=== PATIENT | male | born 1945 | race Caucasian/White ===

== ENCOUNTER → 2016-09-12 | Outpatient (CLI) | payer MEDICARE, OTHER | LOC: SP 10:33 | PROVIDERS: ATTEND Internal Medicine Infectious Disease | DX: R42 Dizziness and giddiness (principal) | CPT/HCPCS: 93880 ==

== ENCOUNTER → 2016-09-13 | Outpatient (CLI) | payer MEDICARE, OTHER | LOC: RAD 11:15 | PROVIDERS: ATTEND Internal Medicine Infectious Disease | DX: R42 Dizziness and giddiness (principal) | CPT/HCPCS: 82565; 70553; A9577 ==

== ENCOUNTER → 2016-09-13 | Outpatient (CLI) | payer MEDICARE, OTHER ==
--- NOTE | 2016-09-17 07:50 | EEG PRO FEE REPORT ---
EEG INTERPRETATION PATIENT NAME: PARKER NOWAK ROOM#: ORDER#: [id number] DATE OF STUDY: 09/13/16 : 1945 REFERRING MD: TERRY PALMER M.D. DIAGNOSIS: Memory loss MEDICATIONS: Nexium, Flomax, Lopressor, Lisinopril REPORT This is a 16 channel EEG recording with a channel of EKG. This is done during wakefulness, photic stimulation, and early stages of sleep. The background activity is 6-7 cycles per second with beta 18-22 cycles per second. Severe artifact is seen throughout the tracing. Photic stimulation did not alter the tracing significantly. In the early stages of sleep, more generalized slowing is seen. IMPRESSION This EEG contains severe artifact. Borderline slowing noted, however, this is nonspecific and can be from sleepiness, drowsiness, medication effect, etc. No definite epileptiform discharge is seen. INTERPRETING PHYSICIAN: KENYATTA PALMER M.D. /: [facility] TT: [id number] ID: [id number] /: [id number] TD: [id number] JOB: [id number] cc:KENYATTA PALMER M.D. >
== END ==
LOC: NEURO 12:30
PROVIDERS: ATTEND Internal Medicine Infectious Disease
DX: R41.3 Other amnesia (principal)
CPT/HCPCS: 95819

== ENCOUNTER 2018-10-28 15:44 | Inpatient (IN) | payer MEDICARE, OTHER ==
--- NOTE | 2018-10-28 15:55 | ER Document Report ---
ED Medical Screen (RME) - General Chief Complaint: S/S of Possible Stroke Stated Complaint: LEFT SIDE NUMBNESS Time Seen by Provider: 10/28/18 15:54 Primary Care Provider: LARY STAHL MD [Primary Care Provider] - Follow up as needed Mode of Arrival: Wheelchair Information source: Patient, [facility] Records Notes: 73-year-old male presents with complaint of sudden onset of left-sided numbness that occurred approximately 1 hour prior to arrival while driving. I have greeted and performed a rapid initial assessment of this patient. A comprehensive ED assessment and evaluation of the patient, analysis of test results and completion of medical decision making process we will be contacted by additional ED providers. PHYSICAL EXAMINATION: Vital signs reviewed GENERAL: Well-appearing, well-nourished and in no acute distress. LUNGS: No respiratory distress Musculoskeletal: Normal range of motion NEUROLOGICAL: Cranial nerves II through XII intact. PSYCH: Normal mood, normal affect. SKIN: Warm, Dry, normal turgor, no rashes or lesions noted. TRAVEL OUTSIDE OF THE [place] IN LAST 30 DAYS: No - HPI Onset: Just prior to arrival Onset/Duration: Sudden, Gone Quality of pain: No pain Severity: None Associated Symptoms: None Exacerbated by: Denies Relieved by: Denies Similar symptoms previously: No Recently seen / treated by doctor: No - Related Data Smoking: Non-smoker Frequency of alcohol use: None Drug Abuse: None Allergies/Adverse Reactions: No Known Allergies Allergy (Verified 10/28/18 15:51) Past Medical History - Past Medical History Cardiac Medical History: Reports: Hx Hypertension Doctor's Discharge - Discharge Referrals: LARY STAHL MD [Primary Care Provider] - Follow up as needed
--- NOTE | 2018-10-28 16:20 | RADIOLOGY REPORT (SQ) ---
EXAM DESCRIPTION: CT HEAD WITHOUT COMPLETED DATE/TIME: 10/28/2018 4:01 pm REASON FOR STUDY: left-sided numbness x 1 hour COMPARISON: 03/29/2016 TECHNIQUE: Axial images acquired through the brain without intravenous contrast. Images reviewed wi th bone, brain and subdural windows. Additional sagittal and coronal reconstructions were generated. Images stored on PACS. All CT scanners at this facility use dose modulation, iterative reconstruction, and/or weight based d osing when appropriate to reduce radiation dose to as low as reasonably achievable (ALARA). [facility]: Dose Right [facility]: CareDose [facility]: Dose Right [facility]: Teradose 4D [facility]: Motion Traxx RADIATION DOSE: CT Rad equipment meets quality standard of care and radiation dose reduction techniq ues were employed. CTDIvol: 53.2 mGy. DLP: 1044 mGy-cm. mGy. LIMITATIONS: None. FINDINGS: VENTRICLES: Normal size and contour. CEREBRUM: No masses. No hemorrhage. No midline shift. No evidence for acute infarction. Normal gra y/white matter differentiation. No areas of low density in the white matter. CEREBELLUM: No masses. No hemorrhage. No alteration of density. No evidence for acute infarction. EXTRAAXIAL SPACES: No fluid collections. No masses. ORBITS AND GLOBE: No intra- or extraconal masses. Normal contour of globe without masses. CALVARIUM: No fracture. PARANASAL SINUSES: No fluid or mucosal thickening. SOFT TISSUES: No mass or hematoma. OTHER: No other significant finding. IMPRESSION: NORMAL BRAIN CT WITHOUT CONTRAST. EVIDENCE OF ACUTE STROKE: NO. COMMENT: Quality ID # [id number]: Final reports with documentation of one or more dose reduction techniques (e.g., Automated exposure control, adjustment of the mA and/or kV according to patient size, use of iterative reconstruction technique) TECHNICAL DOCUMENTATION: JOB ID: [id number] [employer]- All Rights Reserved Reading location - IP/workstation name: [email or web address]
--- NOTE | 2018-10-28 16:21 | RADIOLOGY REPORT (SQ) ---
EXAM DESCRIPTION: CHEST SINGLE VIEW COMPLETED DATE/TIME: 10/28/2018 4:04 pm REASON FOR STUDY: left-sided numbness x 1 hour COMPARISON: None. EXAM PARAMETERS: NUMBER OF VIEWS: One view. TECHNIQUE: Single frontal radiographic view of the chest acquired. RADIATION DOSE: NA LIMITATIONS: None. FINDINGS: LUNGS AND PLEURA: No discrete opacities. Scarring/ atelectasis of the left base. MEDIASTINUM AND HILAR STRUCTURES: Elevated right hemidiaphragm. HEART AND VASCULAR STRUCTURES: Heart normal in size. Normal vasculature. BONES: No acute findings. HARDWARE: None in the chest. OTHER: No other significant finding. IMPRESSION: Atelectasis/ scarring at the left base. Elevated right hemidiaphragm. TECHNICAL DOCUMENTATION: JOB ID: [id number] [employer]- All Rights Reserved Reading location - IP/workstation name: [email or web address]
[2018-10-28 16:25] LABS: ABSOLUTE EOSINOPHILS # (AUTO) 0.2 10^3/uL (0.0-0.6); ABSOLUTE LYMPHOCYTES (AUTO) 1.5 10^3/uL (0.5-4.7); ABSOLUTE MONOCYTES (AUTO) 0.4 10^3/uL (0.1-1.4); BASOPHILS % (AUTO) 0.6 % (0-2); EOSINOPHILS % (AUTO) 3.2 % (0-6); HEMATOCRIT 46.4 % (37.9-51.0); HEMOGLOBIN 15.9 g/dL (13.5-17.0); LYMPHOCYTES % (AUTO) 29.2 % (13-45); MEAN CORPUSCULAR HEMOGLOBIN 29.9 pg (27.0-33.4); MEAN CORPUSCULAR HGB CONC 34.3 g/dL (32.0-36.0); MEAN CORPUSCULAR VOLUME 87 fl (80-97); MONOCYTES % (AUTO) 7.4 % (3-13); PLATELET COUNT 225 10^3/uL (150-450); RED BLOOD COUNT 5.32 10^6/uL (4.35-5.55); RED CELL DISTRIBUTION WIDTH 14.6 % (11.5-14.0); SEGMENTED NEUTROPHILS % (AUTO) 59.6 % (42-78); TOTAL CELLS COUNTED % (AUTO) 100 %; WHITE BLOOD COUNT 5.1 10^3/uL (4.0-10.5)
[2018-10-28 16:26] LABS: PROTHROMBIN TIME 13.7 SEC (11.4-15.4)
[2018-10-28 16:27] LABS: PARTIAL THROMBOPLASTIN TIME 37.5 SEC (23.5-35.8)
[2018-10-28 16:44] LABS: ALANINE AMINOTRANSFERASE 23 U/L (21-72); ALBUMIN 4.7 g/dL (3.5-5.0); ALKALINE PHOSPHATASE 108 U/L (38-126); ANION GAP 10 (5-19); ASPARTATE AMINO TRANSFERASE 29 U/L (17-59); BILIRUBIN,DIRECT 0.4 mg/dL (0.0-0.4); BILIRUBIN,TOTAL 0.6 mg/dL (0.2-1.3); BLOOD UREA NITROGEN 28 mg/dL (7-20); CALCIUM 8.6 mg/dL (8.4-10.2); CARBON DIOXIDE 23 mmol/L (22-30); CHLORIDE 107 mmol/L (98-107); CREATINE KINASE 69 U/L (55-170); GLUCOSE 94 mg/dL (75-110); POTASSIUM 4.6 mmol/L (3.6-5.0); SODIUM 139.7 mmol/L (137-145); TOTAL PROTEIN 7.5 g/dL (6.3-8.2)
[2018-10-28 16:57] LABS: CREATINE KINASE MB 2.12 ng/mL (<4.55)
[2018-10-28 17:01] LABS: TROPONIN I < 0.012 ng/mL
--- NOTE | 2018-10-28 17:42 | EKG REPORT ---
SEVERITY:- ABNORMAL ECG - SINUS RHYTHM CONSIDER RIGHT VENTRICULAR HYPERTROPHY VS OLD TRUE POST CO BORDERLINE INFERIOR Q WAVES BORDERLINE PROLONGED QT INTERVAL : Confirmed by: Zachary Le MD 28-Oct-2018 17:41:10
[2018-10-28] MEDS ORDERED: ASPIRIN 325 MG TABLET PO ONE (19:28)
--- NOTE | 2018-10-28 20:50 | ER Document Report ---
ED General - General Chief Complaint: S/S of Possible Stroke Stated Complaint: LEFT SIDE NUMBNESS Time Seen by Provider: 10/28/18 15:54 Primary Care Provider: LARY STAHL MD [NO LOCAL MD] - Follow up as needed Mode of Arrival: Wheelchair TRAVEL OUTSIDE OF THE [place] IN LAST 30 DAYS: No - HPI Notes: Patient presents to the emergency department for evaluation. He was driving down the road when he started having left arm and leg numbness. He states they felt as if they were "asleep." He states he tried to move them and they felt slightly heavy. Symptoms lasted approximately 15-20 minutes. He was able to get home under his own power. He states that after that he has had some intermittent chest pains that lasted 5-10 seconds. He had no associated symptoms with that. He is never experienced any sort of numbness or heaviness like this in the past. He does have a history of high blood pressure has been taking his medications as prescribed. He denies any pain of any sort. - Related Data Allergies/Adverse Reactions: No Known Allergies Allergy (Verified 10/28/18 15:51) Past Medical History - General Information source: Patient, [facility] Records - Social History Smoking Status: Former Smoker Chew tobacco use (# tins/day): No Frequency of alcohol use: None Drug Abuse: None Family History: Reviewed & Not Pertinent Patient has suicidal ideation: No Patient has homicidal ideation: No - Past Medical History Cardiac Medical History: Reports: Hx Hypertension Renal/ Medical History: Denies: Hx Peritoneal Dialysis Review of Systems - Review of Systems Constitutional: No symptoms reported EENT: No symptoms reported Cardiovascular: See HPI Respiratory: No symptoms reported Gastrointestinal: No symptoms reported Genitourinary: No symptoms reported Skin: No symptoms reported Neurological/Psychological: See HPI Physical Exam - Vital signs Vitals: Pulse Resp BP Pulse Ox 62 15 151/103 H 94 10/28/18 15:50 10/28/18 15:50 10/28/18 15:50 10/28/18 15:50 - Notes Notes: Vital signs reviewed, please refer to chart. Patient is normocephalic, atraumatic. Pupils equal round, reactive to light. Neck is supple without meningismus. Heart is regular rate and rhythm. Lungs are clear to auscultation bilaterally. Abdomen is soft, nontender, normoactive bowel sounds throughout. Extremities without cyanosis, clubbing, edema. Peripheral pulses are equal. Skin is warm and dry. Patient is awake, alert, oriented x3. Cranial nerves II through XII are grossly intact without focal neurological deficits. Strength is plus 5 out of 5 bilateral upper and lower extremities. Sensation is intact, reflexes symmetrical. Intact mucvhi-xbre-qmanwu, rapid alternating movements, heel to butler. Course - Re-evaluation Re-evalutation: 10/28/18 20:54 Patient presents to the emergency department for evaluation. His symptoms of left-sided numbness and heaviness are very suspicious for a TIA. His neurological exam was normal here. Serial neurological exams did not reveal any significant abnormalities. His blood pressures remain mildly elevated but certainly not to an emergency level. Laboratory evaluations are unremarkable. CT scan of the head did not reveal anything acute. His EKG revealed a sinus mechanism. He was given aspirin when his CT was found to be unremarkable. He remained asymptomatic. Given that this was his first TIA, will admit the patient for further workup. I was able to reach Dr. Herron after multiple attempts at 2049. 10/28/18 20:56 - Vital Signs Vital signs: Temp Pulse Resp BP Pulse Ox 98.3 F 62 18 150/88 H 96 10/28/18 20:01 10/28/18 19:57 10/28/18 19:57 10/28/18 19:57 10/28/18 19:57 - Laboratory Result Diagrams: 10/28/18 16:10 10/28/18 16:10 Laboratory results interpreted by me: 10/28/18 10/28/18 10/28/18 16:10 16:10 16:10 RDW 14.6 H APTT 37.5 H BUN 28 H Creatinine 1.50 H Est GFR ( Amer) 56 L Est GFR (Non-Af Amer) 46 L Discharge - Discharge Clinical Impression: TIA (transient ischemic attack) Condition: Fair Disposition: ADMITTED INPATIENT Admitting Provider: Dalton Herron Unit Admitted: Telemetry Referrals: LARY STAHL MD [NO LOCAL MD] - Follow up as needed
[2018-10-28] MEDS ORDERED: DOCUSATE SODIUM 100 MG CAPSULE PO PRN (20:56)
[2018-10-28] MEDS ORDERED: ONDANSETRON HCL INJ/PF 4 MG/2 ML SDV IV PRN (20:56)
[2018-10-28] MEDS ORDERED: MAGNESIUM HYDROXIDE SUSP 30 ML UDCUP PO PRN (20:56)
[2018-10-28] MEDS ORDERED: LABETALOL HCL INJ 20 MG/4 ML DISP.SYRIN IV PRN (20:56)
[2018-10-28] MEDS ORDERED: ONDANSETRON 4 MG TAB.RAPDIS PO PRN (20:56)
[2018-10-28] MEDS ORDERED: NORMAL SALINE 1000 ML 1,000 ML IV PRN (21:09)
[2018-10-28 21:47] LABS: APPEARANCE,URINE SLIGHTLY-CLOUDY; BILIRUBIN,URINE NEGATIVE (NEGATIVE); COLOR,URINE YELLOW; GLUCOSE, URINE NEGATIVE (NEGATIVE); KETONES,URINE NEGATIVE (NEGATIVE); LEUKOCYTE ESTERASE,URINE NEGATIVE (NEGATIVE); NITRITE,URINE NEGATIVE (NEGATIVE); PROTEIN,URINE 100 mg/dL (NEGATIVE); URINE SPECIFIC GRAVITY 1.016; UROBILINOGEN,URINE NEGATIVE mg/dL (<2.0)
[2018-10-28 22:43] LABS: FREE T3 3.77 pg/mL (2.77-5.27); FREE T4 (FREE THYROXINE) 1.24 ng/dL (0.78-2.19)
--- NOTE | 2018-10-28 22:44 | RADIOLOGY REPORT (SQ) ---
EXAM DESCRIPTION: MR BRAIN WITHOUT IV CONTRAST COMPLETED DATE/TME: 10/28/2018 00:00 CLINICAL HISTORY: 73 years, Male, TIA COMPARISON: Prior MRI brain 09/13/2016 TECHNIQUE: 277 Images stored on PACS. LIMITATIONS: None. FINDINGS: Sagittal midline anatomic structures demonstrate an unremarkable appearance to the pituitary and suprasellar regions. The globes are intact. The paranasal sinuses and mastoid air cells are unremarkable. Normal flow void in visualized intracranial vessels. The visualized cranial nerve complexes are unremarkable. There is no intra or extra-axial hemorrhage. Diffusion-weighted images are normal, without evidence for acute infarct. No evidence for mass or midline shift. Diffuse, age-appropriate atrophy. A few foci of increased FLAIR/T2 white matter signal in the periventricular and subcortical regions, consistent with sequelae of small vessel ischemic change. IMPRESSION: Negative for acute intracranial abnormality. Mild atrophy and small vessel ischemic change copyright 2010 [employer]- All Rights Reserved
[2018-10-28] MEDS: ACETAMINOPHEN 325 MG TABLET PO PRN (23:02)
[2018-10-28] MEDS: FAMOTIDINE 20 MG TABLET PO SCH (23:02)
[2018-10-28 23:42] LABS: CREATINE KINASE MB 1.75 ng/mL (<4.55)
[2018-10-28 23:48] LABS: TROPONIN I < 0.012 ng/mL
[2018-10-29] MEDS ORDERED: MELATONIN 5 MG TABLET PO ONE (02:24)
[2018-10-29] MEDS ORDERED: LABETALOL HCL INJ 20 MG/4 ML DISP.SYRIN IV ONE (04:09)
--- NOTE | 2018-10-29 05:01 | PDOC H&P ---
History of Present Illness Admission Date/PCP: ALANNA CARIAS MD Patient complains of: Left sided weakness History of Present Illness: PARKER NOWAK is a 73 year old male who presents the emergency room with the sudden onset of acute weakness of the entire left side of his body. He states that at approximately 2:15 PM on the day of admission he was driving his vehicle when he suddenly had the onset of a strange sensation of numbness "like it just was going to sleep" involving the entire left side of his body. The sensation was progressive beginning at his head and over the next 30-40 seconds gradually moved down his entire body to his left foot. The sensation of numbness was also accompanied by significant weakness and inability to actively control the position or function of his left hand or foot. He was trying to shake his arm in order to "wake up" his hand but his actions were poorly coordinated and to no avail. He was concerned and was driving to go to the hospital which she eventually did however the symptoms resolved within approximately 15 minutes of the time that they had started. The symptoms have not recurred since that time. He rates his symptoms as moderately severe at the time while they were present and denies prior similar episodes. He has not identified any aggravating or ameliorating factors for his acute onset of weakness and numbness. He admits a past medical history positive for hypertension and also a history of prostate cancer. In the emergency room he was found to have a negative CT of the head and his laboratory evaluation was essentially unremarkable. Because of his acute stroke/TIA symptoms he was admitted for further evaluation and treatment. Past Medical History Cardiac Medical History: Reports: Hypertension Denies: Atrial Fibrillation, Coronary Artery Disease, DVT, Hyperlipidema Pulmonary Medical History: Denies: Asthma, Chronic Obstructive Pulmonary Disease (COPD) EENT Medical History: Reports: None Neurological Medical History: Denies: Hemorrhagic CVA, Ischemic CVA, Seizures Endocrine Medical History: Denies: Diabetes Mellitus Type 1, Diabetes Mellitus Type 2, Hyperthyroidism, Hypothyroidism Renal/ Medical History: Denies: Chronic Kidney Disease, Nephrolithiasis Malignancy Medical History: Reports: Other - Prostate cancer GI Medical History: Denies: Cirrhosis, Hepatitis Musculoskeltal Medical History: Denies: Arthritis, Gout Skin Medical History: Denies: Eczema, Psoriasis Psychiatric Medical History: Reports: Tobacco Dependency Denies: Alcohol Dependency, Substance Abuse Traumatic Medical History: Reports: None Hematology: Denies: Anemia, Bleeding Tendencies Infectious Medical History: Reports: None Past Surgical History Past Surgical History: Reports: Cardiac Catheterization - With cardiac ablation and IVF filter placement, Gastric Bypass Surgery, Orthopedic Surgery - Left knee replacement, Tonsillectomy, Other - Treatment of prostate cancer Social History Information Source: Patient Lives with: Spouse/Significant other Smoking Status: Former Smoker Frequency of Alcohol Use: None Hx Recreational Drug Use: No Drugs: None Hx Prescription Drug Abuse: No - Advance Directive Resuscitation Status: Full Code Surrogate healthcare decision maker:: His daughter Family History Family History: CAD, Malignancy Parental Family History Reviewed: Yes Children Family History Reviewed: No Sibling(s) Family History Reviewed.: Yes Medication/Allergy Allergies/Adverse Reactions: No Known Allergies Allergy (Verified 10/28/18 15:51) Review of Systems Constitutional: PRESENT: as per HPI, weakness. ABSENT: chills, fever(s) Eyes: ABSENT: visual disturbances, other - Eye pain Ears: ABSENT: hearing changes, other - Ear pain Nose, Mouth, and Throat: ABSENT: mouth pain, sore throat Cardiovascular: PRESENT: chest pain - Experienced a few episodes of sharp pain under his pacemaker lasting for 5-10 seconds during the episode described in the history of present illness.. ABSENT: dyspnea on exertion, palpitations Respiratory: ABSENT: cough, dyspnea Gastrointestinal: ABSENT: abdominal pain, constipation, diarrhea, nausea, vomiting Genitourinary: ABSENT: dysuria, hematuria Musculoskeletal: ABSENT: deformity, joint swelling Integumentary: ABSENT: pruritus, rash Neurological: PRESENT: as per HPI, focal weakness, lack of coordination, numbn ess, weakness. ABSENT: confusion, convulsions, memory loss, tremor(s) Psychiatric: ABSENT: anxiety, depression Endocrine: ABSENT: cold intolerance, heat intolerance Hematologic/Lymphatic: ABSENT: easy bleeding, easy bruising Physical Exam Vital Signs: Temp Pulse Resp BP Pulse Ox 98.3 F 62 18 150/88 H 96 10/28/18 20:01 10/28/18 19:57 10/28/18 19:57 10/28/18 19:57 10/28/18 19:57 General appearance: PRESENT: no acute distress, cooperative Head exam: PRESENT: atraumatic, normocephalic Eye exam: PRESENT: conjunctiva pink, EOMI. ABSENT: scleral icterus Ear exam: PRESENT: normal external ear exam. ABSENT: bleeding, drainage Mouth exam: PRESENT: dry mucosa, neck supple Neck exam: ABSENT: thyromegaly, tracheal deviation Respiratory exam: PRESENT: clear to auscultation gretta, symmetrical, unlabored Cardiovascular exam: PRESENT: RRR. ABSENT: clicks, gallop, rubs Pulses: PRESENT: normal radial pulses, normal dorsalis pedis pul Vascular exam: PRESENT: normal capillary refill. ABSENT: pallor GI/Abdominal exam: PRESENT: normal bowel sounds, soft. ABSENT: tenderness Rectal exam: PRESENT: deferred Extremities exam: ABSENT: joint swelling, pedal edema Musculoskeletal exam: ABSENT: deformity, dislocation Neurological exam: PRESENT: alert, oriented to person, oriented to place, oriented to time, oriented to situation, CN II-XII grossly intact. ABSENT: motor sensory deficit Psychiatric exam: PRESENT: appropriate affect, normal mood Skin exam: PRESENT: dry, intact, warm. ABSENT: jaundice, rash, urticaria Results Laboratory Results: 10/28/18 16:10 10/28/18 16:10 10/28/18 10/28/18 16:10 16:10 WBC 5.1 RBC 5.32 Hgb 15.9 Hct 46.4 MCV 87 MCH 29.9 MCHC 34.3 RDW 14.6 H Plt Count 225 Seg Neutrophils % 59.6 Lymphocytes % 29.2 Monocytes % 7.4 Eosinophils % 3.2 Basophils % 0.6 Absolute Neutrophils 3.0 Absolute Lymphocytes 1.5 Absolute Monocytes 0.4 Absolute Eosinophils 0.2 Absolute Basophils 0.0 Sodium 139.7 Potassium 4.6 Chloride 107 Carbon Dioxide 23 Anion Gap 10 BUN 28 H Creatinine 1.50 H Est GFR ( Amer) 56 L Est GFR (Non-Af Amer) 46 L Glucose 94 Calcium 8.6 Total Bilirubin 0.6 AST 29 ALT 23 Alkaline Phosphatase 108 Total Protein 7.5 Albumin 4.7 10/28/18 10/28/18 16:10 16:10 Creatine Kinase 69 CK-MB (CK-2) 2.12 Troponin I < 0.012 Impressions: Chest X-Ray 10/28/18 15:50 IMPRESSION: Atelectasis/ scarring at the left base. Elevated right hemidiaphragm. Head CT 10/28/18 15:50 IMPRESSION: NORMAL BRAIN CT WITHOUT CONTRAST. EVIDENCE OF ACUTE STROKE: NO. Assessment & Plan - Diagnosis (1) TIA (transient ischemic attack) Is this a current diagnosis for this admission?: Yes Plan: Patient has been placed in the stroke/TIA protocol and will be evaluated carefully over the next 1-2 days. He will receive Nubain 10 mg IV every 3 hours as needed for pain. (2) HTN (hypertension), malignant Is this a current diagnosis for this admission?: Yes Plan: Patient will be continued on his usual medications for hypertension with changes made only as required for adequacy of control. (3) Obesity Qualifiers: Obesity type: unspecified obesity type Is this a current diagnosis for this admission?: Yes Plan: Patient is status post gastric bypass surgery he will be maintained on a heart healthy diet. Dietary consultation and further evaluation will be available to him at his request. (4) Personal history of malignant neoplasm of prostate Is this a current diagnosis for this admission?: Yes Plan: The treatment selected for the patient will be done so with great care towards the history of prior malignant neoplasm of the prostate. - Time Time Spent: 30 to 50 Minutes Critical Time spent with patient: Less than 15 minutes Medications reviewed and adjusted accordingly: Yes Anticipated discharge: Home - Inpatient Certification Based on my medical assessment, after consideration of the patient's comorbidities, presenting symptoms, or acuity I expect that the services needed warrant INPATIENT care.: Yes I certify that my determination is in accordance with my understanding of Medicare's requirements for reasonable and necessary INPATIENT services [42 CFR 412.3e].: Yes Medical Necessity: Significant Comorbidiites Make Outpatient Treatment Too Risky, Need Close Monitoring Due to Risk of Patient Decompensation, Need For Continuous Telemetry Monitoring, Need for Neurological Checks, Risk of Complication if Not Cared For in Hospital
[2018-10-29 05:41] LABS: HEMATOCRIT 43.5 % (37.9-51.0); HEMOGLOBIN 14.7 g/dL (13.5-17.0); MEAN CORPUSCULAR HEMOGLOBIN 29.7 pg (27.0-33.4); MEAN CORPUSCULAR HGB CONC 33.8 g/dL (32.0-36.0); MEAN CORPUSCULAR VOLUME 88 fl (80-97); PLATELET COUNT 186 10^3/uL (150-450); RED BLOOD COUNT 4.95 10^6/uL (4.35-5.55); RED CELL DISTRIBUTION WIDTH 14.8 % (11.5-14.0); WHITE BLOOD COUNT 4.9 10^3/uL (4.0-10.5)
[2018-10-29 06:03] LABS: ANION GAP 9 (5-19); BLOOD UREA NITROGEN 26 mg/dL (7-20); CALCIUM 8.5 mg/dL (8.4-10.2); CARBON DIOXIDE 26 mmol/L (22-30); CHLORIDE 108 mmol/L (98-107); CHOLESTEROL 185.88 mg/dL (0-200); CREATINE KINASE 52 U/L (55-170); GLUCOSE 108 mg/dL (75-110); POTASSIUM 4.6 mmol/L (3.6-5.0); SODIUM 142.9 mmol/L (137-145); TRIGLYCERIDES 128 mg/dL (<150)
[2018-10-29 06:14] LABS: DIRECT LDL 122 mg/dL (<100)
--- NOTE | 2018-10-29 08:35 | RADIOLOGY REPORT (SQ) ---
EXAM DESCRIPTION: MRA HEAD WITHOUT COMPLETED DATE/TIME: 10/28/2018 10:41 pm REASON FOR STUDY: TIA COMPARISON: None. TECHNIQUE: Axial 3-D [id number] acquisition imaging performed through the brain in the area of t he [place]. Images reformatted using 3-D MIPS. LIMITATIONS: None. FINDINGS: SOURCE IMAGES: No unexpected findings on source images. No large masses. 3-D MIP: No aneurysm. No occlusions. No significant stenosis. OTHER: No other significant finding. IMPRESSION: NORMAL MRA OF THE [place]. TECHNICAL DOCUMENTATION: JOB ID: [id number] [email or web address]- All Rights Reserved Reading location - IP/workstation name: [email or web address]
[2018-10-29] MEDS: FONDAPARINUX SODIUM INJ 2.5 MG/0.5 ML DISP.SYRIN SUBCUT SCH (08:53)
[2018-10-29 09:05] LABS: TROPONIN I < 0.012 ng/mL
[2018-10-29] MEDS: FAMOTIDINE 20 MG TABLET PO SCH ×2 (10:50→21:49)
[2018-10-29] MEDS: CLOPIDOGREL BISULFATE 75 MG TABLET PO SCH (10:50)
[2018-10-29 12:21] LABS: CREATINE KINASE MB 1.76 ng/mL (<4.55)
[2018-10-29 12:25] LABS: TROPONIN I < 0.012 ng/mL
[2018-10-29] MEDS ORDERED: (PENDING PHARMACY ID) (Lisinopril [Zestril] 20 MG) PO SCH (13:00)
--- NOTE | 2018-10-29 14:08 | PDOC PROGRESS REPORT ---
Subjective Progress Note for:: 10/29/18 Subjective:: No acute events overnight. Patient's numbness on the left side has resolved completely. Denies any focal neurological deficit. Ambulatory. Denies any vision changes. Denies fever, chills, nausea, vomiting, diarrhea, constipation or any urinary symptoms. Reason For Visit: TIA Physical Exam Vital Signs: Temp Pulse Resp BP Pulse Ox 97.8 F 64 17 156/96 H 97 10/29/18 11:24 10/29/18 11:24 10/29/18 11:24 10/29/18 11:24 10/29/18 11:24 Intake & Output 10/28/18 10/29/18 10/30/18 06:59 06:59 06:59 Intake Total 200 Balance 200 Weight 115.2 kg General appearance: PRESENT: no acute distress, well-developed, well-nourished Head exam: PRESENT: atraumatic, normocephalic Eye exam: PRESENT: conjunctiva pink, EOMI, PERRLA. ABSENT: scleral icterus Neck exam: ABSENT: carotid bruit, JVD, lymphadenopathy, thyromegaly Respiratory exam: PRESENT: clear to auscultation gretta. ABSENT: rales, rhonchi, wheezes Cardiovascular exam: PRESENT: RRR. ABSENT: diastolic murmur, rubs, systolic mur mur Rectal exam: PRESENT: deferred Extremities exam: PRESENT: full ROM. ABSENT: calf tenderness, clubbing, pedal edema Neurological exam: PRESENT: alert, awake, oriented to person, oriented to place, oriented to time, oriented to situation, CN II-XII grossly intact. ABSENT: motor sensory deficit Skin exam: PRESENT: dry, intact, warm. ABSENT: cyanosis, rash Results Laboratory Results: 10/29/18 04:57 10/29/18 04:57 10/28/18 10/28/18 10/28/18 16:10 16:10 16:10 WBC 5.1 RBC 5.32 Hgb 15.9 Hct 46.4 MCV 87 MCH 29.9 MCHC 34.3 RDW 14.6 H Plt Count 225 Seg Neutrophils % 59.6 Lymphocytes % 29.2 Monocytes % 7.4 Eosinophils % 3.2 Basophils % 0.6 Absolute Neutrophils 3.0 Absolute Lymphocytes 1.5 Absolute Monocytes 0.4 Absolute Eosinophils 0.2 Absolute Basophils 0.0 Sodium 139.7 Potassium 4.6 Chloride 107 Carbon Dioxide 23 Anion Gap 10 BUN 28 H Creatinine 1.50 H Est GFR ( Amer) 56 L Est GFR (Non-Af Amer) 46 L Glucose 94 Calcium 8.6 Magnesium Total Bilirubin 0.6 AST 29 ALT 23 Alkaline Phosphatase 108 Total Protein 7.5 Albumin 4.7 Triglycerides Cholesterol LDL Cholesterol Direct VLDL Cholesterol HDL Cholesterol TSH Free T4 1.24 Free T3 pg/mL 3.77 Urine Color Urine Appearance Urine pH Ur Specific Fitz[place] Urine Protein Urine Glucose (UA) Urine Ketones Urine Blood Urine Nitrite Ur Leukocyte Esterase Urine WBC (Auto) Urine RBC (Auto) 10/28/18 10/29/18 10/29/18 21:35 04:57 04:57 WBC 4.9 RBC 4.95 Hgb 14.7 Hct 43.5 MCV 88 MCH 29.7 MCHC 33.8 RDW 14.8 H Plt Count 186 Seg Neutrophils % Lymphocytes % Monocytes % Eosinophils % Basophils % Absolute Neutrophils Absolute Lymphocytes Absolute Monocytes Absolute Eosinophils Absolute Basophils Sodium 142.9 Potassium 4.6 Chloride 108 H Carbon Dioxide 26 Anion Gap 9 BUN 26 H Creatinine 1.26 H Est GFR ( Amer) > 60 Est GFR (Non-Af Amer) 56 L Glucose 108 Calcium 8.5 Magnesium 2.4 H Total Bilirubin AST ALT Alkaline Phosphatase Total Protein Albumin Triglycerides 128 Cholesterol 185.88 LDL Cholesterol Direct 122 H VLDL Cholesterol 26.0 HDL Cholesterol 49 TSH Free T4 Free T3 pg/mL Urine Color YELLOW Urine Appearance SLIGHTLY-CLOUDY Urine pH 5.0 Ur Specific Fitzpatrick 1.016 Urine Protein 100 H Urine Glucose (UA) NEGATIVE Urine Ketones NEGATIVE Urine Blood NEGATIVE Urine Nitrite NEGATIVE Ur Leukocyte Esterase NEGATIVE Urine WBC (Auto) 1 Urine RBC (Auto) 0 10/29/18 04:57 WBC RBC Hgb Hct MCV MCH MCHC RDW Plt Count Seg Neutrophils % Lymphocytes % Monocytes % Eosinophils % Basophils % Absolute Neutrophils Absolute Lymphocytes Absolute Monocytes Absolute Eosinophils Absolute Basophils Sodium Potassium Chloride Carbon Dioxide Anion Gap BUN Creatinine Est GFR ( Amer) Est GFR (Non-Af Amer) Glucose Calcium Magnesium Total Bilirubin AST ALT Alkaline Phosphatase Total Protein Albumin Triglycerides Cholesterol LDL Cholesterol Direct VLDL Cholesterol HDL Cholesterol TSH 1.67 Free T4 Free T3 pg/mL Urine Color Urine Appearance Urine pH Ur Specific Fitzpatrick Urine Protein Urine Glucose (UA) Urine Ketones Urine Blood Urine Nitrite Ur Leukocyte Esterase Urine WBC (Auto) Urine RBC (Auto) 02/10/28/18 10/28/18 16:10 16:10 22:49 Creatine Kinase 69 50 L CK-MB (CK-2) 2.12 Troponin I < 0.012 10/28/18 10/29/18 10/29/18 22:49 04:57 04:57 Creatine Kinase 52 L CK-MB (CK-2) 1.75 1.70 Troponin I < 0.012 < 0.012 10/29/18 10/29/18 11:10 11:10 Creatine Kinase 51 L CK-MB (CK-2) 1.76 Troponin I < 0.012 Impressions: Head MRI 10/28/18 00:00 IMPRESSION: Negative for acute intracranial abnormality. Mild atrophy and small vessel ischemic change copyright 2011 [employer]- All Rights Reserved Chest X-Ray 10/28/18 15:50 IMPRESSION: Atelectasis/ scarring at the left base. Elevated right hemidiaphragm. Head CT 10/28/18 15:50 IMPRESSION: NORMAL BRAIN CT WITHOUT CONTRAST. EVIDENCE OF ACUTE STROKE: NO. Brain MRI with MRA 10/28/18 21:03 IMPRESSION: NORMAL MRA OF THE [place]. Assessment & Plan - Diagnosis (1) TIA (transient ischemic attack) Is this a current diagnosis for this admission?: Yes Plan: Denies any focal neurological deficits. Denies any numbness tingling. CT head, MRI brain, MRA brain negative for any acute stroke. Troponins within normal limits. EKG no acute changes. Pending 2D echo and carotid Doppler. Optimize blood pressure. Plavix and statins. Physical therapy has signed off as patient did not need any more PT. (2) LOBO (acute kidney injury) Is this a current diagnosis for this admission?: Yes Plan: Improving. No previous records available. Unsure if this is acute due to LOBO cause by HTN or patient has chronic changes due to chronic hypertension. Monitor volume status, monitor electrolytes. Urine sodium, urine creatinine. Renal ultrasound. A1c within normal limits. Optimize blood pressure. (3) Hyperlipidemia LDL goal <130 Is this a current diagnosis for this admission?: Yes Plan: ASCVD 29%. Started on high intensity statins. Outpatient follow-up with PCP for LFT monitoring. (4) Obesity Qualifiers: Obesity type: unspecified obesity type Body mass index: BMI 31.0-31.9 Is this a current diagnosis for this admission?: Yes Plan: History of gastric bypass. Continue lifestyle and diet modification. (5) Hypertension Is this a current diagnosis for this admission?: No Plan: Not optimize. Restart home meds. Adjust meds as needed.
[2018-10-29] MEDS ORDERED: AMLODIPINE BESYLATE 10 MG TABLET PO SCH (15:00)
--- NOTE | 2018-10-29 15:48 | RADIOLOGY REPORT (SQ) ---
EXAM DESCRIPTION: CAROTID DOPPLER COMPLETED DATE/TIME: 10/29/2018 3:13 pm REASON FOR STUDY: TIA COMPARISON: None. TECHNIQUE: Grayscale ultrasound, Doppler velocity and spectra, and color Doppler images acquired of the extra-cranial carotid and vertebral arteries. Images stored on PACS. LIMITATIONS: None. FINDINGS: RIGHT CAROTID CCA Velocities: Within normal limits. ICA Velocities Peak systolic 0.56 m/s. End diastolic 0.09 m/s. Proximal ICA/CCA peak systolic ratio 1.2. Spectra normal. No significant plaque. LEFT CAROTID CCA Velocities: Within normal limits. ICA Velocities Peak systolic 0.75 m/s. End diastolic 0.26 m/s. Proximal ICA/CCA peak systolic ratio 1.4. Spectra normal. No significant plaque. VERTEBRAL ARTERIES: Antegrade flow. Normal waveforms. SUBCLAVIAN ARTERIES: Not imaged. OTHER: No other significant finding. IMPRESSION: NO HEMODYNAMICALLY SIGNIFICANT STENOSIS. COMMENT: Quality ID #[id number]: Velocity criteria are extrapolated from the diameter data as defined by t he Society of Radiologists in Ultrasound Consensus Conference. Radiology 2003: 229; 340-346. TECHNICAL DOCUMENTATION: JOB ID: [id number] [employer]- All Rights Reserved Reading location - IP/workstation name: [email or web address]
[2018-10-29] MEDS ORDERED: AMLODIPINE BESYLATE 5 MG TABLET PO SCH (16:00)
--- NOTE | 2018-10-29 17:04 | XCELERA REPORT ---
[address] [address] Transthoracic Echocardiogram Report Name: PARKER NOWAK Age: 73 yrs Gender: Male : 1945 Patient Status: Inpatient Patient Location: [address] [place] [address] Study Date: 10/29/2018 03:06 PM Procedure: A two-dimensional transthoracic echocardiogram with color flow and Doppler was performed. The study was technically difficult with many images being suboptimal in quality. Study Quality: Poor. Reason For Study: TIA History: TIA. Ordering Physician: RAVINDRA FELIPE Performed By: Fabiana Morris Interpretation Summary The left ventricle is normal in size. There is normal left ventricular wall thickness. Left ventricular systolic function is normal. LV EF is 65% Doppler measurements suggest impaired left ventricular relaxation, which is associated with grade I/IV or mild diastolic dysfunction The left ventricular wall motion is normal. There is no thrombus. The right ventricle is not well visualized secondary to technical limitations The right atrium is normal. The left atrium is mildly dilated. There is no evidence of mitral valve prolapse. There is no vegetation seen on the mitral valve. There is no mitral valve stenosis. There is a trace amount of mitral regurgitation There is no aortic valvular vegetation. There is no aortic valve stenosis There is no LVOT obstruction. No aortic regurgitation is present. There is no tricuspid stenosis. There is a trace to mild amount of tricuspid regurgitation Right ventricular systolic pressure is at the upper limits of normal RVSP is 26 to 31 mm of Hg ,with RA mean of 5 to 10. The pulmonic valve is not well visualized. The aortic root is not well visualized. The inferior vena cava appeared normal and decreased > 50% with respiration (RAP 5-10 mmHg) There is no pericardial effusion. MMode/2D Measurements & Calculations RVDd: 4.1 cm LVIDd: 5.6 cm FS: 44.3 % Ao root diam: 3.4 cm IVSd: 0.96 cm LVIDs: 3.1 cm EDV(Teich): 152.6 ml Ao root area: 9.1 cm2 LVPWd: 0.93 cm ESV(Teich): 38.1 ml EF(Teich): 75.0 % Doppler Measurements & Calculations MV E max kailey: MV dec slope: Ao V2 max: LV V1 max P.9 cm/sec 156.0 cm/sec 8.2 mmHg MV A max kailey: 276.7 cm/sec2 Ao max PG: LV V1 max: 89.8 cm/sec MV dec time: 0.26 sec9.7 mmHg 142.9 cm/sec MV E/A: 0.80 LV dP/dt: 2858 mmHg/s PA V2 max: TR max kailey: 126.8 cm/sec 229.8 cm/sec PA max P.4 mmHg TR max P.1 mmHg Left Ventricle The left ventricle is normal in size. There is normal left ventricular wall thickness. Left ventricular systolic function is normal. LV EF is 65%. Doppler measurements suggest impaired left ventricular relaxation, which is associated with grade I/IV or mild diastolic dysfunction. The left ventricular wall motion is normal. There is no thrombus. Right Ventricle The right ventricle is not well visualized secondary to technical limitations. Atria The right atrium is normal. The left atrium is mildly dilated. Mitral Valve There is no evidence of mitral valve prolapse. There is no vegetation seen on the mitral valve. There is no mitral valve stenosis. There is a trace amount of mitral regurgitation. Aortic Valve There is no aortic valvular vegetation. There is no aortic valve stenosis. There is no LVOT obstruction. No aortic regurgitation is present. Tricuspid Valve There is no tricuspid stenosis. There is a trace to mild amount of tricuspid regurgitation. Right ventricular systolic pressure is at the upper limits of normal. RVSP is 26 to 31 mm of Hg ,with RA mean of 5 to 10. Pulmonic Valve The pulmonic valve is not well visualized. Great Vessels The aortic root is not well visualized. The inferior vena cava appeared normal and decreased > 50% with respiration (RAP 5-10 mmHg). Effusions There is no pericardial effusion. : RAVINDRA FELIPE > Cristina Gibson
[2018-10-29] MEDS ORDERED: METOPROLOL TARTRATE 50 MG TABLET PO SCH (18:00)
[2018-10-29 18:55] LABS: URINE CREATININE 17.5 mg/dL (22-328)
[2018-10-29] MEDS ORDERED: HYDRALAZINE HCL INJ/PF 20 MG/1 ML SDV IV PRN (21:29)
[2018-10-29] MEDS: ATORVASTATIN CALCIUM 40 MG TABLET PO SCH (21:49)
[2018-10-29] MEDS: OXYBUTYNIN CHLORIDE 5 MG TABLET PO SCH (21:51)
[2018-10-29] MEDS: MELATONIN 5 MG TABLET PO SCH (21:57)
[2018-10-29] MEDS ORDERED: TAMSULOSIN HCL 0.4 MG CAP.SR.24H PO SCH (22:00)
[2018-10-29] MEDS ORDERED: (PENDING PHARMACY ID) (Melatonin [Melatonin] 10 MG) PO SCH (22:00)
[2018-10-29] MEDS ORDERED: METOPROLOL TARTRATE 50 MG TABLET PO ONE (22:00)
[2018-10-30 05:08] LABS: HEMATOCRIT 44.7 % (37.9-51.0); HEMOGLOBIN 15.3 g/dL (13.5-17.0); MEAN CORPUSCULAR HEMOGLOBIN 29.5 pg (27.0-33.4); MEAN CORPUSCULAR HGB CONC 34.2 g/dL (32.0-36.0); MEAN CORPUSCULAR VOLUME 86 fl (80-97); PLATELET COUNT 178 10^3/uL (150-450); RED BLOOD COUNT 5.18 10^6/uL (4.35-5.55); RED CELL DISTRIBUTION WIDTH 14.9 % (11.5-14.0); WHITE BLOOD COUNT 4.5 10^3/uL (4.0-10.5)
[2018-10-30 05:33] LABS: ALANINE AMINOTRANSFERASE 10 U/L (21-72); ALBUMIN 4.1 g/dL (3.5-5.0); ALKALINE PHOSPHATASE 100 U/L (38-126); ANION GAP 11 (5-19); ASPARTATE AMINO TRANSFERASE 22 U/L (17-59); BILIRUBIN,DIRECT 0.2 mg/dL (0.0-0.4); BILIRUBIN,TOTAL 0.5 mg/dL (0.2-1.3); BLOOD UREA NITROGEN 17 mg/dL (7-20); CALCIUM 8.9 mg/dL (8.4-10.2); CARBON DIOXIDE 24 mmol/L (22-30); CHLORIDE 109 mmol/L (98-107); GLUCOSE 97 mg/dL (75-110); SODIUM 143.5 mmol/L (137-145); TOTAL PROTEIN 6.7 g/dL (6.3-8.2)
[2018-10-30] MEDS ORDERED: METOPROLOL TARTRATE 50 MG TABLET PO SCH ×2 (08:00→18:00)
--- NOTE | 2018-10-30 08:08 | RADIOLOGY REPORT (SQ) ---
CLINICAL DATA: Pain 73-year-old male with acute kidney insufficiency. TECHNICAL DATA: Real-time multiplanar ultrasound imaging obtained of the kidneys and bladder. FINDINGS: There are no comparisons. The left kidney measures 11.7 x 5.7 x 5.9 cm. There is no evidence of hydronephrosis or perinephric fluid collection. No definite renal calculus is identified. Cortical echogenicity is normal to slightly increased. There are a couple of small focal anechoic mass lesions arising from the upper pole and mid to lower pole of the left kidney with enhanced through transmission of sound likely representing incidental benign appearing renal cysts. The upper pole cyst measures 1.8 x 1.5 x 1.4 cm. The mid to lower pole cyst measures approximately 2.0 x 2.4 x 2.0 cm. The right kidney measures approximately 11.5 x 5.5 x 6.8 cm. There is no evidence of hydronephrosis or perinephric fluid collection. No definite renal calculus is identified. Cortical echogenicity is normal to slightly increased. No definite solid or cystic renal mass lesions are identified. The bladder is partially distended and smooth in contour. Bilateral ureteral jets are identified. IMPRESSION: 1. Small benign-appearing left renal cysts. 2. Renal cortical echogenicity is normal to slightly increased. 3. No evidence of hydronephrosis.
[2018-10-30] MEDS: TAMSULOSIN HCL 0.4 MG CAP.SR.24H PO SCH (08:20)
[2018-10-30] MEDS: FONDAPARINUX SODIUM INJ 2.5 MG/0.5 ML DISP.SYRIN SUBCUT SCH (08:20)
[2018-10-30] MEDS: SERTRALINE HCL 50 MG TABLET PO SCH (09:06)
[2018-10-30] MEDS: CLOPIDOGREL BISULFATE 75 MG TABLET PO SCH (09:06)
[2018-10-30] MEDS: OXYBUTYNIN CHLORIDE 5 MG TABLET PO SCH ×2 (09:07→21:35)
[2018-10-30] MEDS: ACETAMINOPHEN 325 MG TABLET PO PRN ×3 (09:07→17:37)
[2018-10-30] MEDS: FAMOTIDINE 20 MG TABLET PO SCH ×2 (09:07→21:35)
[2018-10-30] MEDS: LISINOPRIL 10 MG TABLET PO SCH (09:07)
[2018-10-30] MEDS ORDERED: (PENDING PHARMACY ID) (Sertraline Hcl [Zoloft] 200 MG) PO SCH (10:00)
[2018-10-30] MEDS ORDERED: AMLODIPINE BESYLATE 10 MG TABLET PO SCH (10:00)
[2018-10-30] MEDS ORDERED: AMLODIPINE BESYLATE 5 MG TABLET PO SCH (10:00)
[2018-10-30] MEDS ORDERED: LISINOPRIL 10 MG TABLET PO SCH (10:00)
[2018-10-30] MEDS: HYDRALAZINE HCL INJ/PF 20 MG/1 ML SDV IV PRN (12:22)
--- NOTE | 2018-10-30 13:39 | PDOC PROGRESS REPORT ---
Subjective Progress Note for:: 10/30/18 Subjective:: No acute events overnight. Patient complaining of persistent generalized headache otherwise he has been ambulatory, p.o. tolerant, having normal bowel and bladder movements. Denies any dizziness, palpitation, focal neurological deficits, numbness, or any vision changes. Denies chest pain, shortness of breath, nausea, vomiting, diarrhea, constipation or any urinary symptoms. Reason For Visit: TIA Physical Exam Vital Signs: Temp Pulse Resp BP Pulse Ox 98.4 F 74 16 162/115 H 95 10/30/18 11:54 10/30/18 11:54 10/30/18 11:54 10/30/18 11:54 10/30/18 11:54 Intake & Output 10/29/18 10/30/18 10/31/18 06:59 06:59 06:59 Intake Total 1695 115 Balance 1695 115 Weight 115.2 kg 110.3 kg General appearance: PRESENT: no acute distress, well-developed, well-nourished Head exam: PRESENT: atraumatic, normocephalic Eye exam: PRESENT: conjunctiva pink, EOMI, PERRLA. ABSENT: scleral icterus Respiratory exam: PRESENT: clear to auscultation gretta. ABSENT: rales, rhonchi, wheezes Cardiovascular exam: PRESENT: RRR. ABSENT: diastolic murmur, rubs, systolic murmur GI/Abdominal exam: PRESENT: normal bowel sounds, soft. ABSENT: distended, guarding, mass, organolmegaly, rebound, tenderness Extremities exam: PRESENT: full ROM. ABSENT: calf tenderness, clubbing, pedal edema Neurological exam: PRESENT: alert, awake, oriented to person, oriented to place, oriented to time, oriented to situation, CN II-XII grossly intact. ABSENT: motor sensory deficit Psychiatric exam: PRESENT: appropriate affect, normal mood. ABSENT: homicidal ideation, suicidal ideation Skin exam: PRESENT: dry, intact, warm. ABSENT: cyanosis, rash Results Laboratory Results: 10/30/18 04:52 10/30/18 04:52 10/30/18 10/30/18 10/30/18 04:52 04:52 04:52 WBC 4.5 RBC 5.18 Hgb 15.3 Hct 44.7 MCV 86 MCH 29.5 MCHC 34.2 RDW 14.9 H Plt Count 178 Sodium 143.5 Potassium 4.0 Chloride 109 H Carbon Dioxide 24 Anion Gap 11 BUN 17 Creatinine 1.03 Est GFR ( Amer) > 60 Est GFR (Non-Af Amer) > 60 Glucose 97 Calcium 8.9 Magnesium 2.4 H Total Bilirubin 0.5 AST 22 ALT 10 L Alkaline Phosphatase 100 Total Protein 6.7 Albumin 4.1 10/28/18 10/28/18 10/28/18 16:10 16:10 22:49 Creatine Kinase 69 50 L CK-MB (CK-2) 2.12 Troponin I < 0.012 10/28/18 10/29/18 10/29/18 22:49 04:57 04:57 Creatine Kinase 52 L CK-MB (CK-2) 1.75 1.70 Troponin I < 0.012 < 0.012 10/29/18 10/29/18 11:10 11:10 Creatine Kinase 51 L CK-MB (CK-2) 1.76 Troponin I < 0.012 Impressions: Head MRI 10/28/18 00:00 IMPRESSION: Negative for acute intracranial abnormality. Mild atrophy and small vessel ischemic change copyright 2011 [employer]- All Rights Reserved Chest X-Ray 10/28/18 15:50 IMPRESSION: Atelectasis/ scarring at the left base. Elevated right hemidiaphragm. Head CT 10/28/18 15:50 IMPRESSION: NORMAL BRAIN CT WITHOUT CONTRAST. EVIDENCE OF ACUTE STROKE: NO. Brain MRI with MRA 10/28/18 21:03 IMPRESSION: NORMAL MRA OF THE [place] OF [place]. Carotid Doppler Study 10/29/18 00:00 IMPRESSION: NO HEMODYNAMICALLY SIGNIFICANT STENOSIS. Renal Ultrasound 10/30/18 00:00 IMPRESSION: 1. Small benign-appearing left renal cysts. 2. Renal cortical echogenicity is normal to slightly increased. 3. No evidence of hydronephrosis. Assessment & Plan - Diagnosis (1) TIA (transient ischemic attack) Is this a current diagnosis for this admission?: Yes Plan: Denies any focal neurological deficits. Denies any numbness tingling. CT head, MRI brain, MRA brain negative for any acute stroke. Troponins within normal limits. EKG no acute changes. 10/29/2018. 2D echo and carotid Doppler no acute abnormalities. Optimize blood pressure. Plavix and statins. Physical therapy has signed off as patient did not need any more PT. (2) HTN (hypertension), malignant Is this a current diagnosis for this admission?: Yes Plan: Patient had acute kidney injury coupled with TIA which could have been caused by uncontrolled hypertension. Switch metoprolol to carvedilol. Increase amlodipine from 5-10. Increase lisinopril from 20-40. Hydralazine as needed. Will DC home if blood pressure is optimized by tomorrow. (3) LOBO (acute kidney injury) Is this a current diagnosis for this admission?: Yes Plan: Resolved. FeNa 2.6% Likely renal due to malignant hypertension. Ultrasound within normal limits. A1c 5.2%. (4) Hyperlipidemia LDL goal <130 Is this a current diagnosis for this admission?: Yes Plan: ASCVD 29%. Started on high intensity statins. Outpatient follow-up with PCP for LFT monitoring. (5) Obesity Qualifiers: Obesity type: unspecified obesity type Body mass index: BMI 31.0-31.9 Is this a current diagnosis for this admission?: Yes Plan: History of gastric bypass. Continue lifestyle and diet modification. (6) Hypertension Is this a current diagnosis for this admission?: No Plan: As per problem #2.
[2018-10-30] MEDS ORDERED: MAG HYDROX/AL HYDROX/SIMETH SUSP 30 ML UDCUP PO PRN (17:35)
[2018-10-30] MEDS: ATORVASTATIN CALCIUM 40 MG TABLET PO SCH (21:35)
[2018-10-30] MEDS: CARVEDILOL 12.5 MG TABLET PO SCH (21:35)
[2018-10-30] MEDS: MELATONIN 5 MG TABLET PO SCH (21:35)
[2018-10-31] MEDS: HYDRALAZINE HCL INJ/PF 20 MG/1 ML SDV IV PRN (03:44)
[2018-10-31 04:55] LABS: HEMOGLOBIN 14.6 g/dL (13.5-17.0); MEAN CORPUSCULAR HEMOGLOBIN 29.6 pg (27.0-33.4); MEAN CORPUSCULAR VOLUME 87 fl (80-97); PLATELET COUNT 169 10^3/uL (150-450); RED BLOOD COUNT 4.95 10^6/uL (4.35-5.55); RED CELL DISTRIBUTION WIDTH 14.4 % (11.5-14.0); WHITE BLOOD COUNT 4.8 10^3/uL (4.0-10.5)
[2018-10-31 05:23] LABS: ALANINE AMINOTRANSFERASE 18 U/L (21-72); ALBUMIN 3.6 g/dL (3.5-5.0); ALKALINE PHOSPHATASE 90 U/L (38-126); ANION GAP 9 (5-19); ASPARTATE AMINO TRANSFERASE 18 U/L (17-59); BILIRUBIN,DIRECT 0.2 mg/dL (0.0-0.4); BILIRUBIN,TOTAL 0.5 mg/dL (0.2-1.3); BLOOD UREA NITROGEN 23 mg/dL (7-20); CALCIUM 8.8 mg/dL (8.4-10.2); CARBON DIOXIDE 24 mmol/L (22-30); CHLORIDE 108 mmol/L (98-107); GLUCOSE 99 mg/dL (75-110); POTASSIUM 3.7 mmol/L (3.6-5.0); SODIUM 140.8 mmol/L (137-145); TOTAL PROTEIN 5.8 g/dL (6.3-8.2)
[2018-10-31] MEDS ORDERED: ONDANSETRON HCL INJ/PF 4 MG/2 ML SDV IV PRN (09:00)
[2018-10-31] MEDS ORDERED: ONDANSETRON 4 MG TAB.RAPDIS PO PRN (09:00)
[2018-10-31] MEDS: ACETAMINOPHEN 325 MG TABLET PO PRN (09:10)
[2018-10-31] MEDS: FONDAPARINUX SODIUM INJ 2.5 MG/0.5 ML DISP.SYRIN SUBCUT SCH (09:10)
[2018-10-31] MEDS: LISINOPRIL 10 MG TABLET PO SCH (09:48)
[2018-10-31] MEDS: SERTRALINE HCL 50 MG TABLET PO SCH (09:49)
[2018-10-31] MEDS: OXYBUTYNIN CHLORIDE 5 MG TABLET PO SCH (09:50)
[2018-10-31] MEDS: CLOPIDOGREL BISULFATE 75 MG TABLET PO SCH (09:50)
[2018-10-31] MEDS: TAMSULOSIN HCL 0.4 MG CAP.SR.24H PO SCH (09:50)
[2018-10-31] MEDS: FAMOTIDINE 20 MG TABLET PO SCH (09:50)
[2018-10-31] MEDS: CARVEDILOL 12.5 MG TABLET PO SCH (09:50)
[2018-10-31] MEDS ORDERED: AMLODIPINE BESYLATE 5 MG TABLET PO SCH ×2 (10:00)
[2018-10-31] MEDS ORDERED: AMLODIPINE BESYLATE 10 MG TABLET PO SCH ×2 (10:00)
[2018-10-31] MEDS ORDERED: HYDROCHLOROTHIAZIDE 25 MG TABLET PO SCH (10:00)
[2018-10-31] MEDS ORDERED: CHLORTHALIDONE 25 MG TABLET PO SCH (10:00)
[2018-10-31 16:54] VITALS: BP 178/90
--- NOTE | 2018-10-31 17:45 | PDOC DISCHARGE SUMMARY ---
General - Admit/Disc Date/PCP Admission Date/Primary Care Provider: 10/28/18 21:09 ALANNA CARIAS MD Discharge Date: 10/31/18 - Discharge Diagnosis (1) TIA (transient ischemic attack) Is this a current diagnosis for this admission?: Yes (2) HTN (hypertension), malignant Is this a current diagnosis for this admission?: Yes (3) LOBO (acute kidney injury) Is this a current diagnosis for this admission?: Yes (4) Hyperlipidemia LDL goal <130 Is this a current diagnosis for this admission?: Yes (5) Obesity Is this a current diagnosis for this admission?: Yes (6) Hypertension Is this a current diagnosis for this admission?: No - Additional Information Resuscitation Status: Full Code Discharge Diet: As Tolerated Discharge Activity: Activity As Tolerated Prescriptions: Atorvastatin Calcium [Lipitor 40 mg Tablet] 40 mg PO QHS 30 Days #30 tablet Carvedilol [Coreg 25 mg Tablet] 1 tab PO Q12 30 Days #60 tab Chlorthalidone [Hygroton 25 mg Tablet] 12.5 mg PO DAILY 30 Days #15 tablet Clopidogrel Bisulfate [Plavix 75 mg Tablet] 75 mg PO DAILY 30 Days #30 tablet Lisinopril [Prinivil 10 mg Tablet] 40 mg PO DAILY 30 Days #30 tablet Lisinopril [Prinivil 40 mg Tablet] 40 mg PO DAILY 30 Days #30 tablet Home Medications: Acetaminophen [Tylenol Extra Strength 500 mg Tablet] 1,000 mg PO Q6HP PRN 10/29/18 Albuterol Sulfate [Proair HFA Inhalation Aerosol 8.5 gm MDI] 1 puff IH Q4HP PRN 10/29/18 Amlodipine Besylate [Norvasc 10 mg Tablet] 10 mg PO DAILY 10/29/18 Cyclobenzaprine HCl [Flexeril 10 mg Tablet] 10 mg PO TID 10/29/18 L.acidoph,Paracasei, B.lactis [Probiotic] 2 cap PO DAILY 10/29/18 Melatonin 10 mg PO QHS 10/29/18 Omeprazole 40 mg PO DAILY 10/29/18 Oxybutynin Chloride [Ditropan Xl] 10 mg PO DAILY 10/29/18 Sertraline HCl [Zoloft] 200 mg PO DAILY 10/29/18 Simethicone 125 mg PO MEALS PRN 10/29/18 Tamsulosin HCl [Flomax 0.4 mg Cap.sr] 0.8 mg PO QHS 10/29/18 Atorvastatin Calcium [Lipitor 40 mg Tablet] 40 mg PO QHS 30 Days #30 tablet Carvedilol [Coreg 25 mg Tablet] 1 tab PO Q12 30 Days #60 tab 10/31/18 Chlorthalidone [Hygroton 25 mg Tablet] 12.5 mg PO DAILY 30 Days #15 tablet 10/31/18 Clopidogrel Bisulfate [Plavix 75 mg Tablet] 75 mg PO DAILY 30 Days #30 tablet 10/31/18 Lisinopril [Prinivil 10 mg Tablet] 40 mg PO DAILY 30 Days #30 tablet 10/31/18 Lisinopril [Prinivil 40 mg Tablet] 40 mg PO DAILY 30 Days #30 tablet 10/31/18 History of Present Illness History of Present Illness: PARKER NOWAK is a 73 year old male who presents the emergency room with the sudden onset of acute weakness of the entire left side of his body. He states that at approximately 2:15 PM on the day of admission he was driving his vehicle when he suddenly had the onset of a strange sensation of numbness "like it just was going to sleep" involving the entire left side of his body. The sensation was progressive beginning at his head and over the next 30-40 seconds gradually moved down his entire body to his left foot. The sensation of numbness was also accompanied by significant weakness and inability to actively control the position or function of his left hand or foot. He was trying to shake his arm in order to "wake up" his hand but his actions were poorly coordinated and to no avail. He was concerned and was driving to go to the hospital which she eventually did however the symptoms resolved within approximately 15 minutes of the time that they had started. The symptoms have not recurred since that time. He rates his symptoms as moderately severe at the time while they were present and denies prior similar episodes. He has not identified any aggravating or ameliorating factors for his acute onset of weakness and numbness. He admits a past medical history positive for hypertension and also a history of prostate cancer. In the emergency room he was found to have a negative CT of the head and his laboratory evaluation was essentially unremarkable. Because of his acute stroke/TIA symptoms he was admitted for further evaluation and treatment. Hospital Course Hospital Course: (1) TIA (transient ischemic attack) Denies any focal neurological deficits. Denies any numbness tingling. CT head, MRI brain, MRA brain negative for any acute stroke. Troponins within normal limits. EKG no acute changes. 10/29/2018. 2D echo and carotid Doppler no acute abnormalities. Optimized blood pressure. Started on Plavix on high intensity statins. Physical therapy has signed off as patient did not need any more PT. (2) HTN (hypertension), malignant Patient had acute kidney injury coupled with TIA which could have been caused by uncontrolled hypertension. Switched metoprolol to carvedilol. Increase amlodipine from 5-10. Increase lisinopril from 20-40. Chlorthalidone 12.5. Hydralazine as needed. An appointment was made 11/06/2018 with his PCP to follow-up for reconciliation and adjustment of his hypertension medications. (3) LOBO (acute kidney injury) Resolved. FeNa 2.6% Likely renal due to malignant hypertension. Ultrasound within normal limits. A1c 5.2%. (4) Hyperlipidemia LDL goal <130 ASCVD 29%. Started on high intensity statins. Outpatient follow-up with PCP for LFT monitoring. (5) Obesity History of gastric bypass. Continue lifestyle and diet modification. (6) Hypertension As per problem #2. Physical Exam Vital Signs: Temp Pulse Resp BP Pulse Ox 97.8 F 82 18 178/90 H 95 10/31/18 16:53 10/31/18 16:53 10/31/18 16:53 10/31/18 16:53 10/31/18 16:53 Intake & Output 10/30/18 10/31/18 11/01/18 06:59 06:59 06:59 Intake Total 1695 990 Balance 1695 990 Weight 110.3 kg 110 kg General appearance: PRESENT: no acute distress, well-developed, well-nourished Head exam: PRESENT: atraumatic, normocephalic Eye exam: PRESENT: conjunctiva pink, EOMI, PERRLA. ABSENT: scleral icterus Ear exam: PRESENT: normal external ear exam Mouth exam: PRESENT: moist, tongue midline Neck exam: ABSENT: carotid bruit, JVD, lymphadenopathy, thyromegaly Respiratory exam: PRESENT: clear to auscultation gretta. ABSENT: rales, rhonchi, wheezes Cardiovascular exam: PRESENT: RRR. ABSENT: diastolic murmur, rubs, systolic murmur Pulses: PRESENT: normal dorsalis pedis pul Vascular exam: PRESENT: normal capillary refill GI/Abdominal exam: PRESENT: normal bowel sounds, soft. ABSENT: distended, guarding, mass, organolmegaly, rebound, tenderness Rectal exam: PRESENT: deferred Extremities exam: PRESENT: full ROM. ABSENT: calf tenderness, clubbing, pedal edema Neurological exam: PRESENT: alert, awake, oriented to person, oriented to place, oriented to time, oriented to situation, CN II-XII grossly intact. ABSENT: motor sensory deficit Psychiatric exam: PRESENT: appropriate affect, normal mood. ABSENT: homicidal ideation, suicidal ideation Skin exam: PRESENT: dry, intact, warm. ABSENT: cyanosis, rash Results Laboratory Results: 10/31/18 04:41 10/31/18 04:41 10/31/18 10/31/18 10/31/18 04:41 04:41 04:41 WBC 4.8 RBC 4.95 Hgb 14.6 Hct 43.0 MCV 87 MCH 29.6 MCHC 34.0 RDW 14.4 H Plt Count 169 Sodium Cancelled 140.8 Potassium Cancelled 3.7 Chloride Cancelled 108 H Carbon Dioxide Cancelled 24 Anion Gap Cancelled 9 BUN Cancelled 23 H Creatinine Cancelled 1.20 Est GFR ( Amer) Cancelled > 60 Est GFR (Non-Af Amer) Cancelled > 60 Glucose Cancelled 99 Calcium Cancelled 8.8 Magnesium Cancelled 2.2 Total Bilirubin 0.5 AST 18 ALT 18 L Alkaline Phosphatase 90 Total Protein 5.8 L Albumin 3.6 10/28/18 10/28/18 10/28/18 16:10 16:10 22:49 Creatine Kinase 69 50 L CK-MB (CK-2) 2.12 Troponin I < 0.012 10/28/18 10/29/18 10/29/18 22:49 04:57 04:57 Creatine Kinase 52 L CK-MB (CK-2) 1.75 1.70 Troponin I < 0.012 < 0.012 10/29/18 10/29/18 11:10 11:10 Creatine Kinase 51 L CK-MB (CK-2) 1.76 Troponin I < 0.012 Impressions: Head MRI 10/28/18 00:00 IMPRESSION: Negative for acute intracranial abnormality. Mild atrophy and small vessel ischemic change copyright 2010 [employer] All Rights Reserved Chest X-Ray 10/28/18 15:50 IMPRESSION: Atelectasis/ scarring at the left base. Elevated right hemidiaphragm. Head CT 10/28/18 15:50 IMPRESSION: NORMAL BRAIN CT WITHOUT CONTRAST. EVIDENCE OF ACUTE STROKE: NO. Brain MRI with MRA 10/28/18 21:03 IMPRESSION: NORMAL MRA OF THE [place] OF [place]. Carotid Doppler Study 10/29/18 00:00 IMPRESSION: NO HEMODYNAMICALLY SIGNIFICANT STENOSIS. Renal Ultrasound 10/30/18 00:00 IMPRESSION: 1. Small benign-appearing left renal cysts. 2. Renal cortical echogenicity is normal to slightly increased. 3. No evidence of hydronephrosis. Qualifiers - * PATIENT BEING DISCHARGED WITH ANY OF THE FOLLOWING DIAGNOSIS: No
== END 2018-10-31 18:25 | disposition home or self-care (01) | DRG 69 ==
LOC: ER 15:44 → EH 21:09 → 3W 10-29 03:37
PROVIDERS: ADMIT Emergency Medicine; ATTEND Emergency Medicine
DX: G45.9 Transient cerebral ischemic attack, unspecified (principal); N17.9 Acute kidney failure, unspecified; I10 Essential (primary) hypertension; R20.0 Anesthesia of skin; E78.5 Hyperlipidemia, unspecified; E66.9 Obesity, unspecified; Z68.30 Body mass index [BMI] 30.0-30.9, adult; Z87.891 Personal history of nicotine dependence; Z98.84 Bariatric surgery status; Z85.46 Personal history of malignant neoplasm of prostate; Z79.01 Long term (current) use of anticoagulants; Z79.51 Long term (current) use of inhaled steroids; Z79.899 Other long term (current) drug therapy
CPT/HCPCS: 36415; 70450; 70544; 70551; 71045; 76770; 80048; 80053; 80061; 81001; 82550; 82553; 82570; 82962; 83036; 83735; 84300; 84439; 84443; 84481; 84484; 85025; 85027; 85610; 85730; 93005; 93010; 93306; 93880; 99285; J0360; J1652; J3490

== ENCOUNTER 2019-08-16 10:14 | Inpatient (IN) | payer MEDICARE, OTHER ==
--- NOTE | 2019-08-16 10:55 | ER Document Report ---
ED Medical Screen (RME) - General Chief Complaint: Abnormal Lab Results Stated Complaint: ABNORMAL LABS Time Seen by Provider: 08/16/19 10:49 Primary Care Provider: ALANNA CARIAS MD [Primary Care Provider] - Follow up as needed Mode of Arrival: Ambulatory Information source: Patient Notes: 74-year-old male presented to ED after he was sent from the urgent care for a right bundle branch block. He is states he woke up feeling very hot like he had the flu very weak could not stand up and all of his muscles ache. He states he does have intermittent chest pain. States he does have a history of a cardiac ablation. He states he has not taken any of his medications today. Patient is alert oriented respirations regular nonlabored. He states he is still aching all over. I have greeted and performed a rapid initial assessment of this patient. A comprehensive ED assessment and evaluation of the patient, analysis of test results and completion of medical decision making process will be conducted by an additional ED providers. TRAVEL OUTSIDE OF THE [place] IN LAST 30 DAYS: No - Related Data Allergies/Adverse Reactions: No Known Allergies Allergy (Verified 10/28/18 15:51) Past Medical History - Past Medical History Cardiac Medical History: Reports: Hx Hypertension Denies: Hx Atrial Fibrillation, Hx Coronary Artery Disease, Hx DVT, Hx Hypercholesterolemia Pulmonary Medical History: Denies: Hx Asthma, Hx COPD Neurological Medical History: Denies: Hx Seizures Endocrine Medical History: Denies: Hx Diabetes Mellitus Type 1, Hx Diabetes Mellitus Type 2, Hx Hyperthyroidism, Hx Hypothyroidism Renal/ Medical History: Denies: Hx Peritoneal Dialysis GI Medical History: Denies: Hx Cirrhosis, Hx Hepatitis Musculoskeltal Medical History: Denies Hx Arthritis, Denies Hx Gout Skin Medical History: Denies Hx Eczema, Denies Hx Psoriasis Psychiatric Medical History: Reports: Hx Depression Infectious Medical History: Denies: Hx Hepatitis Past Surgical History: Reports: Hx Cardiac Catheterization - With cardiac ablation and IVF filter placement, Hx Gastric Bypass Surgery, Hx Orthopedic Surgery - Left knee replacement, Hx Tonsillectomy, Other - Treatment of prostate cancer Physical Exam - Vital signs Vitals: Temp Pulse Resp BP Pulse Ox 97.9 F 105 H 18 157/92 H 98 08/16/19 10:25 08/16/19 10:25 08/16/19 10:25 08/16/19 10:25 08/16/19 10:25 Course - Vital Signs Vital signs: Temp Pulse Resp BP Pulse Ox 97.9 F 105 H 18 157/92 H 98 08/16/19 10:25 08/16/19 10:25 08/16/19 10:25 08/16/19 10:25 08/16/19 10:25 Doctor's Discharge - Discharge Referrals: ALANNA CARIAS MD [Primary Care Provider] - Follow up as needed
[2019-08-16] MEDS ORDERED: ASPIRIN 81 MG TABLET, CHEWABLE PO ONE (10:56)
--- NOTE | 2019-08-16 12:06 | EKG REPORT ---
SEVERITY:- ABNORMAL ECG - SINUS RHYTHM RIGHT BUNDLE BRANCH BLOCK : Confirmed by: Cristina Gibson MD 16-Aug-2019 12:06:04
--- NOTE | 2019-08-16 12:08 | RADIOLOGY REPORT (SQ) ---
EXAM DESCRIPTION: CHEST 2 VIEWS COMPLETED DATE/TIME: 08/16/2019 11:53 am REASON FOR STUDY: chest pain weakness COMPARISON: 10/28/2018 EXAM PARAMETERS: NUMBER OF VIEWS: two views TECHNIQUE: Digital Frontal and Lateral radiographic views of the chest acquired. RADIATION DOSE: NA LIMITATIONS: none FINDINGS: LUNGS AND PLEURA: Chronic elevation right diaphragm. Stable scarring left costophrenic an gle. No evidence of pulmonary edema or pneumonia. MEDIASTINUM AND HILAR STRUCTURES: No masses or contour abnormalities. HEART AND VASCULAR STRUCTURES: Heart normal size. No evidence for failure. BONES: No acute findings. HARDWARE: None in the chest. OTHER: No other significant finding. IMPRESSION: NO ACUTE RADIOGRAPHIC FINDING IN THE CHEST. TECHNICAL DOCUMENTATION: JOB ID: [id number] [employer]- All Rights Reserved Reading location - IP/workstation name: [email or web address]
[2019-08-16 12:19] LABS: ALBUMIN 3.9 g/dL (3.5-5.0); ALKALINE PHOSPHATASE 125 U/L (38-126); ANION GAP 11 (5-19); ASPARTATE AMINO TRANSFERASE 96 U/L (17-59); BILIRUBIN,DIRECT 0.2 mg/dL (0.0-0.4); BILIRUBIN,TOTAL 0.7 mg/dL (0.2-1.3); BLOOD UREA NITROGEN 26 mg/dL (7-20); CALCIUM 8.7 mg/dL (8.4-10.2); CARBON DIOXIDE 25 mmol/L (22-30); CHLORIDE 103 mmol/L (98-107); GLUCOSE 120 mg/dL (75-110); POTASSIUM 3.9 mmol/L (3.6-5.0)
[2019-08-16 12:40] LABS: HEMOGLOBIN 13.6 g/dL (13.5-17.0); MEAN CORPUSCULAR HEMOGLOBIN 29.5 pg (27.0-33.4); MEAN CORPUSCULAR VOLUME 87 fl (80-97); PLATELET COUNT 197 10^3/uL (150-450); RED BLOOD COUNT 4.62 10^6/uL (4.35-5.55); WHITE BLOOD COUNT 9.7 10^3/uL (4.0-10.5)
[2019-08-16 12:43] LABS: ABSOLUTE LYMPHOCYTES# (MANUAL) 0.6 10^3/uL (0.5-4.7); ABSOLUTE MONOCYTES # (MANUAL) 0.1 10^3/uL (0.1-1.4); BASOPHILS % (MANUAL) 0 % (0-2); EOSINOPHILS % (MANUAL) 0 % (0-6); LYMPHOCYTES % (MANUAL) 6 % (13-45); MONOCYTES % (MANUAL) 1 % (3-13); SEGMENTED NEUTROPHILS % (MAN) 93 % (42-78); TOTAL CELLS COUNTED 100
[2019-08-16 12:44] LABS: PLATELET COMMENT ADEQUATE
[2019-08-16 12:53] LABS: APPEARANCE,URINE CLEAR; BILIRUBIN,URINE NEGATIVE (NEGATIVE); COLOR,URINE YELLOW; GLUCOSE, URINE NEGATIVE (NEGATIVE); KETONES,URINE NEGATIVE (NEGATIVE); PROTEIN,URINE 100 mg/dL (NEGATIVE); URINE SPECIFIC GRAVITY 1.013; UROBILINOGEN,URINE NEGATIVE mg/dL (<2.0)
--- NOTE | 2019-08-16 14:48 | ER Document Report ---
ED General - General Chief Complaint: Abnormal Lab Results Stated Complaint: ABNORMAL LABS Time Seen by Provider: 08/16/19 10:49 Primary Care Provider: ALANNA CARIAS MD [Primary Care Provider] - Follow up as needed Mode of Arrival: Ambulatory Notes: 74-year-old male with hypertension, history of TIA earlier this year, history of blood clot, history of hyperlipidemia presents from [facility] for general malaise, weakness, difficulty with ambulation, and a new right bundle branch block. Patient states that he tried to get up 3 times out of bed this morning but he could not stand up due to weakness. Patient is a somewhat difficult historian as many symptoms he complains of are chronic in nature. He did complain of some intermittent chest tightness and at one point yesterday it felt like a "sledgehammer" struck him in the chest, currently complains of mild dizziness, denies any vision changes, denies any neck pain or neck stiffness, complains of severe headache, denies acute shortness of breath, denies any nausea or diaphoresis. TRAVEL OUTSIDE OF THE [place] IN LAST 30 DAYS: No - Related Data Allergies/Adverse Reactions: No Known Allergies Allergy (Verified 08/16/19 10:49) Past Medical History - General Information source: Patient - Social History Smoking Status: Former Smoker Family History: CAD, Malignancy Patient has suicidal ideation: No Patient has homicidal ideation: No - Past Medical History Cardiac Medical History: Reports: Hx Hypertension Denies: Hx Atrial Fibrillation, Hx Coronary Artery Disease, Hx DVT, Hx Hypercholesterolemia Pulmonary Medical History: Denies: Hx Asthma, Hx COPD Neurological Medical History: Denies: Hx Seizures Endocrine Medical History: Denies: Hx Diabetes Mellitus Type 1, Hx Diabetes Mellitus Type 2, Hx Hyperthyroidism, Hx Hypothyroidism Renal/ Medical History: Denies: Hx Peritoneal Dialysis GI Medical History: Denies: Hx Cirrhosis, Hx Hepatitis Musculoskeletal Medical History: Denies Hx Arthritis, Denies Hx Gout Skin Medical History: Denies Hx Eczema, Denies Hx Psoriasis Psychiatric Medical History: Reports: Hx Depression Infectious Medical History: Denies: Hx Hepatitis Past Surgical History: Reports: Hx Cardiac Catheterization - With cardiac ablation and IVF filter placement, Hx Gastric Bypass Surgery, Hx Orthopedic Surgery - Left knee replacement, Hx Tonsillectomy, Other - Treatment of prostate cancer - Immunizations Hx Pneumococcal Vaccination: 01/01/18 Review of Systems - Review of Systems Constitutional: See HPI EENT: No symptoms reported Cardiovascular: See HPI Respiratory: See HPI Gastrointestinal: See HPI Genitourinary: No symptoms reported Male Genitourinary: No symptoms reported Musculoskeletal: See HPI Skin: No symptoms reported Hematologic/Lymphatic: No symptoms reported Neurological/Psychological: See HPI Physical Exam - Vital signs Vitals: Temp Pulse Resp BP Pulse Ox 97.9 F 105 H 18 157/92 H 98 08/16/19 10:25 08/16/19 10:25 08/16/19 10:25 08/16/19 10:25 08/16/19 10:25 - Notes Notes: PHYSICAL EXAMINATION: Reviewed vital signs and charting by RN GENERAL: Alert, interacts well. No acute distress. HEAD: Normocephalic, atraumatic. EYES: Pupils equal and round. Extraocular movements intact. ENT: Oral mucosa moist, tongue midline. NECK: Full range of motion. Trachea midline. LUNGS: Clear to auscultation bilaterally, no wheezes, rales, or rhonchi. No respiratory distress. HEART: Regular rate and rhythm. No murmur ABDOMEN: soft, non-tender. mild distention. Bowel sounds present EXTREMITIES: Moves all 4 extremities spontaneously. No edema, No cyanosis. PSYCH: Normal affect, normal mood. SKIN: Warm, dry, normal turgor. No rashes or lesions noted. Course - Re-evaluation Re-evalutation: 08/16/19 15:28 Patient is well-appearing and very pleasant. Initial troponin negative. After reassessing him he did complain of a severe headache so I am going to do a CT head without. Lab work overall unremarkable. EKG did show a new right bundle branch block which is different from previous EKG, sinus rhythm with a rate of 83, normal axis, no ST segment elevation or ST segment depression. 08/16/19 15:30 Chest x-ray shows a chronic elevated right hemidiaphragm with no acute changes or evidence of pulmonary infiltrate. 08/16/19 16:18 Discussed with my attending, Dr. curiel, who feels that the patient should be admitted for risk stratification. I did call the hospitalist, Dr. Rojo, who is going to come and formally assess the patient. 08/16/19 16:46 Dr. Rojo accepted the patient to the telemetry unit. - Vital Signs Vital signs: Temp Pulse Resp BP Pulse Ox 102.3 F H 105 H 32 H 119/104 H 98 08/16/19 16:29 08/16/19 10:25 08/16/19 16:00 08/16/19 15:01 08/16/19 10:49 - Laboratory Result Diagrams: 08/16/19 11:34 08/16/19 11:34 Laboratory results interpreted by me: 08/16/19 08/16/19 08/16/19 11:34 11:34 12:30 RDW 15.0 H Seg Neuts % (Manual) 93 H Lymphocytes % (Manual) 6 L Monocytes % (Manual) 1 L Abs Neuts (Manual) 9.0 H BUN 26 H Creatinine 1.34 H Est GFR (MDRD) Non-Af 52 L Glucose 120 H AST 96 H Urine Protein 100 H Discharge - Discharge Clinical Impression: Weakness, Shortness of breath Condition: Stable Disposition: ADMITTED OBSERVATION Admitting Provider: Alia (Hospitalist) Unit Admitted: Telemetry Referrals: ALANNA CARIAS MD [Primary Care Provider] - Follow up as needed
[2019-08-16] MEDS ORDERED: ACETAMINOPHEN WITH CODEINE #3 TABLET PO ONE (15:25)
--- NOTE | 2019-08-16 16:07 | RADIOLOGY REPORT (SQ) ---
EXAM DESCRIPTION: CT HEAD WITHOUT COMPLETED DATE/TIME: 08/16/2019 3:57 pm REASON FOR STUDY: Headache, dizziness COMPARISON: CT head and MRI head 10/28/2018 TECHNIQUE: Axial images acquired through the brain without intravenous contrast. Images reviewed wi th bone, brain and subdural windows. Images stored on PACS. All CT scanners at this facility use dose modulation, iterative reconstruction, and/or weight based d osing when appropriate to reduce radiation dose to as low as reasonably achievable (ALARA). [facility]: Dose Right [facility]: CareDose [facility]: Dose Right [facility]: Teradose 4D [facility]: [employer] RADIATION DOSE: CT Rad equipment meets quality standard of care and radiation dose reduction techniq ues were employed. CTDIvol: 53.2 mGy. DLP: 1070 mGy-cm. mGy. LIMITATIONS: None. FINDINGS: VENTRICLES: Prominent. CEREBRUM: No mass effect. No hemorrhage. No midline shift. Areas of low density in the white matte r most likely due to chronic micro-vascular ischemic change. No evidence for acute territorial infar ction. CEREBELLUM: No hemorrhage. No alteration of density. No evidence for acute infarction. EXTRAAXIAL SPACES: Age-related involutional change. No fluid collections. ORBITS AND GLOBE: Symmetrical contour of the globes. CALVARIUM: No depressed fracture. PARANASAL SINUSES: No air-fluid level. SOFT TISSUES: No hematoma. IMPRESSION: No acute intracranial hemorrhage or acute territorial infarct. Chronic changes. EVIDENCE OF ACUTE STROKE: NO. TECHNICAL DOCUMENTATION: JOB ID: [id number] Quality ID # [id number]: Final reports with documentation of one or more dose reduction techniques (e.g., Au tomated exposure control, adjustment of the mA and/or kV according to patient size, use of iterative reconstruction technique) 2010 [employer]- All Rights Reserved Reading location - IP/workstation name: [email or web address]
[2019-08-16 16:31] LABS: A TYPE INFLUENZA AG NEGATIVE (NEGATIVE); B INFLUENZA AG NEGATIVE (NEGATIVE)
--- NOTE | 2019-08-16 16:57 | PDOC H&P ---
History of Present Illness Admission Date/PCP: ALANNA CARIAS MD Patient complains of: dizziness, chest pain History of Present Illness: PARKER NOWAK is a 74 year old male with a past medical history of TIA, hypertension, obesity with prior history of gastric bypass, hyperlipidemia, and history of bilateral lower extremity DVTs who presented with weakness and chest pain. Family is on bedside as well. Patient reported that he has been having dizziness for the past 4 to 5 days now. When prompted to describe his dizziness, he says "I don't know. I just feel dizzy". Daughter says that he has also been complaining of weakness in the past few days. This morning, he was trying to get up in bed but felt weak and dizzy and was not able to get up on his own. He also reported having midsternal chest pain yesterday associated with fluttering. When asked to describe his chest pain, he says he does not know how to describe the discomfort. In the ER, work-up was only remarkable for a mild LOBO. His EKG does show RBBB pattern which is new compared to his EKG in October this year. Upon encounter, he appears comfortable. Currently denies chest pain or shortness of breath. He saturating well on room air. Past Medical History Cardiac Medical History: Reports: Hypertension Denies: Atrial Fibrillation, Coronary Artery Disease, DVT, Hyperlipidema Pulmonary Medical History: Denies: Asthma, Chronic Obstructive Pulmonary Disease (COPD) Neurological Medical History: Denies: Seizures Endocrine Medical History: Denies: Diabetes Mellitus Type 1, Diabetes Mellitus Type 2, Hyperthyroidism, Hypothyroidism GI Medical History: Denies: Cirrhosis, Hepatitis Musculoskeltal Medical History: Denies: Arthritis, Gout Skin Medical History: Denies: Eczema, Psoriasis Psychiatric Medical History: Reports: Depression Hematology: Denies: Anemia, Bleeding Tendencies Past Surgical History Past Surgical History: Reports: Cardiac Catheterization - With cardiac ablation and IVF filter placement, Gastric Bypass Surgery, Orthopedic Surgery - Left knee replacement, Tonsillectomy, Other - Treatment of prostate cancer Social History Smoking Status: Former Smoker Frequency of Alcohol Use: None Hx Recreational Drug Use: No Drugs: None Hx Prescription Drug Abuse: No Family History Family History: CAD, Malignancy Parental Family History Reviewed: Yes - No premature CAD Children Family History Reviewed: No Sibling(s) Family History Reviewed.: No Medication/Allergy Home Medications: Acetaminophen [Tylenol Extra Strength 500 mg Tablet] 1,000 mg PO Q6HP PRN 10/29/18 Albuterol Sulfate [Proair HFA Inhalation Aerosol 8.5 gm MDI] 1 puff IH Q4HP PRN 10/29/18 Amlodipine Besylate [Norvasc 10 mg Tablet] 10 mg PO DAILY 10/29/18 Cyclobenzaprine HCl [Flexeril 10 mg Tablet] 10 mg PO TID 10/29/18 L.acidoph,Paracasei, B.lactis [Probiotic] 2 cap PO DAILY 10/29/18 Melatonin 10 mg PO QHS 10/29/18 Omeprazole 40 mg PO DAILY 10/29/18 Oxybutynin Chloride [Ditropan Xl] 10 mg PO DAILY 10/29/18 Sertraline HCl [Zoloft] 200 mg PO DAILY 10/29/18 Simethicone 125 mg PO MEALS PRN 10/29/18 Tamsulosin HCl [Flomax 0.4 mg Cap.sr] 0.8 mg PO QHS 10/29/18 Atorvastatin Calcium [Lipitor 40 mg Tablet] 40 mg PO QHS 30 Days #30 tablet 10/31/18 Carvedilol [Coreg 25 mg Tablet] 1 tab PO Q12 30 Days #60 tab 10/31/18 Chlorthalidone [Hygroton 25 mg Tablet] 12.5 mg PO DAILY 30 Days #15 tablet 10/31/18 Clopidogrel Bisulfate [Plavix 75 mg Tablet] 75 mg PO DAILY 30 Days #30 tablet 10/31/18 Lisinopril [Prinivil 10 mg Tablet] 40 mg PO DAILY 30 Days #30 tablet 10/31/18 Lisinopril [Prinivil 40 mg Tablet] 40 mg PO DAILY 30 Days #30 tablet 10/31/18 Allergies/Adverse Reactions: No Known Allergies Allergy (Verified 08/16/19 10:49) Review of Systems All systems: reviewed and no additional remarkable complaints except as stated Physical Exam Vital Signs: Temp Pulse Resp BP Pulse Ox 102.3 F H 105 H 32 H 119/104 H 98 08/16/19 16:29 08/16/19 10:25 08/16/19 16:00 08/16/19 15:01 08/16/19 10:49 Intake & Output 12/07/19 12/08/19 12/09/19 06:59 06:59 06:59 Weight 241 lb 6.499 oz General appearance: PRESENT: no acute distress, well-developed, well-nourished Head exam: PRESENT: atraumatic, normocephalic Eye exam: PRESENT: conjunctiva pink, EOMI, PERRLA. ABSENT: scleral icterus Ear exam: PRESENT: normal external ear exam Mouth exam: PRESENT: moist, tongue midline Neck exam: ABSENT: carotid bruit, JVD, lymphadenopathy, thyromegaly Respiratory exam: PRESENT: clear to auscultation gretta. ABSENT: rales, rhonchi, wheezes Cardiovascular exam: PRESENT: RRR. ABSENT: diastolic murmur, rubs, systolic murmur Pulses: PRESENT: normal dorsalis pedis pul GI/Abdominal exam: PRESENT: normal bowel sounds, soft. ABSENT: distended, guarding, mass, organolmegaly, rebound, tenderness Rectal exam: PRESENT: deferred Extremities exam: PRESENT: full ROM. ABSENT: calf tenderness, clubbing, pedal edema Neurological exam: PRESENT: alert, awake, oriented to person, oriented to place, oriented to time, oriented to situation, CN II-XII grossly intact. ABSENT: motor sensory deficit Results Laboratory Results: 08/16/19 11:34 08/16/19 11:34 08/16/19 08/16/19 08/16/19 11:34 11:34 12:30 WBC 9.7 RBC 4.62 Hgb 13.6 Hct 40.0 MCV 87 MCH 29.5 MCHC 34.0 RDW 15.0 H Plt Count 197 Seg Neutrophils % Not Reportable Sodium 138.6 Potassium 3.9 Chloride 103 Carbon Dioxide 25 Anion Gap 11 BUN 26 H Creatinine 1.34 H Est GFR ( Amer) > 60 Glucose 120 H Calcium 8.7 Magnesium 2.1 Total Bilirubin 0.7 AST 96 H Alkaline Phosphatase 125 Total Protein 7.0 Albumin 3.9 Urine Color YELLOW Urine Appearance CLEAR Urine pH 5.0 Ur Specific [place] 1.013 Urine Protein 100 H Urine Glucose (UA) NEGATIVE Urine Ketones NEGATIVE Urine Blood NEGATIVE Urine RBC (Auto) 1 08/16/19 11:34 Troponin I < 0.012 Impressions: Chest X-Ray 08/16/19 10:57 IMPRESSION: NO ACUTE RADIOGRAPHIC FINDING IN THE CHEST. Head CT 08/16/19 15:23 IMPRESSION: No acute intracranial hemorrhage or acute territorial infarct. Chronic changes. EVIDENCE OF ACUTE STROKE: NO. Assessment and Plan - Diagnosis (1) Chest pain Is this a current diagnosis for this admission?: Yes Plan: His EKG does show RBBB pattern which is new compared to his EKG in October this year. Upon encounter, he appears comfortable. Currently denies chest pain or shortness of breath. He saturating well on room air. He does report a bilateral DVTs. Appears both were provoked as family says that the first 1 developed while he was being admitted for his gastric bypass and the other one developed when he had hip replacement. He says that he was on Coumadin for a few months and was subsequently taken off. He is a previous smoker. Denies significant cardiac history in the family. He has hypertension, hyperlipidemia and obesity. No diabetes. We will continue to cycle troponins and EKGs. Pursue a VQ scan to assess for PE as well. (2) LOBO (acute kidney injury) Is this a current diagnosis for this admission?: Yes Plan: Start IV fluids with normal saline 50 cc/h. Repeat BMP tomorrow. (3) Hypertension Is this a current diagnosis for this admission?: Yes Plan: Resume home meds once verified. (4) Obesity Qualifiers: Obesity type: unspecified obesity type Body mass index: BMI 31.0-31.9 Is this a current diagnosis for this admission?: Yes - Time Time Spent with patient: 25-34 minutes
--- NOTE | 2019-08-16 17:00 | ADVANCED CARE ---
- Diagnosis (1) Chest pain Diagnosis Current: Yes (2) LOBO (acute kidney injury) Diagnosis Current: Yes (3) Hypertension Diagnosis Current: Yes Resuscitation Status: Full Code Discussion: Discussed patient's advanced directive. He says that he has indicated that he is a DNR/DNI. When further probed what he meant by this, he verbalized he wants us to attempt resuscitation but does not want to be on long-term life support. He further elaborated that he wants us to at least try a cycle of chest compressions and defibrillation if the need arises. He also elaborated he is amenable to be intubated temporarily if the need arises but does not want to be on long-term ventilation. Patient will be kept full code at this time. He says that his son Wil and his daughter Adina Baker are his surrogate medical decision makers.
[2019-08-16] MEDS ORDERED: ACETAMINOPHEN 325 MG TABLET PO PRN (18:34)
[2019-08-16] MEDS ORDERED: CEFTRIAXONE 1 GM/D5W RTU 1 GM/50 ML RTUPB IV ONE (20:00)
[2019-08-16] MEDS: NORMAL SALINE 1000 ML 1,000 ML IV PRN (20:15)
--- NOTE | 2019-08-16 22:05 | RADIOLOGY REPORT (SQ) ---
EXAM DESCRIPTION: NM LUNG VENTILATION PERFUSION COMPLETED DATE/TME: 08/16/2019 16:44 CLINICAL HISTORY: 74 years, Male, SOB, EKG changes COMPARISON: None. RADIONUCLIDE AND DOSE: 5.29 mCi technetium 99m MAA IV 30.7 mCi technetium 99m DTPA inhalation LIMITATIONS: None. FINDINGS: The comparison chest radiograph performed on the same day demonstrates no focal pulmonary opacities or pleural fluid. The right hemidiaphragm is elevated. Ventilation images show clumping of the radionuclide within the central airways, corresponding to COPD. The perfusion images show a physiologic distribution of pulmonary perfusion. IMPRESSION: Normal perfusion images. No evidence of pulmonary embolism. Clumping of the radionuclide within the central airways corresponds to COPD. copyright 2010 [employer]- All Rights Reserved
[2019-08-16] MEDS: HEPARIN SOD (PORCINE) 5,000 UNIT/ML 1 ML VIAL SUBCUT SCH (22:12)
[2019-08-17] MEDS: HEPARIN SOD (PORCINE) 5,000 UNIT/ML 1 ML VIAL SUBCUT SCH ×3 (06:29→22:00)
[2019-08-17 07:14] LABS: ANION GAP 9 (5-19); BLOOD UREA NITROGEN 28 mg/dL (7-20); CALCIUM 8.2 mg/dL (8.4-10.2); CARBON DIOXIDE 26 mmol/L (22-30); CHLORIDE 105 mmol/L (98-107); GLUCOSE 104 mg/dL (75-110); POTASSIUM 3.4 mmol/L (3.6-5.0)
[2019-08-17] MEDS ORDERED: POTASSIUM CHLORIDE 10 MEQ TABLET.ER PO ONE (07:45)
--- NOTE | 2019-08-17 12:08 | PDOC PROGRESS REPORT ---
Subjective Progress Note for:: 08/17/19 Subjective:: PARKER NOWAK is a 74 year old male with a past medical history of TIA, hypertension, obesity with prior history of gastric bypass, hyperlipidemia, and history of bilateral lower extremity DVTs who presented with weakness and chest pain. Patient had temperature spikes last night with Tmax at 102.3 F. He says he feels better today. Denies chest pain or shortness of breath. He was empirically started on Rocephin. Unable to appreciate a murmur on examination. Noted that he has poor dentition and has multiple bad cavities on oral exam. Blood culture pending. Reason For Visit: CHEST PAIN ACUTE KIDNEY INJURY Physical Exam Vital Signs: Temp Pulse Resp BP Pulse Ox 97.7 F 61 18 142/83 H 100 08/17/19 08:15 08/17/19 08:15 08/17/19 08:15 08/17/19 08:15 08/17/19 08:15 Intake & Output 08/16/19 08/17/19 08/18/19 06:59 06:59 06:59 Weight 253 lb 8.505 oz General appearance: PRESENT: no acute distress, well-developed, well-nourished Head exam: PRESENT: atraumatic, normocephalic Eye exam: PRESENT: conjunctiva pink, EOMI, PERRLA. ABSENT: scleral icterus Ear exam: PRESENT: normal external ear exam Mouth exam: PRESENT: moist, tongue midline Teeth exam: PRESENT: dental caries Neck exam: ABSENT: carotid bruit, JVD, lymphadenopathy, thyromegaly Respiratory exam: PRESENT: clear to auscultation gretta. ABSENT: rales, rhonchi, wheezes Cardiovascular exam: PRESENT: RRR. ABSENT: diastolic murmur, rubs, systolic murmur Pulses: PRESENT: normal dorsalis pedis pul GI/Abdominal exam: PRESENT: normal bowel sounds, soft. ABSENT: distended, guarding, mass, organolmegaly, rebound, tenderness Rectal exam: PRESENT: deferred Extremities exam: PRESENT: full ROM. ABSENT: calf tenderness, clubbing, pedal edema Neurological exam: PRESENT: alert, awake, oriented to person, oriented to place, oriented to time, oriented to situation, CN II-XII grossly intact. ABSENT: motor sensory deficit Results Laboratory Results: 08/16/19 11:34 08/17/19 06:22 08/16/19 08/16/19 08/16/19 11:34 11:34 11:34 WBC 9.7 RBC 4.62 Hgb 13.6 Hct 40.0 MCV 87 MCH 29.5 MCHC 34.0 RDW 15.0 H Plt Count 197 Seg Neutrophils % Not Reportable Sodium 138.6 Potassium 3.9 Chloride 103 Carbon Dioxide 25 Anion Gap 11 BUN 26 H Creatinine 1.34 H Est GFR ( Amer) > 60 Glucose 120 H Lactic Acid Calcium 8.7 Magnesium 2.1 Total Bilirubin 0.7 AST 96 H Alkaline Phosphatase 125 Total Protein 7.0 Albumin 3.9 TSH 0.61 Urine Color Urine Appearance Urine pH Ur Specific [place] Urine Protein Urine Glucose (UA) Urine Ketones Urine Blood Urine RBC (Auto) 08/16/19 08/16/19 08/17/19 12:30 20:05 06:22 WBC RBC Hgb Hct MCV MCH MCHC RDW Plt Count Seg Neutrophils % Sodium 139.6 Potassium 3.4 L Chloride 105 Carbon Dioxide 26 Anion Gap 9 BUN 28 H Creatinine 1.36 H Est GFR ( Amer) > 60 Glucose 104 Lactic Acid 0.9 Calcium 8.2 L Magnesium Total Bilirubin AST Alkaline Phosphatase Total Protein Albumin TSH Urine Color YELLOW Urine Appearance CLEAR Urine pH 5.0 Ur Specific [place] 1.013 Urine Protein 100 H Urine Glucose (UA) NEGATIVE Urine Ketones NEGATIVE Urine Blood NEGATIVE Urine RBC (Auto) 1 08/16/19 08/16/19 08/17/19 11:34 22:59 10:06 Troponin I < 0.012 0.017 < 0.012 Impressions: Chest X-Ray 08/16/19 10:57 IMPRESSION: NO ACUTE RADIOGRAPHIC FINDING IN THE CHEST. Head CT 08/16/19 15:23 IMPRESSION: No acute intracranial hemorrhage or acute territorial infarct. Chronic changes. EVIDENCE OF ACUTE STROKE: NO. Lung Scan-VQ NM 08/16/19 16:44 IMPRESSION: Normal perfusion images. No evidence of pulmonary embolism. Clumping of the radionuclide within the central airways corresponds to COPD. copyright 2010 [employer]- All Rights Reserved Assessment and Plan - Diagnosis (1) Chest pain Is this a current diagnosis for this admission?: Yes Plan: His EKG does show RBBB pattern which is new compared to his EKG in October this year. Upon encounter, he appears comfortable. Currently denies chest pain or shortness of breath. He saturating well on room air. He does report a bilateral DVTs. Appears both were provoked as family says that the first 1 developed while he was being admitted for his gastric bypass and the other one developed when he had hip replacement. He says that he was on Coumadin for a few months and was subsequently taken off. VQ scan negative for PE. Troponins unremarkable. May benefit from outpatient stress testing. (2) Fever Is this a current diagnosis for this admission?: Yes Plan: Patient had temperature spikes last night with Tmax at 102.3 F. CXR and UA are unremarkable. He was empirically started on Rocephin. Unable to appreciate a murmur on examination. Noted that he has poor dentition and has multiple bad cavities on oral exam. Blood culture pending. (3) LOBO (acute kidney injury) Is this a current diagnosis for this admission?: Yes Plan: Continue IV fluids. (4) Hypertension Is this a current diagnosis for this admission?: Yes Plan: Resume coreg, amlodipine and clonidine. Hold lisinopril for now. - Time Time Spent with patient: 25-34 minutes
[2019-08-17] MEDS: AMLODIPINE BESYLATE 10 MG TABLET PO SCH (14:02)
[2019-08-17] MEDS: CLONIDINE HCL 0.1 MG TABLET PO SCH ×2 (14:02→21:58)
[2019-08-17] MEDS: CLOPIDOGREL BISULFATE 75 MG TABLET PO SCH (14:02)
[2019-08-17] MEDS: NORMAL SALINE 1000 ML 1,000 ML IV PRN (19:38)
[2019-08-17] MEDS: CARVEDILOL 12.5 MG TABLET PO SCH (21:57)
[2019-08-17] MEDS: TAMSULOSIN HCL 0.4 MG CAP.SR.24H PO SCH (21:58)
[2019-08-17] MEDS: MELATONIN 5 MG TABLET PO SCH (21:58)
[2019-08-17] MEDS: ATORVASTATIN CALCIUM 40 MG TABLET PO SCH (21:58)
[2019-08-17] MEDS: CYCLOBENZAPRINE HCL 10 MG TABLET PO SCH (21:59)
[2019-08-17] MEDS: CEFTRIAXONE 1 GM/D5W RTU 1 GM/50 ML RTUPB IV SCH (22:00)
[2019-08-17] MEDS ORDERED: (PENDING PHARMACY ID) (Melatonin [Melatonin] 10 MG) PO SCH (22:00)
[2019-08-18] MEDS: CLONIDINE HCL 0.1 MG TABLET PO SCH ×3 (06:31→22:30)
[2019-08-18] MEDS: HEPARIN SOD (PORCINE) 5,000 UNIT/ML 1 ML VIAL SUBCUT SCH ×3 (06:32→22:32)
--- NOTE | 2019-08-18 07:48 | PDOC PROGRESS REPORT ---
Subjective Progress Note for:: 08/18/19 Subjective:: 08/18/2019-no complaints Reason For Visit: CHEST PAIN ACUTE KIDNEY INJURY Physical Exam Vital Signs: Temp Pulse Resp BP Pulse Ox 97.5 F 58 L 16 131/81 H 97 08/18/19 06:42 08/18/19 07:00 08/18/19 06:42 08/18/19 06:42 08/18/19 06:42 Intake & Output 08/17/19 08/18/19 08/19/19 06:59 06:59 06:59 Intake Total 3550 Balance 3550 Weight 115 kg 116.9 kg General appearance: PRESENT: no acute distress, well-developed, well-nourished Neck exam: ABSENT: carotid bruit, JVD, lymphadenopathy, thyromegaly Cardiovascular exam: PRESENT: RRR. ABSENT: diastolic murmur, rubs, systolic murmur Pulses: PRESENT: normal dorsalis pedis pul GI/Abdominal exam: PRESENT: normal bowel sounds, soft. ABSENT: distended, guarding, mass, organolmegaly, rebound, tenderness Extremities exam: PRESENT: full ROM. ABSENT: calf tenderness, clubbing, pedal edema Neurological exam: PRESENT: alert, awake, oriented to person, oriented to place, oriented to time, oriented to situation, CN II-XII grossly intact. ABSENT: motor sensory deficit Psychiatric exam: PRESENT: appropriate affect, normal mood. ABSENT: homicidal ideation, suicidal ideation Skin exam: PRESENT: dry, intact, warm. ABSENT: cyanosis, rash Results Laboratory Results: 08/16/19 11:34 08/17/19 06:22 08/16/19 08/16/19 08/17/19 11:34 22:59 10:06 Troponin I < 0.012 0.017 < 0.012 Impressions: Chest X-Ray 08/16/19 10:57 IMPRESSION: NO ACUTE RADIOGRAPHIC FINDING IN THE CHEST. Head CT 08/16/19 15:23 IMPRESSION: No acute intracranial hemorrhage or acute territorial infarct. Chronic changes. EVIDENCE OF ACUTE STROKE: NO. Lung Scan-VQ NM 08/16/19 16:44 IMPRESSION: Normal perfusion images. No evidence of pulmonary embolism. Clumping of the radionuclide within the central airways corresponds to COPD. copyright 2010 [employer]- All Rights Reserved Assessment and Plan - Diagnosis (1) Chest pain Is this a current diagnosis for this admission?: Yes Plan: His EKG does show RBBB pattern which is new compared to his EKG in October this year. Upon encounter, he appears comfortable. Currently denies chest pain or shortness of breath. He saturating well on room air. He does report a b ilateral DVTs. Appears both were provoked as family says that the first 1 developed while he was being admitted for his gastric bypass and the other one developed when he had hip replacement. He says that he was on Coumadin for a few months and was subsequently taken off. VQ scan negative for PE. Troponins unremarkable. May benefit from outpatient stress testing. 08/18/2019-testing negative. Patient chest pain-free at this time. Patient will be set up for outpatient stress test on discharge (2) LOBO (acute kidney injury) Is this a current diagnosis for this admission?: Yes Plan: Continue IV fluids. 08/18/2019-stable at this time creatinine 1.36 most likely chronic in nature. Continue to follow daily renal panel (3) Hypertension Is this a current diagnosis for this admission?: Yes Plan: Resume coreg, amlodipine and clonidine. Hold lisinopril for now. 08/18/2019-stable continue to follow (4) Obesity Qualifiers: Obesity type: unspecified obesity type Body mass index: BMI 31.0-31.9 Is this a current diagnosis for this admission?: Yes Plan: 08/18/2019-continue to educate about the benefits of dietary modification - Time Time Spent with patient: 15-24 minutes
[2019-08-18] MEDS: AMLODIPINE BESYLATE 10 MG TABLET PO SCH (09:32)
[2019-08-18] MEDS: PANTOPRAZOLE SODIUM 40 MG TABLET.DR PO SCH (09:33)
[2019-08-18] MEDS: MULTIVITAMIN TABLET PO SCH (09:33)
[2019-08-18] MEDS: CARVEDILOL 12.5 MG TABLET PO SCH ×2 (09:33→22:29)
[2019-08-18] MEDS: SERTRALINE HCL 50 MG TABLET PO SCH (09:34)
[2019-08-18] MEDS: CLOPIDOGREL BISULFATE 75 MG TABLET PO SCH (09:34)
[2019-08-18] MEDS ORDERED: (PENDING PHARMACY ID) (Sertraline Hcl [Zoloft] 200 MG) PO SCH (10:00)
[2019-08-18] MEDS ORDERED: (PENDING PHARMACY ID) (Multivit-Min/Folic/Vit K/Lycop [One-A-Day Men's 50 Plus Tablet] 1 E PO SCH (10:00)
[2019-08-18] MEDS: MELATONIN 5 MG TABLET PO SCH (22:29)
[2019-08-18] MEDS: ATORVASTATIN CALCIUM 40 MG TABLET PO SCH (22:31)
[2019-08-18] MEDS: CYCLOBENZAPRINE HCL 10 MG TABLET PO SCH (22:31)
[2019-08-18] MEDS: TAMSULOSIN HCL 0.4 MG CAP.SR.24H PO SCH (22:31)
[2019-08-18] MEDS: CEFTRIAXONE 1 GM/D5W RTU 1 GM/50 ML RTUPB IV SCH (22:34)
[2019-08-18] MEDS: NORMAL SALINE 1000 ML 1,000 ML IV PRN (22:35)
[2019-08-19 05:17] LABS: ANION GAP 8 (5-19); BLOOD UREA NITROGEN 27 mg/dL (7-20); CARBON DIOXIDE 25 mmol/L (22-30); CHLORIDE 109 mmol/L (98-107); GLUCOSE 94 mg/dL (75-110); POTASSIUM 4.4 mmol/L (3.6-5.0)
[2019-08-19] MEDS: CLONIDINE HCL 0.1 MG TABLET PO SCH ×2 (05:40→06:40)
[2019-08-19] MEDS: HEPARIN SOD (PORCINE) 5,000 UNIT/ML 1 ML VIAL SUBCUT SCH (05:46)
--- NOTE | 2019-08-19 08:16 | PDOC DISCHARGE SUMMARY ---
Impression - Admit/DC Date/PCP Admission Date/Primary Care Provider: 08/16/19 17:15 ALANNA CARIAS MD Discharge Date: 08/19/19 - Discharge Diagnosis (1) Chest pain Is this a current diagnosis for this admission?: Yes (2) LOBO (acute kidney injury) Is this a current diagnosis for this admission?: Yes (3) Hypertension Is this a current diagnosis for this admission?: Yes (4) Obesity Is this a current diagnosis for this admission?: Yes - Additional Information Resuscitation Status: Full Code Discharge Diet: As Tolerated Discharge Activity: Activity As Tolerated Referrals: ALANNA CARIAS MD [Primary Care Provider] - Follow up as needed Home Medications: Amlodipine Besylate [Norvasc 10 mg Tablet] 10 mg PO DAILY 10/29/18 Cyclobenzaprine HCl [Flexeril 10 mg Tablet] 20 mg PO QHS 10/29/18 Melatonin 10 mg PO QHS 10/29/18 Omeprazole 40 mg PO DAILY 10/29/18 Sertraline HCl [Zoloft] 200 mg PO DAILY 10/29/18 Tamsulosin HCl [Flomax 0.4 mg Cap.sr] 0.4 mg PO QHS 10/29/18 Atorvastatin Calcium [Lipitor 40 mg Tablet] 40 mg PO QHS 30 Days #30 tablet 10/31/18 Clopidogrel Bisulfate [Plavix 75 mg Tablet] 75 mg PO DAILY 30 Days #30 tablet 10/31/18 Lisinopril [Prinivil 10 mg Tablet] 40 mg PO DAILY 30 Days #30 tablet 10/31/18 Carvedilol [Coreg 25 mg Tablet] 25 mg PO Q12 08/17/19 Clonidine HCl [Catapres 0.1 mg Tablet] 0.1 mg PO Q8 08/17/19 Multivit-Min/Folic/Vit K/Lycop [One-A-Day Men's 50 Plus Tablet] 1 each PO DAILY 08/17/19 History of Present Illiness History of Present Illness: PARKER NOWAK is a 74 year old male who presented to ER with chest pain. Hospital Course Hospital Course: Patient presented ER with past medical history of TIA, hypertension, obesity, with a prior history of gastric bypass, hyperlipidemia and history of bilateral lower extremity DVTs with weakness and chest pain. Patient reported been dizzy for the past 4 to 5 days patient cannot describe this dizziness. In the ER diagnostic work-up showed mild acute kidney injury which has resolved at this time. Also had a right bundle branch block pattern on his EKG but appeared comfortable. He was admitted to [facility] had serial troponins and was ruled out negative for an acute WA. He was given IV hydration and now shows a resolution of his acute kidney injury. I will discharge patient home with follow-up with his primary care in 1 week. He will continue all home medications as before. Physical Exam Vital Signs: Temp Pulse Resp BP Pulse Ox 97.4 F 50 L 18 129/77 H 97 08/19/19 04:00 08/19/19 07:00 08/19/19 04:00 08/19/19 04:00 08/19/19 04:00 Intake & Output 08/18/19 08/19/19 08/20/19 06:59 06:59 06:59 Intake Total 3550 3250 Balance 3550 3250 Weight 116.9 kg 96.9 kg General appearance: PRESENT: no acute distress, well-developed, well-nourished Head exam: PRESENT: atraumatic, normocephalic Eye exam: PRESENT: conjunctiva pink, EOMI, PERRLA. ABSENT: scleral icterus Ear exam: PRESENT: normal external ear exam Mouth exam: PRESENT: moist, tongue midline Neck exam: ABSENT: carotid bruit, JVD, lymphadenopathy, thyromegaly Respiratory exam: PRESENT: clear to auscultation gretta. ABSENT: rales, rhonchi, wheezes Cardiovascular exam: PRESENT: RRR. ABSENT: diastolic murmur, rubs, systolic murmur Pulses: PRESENT: normal dorsalis pedis pul Vascular exam: PRESENT: normal capillary refill GI/Abdominal exam: PRESENT: normal bowel sounds, soft. ABSENT: distended, guarding, mass, organolmegaly, rebound, tenderness Rectal exam: PRESENT: deferred Extremities exam: PRESENT: full ROM. ABSENT: calf tenderness, clubbing, pedal edema Neurological exam: PRESENT: alert, awake, oriented to person, oriented to place, oriented to time, oriented to situation, CN II-XII grossly intact. ABSENT: motor sensory deficit Psychiatric exam: PRESENT: appropriate affect, normal mood. ABSENT: homicidal ideation, suicidal ideation Skin exam: PRESENT: dry, intact, warm. ABSENT: cyanosis, rash Results Laboratory Results: WBC 9.7 10^3/uL (4.0-10.5) 08/16/19 11:34 RBC 4.62 10^6/uL (4.35-5.55) 08/16/19 11:34 Hgb 13.6 g/dL (13.5-17.0) 08/16/19 11:34 Hct 40.0 % (37.9-51.0) 08/16/19 11:34 MCV 87 fl (80-97) 08/16/19 11:34 MCH 29.5 pg (27.0-33.4) 08/16/19 11:34 MCHC 34.0 g/dL (32.0-36.0) 08/16/19 11:34 RDW 15.0 % (11.5-14.0) H 08/16/19 11:34 Plt Count 197 10^3/uL (150-450) 08/16/19 11:34 Lymph % (Auto) Not Reportable 08/16/19 11:34 [place] % (Auto) Not Reportable 08/16/19 11:34 Eos % (Auto) Not Reportable 08/16/19 11:34 Baso % (Auto) Not Reportable 08/16/19 11:34 Absolute Neuts (auto) Not Reportable 08/16/19 11:34 Absolute Lymphs (auto) Not Reportable 08/16/19 11:34 Absolute Monos (auto) Not Reportable 08/16/19 11:34 Absolute Eos (auto) Not Reportable 08/16/19 11:34 Absolute Basos (auto) Not Reportable 08/16/19 11:34 Total Counted 100 08/16/19 11:34 Seg Neutrophils % Not Reportable 08/16/19 11:34 Seg Neuts % (Manual) 93 % (42-78) H 08/16/19 11:34 Lymphocytes % (Manual) 6 % (13-45) L 08/16/19 11:34 Monocytes % (Manual) 1 % (3-13) L 08/16/19 11:34 Eosinophils % (Manual) 0 % (0-6) 08/16/19 11:34 Basophils % (Manual) 0 % (0-2) 08/16/19 11:34 Abs Neuts (Manual) 9.0 10^3/uL (1.7-8.2) H 08/16/19 11:34 Abs Lymphs (Manual) 0.6 10^3/uL (0.5-4.7) 08/16/19 11:34 Abs Monocytes (Manual) 0.1 10^3/uL (0.1-1.4) 08/16/19 11:34 Absolute Eos (Manual) 0.0 10^3/uL (0.0-0.6) 08/16/19 11:34 Abs Basophils (Manual) 0.0 10^3/uL (0.0-0.2) 08/16/19 11:34 Platelet Comment ADEQUATE 08/16/19 11:34 Sodium 141.7 mmol/L (137-145) 08/19/19 04:35 Potassium 4.4 mmol/L (3.6-5.0) 08/19/19 04:35 Chloride 109 mmol/L (98-107) H 08/19/19 04:35 Carbon Dioxide 25 mmol/L (22-30) 08/19/19 04:35 Anion Gap 8 (5-19) 08/19/19 04:35 BUN 27 mg/dL (7-20) H 08/19/19 04:35 Creatinine 1.27 mg/dL (0.52-1.25) H 08/19/19 04:35 Est GFR ( Amer) > 60 (>60) 08/19/19 04:35 Est GFR (MDRD) Non-Af 56 (>60) L 08/19/19 04:35 Glucose 94 mg/dL (75-110) 08/19/19 04:35 Lactic Acid 0.9 mmol/L (0.7-2.1) 08/16/19 20:05 Calcium 9.0 mg/dL (8.4-10.2) 08/19/19 04:35 Magnesium 2.1 mg/dL (1.6-2.3) 08/16/19 11:34 Total Bilirubin 0.7 mg/dL (0.2-1.3) 08/16/19 11:34 Direct Bilirubin 0.2 mg/dL (0.0-0.4) 08/16/19 11:34 Neonat Total Bilirubin Not Reportable 08/16/19 11:34 Neonat Direct Bilirubin Not Reportable 08/16/19 11:34 Neonat Indirect Bili Not Reportable 08/16/19 11:34 AST 96 U/L (17-59) H 08/16/19 11:34 ALT 68 U/L (<50) 08/16/19 11:34 Alkaline Phosphatase 125 U/L (38-126) 08/16/19 11:34 Troponin I < 0.012 ng/mL 08/17/19 10:06 Total Protein 7.0 g/dL (6.3-8.2) 08/16/19 11:34 Albumin 3.9 g/dL (3.5-5.0) 08/16/19 11:34 TSH 0.61 uIU/mL (0.47-4.68) 08/16/19 11:34 Urine Color YELLOW 08/16/19 12:30 Urine Appearance CLEAR 08/16/19 12:30 Urine pH 5.0 (5.0-9.0) 08/16/19 12:30 Ur Specific [place] 1.013 08/16/19 12:30 Urine Protein 100 mg/dL (NEGATIVE) H 08/16/19 12:30 Urine Glucose (UA) NEGATIVE mg/dL (NEGATIVE) 08/16/19 12:30 Urine Ketones NEGATIVE mg/dL (NEGATIVE) 08/16/19 12:30 Urine Blood NEGATIVE (NEGATIVE) 08/16/19 12:30 Urine Nitrite (Reflex) NEGATIVE (NEGATIVE) 08/16/19 12:30 Urine Bilirubin NEGATIVE (NEGATIVE) 08/16/19 12:30 Urine Urobilinogen NEGATIVE mg/dL (<2.0) 08/16/19 12:30 Leukocyte Esterase Rfl NEGATIVE (NEGATIVE) 08/16/19 12:30 Urine RBC (Auto) 1 /HPF 08/16/19 12:30 Urine WBC (Reflex) 1 /HPF 08/16/19 12:30 Urine Mucus (Auto) RARE /LPF 08/16/19 12:30 Urine Ascorbic Acid NEGATIVE (NEGATIVE) 08/16/19 12:30 Influenza A (Rapid) NEGATIVE (NEGATIVE) 08/16/19 16:05 Influenza B (Rapid) NEGATIVE (NEGATIVE) 08/16/19 16:05 08/16/19 08/16/19 08/17/19 11:34 22:59 10:06 Troponin I < 0.012 0.017 < 0.012 Impressions: Chest X-Ray 08/16/19 10:57 IMPRESSION: NO ACUTE RADIOGRAPHIC FINDING IN THE CHEST. Head CT 08/16/19 15:23 IMPRESSION: No acute intracranial hemorrhage or acute territorial infarct. Chronic changes. EVIDENCE OF ACUTE STROKE: NO. Lung Scan-VQ NM 08/16/19 16:44 IMPRESSION: Normal perfusion images. No evidence of pulmonary embolism. Clumping of the radionuclide within the central airways corresponds to COPD. copyright 2010 [employer]- All Rights Reserved Plan Time Spent: Greater than 30 Minutes Stroke Is this a Stroke Patient?: No Acute Heart Failure - Is this a Heart Failure Patient?: No
[2019-08-19 08:20] VITALS: BP 122/71
[2019-08-19] MEDS: SERTRALINE HCL 50 MG TABLET PO SCH (09:43)
[2019-08-19] MEDS: MULTIVITAMIN TABLET PO SCH (09:44)
[2019-08-19] MEDS: PANTOPRAZOLE SODIUM 40 MG TABLET.DR PO SCH (09:44)
[2019-08-19] MEDS: CARVEDILOL 12.5 MG TABLET PO SCH (09:44)
[2019-08-19] MEDS: CLOPIDOGREL BISULFATE 75 MG TABLET PO SCH (09:45)
[2019-08-19] MEDS: AMLODIPINE BESYLATE 10 MG TABLET PO SCH (09:45)
== END 2019-08-19 10:40 | disposition home or self-care (01) | DRG 313 ==
LOC: ER 10:14 → OBSVTOIN 17:15 → EH 17:15 → 3N 20:25 → 4W 08-19 02:30
PROVIDERS: ADMIT Internal Medicine; ATTEND Internal Medicine
DX: R07.89 Other chest pain (principal); N17.9 Acute kidney failure, unspecified; I45.10 Unspecified right bundle-branch block; I10 Essential (primary) hypertension; E78.5 Hyperlipidemia, unspecified; E66.9 Obesity, unspecified; F32.9 Major depressive disorder, single episode, unspecified; F41.9 Anxiety disorder, unspecified; Z87.891 Personal history of nicotine dependence; Z82.49 Family history of ischemic heart disease and other diseases of the circulatory system; Z96.652 Presence of left artificial knee joint; Z86.73 Personal history of transient ischemic attack (TIA), and cerebral infarction without residual deficits; Z98.84 Bariatric surgery status; Z85.46 Personal history of malignant neoplasm of prostate; Z86.718 Personal history of other venous thrombosis and embolism; Z79.899 Other long term (current) drug therapy
CPT/HCPCS: 36415; 70450; 71046; 78582; 80048; 80053; 81001; 83605; 83735; 84443; 84484; 85025; 87040; 87077; 87150; 87804; 93005; 93010; 99285; A9540; A9567; G0378; J0696; J1644; J3490; J7030; Q9969

== ENCOUNTER 2020-07-06 22:04 | Observation (INO) | payer MEDICARE ==
[2020-07-06] MEDS ORDERED: DICYCLOMINE HCL INJ 20 MG/2 ML AMPULE IM ONE (22:20)
--- NOTE | 2020-07-06 22:25 | ER Document Report ---
ED General - General TRAVEL OUTSIDE OF THE [place] 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 He states it began earlier today. He states he went to a restaurant had a large meal that had a lot of pepper. He states he thinks that "set it off". Describes cramping across the lower abdomen. Associated with nausea and dry heaving. He does add that he status post gastric bypass and is unable to vomit. He states that he always has some degree of diarrhea from time to time but does not seem to have worsened or changed in any way. No fevers. No chills or night sweats. Patient reports he did take his antihypertensives earlier today but feels his BP is up due to the discomfort. EMS gave Zofran in route which he states helped his nausea but not his cramping. Denies any urinary complaints, penile or testicular complaints. (HARPREET RAMESH) - Related Data Allergies/Adverse Reactions: diphenhydramine [From Benadryl] Allergy (Verified 08/16/19 20:36) Anaphylaxis Past Medical History - Social History Smoking Status: Unknown if Ever Smoked Family History: CAD, Malignancy - Past Medical History Cardiac Medical History: Reports: Hx Hypertension Denies: Hx Atrial Fibrillation, Hx Coronary Artery Disease, Hx DVT, Hx Hyper cholesterolemia Pulmonary Medical History: Denies: Hx Asthma, Hx COPD Neurological Medical History: Denies: Hx Seizures Endocrine Medical History: Denies: Hx Diabetes Mellitus Type 1, Hx Diabetes Mellitus Type 2, Hx Hyperthyroidism, Hx Hypothyroidism Renal/ Medical History: Denies: Hx Peritoneal Dialysis GI Medical History: Denies: Hx Cirrhosis, Hx Hepatitis Musculoskeletal Medical History: Denies Hx Arthritis, Denies Hx Gout Skin Medical History: Denies Hx Eczema, Denies Hx Psoriasis Psychiatric Medical History: Denies: Hx Depression Infectious Medical History: Denies: Hx Hepatitis Past Surgical History: Reports: Hx Cardiac Catheterization - With cardiac ablation and IVF filter placement, Hx Gastric Bypass Surgery, Hx Orthopedic Surg jaz - Left knee replacement, Hx Tonsillectomy, Other - Treatment of prostate cancer - Immunizations Hx Pneumococcal Vaccination: 09/09/17 <HARPREET RAMESH - Last Filed: 07/07/20 02:02> - General Information source: Patient - Social History Smoking Status: Never Smoker Lives with: Family Neurological Medical History: Reports: Other - TIA, on Plavix <NIKITA MATHEWS - Last Filed: 07/07/20 05:26> Review of Systems - Review of Systems Constitutional: denies: Fever EENT: denies: Nose congestion Cardiovascular: denies: Dyspnea Respiratory: denies: Sputum Gastrointestinal: denies: Constipation Genitourinary: denies: Flank pain Male Genitourinary: denies: Testicular pain Musculoskeletal: denies: Muscle pain Skin: denies: Lesions Hematologic/Lymphatic: denies: Easy bleeding Neurological/Psychological: denies: Gait changes <HARPREET RAMESH Last Filed: 07/07/20 02:02> - Review of Systems Constitutional: No symptoms reported EENT: No symptoms reported Cardiovascular: No symptoms reported Respiratory: No symptoms reported Gastrointestinal: See HPI Genitourinary: No symptoms reported Male Genitourinary: No symptoms reported Musculoskeletal: No symptoms reported Skin: No symptoms reported Hematologic/Lymphatic: No symptoms reported Neurological/Psychological: No symptoms reported <NIKITA MATHEWS Last Filed: 07/07/20 05:26> Physical Exam - General General appearance: Appears well, Alert In distress: None - Respiratory Respiratory status: No respiratory distress Chest status: Nontender Breath sounds: Normal Chest palpation: Normal - Cardiovascular Rhythm: Regular Heart sounds: Normal auscultation Murmur: No - Abdominal Inspection: Normal Distension: No distension Bowel sounds: Normal Tenderness: Tender - Left lower quadrant and suprapubic - Neurological Neuro grossly intact: Yes Cognition: Normal Orientation: AAOx4 - Psychological Associated symptoms: Normal affect, Normal mood - Skin Skin Temperature: Warm Skin Moisture: Dry Skin Color: Normal <HARPREET RAMESH Last Filed: 07/07/20 02:02> <NIKITA MATHEWS Last Filed: 07/07/20 05:26> - Vital signs Vitals: BP 179/112 H 07/06/20 22:17 - Notes Notes: GENERAL: Patient appears mildly uncomfortable but he is not in severe distress. Alert and interactive HEAD: Normocephalic, atraumatic. EYES: Pupils equal, round, and reactive to light. Extraocular movements intact. ENT: Oral mucosa moist, tongue midline. Oropharynx unremarkable. Airway patent. LUNGS: Clear to auscultation bilaterally, no wheezes, rales, or rhonchi. No respiratory distress. Non-tender chest wall. HEART: Regular rate and rhythm. No murmur ABDOMEN: Tender in the mid to upper right quadrant on exam. Remaining abdomen soft and benign. No rigidity or distention. Otherwise unremarkable. EXTREMITIES: Moves all 4 extremities spontaneously. No edema, normal radial and dorsalis pedis pulses bilaterally. No cyanosis. BACK: no cervical, thoracic, lumbar midline tenderness. No saddle anesthesia, normal distal neurovascular exam. Moves all extremities in full range of motion. NEUROLOGICAL: Alert and oriented x3. Normal speech. Cranial nerves II through XII grossly intact. Strength 5/5 in all extremities. PSYCH: Normal affect, normal mood. SKIN: Warm, dry, normal turgor. No rashes or lesions noted. (NIKITA MATHEWS) Course - Laboratory Result Diagrams: 07/06/20 22:48 07/06/20 22:48 <HARPREET RAMESH - Last Filed: 07/07/20 02:02> - Laboratory Result Diagrams: 07/06/20 22:48 07/06/20 22:48 <NIKITA MATHEWS - Last Filed: 07/07/20 05:26> - Re-evaluation Re-evalutation: 07/07/20 02:02 CT scan showing possible cholecystitis. Ultrasound ordered to further evaluate the gallbladder. At this time, 2 AM patient will be signed out to Nikita Mathews PA-C, pending ultrasound, results and disposition. Patient stable and in ultra sound at this time. (HARPREET RAMESH) CT showing possible acute cholecystitis. Ultrasound showing very dilated gallbladder with wall thickening at 7 mm. No pericholecystic fluid. Patient does not have leukocytosis or fever. Bilirubin is unremarkable, ALT mildly elevated, alk phos is significantly elevated. Lipase borderline at 491. I reevaluated the patient. Patient has had return of pain, he is uncomfortable at this time, he has discomfort in his mid to upper right abdomen on my evaluation. As a result I am concerned patient does have acute cholecystitis. Patient was medicated, started on antibiotics, will consult surgery. I discussed with patient and daughter, they state appreciation and agreement. 07/07/20 03:[address] Tillman, general surgeon. Patient will be accepted to the surgical service, unfortunately patient is on Plavix (because of previous TIA history ) and will therefore have to be treated with antibiotics initially pending ultimate decision. Updated patient. (NIKITA MATHEWS) - Vital Signs Vital signs: Temp Pulse Resp BP Pulse Ox 98.1 F 63 18 145/106 H 97 07/06/20 23:00 07/06/20 23:00 07/06/20 23:00 07/07/20 03:01 07/06/20 23:00 - Laboratory Laboratory results interpreted by me: 07/06/20 07/06/20 07/06/20 22:48 22:48 22:48 RDW 15.4 H Lymph % (Auto) 5.7 L Seg Neutrophils % 89.7 H Chloride 110 H Carbon Dioxide 19 L BUN 39 H Creatinine 1.89 H Est GFR ( Amer) 42 L Est GFR (MDRD) Non-Af 35 L Calcium 8.0 L ALT 62 H Alkaline Phosphatase 377 H Lipase 491.8 H Urine Protein 100 H Urine Blood SMALL H Discharge <HARPREET RAMESH - Last Filed: 07/07/20 02:02> - Discharge Admitting Provider: Surgicalist Unit Admitted: Surgical Floor <NIKITA MATHEWS - Last Filed: 07/07/20 05:26> - Discharge Clinical Impression: Acute cholecystitis, Upper abdominal pain Condition: Stable Disposition: ADMITTED INPATIENT
[2020-07-06 23:06] LABS: ABSOLUTE EOSINOPHILS # (AUTO) 0.1 10^3/uL (0.0-0.6); ABSOLUTE LYMPHOCYTES (AUTO) 0.5 10^3/uL (0.5-4.7); ABSOLUTE MONOCYTES (AUTO) 0.3 10^3/uL (0.1-1.4); BASOPHILS % (AUTO) 0.3 % (0-2); EOSINOPHILS % (AUTO) 0.7 % (0-6); HEMATOCRIT 39.7 % (37.9-51.0); HEMOGLOBIN 13.5 g/dL (13.5-17.0); LYMPHOCYTES % (AUTO) 5.7 % (13-45); MEAN CORPUSCULAR HEMOGLOBIN 29.6 pg (27.0-33.4); MEAN CORPUSCULAR HGB CONC 34.1 g/dL (32.0-36.0); MEAN CORPUSCULAR VOLUME 87 fl (80-97); MONOCYTES % (AUTO) 3.6 % (3-13); PLATELET COUNT 203 10^3/uL (150-450); RED BLOOD COUNT 4.57 10^6/uL (4.35-5.55); RED CELL DISTRIBUTION WIDTH 15.4 % (11.5-14.0); SEGMENTED NEUTROPHILS % (AUTO) 89.7 % (42-78); TOTAL CELLS COUNTED % (AUTO) 100 %; WHITE BLOOD COUNT 8.9 10^3/uL (4.0-10.5)
[2020-07-06 23:18] LABS: APPEARANCE,URINE CLEAR; BILIRUBIN,URINE NEGATIVE (NEGATIVE); COLOR,URINE STRAW; GLUCOSE, URINE NEGATIVE (NEGATIVE); KETONES,URINE NEGATIVE (NEGATIVE); PROTEIN,URINE 100 mg/dL (NEGATIVE); URINE SPECIFIC GRAVITY 1.008; UROBILINOGEN,URINE NEGATIVE mg/dL (<2.0)
[2020-07-06 23:23] LABS: ALBUMIN 3.7 g/dL (3.5-5.0); ALKALINE PHOSPHATASE 377 U/L (38-126); ANION GAP 14 (5-19); ASPARTATE AMINO TRANSFERASE 34 U/L (17-59); BILIRUBIN,DIRECT 0.3 mg/dL (0.0-0.4); BILIRUBIN,TOTAL 0.5 mg/dL (0.2-1.3); BLOOD UREA NITROGEN 39 mg/dL (7-20); CARBON DIOXIDE 19 mmol/L (22-30); CHLORIDE 110 mmol/L (98-107); GLUCOSE 101 mg/dL (75-110); POTASSIUM 3.7 mmol/L (3.6-5.0); TOTAL PROTEIN 6.7 g/dL (6.3-8.2)
[2020-07-06] MEDS ORDERED: NORMAL SALINE 1000 ML 1,000 ML IV ONE (23:36)
--- NOTE | 2020-07-07 00:45 | RADIOLOGY REPORT (SQ) ---
CLINICAL HISTORY: LLQ pain h/o diverticulitis. CREAT 1.8 COMPARISON: None. TECHNIQUE: CT ABDOMEN PELVIS WITH IV CONTRAST on 07/06/2020 10:19 PM CDT This exam was performed according to our departmental dose-optimization program, which includes automated exposure control, adjustment of the mA and/or kV according to patient size and/or use of iterative reconstruction technique. FINDINGS: There is right basilar atelectasis. Right diaphragm is elevated. Abdomen: The liver is normal in appearance. There is no biliary dilatation. Gallbladder is mildly thickened anteriorly the wall measuring up to 1.2 cm. There are postoperative changes of gastric bypass. There is mild pericholecystic inflammation. The pancreas and spleen are normal in appearance. Adrenal glands are normal. Kidneys are mildly atrophic. There is a small lower pole left renal cyst. IVC filter is in place. Abdominal aorta is normal in course and caliber without aneurysm. There is no free air. There is no retroperitoneal adenopathy. Pelvis: There is moderate diverticulosis of the distal colon. Urinary bladder is unremarkable. There is no free fluid. There are bilateral inguinal hernia repairs. There is a small fat-containing residual left inguinal hernia. There are fiducial markers within the normal sized prostate. Appendix is normal. Skeleton: There are no acute osseous findings. No suspicious bony lesions. IMPRESSION: Possible acute cholecystitis.
--- NOTE | 2020-07-07 02:49 | RADIOLOGY REPORT (SQ) ---
EXAM: Ultrasound abdomen limited CLINICAL DATA: 75 years Male acute robert on CT? TECHNICAL DATA: Limited sonographic imaging of the right upper quadrant was performed on 07/07/2020 at 1:35 AM. Comparison: CT abdomen and pelvis performed on 07/07/2020 at 12:18 AM. FINDINGS: The liver is top normal in size and is grossly normal in configuration. The liver demonstrates normal echogenicity. No focal hepatic abnormalities are identified. Doppler imaging reveals patency of the portal vein and normal hepatopedal flow. The gallbladder is markedly distended. There is echogenic debris within the gallbladder lumen likely reflecting sludge. No joseph cholelithiasis is identified. There is gallbladder wall thickening. The gallbladder wall measures approximately 7 mm in diameter. There is no discrete pericholecystic fluid identified on this examination. The common bile duct measures 3 mm in diameter. However, I suspect this is underestimated based on the prior CT imaging. No sonographic Diego sign was detected by the technologist during imaging. The right kidney is normal in size, shape and echogenicity without hydronephrosis or definite nephrolithiasis. The right kidney measures 11.3 cm in length. There is no evidence of free fluid identified on this examination. The aorta is normal in caliber proximally. The mid and distal portions are obscured by bowel gas. The head and body of the pancreas are grossly unremarkable. The tail is obscured by bowel gas. IMPRESSION: 1. Markedly distended gallbladder containing sludge with associated gallbladder wall thickening. Although no sonographic Diego sign, joseph pericholecystic fluid or joseph biliary ductal dilatation was appreciated on this examination, cholecystitis cannot be entirely excluded. 2. Some portions of the examination are obscured by bowel gas.
[2020-07-07] MEDS ORDERED: MORPHINE SULFATE 10 MG/ML INJ IV ONE (03:31)
[2020-07-07] MEDS ORDERED: AMPICILLIN SOD/SULBACTAM 3 GM VIAL IV ONE (03:31)
[2020-07-07] MEDS ORDERED: NORMAL SALINE 1000 ML 1,000 ML IV PRN (03:46)
[2020-07-07] MEDS ORDERED: PIPERACILLIN/TAZOBACTAM 3.375 GM VIAL IV PRN (03:56)
[2020-07-07] MEDS: ONDANSETRON HCL INJ/PF 4 MG/2 ML SDV IV PRN (04:28)
[2020-07-07] MEDS: PIPERACILLIN SODIUM/TAZOBACTAM 3.375 GM in NORMAL SALINE 100 ML IV SCH ×4 (05:02→23:50)
[2020-07-07] MEDS: NORMAL SALINE 1000 ML 1,000 ML IV PRN ×3 (05:15→23:43)
--- NOTE | 2020-07-07 07:24 | PDOC H&P ---
History of Present Illness Admission Date/PCP: 07/07/20 04:43 Patient complains of: Right upper quadrant pain that radiates to the back. History of Present Illness: PARKER NOWAK is a 75 year old male several day history of right upper quadrant pain. Patient reports fatigue and malaise as well. He presents to the emergency department for evaluation due to the symptoms. He reports that his pain is 5 out of 10. He reports that it is a crampy, dull ache. It radiates around to his back. It is worse with palpation. Nothing makes it better. He has a history of TIAs, with an unknown source. He takes Plavix to treat this. He has a history of gastric bypass, and a leg fracture (it caused a DVT, treated with an IVC filter). The patient denies chest pain, shortness of breath, fevers, chills, headache, blurry vision. Past Medical History Cardiac Medical History: Reports: Hypertension Denies: Atrial Fibrillation, Coronary Artery Disease, DVT, Hyperlipidema Pulmonary Medical History: Denies: Asthma, Chronic Obstructive Pulmonary Disease (COPD) Neurological Medical History: Reports: Other - TIA, on Plavix Denies: Seizures Endocrine Medical History: Denies: Diabetes Mellitus Type 1, Diabetes Mellitus Type 2, Hyperthyroidism, Hypothyroidism GI Medical History: Denies: Cirrhosis, Hepatitis Musculoskeltal Medical History: Denies: Arthritis, Gout Skin Medical History: Denies: Eczema, Psoriasis Psychiatric Medical History: Denies: Depression Hematology: Denies: Anemia, Bleeding Tendencies Past Surgical History Past Surgical History: Reports: Cardiac Catheterization - With cardiac ablation, Gastric Bypass Surgery, Orthopedic Surgery - Left knee replacement, Tonsillectomy, Vascular Surgery - IVC filter placement for DVT, Other - Treatment of prostate cancer Social History Lives with: Family Smoking Status: Never Smoker Electronic Cigarette use?: No Frequency of Alcohol Use: Rare Hx Recreational Drug Use: No Drugs: None Hx Prescription Drug Abuse: No Family History Family History: CAD, Malignancy Parental Family History Reviewed: Yes Children Family History Reviewed: Yes Sibling(s) Family History Reviewed.: Yes Medication/Allergy Home Medications: Amlodipine Besylate [Norvasc 10 mg Tablet] 10 mg PO DAILY 10/29/18 Cyclobenzaprine HCl [Flexeril 10 mg Tablet] 20 mg PO QHS 10/29/18 Melatonin 10 mg PO QHS 10/29/18 Omeprazole 40 mg PO DAILY 10/29/18 Sertraline HCl [Zoloft] 200 mg PO DAILY 10/29/18 Tamsulosin HCl [Flomax 0.4 mg Cap.sr] 0.4 mg PO QHS 10/29/18 Atorvastatin Calcium [Lipitor 40 mg Tablet] 40 mg PO QHS 30 Days #30 tablet 10/31/18 Clopidogrel Bisulfate [Plavix 75 mg Tablet] 75 mg PO DAILY 30 Days #30 tablet 10/31/18 Lisinopril [Prinivil 10 mg Tablet] 40 mg PO DAILY 30 Days #30 tablet 10/31/18 Carvedilol [Coreg 25 mg Tablet] 25 mg PO Q12 08/17/19 Clonidine HCl [Catapres 0.1 mg Tablet] 0.1 mg PO Q8 08/17/19 Multivit-Min/Folic/Vit K/Lycop [One-A-Day Men's 50 Plus Tablet] 1 each PO DAILY 08/17/19 Allergies/Adverse Reactions: diphenhydramine [From Benadryl] Allergy (Verified 07/07/20 07:14) Anaphylaxis Review of Systems Constitutional: PRESENT: fatigue. ABSENT: anorexia, chills, fever(s), headache(s), weakness Eyes: ABSENT: visual disturbances Ears: ABSENT: hearing changes Nose, Mouth, and Throat: ABSENT: sore throat Cardiovascular: ABSENT: chest pain Respiratory: ABSENT: cough Gastrointestinal: PRESENT: abdominal pain, nausea. ABSENT: hematemesis, hematochezia, melena, vomiting Genitourinary: ABSENT: dysuria Musculoskeletal: ABSENT: back pain Integumentary: ABSENT: pruritus, rash Neurological: ABSENT: confusion, convulsions, dizziness Psychiatric: ABSENT: anxiety, depression Endocrine: ABSENT: cold intolerance Physical Exam Vital Signs: Temp Pulse Resp BP Pulse Ox 98.1 F 63 18 145/106 H 97 07/06/20 23:00 07/06/20 23:00 07/06/20 23:00 07/07/20 03:01 07/06/20 23:00 Intake & Output 07/05/20 07/06/20 07/07/20 06:59 06:59 06:59 Intake Total 1000 Balance 1000 Weight 112.491 kg General appearance: PRESENT: no acute distress, cooperative Head exam: PRESENT: atraumatic, normocephalic Eye exam: PRESENT: EOMI, PERRLA. ABSENT: scleral icterus Mouth exam: PRESENT: moist, neck supple Neck exam: ABSENT: meningismus, tenderness, thyromegaly Respiratory exam: PRESENT: unlabored. ABSENT: tachypnea, wheezes Cardiovascular exam: ABSENT: tachycardia Vascular exam: PRESENT: normal capillary refill GI/Abdominal exam: PRESENT: soft, tenderness - Right upper quadrant. ABSENT: distended, hernia Rectal exam: PRESENT: deferred Extremities exam: ABSENT: clubbing Musculoskeletal exam: ABSENT: deformity Neurological exam: PRESENT: alert, awake, oriented to person, oriented to place, oriented to time, oriented to situation, CN II-XII grossly intact Psychiatric exam: ABSENT: agitated, anxious, depressed Focused psych exam: ABSENT: delusional Skin exam: ABSENT: cyanosis, erythema, jaundice Results Laboratory Results: 07/06/20 22:48 07/06/20 22:48 07/06/20 07/06/20 07/06/20 22:48 22:48 22:48 WBC 8.9 RBC 4.57 Hgb 13.5 Hct 39.7 MCV 87 MCH 29.6 MCHC 34.1 RDW 15.4 H Plt Count 203 Seg Neutrophils % 89.7 H Sodium 142.8 Potassium 3.7 Chloride 110 H Carbon Dioxide 19 L Anion Gap 14 BUN 39 H Creatinine 1.89 H Est GFR ( Amer) 42 L Glucose 101 Calcium 8.0 L Total Bilirubin 0.5 AST 34 Alkaline Phosphatase 377 H Total Protein 6.7 Albumin 3.7 Lipase 491.8 H Urine Color STRAW Urine Appearance CLEAR Urine pH 5.0 Ur Specific [place] 1.008 Urine Protein 100 H Urine Glucose (UA) NEGATIVE Urine Ketones NEGATIVE Urine Blood SMALL H Urine RBC (Auto) 0 Impressions: Abdomen/Pelvis CT 07/06/20 22:19 IMPRESSION: Possible acute cholecystitis. Abdomen Ultrasound 07/07/20 00:49 IMPRESSION: 1. Markedly distended gallbladder containing sludge with associated gallbladder wall thickening. Although no sonographic Diego sign, joseph pericholecystic fluid or joseph biliary ductal dilatation was appreciated on this examination, cholecystitis cannot be entirely excluded. 2. Some portions of the examination are obscured by bowel gas. Assessment & Plan - Diagnosis (1) Acute cholecystitis Is this a current diagnosis for this admission?: Yes - Time Anticipated Discharge Disposition: Home, Self Care Anticipated Discharge Timeframe: unknown - Plan Summary Plan Summary: 75-year-old male with acute cholecystitis. I have reviewed his CT scan and ultrasound. He does have thickening of his gallbladder wall. His LFTs are normal. Patient took his Plavix Saturday evening. Plan for cholecystectomy tomorrow. Transfuse platelets immediately prior to the operation. Rapid Covid test now. Start Zosyn. Risks and benefits of the operation were discussed. The patient is in agreement with the treatment plan.
[2020-07-07] MEDS ORDERED: NORMAL SALINE 250 ML IV PRN (07:29)
[2020-07-07] MEDS: FAMOTIDINE INJ/PF 20 MG/2 ML SDV IV SCH ×2 (10:11→21:33)
[2020-07-07] MEDS: MORPHINE SULFATE 10 MG/ML INJ IV PRN ×2 (10:22→20:04)
[2020-07-08] MEDS: HYDRALAZINE HCL INJ/PF 20 MG/1 ML SDV IV PRN ×2 (03:53→19:35)
[2020-07-08] MEDS: PIPERACILLIN SODIUM/TAZOBACTAM 3.375 GM in NORMAL SALINE 100 ML IV SCH ×3 (05:53→17:27)
[2020-07-08 06:40] LABS: ABSOLUTE EOSINOPHILS # (AUTO) 0.1 10^3/uL (0.0-0.6); ABSOLUTE LYMPHOCYTES (AUTO) 0.6 10^3/uL (0.5-4.7); ABSOLUTE MONOCYTES (AUTO) 0.3 10^3/uL (0.1-1.4); ABSOLUTE NEUT (AUTO) 2.8 10^3/uL (1.7-8.2); BASOPHILS % (AUTO) 0.8 % (0-2); EOSINOPHILS % (AUTO) 3.6 % (0-6); HEMATOCRIT 34.1 % (37.9-51.0); HEMOGLOBIN 11.6 g/dL (13.5-17.0); MEAN CORPUSCULAR HEMOGLOBIN 29.7 pg (27.0-33.4); MEAN CORPUSCULAR HGB CONC 34.2 g/dL (32.0-36.0); MEAN CORPUSCULAR VOLUME 87 fl (80-97); PLATELET COUNT 162 10^3/uL (150-450); RED BLOOD COUNT 3.92 10^6/uL (4.35-5.55); RED CELL DISTRIBUTION WIDTH 15.6 % (11.5-14.0); SEGMENTED NEUTROPHILS % (AUTO) 71.6 % (42-78); TOTAL CELLS COUNTED % (AUTO) 100 %; WHITE BLOOD COUNT 3.9 10^3/uL (4.0-10.5)
[2020-07-08 07:00] LABS: ALBUMIN 3.2 g/dL (3.5-5.0); ALKALINE PHOSPHATASE 262 U/L (38-126); ANION GAP 13 (5-19); ASPARTATE AMINO TRANSFERASE 37 U/L (17-59); BILIRUBIN,DIRECT 0.3 mg/dL (0.0-0.4); BILIRUBIN,TOTAL 0.6 mg/dL (0.2-1.3); BLOOD UREA NITROGEN 28 mg/dL (7-20); CALCIUM 8.2 mg/dL (8.4-10.2); CARBON DIOXIDE 22 mmol/L (22-30); CHLORIDE 111 mmol/L (98-107); GLUCOSE 85 mg/dL (75-110); POTASSIUM 3.7 mmol/L (3.6-5.0)
[2020-07-08] MEDS ORDERED: NORMAL SALINE 250 ML IV PRN (07:29)
[2020-07-08] MEDS ORDERED: BUPIVACAINE HCL 0.25 % INJ/PF (2.5 MG/1 ML) 30 ML VIAL ONE (07:46)
[2020-07-08] MEDS ORDERED: SUGAMMADEX SODIUM 200 MG/2 ML SDV IV ONE (07:47)
[2020-07-08] MEDS ORDERED: MIDAZOLAM 2 MG/2 ML INJ ONE (07:47)
[2020-07-08] MEDS ORDERED: FENTANYL CITRATE INJ/PF 100 MCG/2 ML AMPUL ONE (07:47)
[2020-07-08] MEDS ORDERED: EPHEDRINE SULFATE INJ 50 MG/1 ML AMPULE ONE (07:48)
[2020-07-08] MEDS ORDERED: PROPOFOL INJ 200 MG/20 ML VIAL IV ONE (07:48)
--- NOTE | 2020-07-08 09:07 | PDOC PROGRESS REPORT ---
Subjective Progress Note for:: 07/08/20 Subjective:: 75-year-old male with acute cholecystitis. He continues to report abdominal pain and nausea. He denies chest pain, shortness of breath, fevers, chills. Reason For Visit: ACUTE CHOLECYSTITIS Physical Exam Vital Signs: Temp Pulse Resp BP Pulse Ox 97.7 F 52 L 18 156/88 H 96 07/08/20 07:43 07/08/20 07:18 07/08/20 07:18 07/08/20 07:18 07/08/20 07:18 Intake & Output 07/07/20 07/08/20 07/09/20 06:59 06:59 06:59 Intake Total 1000 2983 Balance 1000 2983 Weight 112.491 kg 110.8 kg General appearance: PRESENT: no acute distress, cooperative Head exam: PRESENT: atraumatic, normocephalic Eye exam: PRESENT: EOMI, PERRLA. ABSENT: scleral icterus Mouth exam: PRESENT: moist, neck supple Neck exam: ABSENT: meningismus, tenderness, thyromegaly, tracheal deviation Respiratory exam: PRESENT: unlabored. ABSENT: tachypnea, wheezes Cardiovascular exam: ABSENT: tachycardia Vascular exam: PRESENT: normal capillary refill GI/Abdominal exam: PRESENT: soft, tenderness - right upper quadrant. ABSENT: distended, rigid Rectal exam: PRESENT: deferred Extremities exam: ABSENT: clubbing Musculoskeletal exam: ABSENT: deformity Neurological exam: PRESENT: alert, awake, oriented to person, oriented to place, oriented to time, oriented to situation Psychiatric exam: ABSENT: agitated, anxious Focused psych exam: ABSENT: delusional Skin exam: ABSENT: cyanosis, erythema, jaundice Results Laboratory Results: 07/08/20 06:22 07/08/20 06:22 07/07/20 07/08/20 07/08/20 08:07 06:22 06:22 WBC 3.9 L RBC 3.92 L Hgb 11.6 L Hct 34.1 L MCV 87 MCH 29.7 MCHC 34.2 RDW 15.6 H Plt Count 162 Seg Neutrophils % 71.6 Sodium 145.6 H Potassium 3.7 Chloride 111 H Carbon Dioxide 22 Anion Gap 13 BUN 28 H Creatinine 1.91 H Est GFR ( Amer) 42 L Glucose 85 Calcium 8.2 L Total Bilirubin 0.6 AST 37 Alkaline Phosphatase 262 H Total Protein 6.0 L Albumin 3.2 L Blood Type B POSITIVE Antibody Screen NEGATIVE Impressions: Abdomen/Pelvis CT 07/06/20 22:19 IMPRESSION: Possible acute cholecystitis. Abdomen Ultrasound 07/07/20 00:49 IMPRESSION: 1. Markedly distended gallbladder containing sludge with associated gallbladder wall thickening. Although no sonographic Diego sign, joseph pericholecystic fluid or joseph biliary ductal dilatation was appreciated on this examination, cholecystitis cannot be entirely excluded. 2. Some portions of the examination are obscured by bowel gas. Assessment & Plan - Diagnosis (1) Acute cholecystitis Is this a current diagnosis for this admission?: Yes - Time Anticipated Discharge Disposition: Home, Self Care Anticipated Discharge Timeframe: within 48 hours - Plan Summary Plan Summary: 75-year-old male with acute cholecystitis. Plan for cholecystectomy today. Risk/benefits again reviewed. The patient is in agreement with the treatment plan. 2 OR today.
[2020-07-08] MEDS ORDERED: MORPHINE SULFATE 10 MG/ML INJ IV PRN (09:44)
[2020-07-08] MEDS ORDERED: PROMETHAZINE HCL INJ 25 MG/1 ML VIAL IV PRN ×2 (09:44)
[2020-07-08] MEDS ORDERED: FENTANYL CITRATE INJ/PF 100 MCG/2 ML AMPUL IV PRN ×3 (09:44)
[2020-07-08] MEDS ORDERED: MEPERIDINE HCL/PF INJ 25 MG/1 ML DISP.SYRIN IV PRN (09:44)
--- NOTE | 2020-07-08 12:10 | Operative Report ---
Nonrecallable Operative Report DATE OF SURGERY: 07/08/20 PREOPERATIVE DIAGNOSIS: acute cholecystitis POSTOPERATIVE DIAGNOSIS: acute gangrenous cholecystitis OPERATION: Laparoscopic cholecystectomy SURGEON: NIKKI STEELE ANESTHESIA: GA TISSUE REMOVED OR ALTERED: Gallbladder COMPLICATIONS: None apparent ESTIMATED BLOOD LOSS: 500 cc PROCEDURE: Drain/implants: 1. Surgicel in the gallbladder fossa. 2. 15 Argentine round Demar drain in the gallbladder fossa. Procedure in detail: After informed consent was obtained, the patient was brought to the operating room and laid in the supine position. The area of the abdomen was prepped and draped in a normal sterile fashion. A supraumbilical incision was created with a 15 blade scalpel. Dissection was carried through the subcutaneous tissues using sharp and blunt dissection. The cicatrix was identified, grasped with a Adriana clamp, and retracted upwards. The linea alba fascia was incised sharply, the abdomen was entered sharply. The balloon trocar was inserted, and pneumoperitoneum was achieved. A subxiphoid 5 mm port was then placed under direct laparoscopic visualization. 2 more 5 mm ports were placed in the right upper quadrant in similar fashion. Atraumatic graspers were placed through the 5 mm ports. The gallbladder was identified. It was acutely inflamed with several areas of the wall that were gangrenous. It appeared intrahepatic, and somewhat folded. It was tense and distended, making grasping of the gallbladder impossible. A cyst aspiration needle was used to suction 150 cc of bile from the gallbladder. Next, the gallbladder was retracted cephalad and laterally. Dissection was begun at the infundibulum. There was a dense inflammatory reaction present in and around the infundibulum. The dissection was exceedingly difficult, and positive identification of the cystic duct was initially unsuccessful. Secondary to this, a dome down technique was preferred. To facilitate instrumentation, the 5 mm subxiphoid trocar was removed and a 12 mm trocar was placed into the subxiphoid position. The gallbladder was freed from the liver using a mixture of electrocautery and blunt dissection. This was somewhat difficult doing to the distention of the gallbladder, as well as the abnormal folding/unusual shape of the gallbladder. The gallbladder was successfully freed from the liver, and retracted inferiorly. The infundibulum was easily identified, however the inflammation around the cystic duct was still significant. Secondary to this, the gallbladder was amputated, and visualization from within the gallbladder was used. This allowed me to estimate the area of the cystic duct. Further dissection was felt to be unnecessary. The safest course of action, at this time, was securing of the distal infundibulum with a PDS Endoloop. This was completed. The gallbladder was then placed into an Endo Catch bag, and pulled out through the umbilicus. The camera was then reinserted. The hilum was inspected. The abdomen was copiously irrigated and suctioned, until the effluent was clear. There was noted to be no leakage of bile from the hilum. There was some oozing in the gallbladder fossa. This was controlled with electrocautery and Surgicel. Next, a 15 Argentine round Demar drain was placed through the lateralmost port. It was situated into the gallbladder fossa. It was sutured to the skin using 2-0 nylon. Next, attention was turned to closure of the 12 mm subxiphoid port. The Jonh-Gloria device was used to close the defect in [id number] fashion with 0 Vicryl suture. Next the trochars were removed, pneumoperitoneum was relieved, and attention was turned to closure of the supraumbilical port. The supraumbilical fascia was closed using 0 Vicryl suture in [id number] fashion, under direct vision. The overlying skin was closed using 4-0 Vicryl Rapide suture in subcuticular fashion. Dressings were placed, and the procedure was concluded. All sponge, instrument, and needle counts were correct x2. Condition: Stable.
[2020-07-08] MEDS: MORPHINE SULFATE 10 MG/ML INJ ONE ×2 (12:20→12:35)
[2020-07-08] MEDS: HYDRALAZINE HCL INJ/PF 20 MG/1 ML SDV ONE ×3 (13:00→13:30)
[2020-07-08] MEDS ORDERED: ROCURONIUM BROMIDE INJ 50 MG/5 ML VIAL IV ONE (14:06)
[2020-07-08] MEDS ORDERED: GLYCOPYRROLATE 1 MG/5 ML VIAL ONE (14:06)
[2020-07-08] MEDS ORDERED: SUCCINYLCHOLINE CHLORIDE INJ 200 MG/10 ML VIAL ONE (14:06)
[2020-07-08] MEDS ORDERED: ONDANSETRON HCL INJ/PF 4 MG/2 ML SDV ONE (14:06)
[2020-07-08] MEDS ORDERED: PHENYLEPHRINE HCL INJ/PF 10 MG/1 ML SDV ONE (14:06)
[2020-07-08] MEDS ORDERED: DEXAMETHASONE SOD PHOSPHATE INJ 4 MG/1 ML VIAL ONE (14:06)
[2020-07-08] MEDS: LISINOPRIL 10 MG TABLET PO SCH (14:37)
[2020-07-08] MEDS: CARVEDILOL 12.5 MG TABLET PO SCH ×2 (14:37→21:41)
[2020-07-08] MEDS: FAMOTIDINE INJ/PF 20 MG/2 ML SDV IV SCH ×2 (14:37→21:41)
[2020-07-08] MEDS: MORPHINE SULFATE 10 MG/ML INJ IV PRN ×2 (14:42→21:40)
[2020-07-08] MEDS: ONDANSETRON HCL INJ/PF 4 MG/2 ML SDV IV PRN (14:42)
[2020-07-08] MEDS: KETOROLAC TROMETHAMINE INJ/PF 30 MG/1 ML SDV IV SCH ×2 (19:34→21:55)
[2020-07-09] MEDS: HYDROCODONE/ACETAMINOPHEN 10-325 MG TABLET PO PRN ×2 (00:24→09:07)
[2020-07-09] MEDS: MORPHINE SULFATE 10 MG/ML INJ IV PRN ×2 (02:36→06:37)
[2020-07-09] MEDS: ONDANSETRON HCL INJ/PF 4 MG/2 ML SDV IV PRN (02:41)
[2020-07-09] MEDS: KETOROLAC TROMETHAMINE INJ/PF 30 MG/1 ML SDV IV SCH (05:00)
--- NOTE | 2020-07-09 08:59 | PDOC DISCHARGE SUMMARY ---
General - Admit/Disc Date/PCP Admission Date/Primary Care Provider: 07/07/20 04:43 Discharge Date: 07/09/20 - Discharge Diagnosis Final Diagnosis: Acute, gangrenous cholecystitis - Assessment Summary: 75-year-old male admitted with acute cholecystitis. He was taken to the operating room where acute, gangrenous cholecystitis was discovered. The patient underwent a laparoscopic operation, and did well after the procedure. The patient on postoperative day #1 was ambulating, tolerating a diet, was afebrile, and had minimal complaints. At this time it is felt that he has reach ed maximal hospital benefit, and is fit for discharge. - Additional Information Resuscitation Status: Full Code Discharge Diet: As Tolerated Discharge Activity: No Lifting Over 10 Pounds, No Lifting/Push/Pulling Referrals: ALANNA CARIAS MD [[facility] STAFF] - Follow up as needed Prescriptions: Hydrocodone/Acetaminophen [[place] 10-325 mg Tablet] 1 tab PO Q6HP PRN #14 tablet PRN Reason: For Pain Home Medications: Amlodipine Besylate [Norvasc 10 mg Tablet] 10 mg PO DAILY 10/29/18 Omeprazole 40 mg PO DAILY 10/29/18 Sertraline HCl [Zoloft] 200 mg PO DAILY 10/29/18 Tamsulosin HCl [Flomax 0.4 mg Cap.sr] 0.4 mg PO DAILY 10/29/18 Atorvastatin Calcium [Lipitor 40 mg Tablet] 40 mg PO QHS 30 Days #30 tablet 10/31/18 Lisinopril [Prinivil 10 mg Tablet] 40 mg PO DAILY 30 Days #30 tablet 10/31/18 Carvedilol [Coreg 25 mg Tablet] 25 mg PO Q12 08/17/19 Chlorthalidone [Hygro[place] 25 mg Tablet] 12.5 mg PO DAILY 07/07/20 Clopidogrel Bisulfate [Plavix 75 mg Tablet] 75 mg PO QHS 07/07/20 Ibuprofen [Motrin 400 mg Tablet] 400 mg PO BID 07/07/20 Multivitamin [Tab-A-Brianda (Multiple Vitamin) Tablet] 1 tab PO DAILY 07/07/20 Hydrocodone/Acetaminophen [[place] 10-325 mg Tablet] 1 tab PO Q6HP PRN #14 tablet 07/09/20 Additional Information: Discharge home. Diet as tolerated. Activity: No lifting greater than 10 pounds x 2 weeks. Okay to shower starting tomorrow. No tub baths or swimming pools x2 weeks. [place] 10/325 mg p.o. every 6 hours as needed for pain. Measure and record THEE drain output every 24 hours. Follow-up with [facility] in 7 to 10 days. History of Present Illiness History of Present Illness: PARKER NOWAK is a 75 year old male several day history of right upper quadrant pain. Patient reports fatigue and malaise as well. He presents to the emergency department for evaluation due to the symptoms. He reports that his pain is 5 out of 10. He reports that it is a crampy, dull ache. It radiates around to his back. It is worse with palpation. Nothing makes it better. He has a history of TIAs, with an unknown source. He takes Plavix to treat this. He has a history of gastric bypass, and a leg fracture (it caused a DVT, treated with an IVC filter). The patient denies chest pain, shortness of breath, fevers, chills, headache, blurry vision. Physical Exam Vital Signs: Temp Pulse Resp BP Pulse Ox 97.9 F 66 18 138/77 H 93 07/09/20 08:20 07/09/20 07:17 07/09/20 07:17 07/09/20 07:17 07/09/20 07:17 Intake & Output 07/08/20 07/09/20 07/10/20 06:59 06:59 05:59 Intake Total 2983 400 Output Total 1225 Balance 2983 -825 Weight 110.8 kg 111.4 kg Results Laboratory Results: WBC 3.9 10^3/uL (4.0-10.5) L 07/08/20 06:22 RBC 3.92 10^6/uL (4.35-5.55) L 07/08/20 06:22 Hgb 11.6 g/dL (13.5-17.0) L 07/08/20 06:22 Hct 34.1 % (37.9-51.0) L 07/08/20 06:22 MCV 87 fl (80-97) 07/08/20 06:22 MCH 29.7 pg (27.0-33.4) 07/08/20 06:22 MCHC 34.2 g/dL (32.0-36.0) 07/08/20 06:22 RDW 15.6 % (11.5-14.0) H 07/08/20 06:22 Plt Count 162 10^3/uL (150-450) 07/08/20 06:22 Lymph % (Auto) 16.0 % (13-45) 07/08/20 06:22 [place] % (Auto) 8.0 % (3-13) 07/08/20 06:22 Eos % (Auto) 3.6 % (0-6) 07/08/20 06:22 Baso % (Auto) 0.8 % (0-2) 07/08/20 06:22 Absolute Neuts (auto) 2.8 10^3/uL (1.7-8.2) 07/08/20 06:22 Absolute Lymphs (auto) 0.6 10^3/uL (0.5-4.7) 07/08/20 06:22 Absolute Monos (auto) 0.3 10^3/uL (0.1-1.4) 07/08/20 06:22 Absolute Eos (auto) 0.1 10^3/uL (0.0-0.6) 07/08/20 06:22 Absolute Basos (auto) 0.0 10^3/uL (0.0-0.2) 07/08/20 06:22 Seg Neutrophils % 71.6 % (42-78) 07/08/20 06:22 Sodium 145.6 mmol/L (137-145) H 07/08/20 06:22 Potassium 3.7 mmol/L (3.6-5.0) 07/08/20 06:22 Chloride 111 mmol/L (98-107) H 07/08/20 06:22 Carbon Dioxide 22 mmol/L (22-30) 07/08/20 06:22 Anion Gap 13 (5-19) 07/08/20 06:22 BUN 28 mg/dL (7-20) H 07/08/20 06:22 Creatinine 1.91 mg/dL (0.52-1.25) H 07/08/20 06:22 Est GFR ( Amer) 42 (>60) L 07/08/20 06:22 Est GFR (MDRD) Non-Af 35 (>60) L 07/08/20 06:22 Glucose 85 mg/dL (75-110) 07/08/20 06:22 Calcium 8.2 mg/dL (8.4-10.2) L 07/08/20 06:22 Total Bilirubin 0.6 mg/dL (0.2-1.3) 07/08/20 06:22 Direct Bilirubin 0.3 mg/dL (0.0-0.4) 07/08/20 06:22 Neonat Total Bilirubin Not Reportable 07/08/20 06:22 Neonat Direct Bilirubin Not Reportable 07/08/20 06:22 Neonat Indirect Bili Not Reportable 07/08/20 06:22 AST 37 U/L (17-59) 07/08/20 06:22 ALT 49 U/L (<50) 07/08/20 06:22 Alkaline Phosphatase 262 U/L (38-126) H 07/08/20 06:22 Total Protein 6.0 g/dL (6.3-8.2) L 07/08/20 06:22 Albumin 3.2 g/dL (3.5-5.0) L 07/08/20 06:22 Lipase 491.8 U/L (23-300) H 07/06/20 22:48 Urine Color STRAW 07/06/20 22:48 Urine Appearance CLEAR 07/06/20 22:48 Urine pH 5.0 (5.0-9.0) 07/06/20 22:48 Ur Specific [place] 1.008 07/06/20 22:48 Urine Protein 100 mg/dL (NEGATIVE) H 07/06/20 22:48 Urine Glucose (UA) NEGATIVE mg/dL (NEGATIVE) 07/06/20 22:48 Urine Ketones NEGATIVE mg/dL (NEGATIVE) 07/06/20 22:48 Urine Blood SMALL (NEGATIVE) H 07/06/20 22:48 Urine Nitrite (Reflex) NEGATIVE (NEGATIVE) 07/06/20 22:48 Urine Bilirubin NEGATIVE (NEGATIVE) 07/06/20 22:48 Urine Urobilinogen NEGATIVE mg/dL (<2.0) 07/06/20 22:48 Leukocyte Esterase Rfl NEGATIVE (NEGATIVE) 07/06/20 22:48 Urine RBC (Auto) 0 /HPF 07/06/20 22:48 Urine Bacteria (Auto) TRACE /HPF 07/06/20 22:48 Urine WBC (Reflex) 1 /HPF 07/06/20 22:48 Squamous Epi Cells Auto <1 /HPF 07/06/20 22:48 Urine Mucus (Auto) RARE /LPF 07/06/20 22:48 Urine Ascorbic Acid NEGATIVE (NEGATIVE) 07/06/20 22:48 SARS-CoV-2 (PCR) NEGATIVE (NEGATIVE) 07/07/20 07:54 Blood Type B POSITIVE 07/07/20 08:07 Antibody Screen NEGATIVE 07/07/20 08:07 Impressions: Abdomen/Pelvis CT 07/06/20 22:19 IMPRESSION: Possible acute cholecystitis. Abdomen Ultrasound 07/07/20 00:49 IMPRESSION: 1. Markedly distended gallbladder containing sludge with associated gallbladder wall thickening. Although no sonographic Diego sign, joseph pericholecystic fluid or joseph biliary ductal dilatation was appreciated on this examination, cholecystitis cannot be entirely excluded. 2. Some portions of the examination are obscured by bowel gas.
[2020-07-09] MEDS: CARVEDILOL 12.5 MG TABLET PO SCH (09:06)
[2020-07-09] MEDS: FAMOTIDINE INJ/PF 20 MG/2 ML SDV IV SCH (09:06)
[2020-07-09] MEDS: LISINOPRIL 10 MG TABLET PO SCH (09:06)
[2020-07-09 10:05] VITALS: BP 148/65
== END 2020-07-09 11:35 | disposition home or self-care (01) ==
LOC: ER 22:04 → EH 07-07 04:43 → 4S 07-07 14:01
PROVIDERS: ATTEND Surgery
DX: K81.0 Acute cholecystitis (principal); K81.1 Chronic cholecystitis; I10 Essential (primary) hypertension; Z79.899 Other long term (current) drug therapy; Z79.02 Long term (current) use of antithrombotics/antiplatelets; Z86.718 Personal history of other venous thrombosis and embolism; Z98.84 Bariatric surgery status; Z85.46 Personal history of malignant neoplasm of prostate; Z03.818 Encounter for observation for suspected exposure to other biological agents ruled out; K21.9 Gastro-esophageal reflux disease without esophagitis; E78.5 Hyperlipidemia, unspecified; N40.0 Benign prostatic hyperplasia without lower urinary tract symptoms; Z98.890 Other specified postprocedural states
CPT/HCPCS: 99285; 96372; 96361; 96374; 86900; 86901; 36415 ×3; 36430; 86850; 83690; 85025 ×2; 80053 ×2; 81001; 88304 ×2; 76705; 74177; 94799; 00790; 47562; G0378 ×3; U0003; P9035; J2250; J3490 ×4; J1100; J0500; J3010; J0295; J0360; J1885 ×2; J2270 ×3; J2370; J0330; J2405 ×3; J7050 ×2; J7030 ×2; A9270 ×5; J2704; S0028 ×3; J2543 ×2; C9803; 790; 87635

== ENCOUNTER 2020-07-11 22:04 | Inpatient (IN) | payer MEDICARE, OTHER ==
[2020-07-11 23:11] LABS: INTERNATIONAL RATION (INR) 1.33; PROTHROMBIN TIME 16.7 SEC (11.4-15.4)
[2020-07-11 23:13] LABS: VENOUS BLOOD BASE EXCESS -7.6 mmol/L; VENOUS BLOOD HCO3 19.8 mmol/L (20-32); VENOUS BLOOD PCO2 47.1 mmHg (35-63); VENOUS BLOOD PH 7.24 (7.30-7.42)
[2020-07-11 23:18] LABS: ALBUMIN 2.8 g/dL (3.5-5.0); ALKALINE PHOSPHATASE 168 U/L (38-126); ANION GAP 14 (5-19); ASPARTATE AMINO TRANSFERASE 20 U/L (17-59); BILIRUBIN,DIRECT 1.1 mg/dL (0.0-0.4); BILIRUBIN,TOTAL 1.6 mg/dL (0.2-1.3); BLOOD UREA NITROGEN 51 mg/dL (7-20); CALCIUM 8.1 mg/dL (8.4-10.2); CARBON DIOXIDE 19 mmol/L (22-30); CHLORIDE 102 mmol/L (98-107); GLUCOSE 95 mg/dL (75-110); POTASSIUM 4.1 mmol/L (3.6-5.0); TOTAL PROTEIN 5.5 g/dL (6.3-8.2)
[2020-07-11 23:36] LABS: ABSOLUTE LYMPHOCYTES (AUTO) 0.2 10^3/uL (0.5-4.7); ABSOLUTE MONOCYTES (AUTO) 0.2 10^3/uL (0.1-1.4); ABSOLUTE NEUT (AUTO) 3.3 10^3/uL (1.7-8.2); BASOPHILS % (AUTO) 0.2 % (0-2); EOSINOPHILS % (AUTO) 0.1 % (0-6); HEMATOCRIT 32.2 % (37.9-51.0); HEMOGLOBIN 10.8 g/dL (13.5-17.0); LYMPHOCYTES % (AUTO) 6.2 % (13-45); MEAN CORPUSCULAR HEMOGLOBIN 29.8 pg (27.0-33.4); MEAN CORPUSCULAR HGB CONC 33.6 g/dL (32.0-36.0); MEAN CORPUSCULAR VOLUME 89 fl (80-97); MONOCYTES % (AUTO) 4.9 % (3-13); PLATELET COUNT 214 10^3/uL (150-450); RED BLOOD COUNT 3.63 10^6/uL (4.35-5.55); RED CELL DISTRIBUTION WIDTH 15.3 % (11.5-14.0); SEGMENTED NEUTROPHILS % (AUTO) 88.6 % (42-78); TOTAL CELLS COUNTED % (AUTO) 100 %; WHITE BLOOD COUNT 3.7 10^3/uL (4.0-10.5)
--- NOTE | 2020-07-11 23:36 | RADIOLOGY REPORT (SQ) ---
CLINICAL INDICATION: POSSIBLE SEPSIS. TECHNIQUE: A single portable AP view was obtained of the chest at 2303 hours. COMPARISON: October 28, 2018. FINDINGS: The cardiomediastinal silhouette is prominent but stable. The lungs are of lower volume. Motion artifact. Residual atelectasis left lung base. Tiny progressive left effusion/reaction. Aeration of the right hemidiaphragm with adjacent compressive atelectasis. This is also progressive when compared to prior. No pneumothorax.. IMPRESSION: Progressive bibasilar atelectasis.
[2020-07-11] MEDS ORDERED: RINGERS LACTATED IV ONE (23:39)
[2020-07-11] MEDS ORDERED: CIPROFLOXACIN 400 MG/D5W RTU 400 MG/200 ML RTUPB IV SCH (23:45)
[2020-07-11] MEDS ORDERED: MORPHINE SULFATE 10 MG/ML INJ IV ONE (23:51)
[2020-07-11] MEDS ORDERED: METRONIDAZOLE 500 MG/NS RTU 500 MG/100 ML RTUPB IV ONE (23:59)
--- NOTE | 2020-07-12 02:05 | ER Document Report ---
ED General - General Chief Complaint: Abdominal Pain Stated Complaint: ABDOMINAL PAIN/DIZZINESS Notes: 75-year-old male history of hypertension, TIA, laparoscopic cholecystectomy 07/07/2020 presents with worsening abdominal pain for the past day associated with generalized weakness and lightheadedness. Patient has been taking hydrocodone for pain but today pain was worse than past few days despite taking same analgesia. Endorses pain in bilateral lower quadrants worse than right upper quadrant with some flank pain on the left. Patient has been taking p.o. and denies any vomiting, has been passing nonbloody nonblack stools. denies any dysuria, frequency, urgency, chest pain, shortness of breath, fever, change in drain output (THEE drain has been putting out 2 to 3 ounces of bilious fluid approximately 4-6 times per day) TRAVEL OUTSIDE OF THE [place] IN LAST 30 DAYS: No - Related Data Allergies/Adverse Reactions: diphenhydramine [From Benadryl] Allergy (Verified 07/07/20 07:14) Anaphylaxis Past Medical History - General Information source: Patient, Relative, [facility] Records - Social History Smoking Status: Never Smoker Frequency of alcohol use: Rare Drug Abuse: None Family History: CAD, Malignancy - Past Medical History Cardiac Medical History: Reports: Hx Hypercholesterolemia, Hx Hypertension Denies: Hx Atrial Fibrillation, Hx Coronary Artery Disease, Hx DVT Pulmonary Medical History: Denies: Hx Asthma, Hx COPD Neurological Medical History: Denies: Hx Seizures Endocrine Medical History: Denies: Hx Diabetes Mellitus Type 1, Hx Diabetes Mellitus Type 2, Hx Hyperthyroidism, Hx Hypothyroidism Renal/ Medical History: Denies: Hx Peritoneal Dialysis GI Medical History: Denies: Hx Cirrhosis, Hx Hepatitis Musculoskeletal Medical History: Denies Hx Arthritis, Denies Hx Gout Skin Medical History: Denies Hx Eczema, Denies Hx Psoriasis Psychiatric Medical History: Reports: Hx Depression Infectious Medical History: Denies: Hx Hepatitis Past Surgical History: Reports: Hx Cardiac Catheterization - With cardiac a blation, Hx Gastric Bypass Surgery, Hx Orthopedic Surgery - Left knee replacement, Hx Tonsillectomy, Hx Vascular Surgery - IVC filter placement for DVT, Other - Treatment of prostate cancer - Immunizations Hx Pneumococcal Vaccination: 09/09/17 Review of Systems - Review of Systems Notes: REVIEW OF SYSTEMS: CONSTITUTIONAL : Denies fever, chills, or sweats. EENT: Denies recent cold/sinus symptoms, denies throat pain CARDIOVASCULAR: Denies chest pain, [employer]OG[employer]ATORY: Denies cough, denies shortness of breath. GASTROINTESTINAL: + abdominal pain, -nausea/vomiting. GENITOURINARY: Denies difficulty urinating, painful urination. MUSCULOSKELETAL: Denies neck pain, back pain. SKIN: Denies rash or skin lesions. HEMATOLOGIC : Denies easy bruising or bleeding. LYMPHATIC: Denies swollen, enlarged glands. NEUROLOGICAL: Denies headache, denies change in gait. PSYCHIATRIC: Denies anxiety or stress or depression. Physical Exam - Vital signs Vitals: Temp 98.4 F 07/11/20 22:04 - Notes Notes: PHYSICAL EXAMINATION: GENERAL: Uncomfortable but nontoxic-appearing elderly man sitting up in stretcher no acute distress HEAD: Atraumatic, normocephalic. EYES: Pupils equal round and appropriate constriction, sclera anicteric, conjunctiva are normal. ENT: nares patent, dry mucous membranes. NECK: Normal range of motion, supple without lymphadenopathy LUNGS: Breath sounds clear to auscultation bilaterally and equal. No wheezes rales or rhonchi. HEART: Regular rate and rhythm without murmurs ABDOMEN: Laparoscopy surgical incisions intact with Steri-Strips in place without any surrounding skin abnormalities, no tenderness, no drainage, right upper quadrant THEE drain to bulb suction with bilious/redness discharge, nonbloody, no purulence, bilateral lower quadrant tenderness with guarding, no rebound, bilateral CVA tenderness EXTREMITIES: Normal range of motion, no pitting or edema. No cyanosis. NEUROLOGICAL: Awake, alert, conversing appropriately, moves all extremities spontaneously. PSYCH: Normal mood, normal affect. SKIN: Warm, Dry, normal turgor, ecchymoses over abdomen and bilateral hands Course - Re-evaluation Re-evalutation: 07/12/20 02:27 Hypotension and increased abdominal pain, rule out obstruction, perforation, renal colic, diverticulitis, volvulus, retained biliary/hepatic stone. Initially ordered CTA dissection protocol but on reevaluation of patient after initial analgesia exam became more focal and no longer necessary to rule out this diagnosis. Changed CT to CT abdomen pelvis, unable to use IV contrast secondary to significant LOBO. I performed the bedside extended FAST exam which was negative and cardiac ultrasound showed no pericardial effusion and grossly normal myocardial function, bilateral a lines on lung ultrasound, unable to visualize IVC or aorta due to significant bowel gas. Due to lungs and heart showing likelihood of fluid responsiveness gave full 30 mL/kg bolus which patient responded to. Patient has been maintaining maps above 65 since fluids started. Negative lactate, afebrile, no leukocytosis, will look for any signs of possible sepsis on CT scan. Discussed case with Dr. Tillman who is currently at bedside. 07/12/20 03:[address] Tillman. - Vital Signs Vital signs: Temp Pulse Resp BP Pulse Ox 98.4 F 82 16 86/52 L 94 07/11/20 22:04 07/12/20 06:03 07/12/20 04:49 07/12/20 04:49 07/12/20 04:49 - Laboratory Result Diagrams: 07/11/20 22:20 07/11/20 22:20 Laboratory results interpreted by me: 07/11/20 07/11/20 07/11/20 22:20 22:20 22:20 WBC 3.7 L RBC 3.63 L Hgb 10.8 L Hct 32.2 L RDW 15.3 H Lymph % (Auto) 6.2 L Absolute Lymphs (auto) 0.2 L Seg Neutrophils % 88.6 H PT 16.7 H VBG pH VBG HCO3 Sodium 134.6 L Carbon Dioxide 19 L BUN 51 H Creatinine 3.56 H Est GFR ( Amer) 20 L Est GFR (MDRD) Non-Af 17 L Calcium 8.1 L Total Bilirubin 1.6 H Direct Bilirubin 1.1 H Alkaline Phosphatase 168 H Total Protein 5.5 L Albumin 2.8 L Urine Protein Urine Sodium 07/11/20 07/12/20 07/12/20 22:20 03:09 03:09 WBC RBC Hgb Hct RDW Lymph % (Auto) Absolute Lymphs (auto) Seg Neutrophils % PT VBG pH 7.24 L VBG HCO3 19.8 L Sodium Carbon Dioxide BUN Creatinine Est GFR ( Amer) Est GFR (MDRD) Non-Af Calcium Total Bilirubin Direct Bilirubin Alkaline Phosphatase Total Protein Albumin Urine Protein 100 H Urine Sodium 9 L - EKG Interpretation by Me Additional EKG results interpreted by me: 07/12/20 06:47 Supraventricular bigeminy, no significant ST elevations or depressions, no significant T wave abnormalities, QTc 494 Procedures - Ultrasound/Bedside Ultrasound/Bedside Time completed: 01:00 Ultrasound: Other - Cardiac ultrasound with grossly normal myocardial function, no pericardial effusion. Bilateral lung ultrasound with no fluid overload, predominant a lines bilaterally, lung sliding present bilaterally. Renal ultrasound with approximately 100 mL postvoid residual bladder volume, no hydronephrosis bilaterally. FAST exam with no free fluid. Discharge - Discharge Clinical Impression: Dehydration, LOBO (acute kidney injury) Draining postoperative wound Qualifiers: Encounter type: initial encounter Qualified Code(s): T81.89XA - Other complications of procedures, not elsewhere classified, initial encounter Hypotension Qualifiers: Hypotension type: hypotension due to hypovolemia Qualified Code(s): I95.89 - Other hypotension Disposition: ADMITTED INPATIENT Admitting Provider: Surgicalist - [facility] Admitted: Surgical Floor
--- NOTE | 2020-07-12 02:36 | RADIOLOGY REPORT (SQ) ---
EXAM: CT Abdomen and Pelvis Without Intravenous Contrast EXAM DATE/TIME: 07/11/2020 23:42 CLINICAL HISTORY: The patient is 75 years old and is Male; postop robert p/w francesca left flank pain hypotension TECHNIQUE: Axial computed tomography images of the abdomen and pelvis without intravenous contrast. Sagittal and coronal reformatted images were created and reviewed. This CT exam was performed using one or more of the following dose reduction techniques: automated exposure control, adjustment of the mA and/or kV according to patient size, and/or use of iterative reconstruction technique. COMPARISON: CT abdomen pelvis from 07/07/2020 FINDINGS: LUNG BASES: Mild bibasilar opacities, right more than left, are suggestive of atelectasis. ABDOMEN: LIVER: Unremarkable. No obvious liver masses appreciated on this non-contrast exam. GALLBLADDER AND BILE DUCTS: The patient is status post interval cholecystectomy. There is a small amount of fluid and stranding in the gallbladder fossa. There is also suggestion of a tiny fluid collection in the gallbladder fossa measuring 1.7 x 1.5 cm in diameter (series 3, image 34). No significant biliary ductal dilatation appreciated. PANCREAS: Unremarkable. No ductal dilation. SPLEEN: Unremarkable. No splenomegaly. ADRENALS: Unremarkable. No adrenal nodules or masses identified. KIDNEYS AND URETERS: Small bilateral renal cysts. Small left intrarenal stone. No hydronephrosis or ureteral stones. No perinephric hematoma. No significant perinephric stranding. STOMACH AND BOWEL: Postsurgical changes of the stomach compatible with prior gastric bypass. No bowel obstruction. No significant bowel wall thickening appreciated. There is colonic diverticulosis without evidence of diverticulitis. PELVIS: APPENDIX: The appendix is not definitively visualized. However, there are no inflammatory changes seen at the expected location of the appendix to suggest appendicitis. BLADDER: Unremarkable. No stones. REPRODUCTIVE: The prostate is not visualized. ABDOMEN and PELVIS: INTRAPERITONEAL SPACE: See above. There is a moderate amount of free fluid in the right upper quadrant. No free air. BONES/JOINTS: Mild degenerative changes of the spine. No acute fracture. No dislocation. SOFT TISSUES: Small amount of soft tissue air in the anterior abdominal wall. There is also mild subcutaneous stranding within the anterior abdominal wall. No fluid collection. Postsurgical changes of prior hernia repair at the level of the anterior pelvis. Small fat-containing left inguinal hernia. VASCULATURE: Atherosclerotic calcifications are noted. No aortic aneurysm. IVC filter in place. LYMPH NODES: No significant lymph node enlargement. TUBES, LINES AND DEVICES: A drain is in place entering through the right lateral abdominal wall and terminating in the left lower quadrant. OTHER FINDINGS: Elevated right hemidiaphragm. IMPRESSION: 1. Postsurgical changes of interval cholecystectomy. There is a small amount of fluid and stranding in the gallbladder fossa. In addition, there is a suspected tiny focal fluid collection in the gallbladder fossa, but this is difficult to fully evaluate on this noncontrast exam. A tiny abscess is not completely excluded. 2. There is also a moderate amount of free fluid in the right upper quadrant. A drain is in place, but this enters through the right lateral abdominal wall below this level and terminates in the left lower quadrant.
--- NOTE | 2020-07-12 02:56 | RADIOLOGY REPORT (SQ) ---
EXAM: US Abdomen Limited, Right Upper Quadrant EXAM DATE/TIME: 07/12/2020 01:29 CLINICAL HISTORY: The patient is 75 years old and is Male; postop robert elevated bili TECHNIQUE: Real-time ultrasound of the right upper quadrant with image documentation. COMPARISON: CT abdomen pelvis from 07/11/2020 FINDINGS: LIMITATIONS: Suboptimal exam secondary to the presence of postoperative bandages as well as bowel gas. LIVER: The liver measures 17.5 cm in diameter. The liver is increased in echogenicity suggesting fatty infiltration. No obvious liver mass. No intrahepatic biliary ductal dilatation. Hepatopetal flow is demonstrated in the portal vein. GALLBLADDER: The patient is status post cholecystectomy. COMMON BILE DUCT: The common bile duct measures 3 mm. No obvious choledocholithiasis. PANCREAS: The pancreas was obscured by bowel gas. RIGHT KIDNEY: The right kidney measures 12.9 cm in diameter and is increased in echogenicity. No solid or cystic renal mass visualized. No obvious intrarenal stone. No hydronephrosis. AORTA: The aorta was not visualized secondary to bowel gas. FREE FLUID: Free fluid noted in the right upper quadrant. IMPRESSION: 1. Free fluid noted in the right upper quadrant. 2. Postsurgical changes of interval cholecystectomy. 3. No biliary ductal dilatation.
[2020-07-12] MEDS ORDERED: MORPHINE SULFATE 10 MG/ML INJ IV PRN (03:03)
[2020-07-12] MEDS ORDERED: ONDANSETRON HCL INJ/PF 4 MG/2 ML SDV IV PRN ×2 (03:03→16:33)
[2020-07-12] MEDS ORDERED: NORMAL SALINE 1000 ML 1,000 ML IV PRN ×2 (03:03→20:15)
[2020-07-12 03:26] LABS: AMORPHOUS SEDIMENT,URINE TRACE /HPF; APPEARANCE,URINE CLOUDY; BILIRUBIN,URINE NEGATIVE (NEGATIVE); CALCIUM OXALATE CRYSTALS,URINE RARE /HPF; COLOR,URINE AMBER; GLUCOSE, URINE NEGATIVE (NEGATIVE); KETONES,URINE NEGATIVE (NEGATIVE); PROTEIN,URINE 100 mg/dL (NEGATIVE); URINE SPECIFIC GRAVITY 1.016; UROBILINOGEN,URINE NEGATIVE mg/dL (<2.0)
[2020-07-12 03:40] LABS: URINE CREATININE 147.9 mg/dL (22-328)
[2020-07-12] MEDS: ALBUTEROL SULFATE 0.042% NEB (1.25 MG/3 ML) AMPUL NEB PRN ×2 (05:22→17:37)
--- NOTE | 2020-07-12 06:03 | PDOC H&P ---
History of Present Illness Patient complains of: nausea, malaise, weakness, abdominal pain History of Present Illness: PARKER NOWAK is a 75 year old male who is several days s/p laparoscopic cholecystectomy for acute cholecystitis. He was discharged on Saturday, and initially did well. On Saturday he began to have left lower quadrant abdominal pain and nausea. He reports that he could not keep any food down. He began having shortness of breath, and his daughter brought him to the ER. Currently he denies CP, fevers, chills, blurry vision. He does report lower abdominal pain, mild shortness of breath, mild confusion. His daughter reports that his drain has been productive of ~100cc of brownish liquid q24 hours. Past Medical History Cardiac Medical History: Reports: Hyperlipidema, Hypertension Denies: Atrial Fibrillation, Coronary Artery Disease, DVT Pulmonary Medical History: Denies: Asthma, Chronic Obstructive Pulmonary Disease (COPD) Neurological Medical History: Denies: Seizures Endocrine Medical History: Denies: Diabetes Mellitus Type 1, Diabetes Mellitus Type 2, Hyperthyroidism, Hypothyroidism GI Medical History: Denies: Cirrhosis, Hepatitis Musculoskeltal Medical History: Denies: Arthritis, Gout Skin Medical History: Denies: Eczema, Psoriasis Psychiatric Medical History: Reports: Depression Hematology: Denies: Anemia, Bleeding Tendencies Past Surgical History Past Surgical History: Reports: Cardiac Catheterization - With cardiac ablation, Cholecystectomy, Gastric Bypass Surgery, Orthopedic Surgery - Left knee replacement, Tonsillectomy, Vascular Surgery - IVC filter placement for DVT, Other - Treatment of prostate cancer Social History Smoking Status: Never Smoker Frequency of Alcohol Use: Occasional Hx Recreational Drug Use: No Drugs: None Hx Prescription Drug Abuse: No Family History Family History: CAD, Malignancy Parental Family History Reviewed: Yes Children Family History Reviewed: Yes Sibling(s) Family History Reviewed.: Yes Medication/Allergy Home Medications: Amlodipine Besylate [Norvasc 10 mg Tablet] 10 mg PO DAILY 10/29/18 Omeprazole 40 mg PO DAILY 10/29/18 Sertraline HCl [Zoloft] 200 mg PO DAILY 10/29/18 Tamsulosin HCl [Flomax 0.4 mg Cap.sr] 0.4 mg PO DAILY 10/29/18 Atorvastatin Calcium [Lipitor 40 mg Tablet] 40 mg PO QHS 30 Days #30 tablet 10/31/18 Lisinopril [Prinivil 10 mg Tablet] 40 mg PO DAILY 30 Days #30 tablet 10/31/18 Carvedilol [Coreg 25 mg Tablet] 25 mg PO Q12 08/17/19 Chlorthalidone [Hygroton 25 mg Tablet] 12.5 mg PO DAILY 07/07/20 Clopidogrel Bisulfate [Plavix 75 mg Tablet] 75 mg PO QHS 07/07/20 Ibuprofen [Motrin 400 mg Tablet] 400 mg PO BID 07/07/20 Multivitamin [Tab-A-Brianda (Multiple Vitamin) Tablet] 1 tab PO DAILY 07/07/20 Hydrocodone/Acetaminophen [[place] 10-325 mg Tablet] 1 tab PO Q6HP PRN #14 tablet 07/09/20 Allergies/Adverse Reactions: diphenhydramine [From Benadryl] Allergy (Verified 07/07/20 07:14) Anaphylaxis Review of Systems Constitutional: PRESENT: fatigue, weakness. ABSENT: anorexia, fever(s) Eyes: ABSENT: visual disturbances Ears: ABSENT: hearing changes Nose, Mouth, and Throat: ABSENT: sore throat Cardiovascular: ABSENT: chest pain Respiratory: ABSENT: cough Gastrointestinal: PRESENT: abdominal pain, bloating, constipation, nausea, vomiting Genitourinary: ABSENT: dysuria Musculoskeletal: ABSENT: back pain Integumentary: ABSENT: pruritus, rash Neurological: PRESENT: confusion, dizziness, weakness Psychiatric: ABSENT: anxiety Endocrine: ABSENT: cold intolerance, heat intolerance Hematologic/Lymphatic: PRESENT: easy bleeding, easy bruising Physical Exam Vital Signs: Temp Pulse Resp BP Pulse Ox 98.4 F 13 90/58 L 92 07/11/20 22:04 07/12/20 02:09 07/12/20 02:09 07/12/20 02:09 Intake & Output 07/10/20 07/11/20 07/12/20 06:59 06:59 06:59 Intake Total 200 Output Total Balance 200 Weight 110.9 kg General appearance: PRESENT: cooperative Head exam: PRESENT: atraumatic, normocephalic Eye exam: PRESENT: EOMI, PERRLA. ABSENT: scleral icterus Mouth exam: PRESENT: moist, neck supple Neck exam: ABSENT: meningismus, tenderness, thyromegaly, tracheal deviation Respiratory exam: PRESENT: unlabored, wheezes. ABSENT: tachypnea Cardiovascular exam: ABSENT: tachycardia GI/Abdominal exam: PRESENT: soft, tenderness - mild lower abdominal tenderness, other - significant abdomianl wall bruising. ABSENT: distended Rectal exam: PRESENT: deferred Gentrourinary exam: ABSENT: scrotal swelling Extremities exam: ABSENT: clubbing, pedal edema Musculoskeletal exam: ABSENT: deformity Neurological exam: PRESENT: alert, awake, oriented to person, oriented to place, oriented to time, oriented to situation, CN II-XII grossly intact. ABSENT: motor sensory deficit Psychiatric exam: ABSENT: agitated, anxious, depressed Focused psych exam: ABSENT: delusional Skin exam: PRESENT: other - abdominal wall bruising at surgical sites. ABSENT: cyanosis, jaundice Results Laboratory Results: 07/11/20 22:20 07/11/20 22:20 07/11/20 07/11/20 07/11/20 22:20 22:20 22:20 WBC 3.7 L RBC 3.63 L Hgb 10.8 L Hct 32.2 L MCV 89 MCH 29.8 MCHC 33.6 RDW 15.3 H Plt Count 214 Seg Neutrophils % 88.6 H VBG pH 7.24 L VBG pCO2 47.1 VBG HCO3 19.8 L VBG Base Excess -7.6 Sodium 134.6 L Potassium 4.1 Chloride 102 Carbon Dioxide 19 L Anion Gap 14 BUN 51 H Creatinine 3.56 H Est GFR ( Amer) 20 L Glucose 95 Serum Osmolality Lactic Acid Calcium 8.1 L Total Bilirubin 1.6 H AST 20 Alkaline Phosphatase 168 H Total Protein 5.5 L Albumin 2.8 L Lipase 07/11/20 07/11/20 07/11/20 22:20 22:20 22:20 WBC RBC Hgb Hct MCV MCH MCHC RDW Plt Count Seg Neutrophils % VBG pH VBG pCO2 VBG HCO3 VBG Base Excess Sodium Potassium Chloride Carbon Dioxide Anion Gap BUN Creatinine Est GFR ( Amer) Glucose Serum Osmolality 295 Lactic Acid 1.7 Calcium Total Bilirubin AST Alkaline Phosphatase Total Protein Albumin Lipase 33.2 Impressions: Chest X-Ray 07/11/20 22:53 IMPRESSION: Progressive bibasilar atelectasis. Abdomen/Pelvis CT 07/11/20 23:42 IMPRESSION: 1. Postsurgical changes of interval cholecystectomy. There is a small amount of fluid and stranding in the gallbladder fossa. In addition, there is a suspected tiny focal fluid collection in the gallbladder fossa, but this is difficult to fully evaluate on this noncontrast exam. A tiny abscess is not completely excluded. 2. There is also a moderate amount of free fluid in the right upper quadrant. A drain is in place, but this enters through the right lateral abdominal wall below this level and terminates in the left lower quadrant. Abdomen Ultrasound 07/12/20 01:29 IMPRESSION: 1. Free fluid noted in the right upper quadrant. 2. Postsurgical changes of interval cholecystectomy. 3. No biliary ductal dilatation. Assessment & Plan - Diagnosis (1) LOBO (acute kidney injury) Is this a current diagnosis for this admission?: Yes (2) Dehydration Is this a current diagnosis for this admission?: Yes (3) Weakness Is this a current diagnosis for this admission?: Yes - Time Anticipated Discharge Disposition: unknown Anticipated Discharge Timeframe: unknown - Plan Summary Plan Summary: 75 y/o M pesenting with weakness, nausea, lower abdominal pain, and dehydration after cholecystectomy. The pt has been taking narcotics and appears very constipated. He has not had a BM since Saturday. I believe his left lower quadrant pain is mainly related to this. I will order an enema to help treat his constipation and hopefully improve his pain. His CT scan was reviewed by me (images and reort). His Demar drain has been displaced from the right upper quadrant down into the pelvis. He has a fluid collection lateral to the liver and within the right paracolic gutter. I will discuss the films with radiology in hopes of obtaining a percutaneous drain. His biliary ducts appear normal in size on imaging. It is difficult to tell if his abdominal fluid is residual from surgery, or represents an ongoing bile leak. Further investigation will help determine this. Start Levaquin and flagyl to cover enteric organisms in the even of an ongoing bile leak. The pt presented with hypotension and LOBO. He took all of his BP meds this morning, which is likely contributing to both of these problems. Fluid resuscitation is ongoing. Place mcgee catheter. Monitor I/O's strictly. Hold BP meds. Recheck labs to determine the extent of his anemia, as he may require a blood transfusion. Admit to inpatient.
[2020-07-12] MEDS: ACETAMINOPHEN 1,000 MG/100 ML RTUPB IV SCH ×3 (06:34→22:59)
[2020-07-12] MEDS ORDERED: LEVOFLOXACIN 500 MG/D5W RTU 500 MG/100 ML RTUPB IV SCH (10:00)
[2020-07-12] MEDS: DOCUSATE SODIUM 100 MG/10 ML UDC PO SCH ×2 (10:28→17:31)
[2020-07-12] MEDS: METRONIDAZOLE 500 MG/NS RTU 500 MG/100 ML RTUPB IV SCH ×2 (10:29→17:31)
[2020-07-12] MEDS ORDERED: NORMAL SALINE 1000 ML 1,000 ML IV ONE (13:00)
[2020-07-12 13:56] LABS: ABSOLUTE LYMPHOCYTES (AUTO) 0.2 10^3/uL (0.5-4.7); ABSOLUTE MONOCYTES (AUTO) 0.2 10^3/uL (0.1-1.4); ABSOLUTE NEUT (AUTO) 2.6 10^3/uL (1.7-8.2); BASOPHILS % (AUTO) 0.1 % (0-2); EOSINOPHILS % (AUTO) 0.1 % (0-6); HEMATOCRIT 28.9 % (37.9-51.0); LYMPHOCYTES % (AUTO) 5.9 % (13-45); MEAN CORPUSCULAR HGB CONC 34.5 g/dL (32.0-36.0); MEAN CORPUSCULAR VOLUME 87 fl (80-97); MONOCYTES % (AUTO) 6.4 % (3-13); PLATELET COUNT 144 10^3/uL (150-450); RED BLOOD COUNT 3.33 10^6/uL (4.35-5.55); RED CELL DISTRIBUTION WIDTH 15.8 % (11.5-14.0); SEGMENTED NEUTROPHILS % (AUTO) 87.5 % (42-78); TOTAL CELLS COUNTED % (AUTO) 100 %
[2020-07-12 14:24] LABS: ALBUMIN 2.5 g/dL (3.5-5.0); ALKALINE PHOSPHATASE 129 U/L (38-126); ANION GAP 13 (5-19); ASPARTATE AMINO TRANSFERASE 18 U/L (17-59); BILIRUBIN,TOTAL 1.3 mg/dL (0.2-1.3); BLOOD UREA NITROGEN 58 mg/dL (7-20); CALCIUM 7.5 mg/dL (8.4-10.2); CARBON DIOXIDE 17 mmol/L (22-30); CHLORIDE 103 mmol/L (98-107); GLUCOSE 89 mg/dL (75-110); POTASSIUM 3.9 mmol/L (3.6-5.0)
[2020-07-12] MEDS ORDERED: HYDROMORPHONE HCL INJ/PF 2 MG/ML AMPULE IV PRN ×2 (16:32→19:48)
[2020-07-12] MEDS ORDERED: DEXTROSE 40% GEL 15 GM TUBE PO PRN ×2 (16:47)
[2020-07-12] MEDS ORDERED: GLUCAGON,HUMAN RECOMB 1 MG INJ SUBCUT PRN (16:47)
[2020-07-12] MEDS ORDERED: DEXTROSE 50%-WATER 25 GM/50 ML DISP.SYRIN IV PRN ×2 (16:47)
--- NOTE | 2020-07-12 16:47 | EKG REPORT ---
SEVERITY:- ABNORMAL ECG - SINUS RHYTHM SUPRAVENTRICULAR BIGEMINY RIGHT BUNDLE BRANCH BLOCK : Confirmed by: Kane Watson MD 12-Jul-2020 16:46:38
--- NOTE | 2020-07-12 16:50 | Progress Note ---
Provider Note Provider Note: 75-year-old male admitted with nausea, vomiting, dehydration, now with worsening creatinine. Dr. Liang is following the patient. I have discussed the patient with radiology today. They do not feel that they can access the right upper quadrant fluid collection. I will discuss the case again tomorrow with a dif ferent radiologist, in hopes of securing a drain in the right upper quadrant. If no percutaneous drain can be introduced, the drain may have to be introduced laparoscopically. I have discussed the plan of care with the patient and his daughter. They are in agreement.
[2020-07-12] MEDS: NORMAL SALINE 1000 ML 1,000 ML IV PRN (17:00)
--- NOTE | 2020-07-12 17:13 | PDOC CONSULTATION ---
Consultation Consult Date: 07/12/20 Provider Consulted: JACKY HANLEY Consult reason:: LOBO History of Present Illness Admission Date/PCP: 07/12/20 03:17 History of Present Illness: PARKER NOWAK is a 75 year old male with history of recent laparoscopic cholecystectomy last week admitted on 07/06/2020 and discharged on 07/08/2020, hypertension, hyperlipidemia and arrhythmia status post cardiac ablation who was admitted last night because of nausea, left lower quadrant abdominal pain, weakn ess, body malaise and inability to keep anything down is a stomach. Patient and daughter at bedside giving me the history today. When he got admitted last week he had an abdominal CT scan with IV contrast. Patient denies any chest pains, fever, chills, no shortness of breath. Daughter however reports that the patient was noted to be wheezing since Saturday. Patient was unable to take anything solid but has been drinking fluids over the weekend. Daughter said that yesterday he had a Gatorade, Pedialyte and water. Since yesterday the patient had this urinary urgency but not much urine is coming out. Daughter states that the patient was also confused last night and has been hallucinating. Upon presentation the patient was noted to be hypotensive with blood pressure as low as 74/61 yesterday. Currently the blood pressure is still low and ranges for the last 24 hours around 70 over 90s over 50s to 60s. Review of records revealed that the patient's blood pressure is usually on the high side with systolic blood pressure anywhere between 150-170s. Patient had imaging studies including a chest x-ray showing progressive bibasilar atelectasis. Abdominal CT scan without contrast showed postsurgical changes and moderate amount of free fluid in the right upper quadrant area and no hydronephrosis. Abdominal ultrasound done today showed free fluid in the right upper quadrant and postsurgical changes. Upon admission the patient's BUN was 51, creatinine of 3.56 with EGFR of 17. Today he had a BUN of 58, creatinine of 4.01 with EGFR 15. Upon discharge on 07/08/2020 he had a BUN of 28, creatinine 1.91 with EGFR of 35. Prior to that admission in August 2019 his creatinine was about 1.27. His urine output since admission was only recorded to be 250 mL. He is at least +3.5 L since admission last night. Currently he is also on Levaquin and metronidazole. Patient and daughter confirmed that the patient has been taking all his blood pressure medications over the weekend. However they do not monitor his blood pressure at home. Patient has had episodes of acute kidney injury in the past and was told of abnormal kidney function but it seems to have recovered. He denies any history of kidney stones no use of any NSAIDs. He denies note of any blood in the urine. His urine currently is tea colored. Past Medical History Cardiac Medical History: Reports: Hyperlipidemia, Hypertension-primary, Other - Arrhythmia Neurological Medical History: Reports: Other - TIA 1.5 years ago for which he was taking Plavix. Malignancy Medical History: Reports: Other - Prostate cancer status post radiation therapy Musculoskeltal Medical History: Reports: Arthritis Psychiatric Medical History: Reports: Depression Past Surgical History Past Surgical History: Reports: Cardiac Catheterization - With cardiac ablation, Cholecystectomy, Gastric Bypass Surgery, Orthopedic Surgery - Left knee replace ment, Tonsillectomy, Vascular Surgery - IVC filter placement for DVT, Other - Radiation therapy for prostate cancer Social History Information Source: Patient Smoking Status: Former Smoker Electronic Cigarette use?: No Number of Years Smokin Frequency of Alcohol Use: Occasional Hx Recreational Drug Use: No Drugs: None Hx Prescription Drug Abuse: No Family History Family History: Hypertension - Daughter, Malignancy - Mother of colon cancer, daughter with leukemia, Other - Seizure on his son, bipolar disorder on son and daughter Family History: Patient is abducted so he does not know family history from his father side. Parental Family History Reviewed: Yes Children Family History Reviewed: Yes Sibling(s) Family History Reviewed.: Yes Medication/Allergy Home Medications: Amlodipine Besylate [Norvasc 10 mg Tablet] 10 mg PO DAILY 10/29/18 Omeprazole 40 mg PO DAILY 10/29/18 Sertraline HCl [Zoloft] 200 mg PO DAILY 10/29/18 Tamsulosin HCl [Flomax 0.4 mg Cap.sr] 0.4 mg PO DAILY 10/29/18 Atorvastatin Calcium [Lipitor 40 mg Tablet] 40 mg PO QHS 30 Days #30 tablet 10/31/18 Lisinopril [Prinivil 10 mg Tablet] 40 mg PO DAILY 30 Days #30 tablet 10/31/18 Carvedilol [Coreg 25 mg Tablet] 25 mg PO Q12 08/17/19 Chlorthalidone [Hygroton 25 mg Tablet] 12.5 mg PO DAILY 07/07/20 Clopidogrel Bisulfate [Plavix 75 mg Tablet] 75 mg PO QHS 07/07/20 Ibuprofen [Motrin 400 mg Tablet] 400 mg PO BID 07/07/20 Multivitamin [Tab-A-Brianda (Multiple Vitamin) Tablet] 1 tab PO DAILY 07/07/20 Hydrocodone/Acetaminophen [Butler 10-325 mg Tablet] 1 tab PO Q6HP PRN #14 tablet 07/09/20 Allergies/Adverse Reactions: diphenhydramine [From Benadryl] Allergy (Verified 07/07/20 07:14) Anaphylaxis Review of Systems All systems: reviewed and no additional remarkable complaints except as stated Review of Systems: Constitutional: ABSENT: chills, fever(s), headache(s), weight gain, weight loss; admits fatigue, weakness, body malaise and anorexia Eyes: ABSENT: visual disturbances Ears: ABSENT: hearing changes Cardiovascular: ABSENT: chest pain, dyspnea on exertion, edema, orthropnea, palpitations Respiratory: ABSENT: cough, dyspnea, hemoptysis Gastrointestinal: ABSENT: Constipation, diarrhea, hematemesis, hematochezia, vomiting; reports abdominal pain and nausea Genitourinary: ABSENT: dysuria, hematuria; reports decreased urine output Musculoskeletal: ABSENT: joint swelling Integumentary: ABSENT: rash, wounds Neurological: ABSENT: abnormal gait, abnormal speech, dizziness, focal weakness, numbness, syncope; noted to be confused with hallucination Psychiatric: ABSENT: anxiety, depression Endocrine: ABSENT: cold intolerance, heat intolerance, polydipsia, polyuria Hematologic/Lymphatic: ABSENT: easy bleeding, easy bruising, lymphadenopathy Physical Exam Vital Signs: Temp Pulse Resp BP Pulse Ox 98.1 F 78 21 H 90/53 L 95 07/12/20 12:51 07/12/20 12:51 07/12/20 12:51 07/12/20 12:51 07/12/20 12:51 Intake & Output 07/11/20 07/12/20 07/13/20 06:59 06:59 06:59 Intake Total 3627 400 Output Total 115 250 Balance 3512 150 Weight 111.6 kg Exam: General appearance: No acute distress, cooperative, well-developed, well- nourished, appears tired Head exam: PRESENT: atraumatic, normocephalic Eye exam: PRESENT: Conjunctiva pale, EOMI, PERRLA. ABSENT: conjunctival injection, scleral icterus Mouth exam: PRESENT: moist, neck supple, tongue midline Neck exam: PRESENT: full ROM. ABSENT: carotid bruit, JVD, lymphadenopathy, thyromegaly Respiratory exam: PRESENT: clear to auscultation bilaterally. ABSENT: rales, rhonchi, stridor, wheezes Cardiovascular exam: PRESENT: Irregular, +S1, +S2. ABSENT: systolic murmur Pulses: PRESENT: normal radial pulses, normal dorsalis pedis pulses GI/Abdominal exam: PRESENT: normal bowel sounds, soft. Positive epigastric tenderness, positive ecchymosis from surgery ABSENT: guarding, mass Rectal exam: Deferred Extremities exam: PRESENT: full ROM. ABSENT: calf tenderness, pedal edema Musculoskeletal: PRESENT: full ROM. ABSENT: deformity Neurological exam: PRESENT: Awake, Oriented to person, Oriented to place, Orien darien to time, reflexes normal, CN II-XII grossly intact. ABSENT: motor sensory deficit Psychiatric exam: PRESENT: appropriate affect, normal mood. ABSENT: homicidal ideation, suicidal ideation Skin exam: PRESENT: intact, dry, warm. ABSENT: rash Results Laboratory Results: 07/12/20 12:30 07/12/20 12:30 07/11/20 07/11/20 07/11/20 22:20 22:20 22:20 WBC 3.7 L RBC 3.63 L Hgb 10.8 L Hct 32.2 L MCV 89 MCH 29.8 MCHC 33.6 RDW 15.3 H Plt Count 214 Seg Neutrophils % 88.6 H VBG pH 7.24 L VBG pCO2 47.1 VBG HCO3 19.8 L VBG Base Excess -7.6 Sodium 134.6 L Potassium 4.1 Chloride 102 Carbon Dioxide 19 L Anion Gap 14 BUN 51 H Creatinine 3.56 H Est GFR ( Amer) 20 L Glucose 95 Serum Osmolality Lactic Acid Calcium 8.1 L Total Bilirubin 1.6 H AST 20 Alkaline Phosphatase 168 H Total Protein 5.5 L Albumin 2.8 L Lipase Urine Color Urine Appearance Urine pH Ur Specific [place] Urine Protein Urine Glucose (UA) Urine Ketones Urine Blood Urine RBC (Auto) Urine Osmolality 07/11/20 07/11/20 07/11/20 22:20 22:20 22:20 WBC RBC Hgb Hct MCV MCH MCHC RDW Plt Count Seg Neutrophils % VBG pH VBG pCO2 VBG HCO3 VBG Base Excess Sodium Potassium Chloride Carbon Dioxide Anion Gap BUN Creatinine Est GFR ( Amer) Glucose Serum Osmolality 295 Lactic Acid 1.7 Calcium Total Bilirubin AST Alkaline Phosphatase Total Protein Albumin Lipase 33.2 Urine Color Urine Appearance Urine pH Ur Specific [place] Urine Protein Urine Glucose (UA) Urine Ketones Urine Blood Urine RBC (Auto) Urine Osmolality 07/12/20 07/12/20 07/12/20 03:09 03:09 12:30 WBC 3.0 L RBC 3.33 L Hgb 10.0 L Hct 28.9 L MCV 87 MCH 30.0 MCHC 34.5 RDW 15.8 H Plt Count 144 L Seg Neutrophils % 87.5 H VBG pH VBG pCO2 VBG HCO3 VBG Base Excess Sodium Potassium Chloride Carbon Dioxide Anion Gap BUN Creatinine Est GFR ( Amer) Glucose Serum Osmolality Lactic Acid Calcium Total Bilirubin AST Alkaline Phosphatase Total Protein Albumin Lipase Urine Color YURIDIA Urine Appearance CLOUDY Urine pH 5.0 Ur Specific [place] 1.016 Urine Protein 100 H Urine Glucose (UA) NEGATIVE Urine Ketones NEGATIVE Urine Blood NEGATIVE Urine RBC (Auto) 2 Urine Osmolality 337 07/12/20 12:30 WBC RBC Hgb Hct MCV MCH MCHC RDW Plt Count Seg Neutrophils % VBG pH VBG pCO2 VBG HCO3 VBG Base Excess Sodium 133.3 L Potassium 3.9 Chloride 103 Carbon Dioxide 17 L Anion Gap 13 BUN 58 H Creatinine 4.01 H Est GFR ( Amer) 18 L Glucose 89 Serum Osmolality Lactic Acid Calcium 7.5 L Total Bilirubin 1.3 AST 18 Alkaline Phosphatase 129 H Total Protein 5.0 L Albumin 2.5 L Lipase Urine Color Urine Appearance Urine pH Ur Specific [place] Urine Protein Urine Glucose (UA) Urine Ketones Urine Blood Urine RBC (Auto) Urine Osmolality Impressions: Chest X-Ray 07/11/20 22:53 IMPRESSION: Progressive bibasilar atelectasis. Abdomen/Pelvis CT 07/11/20 23:42 IMPRESSION: 1. Postsurgical changes of interval cholecystectomy. There is a small amount of fluid and stranding in the gallbladder fossa. In addition, there is a suspected tiny focal fluid collection in the gallbladder fossa, but this is difficult to fully evaluate on this noncontrast exam. A tiny abscess is not completely excluded. 2. There is also a moderate amount of free fluid in the right upper quadrant. A drain is in place, but this enters through the right lateral abdominal wall below this level and terminates in the left lower quadrant. Abdomen Ultrasound 07/12/20 01:29 IMPRESSION: 1. Free fluid noted in the right upper quadrant. 2. Postsurgical changes of interval cholecystectomy. 3. No biliary ductal dilatation. Assessment & Plan - Diagnosis (1) LOBO (acute kidney injury) Is this a current diagnosis for this admission?: Yes Plan: Currently oliguric. Creatinine has gone up from 1.91 (07/08/2020) -4.01. Creatinine 2019 was 1.2-1.3. Patient has minimal proteinuria without microhematuria. This is most likely secondary to multifactorial factors including IV contrast given last admission a week ago, hypotension, and some dehydration. I think this is the case of initial acute prerenal azotemia which is currently developing and progressing to acute tubular necrosis. No evidence of hydronephrosis and abdominal CT scan. So far the patient has not responded to IV fluid hydration. Patient is currently developing some metabolic acidosis. The patient does not need an urgent renal replacement therapy at this time but I told the patient and the daughter that if the patient's kidney function continued to get worse and he develops complications of acute kidney injury then that is going to be considered. Discussed the benefits of renal replacement therapy if needed. Patient and daughter indicated that if needed they would agree to undergo renal replacement therapy. Decrease IV fluids to 75 mL an hour. I will change morphine to Dilaudid and decrease frequency of pain medications. Adjust doses of Levaquin and Zofran due to kidney function. Monitor kidney function daily. Strict intake and output. (2) Hypotension Qualifiers: Hypotension type: hypotension due to hypovolemia Qualified Code(s): I95.89 - Other hypotension; E86.1 - Hypovolemia Is this a current diagnosis for this admission?: Yes Plan: Hold all blood pressure medications. (3) Dehydration Is this a current diagnosis for this admission?: Yes Plan: Patient given approximately 3.5 L of fluids. Will decrease rate of IV fluids for maintenance dosing. (4) Metabolic acidosis Is this a current diagnosis for this admission?: Yes Plan: None anion gap due to LOBO. (5) Hyponatremia Is this a current diagnosis for this admission?: Yes Plan: Due to volume depletion initially. (6) Anemia Is this a current diagnosis for this admission?: Yes Plan: Patient is postop. - Notes Notes: Discussed the case with Dr. Tillman. Thank you very much for this consultation. We will follow the patient with you.
[2020-07-12] MEDS: LEVOFLOXACIN 500 MG/D5W RTU 500 MG/100 ML RTUPB IV SCH (17:31)
[2020-07-12] MEDS ORDERED: DOPAMINE HCL 800 MG/D5W 250 ML IV PRN ×2 (20:12→21:30)
[2020-07-13] MEDS ORDERED: DOPAMINE HCL 800 MG/D5W 250 ML IV PRN (00:30)
[2020-07-13] MEDS: METRONIDAZOLE 500 MG/NS RTU 500 MG/100 ML RTUPB IV SCH ×3 (02:35→17:50)
[2020-07-13] MEDS: NORMAL SALINE 1000 ML 1,000 ML IV PRN (03:55)
[2020-07-13] MEDS: ACETAMINOPHEN 1,000 MG/100 ML RTUPB IV SCH ×3 (05:45→21:51)
[2020-07-13 06:48] LABS: HEMATOCRIT 30.6 % (37.9-51.0); HEMOGLOBIN 10.4 g/dL (13.5-17.0); MEAN CORPUSCULAR HEMOGLOBIN 30.1 pg (27.0-33.4); MEAN CORPUSCULAR VOLUME 88 fl (80-97); PLATELET COUNT 171 10^3/uL (150-450); RED BLOOD COUNT 3.46 10^6/uL (4.35-5.55); RED CELL DISTRIBUTION WIDTH 16.2 % (11.5-14.0); WHITE BLOOD COUNT 5.1 10^3/uL (4.0-10.5)
[2020-07-13 07:06] LABS: ABSOLUTE LYMPHOCYTES# (MANUAL) 0.2 10^3/uL (0.5-4.7); ABSOLUTE MONOCYTES # (MANUAL) 0.4 10^3/uL (0.1-1.4); BAND NEUTROPHILS % (MANUAL) 6 % (3-5); BASOPHILS % (MANUAL) 0 % (0-2); EOSINOPHILS % (MANUAL) 0 % (0-6); LYMPHOCYTES % (MANUAL) 3 % (13-45); MONOCYTES % (MANUAL) 7 % (3-13); SEGMENTED NEUTROPHILS % (MAN) 84 % (42-78); TOTAL CELLS COUNTED 100
[2020-07-13 07:08] LABS: ANISOCYTOSIS 1+; BURR CELLS SLIGHT; PLATELET COMMENT ADEQUATE; POIKILOCYTOSIS SLIGHT; TOXIC VACUOLATION PRESENT
[2020-07-13 07:10] LABS: ALBUMIN 2.5 g/dL (3.5-5.0); ALKALINE PHOSPHATASE 122 U/L (38-126); ANION GAP 16 (5-19); ASPARTATE AMINO TRANSFERASE 20 U/L (17-59); BILIRUBIN,DIRECT 0.9 mg/dL (0.0-0.4); BILIRUBIN,TOTAL 1.1 mg/dL (0.2-1.3); BLOOD UREA NITROGEN 68 mg/dL (7-20); CALCIUM 7.6 mg/dL (8.4-10.2); CARBON DIOXIDE 14 mmol/L (22-30); CHLORIDE 103 mmol/L (98-107); GLUCOSE 89 mg/dL (75-110); POTASSIUM 4.3 mmol/L (3.6-5.0); TOTAL PROTEIN 5.2 g/dL (6.3-8.2)
[2020-07-13] MEDS: ALBUTEROL SULFATE 0.042% NEB (1.25 MG/3 ML) AMPUL NEB PRN (07:48)
[2020-07-13] MEDS ORDERED: NORMAL SALINE 1000 ML 1,000 ML IV PRN (09:49)
[2020-07-13] MEDS ORDERED: HEPARIN SOD (PORCINE) 1,000 UNIT/ML 10 ML VIAL IV PRN (09:49)
[2020-07-13] MEDS: DOCUSATE SODIUM 100 MG/10 ML UDC PO SCH ×2 (10:34→18:00)
[2020-07-13] MEDS ORDERED: FENTANYL CITRATE INJ/PF 100 MCG/2 ML AMPUL ONE (11:49)
[2020-07-13] MEDS ORDERED: TUBERCULIN,PURIF.PROT.DERIV. 5 TU/0.1 ML TEST 1 ML VIAL ID ONE (12:30)
--- NOTE | 2020-07-13 15:36 | PDOC PROGRESS REPORT ---
Subjective Progress Note for:: 07/13/20 Subjective:: 75-year-old male admitted with a bile leak after cholecystectomy, acute kidney injury, and hypotension. I believe his hypotension to be related to relative overuse of antihypertensives, coupled with acute kidney injury/renal failure. The patient is in good spirits today. He reports right upper quadrant abdominal pain, and discomfort with taking a deep breath. He denies chest pain, fevers, chills, headache. He does have waves of nausea and reports fatigue. He denies blurry vision, melena, hematochezia, or hematemesis. Reason For Visit: DEHYDRATION,ANEMIA,S P CHOLECYSTECTOMY Physical Exam Vital Signs: Temp Pulse Resp BP Pulse Ox 97.6 F 73 16 94/51 L 98 07/13/20 10:00 07/13/20 07:48 07/13/20 07:48 07/13/20 11:30 07/13/20 07:48 Intake & Output 07/12/20 07/13/20 07/14/20 06:59 06:59 06:59 Intake Total 3627 4687 1280 Output Total 115 415 210 Balance 3512 4272 1070 Weight 111.6 kg 115.2 kg General appearance: PRESENT: no acute distress, cooperative Head exam: PRESENT: atraumatic, normocephalic Eye exam: PRESENT: EOMI, PERRLA. ABSENT: scleral icterus Mouth exam: PRESENT: moist, neck supple Neck exam: ABSENT: meningismus, tenderness, thyromegaly, tracheal deviation Respiratory exam: PRESENT: unlabored. ABSENT: tachypnea Cardiovascular exam: ABSENT: tachycardia GI/Abdominal exam: PRESENT: soft, tenderness - Right upper quadrant, other - Right upper quadrant surgical drain in place, draining bilious fluid. Newly placed right upper quadrant percutaneous CT-guided drain in place, also draining bilious fluid.. ABSENT: distended Rectal exam: PRESENT: deferred Extremities exam: ABSENT: clubbing Musculoskeletal exam: ABSENT: deformity Neurological exam: PRESENT: alert, awake Psychiatric exam: ABSENT: agitated, anxious Focused psych exam: ABSENT: delusional Skin exam: ABSENT: erythema, jaundice Results Laboratory Results: 07/13/20 05:40 07/13/20 05:40 07/13/20 07/13/20 05:40 05:40 WBC 5.1 RBC 3.46 L Hgb 10.4 L Hct 30.6 L MCV 88 MCH 30.1 MCHC 34.0 RDW 16.2 H Plt Count 171 Seg Neutrophils % Not Reportable Sodium 133.3 L Potassium 4.3 Chloride 103 Carbon Dioxide 14 L Anion Gap 16 BUN 68 H Creatinine 4.89 H Est GFR ( Amer) 14 L Glucose 89 Calcium 7.6 L Total Bilirubin 1.1 AST 20 Alkaline Phosphatase 122 Total Protein 5.2 L Albumin 2.5 L Impressions: Chest X-Ray 07/11/20 22:53 IMPRESSION: Progressive bibasilar atelectasis. Abdomen/Pelvis CT 07/11/20 23:42 IMPRESSION: 1. Postsurgical changes of interval cholecystectomy. There is a small amount of fluid and stranding in the gallbladder fossa. In addition, there is a suspected tiny focal fluid collection in the gallbladder fossa, but this is difficult to fully evaluate on this noncontrast exam. A tiny abscess is not completely excluded. 2. There is also a moderate amount of free fluid in the right upper quadrant. A drain is in place, but this enters through the right lateral abdominal wall below this level and terminates in the left lower quadrant. Abdomen Ultrasound 07/12/20 01:29 IMPRESSION: 1. Free fluid noted in the right upper quadrant. 2. Postsurgical changes of interval cholecystectomy. 3. No biliary ductal dilatation. Assessment & Plan - Diagnosis (1) LOBO (acute kidney injury) Is this a current diagnosis for this admission?: Yes (2) Dehydration Is this a current diagnosis for this admission?: Yes (3) Weakness Is this a current diagnosis for this admission?: Yes (4) Bile leak, postoperative Is this a current diagnosis for this admission?: Yes - Time Anticipated Discharge Disposition: unknown Anticipated Discharge Timeframe: unknown - Plan Summary Plan Summary: 75-year-old male with a bile leak after cholecystectomy. This appears to be controlled, after the placement of a new right upper quadrant percutaneous catheter. Of more concern, is his renal function. I have discussed the case with Dr. Liang today. She plans to start dialysis. I will place a femoral Vas-Cath today to facilitate dialysis. Patient had worsening hypotension last night after the administration of Dilaudid. He was placed on a small amount of dopamine, which helped his blood pressure significantly. Today the dopamine has been weaned off. Continue to monitor blood pressure. Plan for dialysis today. Monitor right upper quadrant drains for effectiveness. May need repeat noncontrasted CT scan in the near future to assess there efficacy. Continue with aggressive supportive care.
--- NOTE | 2020-07-13 15:38 | Operative Report ---
Nonrecallable Operative Report DATE OF SURGERY: 07/13/20 PREOPERATIVE DIAGNOSIS: Renal failure POSTOPERATIVE DIAGNOSIS: Renal failure OPERATION: 1. Ultrasound-guided central venous puncture. 2. Right femoral Vas-Cath placement (temporary dialysis catheter). SURGEON: NIKKI STEELE ANESTHESIA: Local TISSUE REMOVED OR ALTERED: None COMPLICATIONS: None apparent ESTIMATED BLOOD LOSS: Minimal PROCEDURE: Drains/implants: 30 cm right femoral Vas-Cath placement. Procedure in detail: After informed consent was obtained, the patient was brought into the operating room and laid in the supine position. The area of the right groin was prepped and draped in a normal sterile fashion. An ultrasound was used to identify the right femoral vein. 1% lidocaine was infiltrated into the skin of the right thigh. Under direct ultrasonic guidance, the right femoral vein was cannulated using the supplied access needle. Dark venous blood was returned in the syringe. The wire was placed into the needle, and advanced into the vein easily. The wire was confirmed to be within the lumen of the vein using the ultrasound device. Picture documentation was obtained, and placed on the chart. Next, the catheter was slid over the wire using a modified Seldinger technique. The catheter was sutured to the skin. The catheter was aspirated and flushed easily. A dressing was placed, and the procedure was concluded. All sponge, instrument, and needle counts were correct. Condition: Fair.
--- NOTE | 2020-07-13 16:21 | RADIOLOGY REPORT (SQ) ---
EXAM DESCRIPTION: CT DRAINAGE RETRO/PERITONEAL IMAGES COMPLETED DATE/TIME: 07/13/2020 12:19 pm REASON FOR STUDY: RUQ fluid collection COMPARISON: None. JEWELRY SALES COORDINATOR: HAYES John SUPERVISING PHYSICIAN: Dr. Trent FLUOROSCOPY TIME: 2.1 seconds RADIATION DOSE: 4.03mGy. LIMITATIONS: None. PROCEDURE: Procedure, risks, benefit, and alternative explained to patient who then gave written con sent. The abdominal wall was marked; "time-out" called; correct marking verified. Axial CT scan luzmaria ges were acquired. Entry site marked using CT guidance. Abdomen prepped and draped using sterile te chnique. Local anesthesia achieved using 1% lidocaine injection. Entry needle was introduced into t he right upper quadrant fluid collection just below the inferior liver. Fluid aspirated. A 0.35 tee de wire was introduced through the needle and into the fluid. Needle was removed and an 8 Chadian dil ator was introduced over the wire. Dilator was removed and a 10 Chadian pigtail catheter was advanced over the guidewire and into the fluid pocket. The wire was removed and the catheter was connected t o an accordion drain. Sterile bandage was applied. No immediate complications noted. Images were acquired during the procedure and stored on PACS. All CT scanners at this facility use dose modulation, iterative reconstruction, and/or weight based d osing when appropriate to reduce radiation dose to as low as reasonably achievable (ALARA). [facility]: Dose Right [facility]: CareDose [facility]: Dose Right [facility]: Teradose 4D [facility]: Smart [employer] FINDINGS: ENTRY SITE: Right upper quadrant FLUID VOLUME: 500 mL FLUID ANALYSIS: Bilious OTHER: None IMPRESSION: SUCCESSFUL CT GUIDED RIGHT UPPER QUADRANT PIGTAIL CATHETER PLACEMENT. COMMENT: None Patient medication list reviewed: Yes- Quality ID# [id number]:Eligible professional attests to documenting i n the medical record they obtained, updated, or reviewed the patient's current medications.. TECHNICAL DOCUMENTATION: JOB ID: [id number] Quality ID # [id number]: Final reports with documentation of one or more dose reduction techniques (e.g., Au tomated exposure control, adjustment of the mA and/or kV according to patient size, use of iterative reconstruction technique) 2010 [employer]- All Rights Reserved Reading location - IP/workstation name: [email or web address] [id number]
--- NOTE | 2020-07-13 23:15 | PDOC PROGRESS REPORT ---
Subjective Progress Note for:: 07/13/20 Subjective:: The patient continues to be oliguric unfortunately. Currently he is +7.7 L in terms of the intake and output balance since admission. His blood pressure went down further after a dose of Dilaudid 1 mg yesterday so he was started on a dopamine drip to improve his blood pressure to an acceptable levels. Dilaudid dose decreased. Even though the patient says that he feels better, everything else does not seem to be better. He is more acidotic today with bicarbonate of 14 with worsening kidney function. I recommended that the patient undergo acute renal replacement therapy to prevent any other complications of LOBO. Discussed the procedure including the benefits and risk to the patient to include but not limited to infection, bleeding, hemodynamic instability and cardiac arrest. Patient agreed and consented to proceed with dialysis. I also called and spoke to the patient's daughter, Mary Ellen and updated her regarding my recommendations for which she also agreed. I then spoke to Dr. Tillman to request insertion of a temporary dialysis catheter for dialysis today. Patient underwent a successful insertion of a temporary femoral dialysis catheter. At 4:30 PM. I am seeing the patient on dialysis this afternoon. Patient is sleeping but arousable during dialysis treatment. He states he is doing fine and has no complaints. So far he has been tolerating dialysis pretty well. Reason For Visit: DEHYDRATION,ANEMIA,S P CHOLECYSTECTOMY Physical Exam Vital Signs: Temp Pulse Resp BP Pulse Ox 97.6 F 73 16 96/53 L 98 07/13/20 03:23 07/13/20 07:48 07/13/20 07:48 07/13/20 09:30 07/13/20 07:48 Intake & Output 07/12/20 07/13/20 07/14/20 06:59 06:59 06:59 Intake Total 3627 4687 136 Output Total 115 415 Balance 3512 4272 136 Weight 111.6 kg 115.2 kg Vitals during dialysis: Blood pressure of 105/48, heart rate of 79, blood flow rate of 250 mL/min and dialysate flow rate of 600 mL/min. Exam: General appearance: PRESENT: no acute distress, cooperative, well-developed, well-nourished Head exam: PRESENT: atraumatic, normocephalic Eye exam: PRESENT: conjunctiva pale, PERRLA. ABSENT: scleral icterus Neck exam: ABSENT: JVD Respiratory exam: PRESENT: Normal breath sounds. ABSENT: crackles, rales, rhonchi, unlabored, wheezes Cardiovascular exam: PRESENT: Regular rate rhythm -+S1, +S2. ABSENT: diastolic murmur, systolic murmur GI/Abdominal exam: PRESENT: normal bowel sounds, soft. Unchanged ecchymosis over the surgical site. Right upper quadrant tenderness patient. ABSENT: guarding, mass Extremities exam: ABSENT: No edema Neurological exam: PRESENT: alert, awake, oriented to person, place and time. Skin exam: PRESENT: dry, warm, Results Laboratory Results: 07/13/20 05:40 07/13/20 05:40 07/12/20 07/12/20 07/13/20 12:30 12:30 05:40 WBC 3.0 L 5.1 RBC 3.33 L 3.46 L Hgb 10.0 L 10.4 L Hct 28.9 L 30.6 L MCV 87 88 MCH 30.0 30.1 MCHC 34.5 34.0 RDW 15.8 H 16.2 H Plt Count 144 L 171 Seg Neutrophils % 87.5 H Not Reportable Sodium 133.3 L Potassium 3.9 Chloride 103 Carbon Dioxide 17 L Anion Gap 13 BUN 58 H Creatinine 4.01 H Est GFR ( Amer) 18 L Glucose 89 Calcium 7.5 L Total Bilirubin 1.3 AST 18 Alkaline Phosphatase 129 H Total Protein 5.0 L Albumin 2.5 L 07/13/20 05:40 WBC RBC Hgb Hct MCV MCH MCHC RDW Plt Count Seg Neutrophils % Sodium 133.3 L Potassium 4.3 Chloride 103 Carbon Dioxide 14 L Anion Gap 16 BUN 68 H Creatinine 4.89 H Est GFR ( Amer) 14 L Glucose 89 Calcium 7.6 L Total Bilirubin 1.1 AST 20 Alkaline Phosphatase 122 Total Protein 5.2 L Albumin 2.5 L Impressions: Chest X-Ray 07/11/20 22:53 IMPRESSION: Progressive bibasilar atelectasis. Abdomen/Pelvis CT 07/11/20 23:42 IMPRESSION: 1. Postsurgical changes of interval cholecystectomy. There is a small amount of fluid and stranding in the gallbladder fossa. In addition, there is a suspected tiny focal fluid collection in the gallbladder fossa, but this is difficult to fully evaluate on this noncontrast exam. A tiny abscess is not completely excluded. 2. There is also a moderate amount of free fluid in the right upper quadrant. A drain is in place, but this enters through the right lateral abdominal wall below this level and terminates in the left lower quadrant. Abdomen Ultrasound 07/12/20 01:29 IMPRESSION: 1. Free fluid noted in the right upper quadrant. 2. Postsurgical changes of interval cholecystectomy. 3. No biliary ductal dilatation. Assessment & Plan - Diagnosis (1) LOBO (acute kidney injury) Is this a current diagnosis for this admission?: Yes Plan: Currently oliguric. Creatinine has gone up from 1.91 (07/08/2020) ->4.89. Creatinine in 2019 was 1.2-1.3. Patient has minimal proteinuria without microhematuria. This is most likely secondary to multifactorial factors including IV contrast given last admission a week ago, hypotension, and some dehydration. I think this is the case of initial acute prerenal azotemia which is currently developing and progressing to acute tubular necrosis. No evidence of hydronephrosis and abdominal CT scan. So far the patient has not responded to IV fluid hydration. Patient has worsening metabolic acidosis. Recommended initiate acute renal replacement therapy today for which the patient and daughter have consented. We will do dialysis today for 2.5 hours, using the patient's temporary dialysis catheter, with 3 potassium bath, blood flow rate of 250 mL per minute, dialysate flow rate of 600 mL per minute, ultrafiltration 0 to 0.5 L as tolerated, no heparin and no Retacrit. Patient is monitored closely during his first dialysis treatment. Blood pressure is closely being monitored. Currently dopamine drip has been off. (2) Hypotension Qualifiers: Hypotension type: hypotension due to hypovolemia Qualified Code(s): I95.89 - Other hypotension; E86.1 - Hypovolemia Is this a current diagnosis for this admission?: Yes Plan: This is most likely secondary to intake of blood pressure medications despite dehydration. Hold all blood pressure medications. Dopamine drip has been off. (3) Dehydration Is this a current diagnosis for this admission?: Yes Plan: Patient is currently +7.7 L since admission. I think he is now adequately vol ume resuscitated. (4) Metabolic acidosis Is this a current diagnosis for this admission?: Yes Plan: None anion gap due to LOBO. Worsening requiring acute renal replacement therapy. (5) Hyponatremia Is this a current diagnosis for this admission?: Yes Plan: Due to volume depletion initially. (6) Anemia Is this a current diagnosis for this admission?: Yes Plan: Patient is postop.
[2020-07-14] MEDS: METRONIDAZOLE 500 MG/NS RTU 500 MG/100 ML RTUPB IV SCH ×3 (02:39→17:04)
[2020-07-14 08:04] LABS: ANION GAP 15 (5-19); BLOOD UREA NITROGEN 57 mg/dL (7-20); CALCIUM 7.2 mg/dL (8.4-10.2); CARBON DIOXIDE 19 mmol/L (22-30); CHLORIDE 99 mmol/L (98-107); GLUCOSE 78 mg/dL (75-110); POTASSIUM 3.3 mmol/L (3.6-5.0)
[2020-07-14 08:08] LABS: ABSOLUTE LYMPHOCYTES (AUTO) 0.3 10^3/uL (0.5-4.7); ABSOLUTE MONOCYTES (AUTO) 0.3 10^3/uL (0.1-1.4); ABSOLUTE NEUT (AUTO) 2.7 10^3/uL (1.7-8.2); BASOPHILS % (AUTO) 0.1 % (0-2); EOSINOPHILS % (AUTO) 0.7 % (0-6); HEMOGLOBIN 9.3 g/dL (13.5-17.0); LYMPHOCYTES % (AUTO) 7.8 % (13-45); MEAN CORPUSCULAR HEMOGLOBIN 30.1 pg (27.0-33.4); MEAN CORPUSCULAR HGB CONC 34.7 g/dL (32.0-36.0); MEAN CORPUSCULAR VOLUME 87 fl (80-97); PLATELET COUNT 169 10^3/uL (150-450); RED BLOOD COUNT 3.11 10^6/uL (4.35-5.55); RED CELL DISTRIBUTION WIDTH 16.1 % (11.5-14.0); SEGMENTED NEUTROPHILS % (AUTO) 83.4 % (42-78); TOTAL CELLS COUNTED % (AUTO) 100 %; WHITE BLOOD COUNT 3.3 10^3/uL (4.0-10.5)
[2020-07-14] MEDS: DOCUSATE SODIUM 100 MG/10 ML UDC PO SCH ×2 (10:05→18:31)
--- NOTE | 2020-07-14 12:55 | PDOC PROGRESS REPORT ---
Subjective Progress Note for:: 07/14/20 Subjective:: 75-year-old male admitted with a bile leak after cholecystectomy, acute kidney injury, and hypotension. I believe his hypotension to be related to relative overuse of antihypertensives, coupled with acute kidney injury/renal failure. His hypotension is improved today. The patient is in good spirits. His right upper quadrant abdominal pain is diminishing. He denies chest pain, fevers, chills, headache, blurry vision, melena, hematochezia, or hematemesis. Reason For Visit: DEHYDRATION,ANEMIA,S P CHOLECYSTECTOMY Physical Exam Vital Signs: Temp Pulse Resp BP Pulse Ox 97.6 F 69 18 109/56 L 94 07/14/20 07:53 07/14/20 07:53 07/14/20 07:53 07/14/20 07:53 07/14/20 07:53 Intake & Output 07/13/20 07/14/20 07/15/20 06:59 06:59 06:59 Intake Total 4687 1780 Output Total 415 1521 Balance 4272 259 Weight 115.2 kg 116.5 kg Exam: General appearance: PRESENT: no acute distress, cooperative Head exam: PRESENT: atraumatic, normocephalic Eye exam: PRESENT: EOMI, PERRLA. ABSENT: scleral icterus Mouth exam: PRESENT: moist, neck supple Neck exam: ABSENT: meningismus, tenderness, thyromegaly, tracheal deviation Respiratory exam: PRESENT: unlabored. ABSENT: tachypnea Cardiovascular exam: ABSENT: tachycardia GI/Abdominal exam: PRESENT: soft, tenderness - Right upper quadrant, other - Right upper quadrant drains in place, draining bilious fluid. ABSENT: distended Rectal exam: PRESENT: deferred Extremities exam: ABSENT: clubbing Musculoskeletal exam: ABSENT: deformity Neurological exam: PRESENT: alert, awake Psychiatric exam: ABSENT: agitated, anxious Focused psych exam: ABSENT: delusional Skin exam: ABSENT: erythema, jaundice Results Laboratory Results: 07/14/20 07:07 07/14/20 07:07 07/14/20 07/14/20 07:07 07:07 WBC 3.3 L RBC 3.11 L Hgb 9.3 L Hct 27.0 L MCV 87 MCH 30.1 MCHC 34.7 RDW 16.1 H Plt Count 169 Seg Neutrophils % 83.4 H Sodium 132.9 L Potassium 3.3 L Chloride 99 Carbon Dioxide 19 L Anion Gap 15 BUN 57 H Creatinine 4.46 H Est GFR ( Amer) 16 L Glucose 78 Calcium 7.2 L 07/12/20 03:09 Oquendo Catheter Urine Culture - Final NO GROWTH 2 DAYS Impressions: Chest X-Ray 07/11/20 22:53 IMPRESSION: Progressive bibasilar atelectasis. Abdomen/Pelvis CT 07/11/20 23:42 IMPRESSION: 1. Postsurgical changes of interval cholecystectomy. There is a small amount of fluid and stranding in the gallbladder fossa. In addition, there is a suspected tiny focal fluid collection in the gallbladder fossa, but this is difficult to fully evaluate on this noncontrast exam. A tiny abscess is not completely excluded. 2. There is also a moderate amount of free fluid in the right upper quadrant. A drain is in place, but this enters through the right lateral abdominal wall below this level and terminates in the left lower quadrant. Abdomen Ultrasound 07/12/20 01:29 IMPRESSION: 1. Free fluid noted in the right upper quadrant. 2. Postsurgical changes of interval cholecystectomy. 3. No biliary ductal dilatation. Retroperitoneal Abscess Drainage 07/13/20 00:00 IMPRESSION: SUCCESSFUL CT GUIDED RIGHT UPPER QUADRANT PIGTAIL CATHETER PLACEMENT. Assessment & Plan - Diagnosis (1) LOBO (acute kidney injury) Is this a current diagnosis for this admission?: Yes (2) Dehydration Is this a current diagnosis for this admission?: Yes (3) Weakness Is this a current diagnosis for this admission?: Yes (4) Bile leak, postoperative Is this a current diagnosis for this admission?: Yes - Time Anticipated Discharge Disposition: unknown Anticipated Discharge Timeframe: unknown - Plan Summary Plan Summary: 75-year-old male with a bile leak after cholecystectomy. This appears to be controlled, after the placement of a new right upper quadrant percutaneous catheter. Continue to monitor blood pressure. Dopamine currently off. Cont dialysis per Dr. Liang. Monitor right upper quadrant drains for effectiveness. May need repeat noncontrasted CT scan in the near future to assess there efficacy. Continue with aggressive supportive care.
[2020-07-14] MEDS: ACETAMINOPHEN 1,000 MG/100 ML RTUPB IV SCH ×3 (14:43→21:20)
--- NOTE | 2020-07-14 14:48 | PDOC PROGRESS REPORT ---
Subjective Progress Note for:: 07/14/20 Subjective:: Patient states that he feels fine. He is trying to eat a little bit. He is a still not making urine, he had a urine output of 136 mL for the past 24 hours.. His blood pressure is slightly better today without any dopamine. According to his nurse he is not really eating or drinking much. His son is at bedside. Reason For Visit: DEHYDRATION,ANEMIA,S P CHOLECYSTECTOMY Physical Exam Vital Signs: Temp Pulse Resp BP Pulse Ox 98.2 F 64 16 101/58 L 96 07/14/20 11:55 07/14/20 14:00 07/14/20 13:03 07/14/20 11:55 07/14/20 13:03 Intake & Output 07/13/20 07/14/20 07/15/20 06:59 06:59 06:59 Intake Total 4687 1780 Output Total 415 1521 300 Balance 4272 259 -300 Weight 115.2 kg 116.5 kg Exam: General appearance: PRESENT: no acute distress, cooperative, well-developed, well-nourished Head exam: PRESENT: atraumatic, normocephalic Eye exam: PRESENT: conjunctiva slightly pale, PERRLA. ABSENT: scleral icterus Neck exam: ABSENT: JVD Respiratory exam: PRESENT: Normal breath sounds. ABSENT: crackles, rales, rhonchi, unlabored, wheezes Cardiovascular exam: PRESENT: Regular rate rhythm -+S1, +S2. ABSENT: diastolic murmur, systolic murmur GI/Abdominal exam: PRESENT: normal bowel sounds, soft. Right upper quadrant tenderness ABSENT: guarding, mass Extremities exam: ABSENT: No edema Neurological exam: PRESENT: alert, awake, oriented to person, place and time. Skin exam: PRESENT: dry, warm, Results Laboratory Results: 07/14/20 07:07 07/14/20 07:07 07/14/20 07/14/20 07:07 07:07 WBC 3.3 L RBC 3.11 L Hgb 9.3 L Hct 27.0 L MCV 87 MCH 30.1 MCHC 34.7 RDW 16.1 H Plt Count 169 Seg Neutrophils % 83.4 H Sodium 132.9 L Potassium 3.3 L Chloride 99 Carbon Dioxide 19 L Anion Gap 15 BUN 57 H Creatinine 4.46 H Est GFR ( Amer) 16 L Glucose 78 Calcium 7.2 L 07/12/20 03:09 Oquendo Catheter Urine Culture - Final NO GROWTH 2 DAYS Impressions: Chest X-Ray 07/11/20 22:53 IMPRESSION: Progressive bibasilar atelectasis. Abdomen/Pelvis CT 07/11/20 23:42 IMPRESSION: 1. Postsurgical changes of interval cholecystectomy. There is a small amount of fluid and stranding in the gallbladder fossa. In addition, there is a suspected tiny focal fluid collection in the gallbladder fossa, but this is difficult to fully evaluate on this noncontrast exam. A tiny abscess is not completely excluded. 2. There is also a moderate amount of free fluid in the right upper quadrant. A drain is in place, but this enters through the right lateral abdominal wall below this level and terminates in the left lower quadrant. Abdomen Ultrasound 07/12/20 01:29 IMPRESSION: 1. Free fluid noted in the right upper quadrant. 2. Postsurgical changes of interval cholecystectomy. 3. No biliary ductal dilatation. Retroperitoneal Abscess Drainage 07/13/20 00:00 IMPRESSION: SUCCESSFUL CT GUIDED RIGHT UPPER QUADRANT PIGTAIL CATHETER PLACEMENT. Assessment & Plan - Diagnosis (1) LOBO (acute kidney injury) Is this a current diagnosis for this admission?: Yes Plan: Currently oligoanuric. Creatinine has gone up from 1.91 (07/08/2020) ->4.89. Creatinine in 2019 was 1.2-1.3. Patient has minimal proteinuria without microhematuria. This is most likely secondary to multifactorial factors including IV contrast g iven last admission a week ago, hypotension, and some dehydration. I think this is the case of initial acute prerenal azotemia which is currently developing and progressing to acute tubular necrosis. No evidence of hydronephrosis and abdominal CT scan. Patient had his first dialysis yesterday, 07/13/2020 which went well. Since he has no signs of renal recovery, I plan to do another dialysis treatment tomorrow. I answered questions of his son. Continue to monitor kidney function and urine output. (2) Hypotension Qualifiers: Hypotension type: hypotension due to hypovolemia Qualified Code(s): I95.89 - Other hypotension; E86.1 - Hypovolemia Is this a current diagnosis for this admission?: Yes Plan: This is most likely secondary to intake of blood pressure medications despite dehydration. Hold all blood pressure medications. Dopamine drip has been off. Blood pressure slightly improved today. (3) Dehydration Is this a current diagnosis for this admission?: Yes Plan: Patient has been +7.7 L since admission. I think he is now adequately volume resuscitated. (4) Metabolic acidosis Is this a current diagnosis for this admission?: Yes Plan: Non-anion gap due to LOBO. Improved with dialysis. (5) Hyponatremia Is this a current diagnosis for this admission?: Yes Plan: Mild. (6) Anemia Is this a current diagnosis for this admission?: Yes Plan: Patient is postop. (7) Hypokalemia Is this a current diagnosis for this admission?: Yes Plan: Potassium replacement with potassium chloride 40 mEq x 1 today.
[2020-07-14] MEDS ORDERED: POTASSIUM CHLORIDE 10 MEQ TABLET.ER PO ONE (15:15)
[2020-07-14] MEDS: LEVOFLOXACIN 500 MG/D5W RTU 500 MG/100 ML RTUPB IV SCH (18:21)
[2020-07-15] MEDS: METRONIDAZOLE 500 MG/NS RTU 500 MG/100 ML RTUPB IV SCH ×3 (01:21→17:57)
[2020-07-15] MEDS ORDERED: NORMAL SALINE 1000 ML 1,000 ML IV PRN (05:00)
[2020-07-15] MEDS ORDERED: HEPARIN SOD (PORCINE) 1,000 UNIT/ML 10 ML VIAL IV PRN (05:00)
[2020-07-15 06:10] LABS: ABSOLUTE EOSINOPHILS # (AUTO) 0.1 10^3/uL (0.0-0.6); ABSOLUTE LYMPHOCYTES (AUTO) 0.3 10^3/uL (0.5-4.7); ABSOLUTE MONOCYTES (AUTO) 0.4 10^3/uL (0.1-1.4); ABSOLUTE NEUT (AUTO) 4.2 10^3/uL (1.7-8.2); BASOPHILS % (AUTO) 0.1 % (0-2); EOSINOPHILS % (AUTO) 2.5 % (0-6); HEMATOCRIT 27.9 % (37.9-51.0); HEMOGLOBIN 9.9 g/dL (13.5-17.0); LYMPHOCYTES % (AUTO) 6.1 % (13-45); MEAN CORPUSCULAR HEMOGLOBIN 30.4 pg (27.0-33.4); MEAN CORPUSCULAR HGB CONC 35.5 g/dL (32.0-36.0); MEAN CORPUSCULAR VOLUME 86 fl (80-97); MONOCYTES % (AUTO) 7.4 % (3-13); PLATELET COUNT 187 10^3/uL (150-450); RED BLOOD COUNT 3.26 10^6/uL (4.35-5.55); RED CELL DISTRIBUTION WIDTH 16.2 % (11.5-14.0); SEGMENTED NEUTROPHILS % (AUTO) 83.9 % (42-78); TOTAL CELLS COUNTED % (AUTO) 100 %; WHITE BLOOD COUNT 5.1 10^3/uL (4.0-10.5)
[2020-07-15 06:32] LABS: ALBUMIN 2.1 g/dL (3.5-5.0); ALKALINE PHOSPHATASE 107 U/L (38-126); ANION GAP 13 (5-19); ASPARTATE AMINO TRANSFERASE 20 U/L (17-59); BILIRUBIN,DIRECT 0.8 mg/dL (0.0-0.4); BILIRUBIN,TOTAL 0.9 mg/dL (0.2-1.3); BLOOD UREA NITROGEN 71 mg/dL (7-20); CALCIUM 7.1 mg/dL (8.4-10.2); CARBON DIOXIDE 19 mmol/L (22-30); CHLORIDE 96 mmol/L (98-107); GLUCOSE 94 mg/dL (75-110); PHOSPHORUS 6.7 mg/dL (2.5-4.5); POTASSIUM 3.5 mmol/L (3.6-5.0); TOTAL PROTEIN 4.3 g/dL (6.3-8.2)
--- NOTE | 2020-07-15 10:28 | PDOC PROGRESS REPORT ---
Subjective Progress Note for:: 07/15/20 Subjective:: 75-year-old male admitted with a bile leak after cholecystectomy, acute kidney injury, and hypotension. I believe his hypotension to be related to relative overuse of antihypertensives, coupled with acute kidney injury/renal failure. His blood pressure is improved again today. The patient is in good spirits. His right upper quadrant abdominal pain is diminishing. He denies chest pain, fevers, chills, headache, blurry vision, melena, hematochezia, or hematemesis. Reason For Visit: DEHYDRATION,ANEMIA,S P CHOLECYSTECTOMY Physical Exam Vital Signs: Temp Pulse Resp BP Pulse Ox 97.5 F 84 20 122/75 98 07/15/20 05:18 07/15/20 07:43 07/15/20 07:43 07/15/20 07:43 07/15/20 07:43 Intake & Output 07/14/20 07/15/20 07/16/20 06:59 06:59 06:59 Intake Total 1780 1650 Output Total 1521 1600 Balance 259 50 Weight 116.5 kg 116.9 kg Exam: General appearance: PRESENT: no acute distress, cooperative Head exam: PRESENT: atraumatic, normocephalic Eye exam: PRESENT: EOMI, PERRLA. ABSENT: scleral icterus Mouth exam: PRESENT: moist, neck supple Neck exam: ABSENT: meningismus, tenderness, thyromegaly, tracheal deviation Respiratory exam: PRESENT: unlabored. ABSENT: tachypnea Cardiovascular exam: ABSENT: tachycardia GI/Abdominal exam: PRESENT: soft, tenderness - Mild, right upper quadrant, other - Right upper quadrant drains in place, draining bilious fluid. ABSENT: distended Rectal exam: PRESENT: deferred Extremities exam: ABSENT: clubbing Musculoskeletal exam: ABSENT: deformity Neurological exam: PRESENT: alert, awake Psychiatric exam: ABSENT: agitated, anxious Focused psych exam: ABSENT: delusional Skin exam: ABSENT: erythema, jaundice Results Laboratory Results: 07/15/20 05:37 07/15/20 05:37 07/15/20 07/15/20 05:37 05:37 WBC 5.1 RBC 3.26 L Hgb 9.9 L Hct 27.9 L MCV 86 MCH 30.4 MCHC 35.5 RDW 16.2 H Plt Count 187 Seg Neutrophils % 83.9 H Sodium 128.4 L Potassium 3.5 L Chloride 96 L Carbon Dioxide 19 L Anion Gap 13 BUN 71 H Creatinine 5.23 H Est GFR ( Amer) 13 L Glucose 94 Calcium 7.1 L Phosphorus 6.7 H Magnesium 1.9 Total Bilirubin 0.9 AST 20 Alkaline Phosphatase 107 Total Protein 4.3 L Albumin 2.1 L 07/12/20 03:09 Oquendo Catheter Urine Culture - Final NO GROWTH 2 DAYS Impressions: Chest X-Ray 07/11/20 22:53 IMPRESSION: Progressive bibasilar atelectasis. Abdomen/Pelvis CT 07/11/20 23:42 IMPRESSION: 1. Postsurgical changes of interval cholecystectomy. There is a small amount of fluid and stranding in the gallbladder fossa. In addition, there is a suspected tiny focal fluid collection in the gallbladder fossa, but this is difficult to fully evaluate on this noncontrast exam. A tiny abscess is not completely excluded. 2. There is also a moderate amount of free fluid in the right upper quadrant. A drain is in place, but this enters through the right lateral abdominal wall below this level and terminates in the left lower quadrant. Abdomen Ultrasound 07/12/20 01:29 IMPRESSION: 1. Free fluid noted in the right upper quadrant. 2. Postsurgical changes of interval cholecystectomy. 3. No biliary ductal dilatation. Retroperitoneal Abscess Drainage 07/13/20 00:00 IMPRESSION: SUCCESSFUL CT GUIDED RIGHT UPPER QUADRANT PIGTAIL CATHETER PLACEMENT. Assessment & Plan - Diagnosis (1) LOBO (acute kidney injury) Is this a current diagnosis for this admission?: Yes (2) Dehydration Is this a current diagnosis for this admission?: Yes (3) Weakness Is this a current diagnosis for this admission?: Yes (4) Bile leak, postoperative Is this a current diagnosis for this admission?: Yes - Time Anticipated Discharge Disposition: unknown Anticipated Discharge Timeframe: unknown - Plan Summary Plan Summary: 75-year-old male with a bile leak after cholecystectomy. This appears to be controlled, after the placement of a new right upper quadrant percutaneous catheter. Minimal output from surgical drain at this time. Blood pressure much improved. Cont dialysis per Dr. Liang. Monitor right upper quadrant drains for effectiveness. May need repeat noncontrasted CT scan in the near future to assess there efficacy. Continue with aggressive supportive care.
[2020-07-15] MEDS: ALBUTEROL SULFATE 0.042% NEB (1.25 MG/3 ML) AMPUL NEB PRN (11:37)
[2020-07-15] MEDS: DOCUSATE SODIUM 100 MG/10 ML UDC PO SCH (13:37)
--- NOTE | 2020-07-15 15:57 | PDOC PROGRESS REPORT ---
Subjective Progress Note for:: 07/15/20 Subjective:: I am seeing the patient almost at the end of his dialysis treatment today. He tolerated the dialysis very well today. He seems to be more awake and has more energy. He started making urine last night and has made about 575 mL. Today I am seeing about 450 mL of urine output in his [place] bag while on dialysis. His blood pressure is much improved. He denies any more abdominal pain. He does have a significant amount of bile coming out of his drain. Reason For Visit: DEHYDRATION,ANEMIA,S P CHOLECYSTECTOMY Physical Exam Vital Signs: Temp Pulse Resp BP Pulse Ox 97.5 F 67 16 122/75 95 07/15/20 10:00 07/15/20 14:00 07/15/20 11:37 07/15/20 07:43 07/15/20 11:37 Intake & Output 07/14/20 07/15/20 07/16/20 06:59 06:59 06:59 Intake Total 1780 1650 100 Output Total 1521 1600 1600 Balance 259 50 -1500 Weight 116.5 kg 116.9 kg Vitals during dialysis: Blood pressure 139/75, heart rate of 68, blood flow rate of 250 mL/min and dialysate flow rate of 600 mL/min. Exam: General appearance: PRESENT: no acute distress, cooperative, well-developed, well-nourished Head exam: PRESENT: atraumatic, normocephalic Eye exam: PRESENT: conjunctiva slightly pale, PERRLA. ABSENT: scleral icterus Neck exam: ABSENT: JVD Respiratory exam: PRESENT: Diminished breath sounds. ABSENT: crackles, rales, rhonchi, unlabored, wheezes Cardiovascular exam: PRESENT: Regular rate rhythm -+S1, +S2. ABSENT: diastolic murmur, systolic murmur GI/Abdominal exam: PRESENT: normal bowel sounds, soft. Right upper quadrant drain in place ABSENT: guarding, mass, tenderness Extremities exam: Grade 1 bilateral ankle edema Neurological exam: PRESENT: alert, awake, oriented to person, place and time. Skin exam: PRESENT: dry, warm, Results Laboratory Results: 07/15/20 05:37 07/15/20 05:37 07/15/20 07/15/20 05:37 05:37 WBC 5.1 RBC 3.26 L Hgb 9.9 L Hct 27.9 L MCV 86 MCH 30.4 MCHC 35.5 RDW 16.2 H Plt Count 187 Seg Neutrophils % 83.9 H Sodium 128.4 L Potassium 3.5 L Chloride 96 L Carbon Dioxide 19 L Anion Gap 13 BUN 71 H Creatinine 5.23 H Est GFR ( Amer) 13 L Glucose 94 Calcium 7.1 L Phosphorus 6.7 H Magnesium 1.9 Total Bilirubin 0.9 AST 20 Alkaline Phosphatase 107 Total Protein 4.3 L Albumin 2.1 L 07/12/20 03:09 [place] Catheter Urine Culture - Final NO GROWTH 2 DAYS Impressions: Chest X-Ray 07/11/20 22:53 IMPRESSION: Progressive bibasilar atelectasis. Abdomen/Pelvis CT 07/11/20 23:42 IMPRESSION: 1. Postsurgical changes of interval cholecystectomy. There is a small amount of fluid and stranding in the gallbladder fossa. In addition, there is a suspected tiny focal fluid collection in the gallbladder fossa, but this is difficult to fully evaluate on this noncontrast exam. A tiny abscess is not completely excluded. 2. There is also a moderate amount of free fluid in the right upper quadrant. A drain is in place, but this enters through the right lateral abdominal wall below this level and terminates in the left lower quadrant. Abdomen Ultrasound 07/12/20 01:29 IMPRESSION: 1. Free fluid noted in the right upper quadrant. 2. Postsurgical changes of interval cholecystectomy. 3. No biliary ductal dilatation. Retroperitoneal Abscess Drainage 07/13/20 00:00 IMPRESSION: SUCCESSFUL CT GUIDED RIGHT UPPER QUADRANT PIGTAIL CATHETER PLACEMENT. Assessment & Plan - Diagnosis (1) LOBO (acute kidney injury) Is this a current diagnosis for this admission?: Yes Plan: Started to make urine. Creatinine has gone up from 1.91 (07/08/2020) ->4.89->5.23. Creatinine in 2019 was 1.2-1.3. Patient has minimal proteinuria without microhematuria. This is most likely secondary to multifactorial factors including IV contrast given last admission a week ago, hypotension, and some dehydration. I think this is the case of initial acute prerenal azotemia which is currently developing and progressing to acute tubular necrosis. No evidence of hydronephrosis and abdominal CT scan. Patient had his first dialysis on 07/13/2020 which went well. His BUN and creatinine continues to be elevated so we are currently still dialyzing him. We are dialyzing him today for 2.5 hours, using the patient's dialysis catheter, with 3 potassium bath, blood flow rate of 250 mL per minute, dialysate flow rate of 600 mL per minute, ultrafiltration none, no heparin and no Retacrit. Patient tolerated dialysis very well today. Since the patient started making urine, this is a good indication that he may be recovering his kidney function. I will reevaluate his kidney function on Saturday and see if he still needs dialysis. Continue to monitor kidney function and urine output over the weekend. (2) Hypotension Qualifiers: Hypotension type: hypotension due to hypovolemia Qualified Code(s): I95.89 - Other hypotension; E86.1 - Hypovolemia Is this a current diagnosis for this admission?: Yes Plan: This is most likely secondary to intake of blood pressure medications despite dehydration. Blood pressures currently improved within acceptable normal limits. Blood pressure medications are still on hold. (3) Dehydration Is this a current diagnosis for this admission?: Yes Plan: Resolved. (4) Metabolic acidosis Is this a current diagnosis for this admission?: Yes Plan: Non-anion gap due to LOBO. Should improve further after dialysis today and hopefully with renal recovery. (5) Hyponatremia Is this a current diagnosis for this admission?: Yes Plan: Slightly worse today. Continue to monitor. Hopefully the patient can be started on some form of diet aside from liquids. (6) Anemia Is this a current diagnosis for this admission?: Yes Plan: Patient is postop. (7) Hypokalemia Is this a current diagnosis for this admission?: Yes Plan: Using a higher potassium bath during dialysis today. Replace as necessary after dialysis if still low. - Time Time with patient: 15-25 minutes
[2020-07-16] MEDS: METRONIDAZOLE 500 MG/NS RTU 500 MG/100 ML RTUPB IV SCH ×3 (01:00→17:06)
[2020-07-16 07:04] LABS: HEMATOCRIT 33.7 % (37.9-51.0); HEMOGLOBIN 11.9 g/dL (13.5-17.0); MEAN CORPUSCULAR HEMOGLOBIN 30.3 pg (27.0-33.4); MEAN CORPUSCULAR HGB CONC 35.4 g/dL (32.0-36.0); MEAN CORPUSCULAR VOLUME 85 fl (80-97); PLATELET COUNT 208 10^3/uL (150-450); RED BLOOD COUNT 3.95 10^6/uL (4.35-5.55); RED CELL DISTRIBUTION WIDTH 15.9 % (11.5-14.0); WHITE BLOOD COUNT 6.3 10^3/uL (4.0-10.5)
[2020-07-16 07:13] LABS: ALBUMIN 2.3 g/dL (3.5-5.0); ALKALINE PHOSPHATASE 128 U/L (38-126); ANION GAP 12 (5-19); ASPARTATE AMINO TRANSFERASE 22 U/L (17-59); BILIRUBIN,DIRECT 0.6 mg/dL (0.0-0.4); BILIRUBIN,TOTAL 0.9 mg/dL (0.2-1.3); BLOOD UREA NITROGEN 60 mg/dL (7-20); CALCIUM 7.3 mg/dL (8.4-10.2); CARBON DIOXIDE 22 mmol/L (22-30); CHLORIDE 99 mmol/L (98-107); GLUCOSE 97 mg/dL (75-110); POTASSIUM 3.7 mmol/L (3.6-5.0); TOTAL PROTEIN 4.8 g/dL (6.3-8.2)
[2020-07-16 07:53] LABS: ABSOLUTE LYMPHOCYTES# (MANUAL) 0.7 10^3/uL (0.5-4.7); ABSOLUTE MONOCYTES # (MANUAL) 0.3 10^3/uL (0.1-1.4); BASOPHILS % (MANUAL) 0 % (0-2); EOSINOPHILS % (MANUAL) 2 % (0-6); LYMPHOCYTES % (MANUAL) 11 % (13-45); METAMYELOCYTES % (MANUAL) 1 % (0-1); MONOCYTES % (MANUAL) 5 % (3-13); SEGMENTED NEUTROPHILS % (MAN) 81 % (42-78); TOTAL CELLS COUNTED 100
[2020-07-16 07:55] LABS: OVALOCYTES 1+; PLATELET COMMENT ADEQUATE; POIKILOCYTOSIS 1+
[2020-07-16] MEDS: DOCUSATE SODIUM 100 MG/10 ML UDC PO SCH ×2 (09:58→17:03)
--- NOTE | 2020-07-16 12:05 | PDOC PROGRESS REPORT ---
Subjective Progress Note for:: 07/16/20 Subjective:: 75-year-old male admitted with a bile leak after cholecystectomy, acute kidney injury, and hypotension. I believe his hypotension to be related to relative overuse of antihypertensives, coupled with acute kidney injury/renal failure. His hypotension has resolved. The patient is in good spirits. He is making large amounts of urine. His right upper quadrant abdominal pain is diminishing. He denies chest pain, fevers, chills, headache, blurry vision, melena, hem atochezia, or hematemesis. Reason For Visit: DEHYDRATION,ANEMIA,S P CHOLECYSTECTOMY Physical Exam Vital Signs: Temp Pulse Resp BP Pulse Ox 97.5 F 75 19 152/88 H 97 07/16/20 08:57 07/16/20 07:48 07/16/20 07:48 07/16/20 07:48 07/16/20 07:48 Intake & Output 07/15/20 07/16/20 07/17/20 06:59 06:59 06:59 Intake Total 1650 800 Output Total 1720 3510 50 Balance -70 -2710 -50 Weight 116.9 kg 117.9 kg Exam: General appearance: PRESENT: no acute distress, cooperative Head exam: PRESENT: atraumatic, normocephalic Eye exam: PRESENT: EOMI, PERRLA. ABSENT: scleral icterus Mouth exam: PRESENT: moist, neck supple Neck exam: ABSENT: meningismus, tenderness, thyromegaly, tracheal deviation Respiratory exam: PRESENT: unlabored. ABSENT: tachypnea Cardiovascular exam: ABSENT: tachycardia GI/Abdominal exam: PRESENT: soft, tenderness - Mild, right upper quadrant, other - Right upper quadrant drains in place, draining bilious fluid. ABSENT: di stended Rectal exam: PRESENT: deferred Extremities exam: ABSENT: clubbing Musculoskeletal exam: ABSENT: deformity Neurological exam: PRESENT: alert, awake Psychiatric exam: ABSENT: agitated, anxious Focused psych exam: ABSENT: delusional Skin exam: ABSENT: erythema, jaundice Results Laboratory Results: 07/16/20 06:32 07/16/20 06:32 07/16/20 07/16/20 06:32 06:32 WBC 6.3 RBC 3.95 L Hgb 11.9 L Hct 33.7 L MCV 85 MCH 30.3 MCHC 35.4 RDW 15.9 H Plt Count 208 Seg Neutrophils % Not Reportable Sodium 133.4 L Potassium 3.7 Chloride 99 Carbon Dioxide 22 Anion Gap 12 BUN 60 H Creatinine 4.00 H Est GFR ( Amer) 18 L Glucose 97 Calcium 7.3 L Total Bilirubin 0.9 AST 22 Alkaline Phosphatase 128 H Total Protein 4.8 L Albumin 2.3 L Impressions: Chest X-Ray 07/11/20 22:53 IMPRESSION: Progressive bibasilar atelectasis. Abdomen/Pelvis CT 07/11/20 23:42 IMPRESSION: 1. Postsurgical changes of interval cholecystectomy. There is a small amount of fluid and stranding in the gallbladder fossa. In addition, there is a suspected tiny focal fluid collection in the gallbladder fossa, but this is difficult to fully evaluate on this noncontrast exam. A tiny abscess is not completely excluded. 2. There is also a moderate amount of free fluid in the right upper quadrant. A drain is in place, but this enters through the right lateral abdominal wall below this level and terminates in the left lower quadrant. Abdomen Ultrasound 07/12/20 01:29 IMPRESSION: 1. Free fluid noted in the right upper quadrant. 2. Postsurgical changes of interval cholecystectomy. 3. No biliary ductal dilatation. Retroperitoneal Abscess Drainage 07/13/20 00:00 IMPRESSION: SUCCESSFUL CT GUIDED RIGHT UPPER QUADRANT PIGTAIL CATHETER PLACEMENT. Assessment & Plan - Diagnosis (1) LOBO (acute kidney injury) Is this a current diagnosis for this admission?: Yes (2) Dehydration Is this a current diagnosis for this admission?: Yes (3) Weakness Is this a current diagnosis for this admission?: Yes (4) Bile leak, postoperative Is this a current diagnosis for this admission?: Yes - Time Anticipated Discharge Disposition: unknown Anticipated Discharge Timeframe: unknown - Plan Summary Plan Summary: 75-year-old male with a bile leak after cholecystectomy. This appears to be controlled, after the placement of a new right upper quadrant percutaneous catheter. Minimal output from surgical drain at this time. Blood pressure much improved. Cont dialysis per Dr. Liang. Monitor right upper quadrant drains for effectiveness. May need repeat noncontrasted CT scan in the near future to assess their efficacy. Continue with aggressive supportive care.
[2020-07-16] MEDS ORDERED: ALTEPLASE INJ 2 MG VIAL (CATH CLEARANCE) IV ONE (13:00)
[2020-07-16] MEDS: ALBUTEROL SULFATE 0.042% NEB (1.25 MG/3 ML) AMPUL NEB PRN (15:21)
[2020-07-16] MEDS: LEVOFLOXACIN 500 MG/D5W RTU 500 MG/100 ML RTUPB IV SCH (17:06)
[2020-07-17] MEDS: METRONIDAZOLE 500 MG/NS RTU 500 MG/100 ML RTUPB IV SCH ×2 (01:12→09:44)
[2020-07-17] MEDS: DOCUSATE SODIUM 100 MG/10 ML UDC PO SCH ×2 (09:44→11:59)
[2020-07-17] MEDS: ALBUTEROL SULFATE 0.042% NEB (1.25 MG/3 ML) AMPUL NEB PRN (09:45)
--- NOTE | 2020-07-17 10:44 | PDOC PROGRESS REPORT ---
Subjective Progress Note for:: 07/17/20 Subjective:: 75-year-old male admitted with a bile leak after cholecystectomy, acute kidney injury, and hypotension. I believe his hypotension to be related to relative overuse of antihypertensives, coupled with acute kidney injury/renal failure. His hypotension has resolved. The patient is in good spirits. He is making large amounts of urine. His right upper quadrant abdominal pain is diminishing. He denies chest pain, fevers, chills, headache, blurry vision, melena, hem atochezia, or hematemesis. Today he complains of diarrhea. Reason For Visit: DEHYDRATION,ANEMIA,S P CHOLECYSTECTOMY Physical Exam Vital Signs: Temp Pulse Resp BP Pulse Ox 97.4 F 85 16 160/92 H 94 07/17/20 08:36 07/17/20 09:45 07/17/20 09:45 07/17/20 07:21 07/17/20 09:45 Intake & Output 07/16/20 07/17/20 07/18/20 06:59 06:59 06:59 Intake Total 800 1600 Output Total 3560 2140 380 Balance -2760 -540 -380 Weight 117.9 kg 115.3 kg Exam: General appearance: PRESENT: no acute distress, cooperative Head exam: PRESENT: atraumatic, normocephalic Eye exam: PRESENT: EOMI, PERRLA. ABSENT: scleral icterus Mouth exam: PRESENT: moist, neck supple Neck exam: ABSENT: meningismus, tenderness, thyromegaly, tracheal deviation Respiratory exam: PRESENT: unlabored. ABSENT: tachypnea Cardiovascular exam: ABSENT: tachycardia GI/Abdominal exam: PRESENT: soft, tenderness - Mild, right upper quadrant, other - Right upper quadrant drains in place, draining bilious fluid. ABSENT: distended Rectal exam: PRESENT: deferred Extremities exam: ABSENT: clubbing Musculoskeletal exam: ABSENT: deformity Neurological exam: PRESENT: alert, awake Psychiatric exam: ABSENT: agitated, anxious Focused psych exam: ABSENT: delusional Skin exam: ABSENT: erythema, jaundice Results Laboratory Results: 07/16/20 06:32 07/16/20 06:32 07/13/20 12:05 Abdominal Fluid Gram Stain - Final 07/13/20 12:05 Abdominal Fluid Body Fluid Culture - Final Enterococcus Faecium (Group D) No Aerobic Organisms 07/11/20 23:50 Blood Blood Culture - Final NO GROWTH IN 5 DAYS 07/11/20 22:20 Blood Blood Culture - Final NO GROWTH IN 5 DAYS Impressions: Chest X-Ray 07/11/20 22:53 IMPRESSION: Progressive bibasilar atelectasis. Abdomen/Pelvis CT 07/11/20 23:42 IMPRESSION: 1. Postsurgical changes of interval cholecystectomy. There is a small amount of fluid and stranding in the gallbladder fossa. In addition, there is a suspected tiny focal fluid collection in the gallbladder fossa, but this is difficult to fully evaluate on this noncontrast exam. A tiny abscess is not completely excluded. 2. There is also a moderate amount of free fluid in the right upper quadrant. A drain is in place, but this enters through the right lateral abdominal wall below this level and terminates in the left lower quadrant. Abdomen Ultrasound 07/12/20 01:29 IMPRESSION: 1. Free fluid noted in the right upper quadrant. 2. Postsurgical changes of interval cholecystectomy. 3. No biliary ductal dilatation. Retroperitoneal Abscess Drainage 07/13/20 00:00 IMPRESSION: SUCCESSFUL CT GUIDED RIGHT UPPER QUADRANT PIGTAIL CATHETER MARY CEMENT. Assessment & Plan - Diagnosis (1) LOBO (acute kidney injury) Is this a current diagnosis for this admission?: Yes (2) Dehydration Is this a current diagnosis for this admission?: Yes (3) Weakness Is this a current diagnosis for this admission?: Yes (4) Bile leak, postoperative Is this a current diagnosis for this admission?: Yes - Time Anticipated Discharge Disposition: Home with Home Health Anticipated Discharge Timeframe: unknown - Plan Summary Plan Summary: 75-year-old male with a bile leak after cholecystectomy. This appears to be controlled, after the placement of a new right upper quadrant percutaneous catheter. Minimal output from surgical drain at this time. Blood pressure much improved. Cont dialysis per Dr. Liang. Monitor right upper quadrant drains for effectiveness. May need repeat noncontrasted CT scan in the near future to assess their efficacy. Continue with aggressive supportive care. D/c antibiotics. Start a probiotic and psyllium for diarrhea
[2020-07-17] MEDS: ACETAMINOPHEN 325 MG TABLET PO PRN (11:14)
[2020-07-17 11:49] LABS: ANION GAP 15 (5-19); BLOOD UREA NITROGEN 67 mg/dL (7-20); CALCIUM 7.4 mg/dL (8.4-10.2); CARBON DIOXIDE 20 mmol/L (22-30); CHLORIDE 101 mmol/L (98-107); GLUCOSE 121 mg/dL (75-110); POTASSIUM 3.4 mmol/L (3.6-5.0)
[2020-07-17] MEDS: SERTRALINE HCL 50 MG TABLET PO SCH (13:23)
[2020-07-17] MEDS: LACTOBACILLUS ACIDOPHILUS 250 MG TAB PO SCH (17:22)
[2020-07-18] MEDS: PANTOPRAZOLE SODIUM 40 MG TABLET.DR PO SCH (05:42)
[2020-07-18 05:59] LABS: HEMATOCRIT 34.2 % (37.9-51.0); HEMOGLOBIN 11.7 g/dL (13.5-17.0); MEAN CORPUSCULAR HEMOGLOBIN 29.4 pg (27.0-33.4); MEAN CORPUSCULAR HGB CONC 34.3 g/dL (32.0-36.0); MEAN CORPUSCULAR VOLUME 86 fl (80-97); PLATELET COUNT 182 10^3/uL (150-450); RED BLOOD COUNT 3.99 10^6/uL (4.35-5.55); RED CELL DISTRIBUTION WIDTH 15.6 % (11.5-14.0); WHITE BLOOD COUNT 8.6 10^3/uL (4.0-10.5)
[2020-07-18 06:17] LABS: ALBUMIN 2.2 g/dL (3.5-5.0); ALKALINE PHOSPHATASE 107 U/L (38-126); ANION GAP 11 (5-19); ASPARTATE AMINO TRANSFERASE 22 U/L (17-59); BILIRUBIN,DIRECT 0.5 mg/dL (0.0-0.4); BILIRUBIN,TOTAL 0.8 mg/dL (0.2-1.3); BLOOD UREA NITROGEN 71 mg/dL (7-20); CALCIUM 7.5 mg/dL (8.4-10.2); CARBON DIOXIDE 23 mmol/L (22-30); CHLORIDE 102 mmol/L (98-107); GLUCOSE 97 mg/dL (75-110); POTASSIUM 3.5 mmol/L (3.6-5.0); TOTAL PROTEIN 4.7 g/dL (6.3-8.2)
[2020-07-18 06:53] LABS: ABSOLUTE LYMPHOCYTES# (MANUAL) 1.1 10^3/uL (0.5-4.7); ABSOLUTE MONOCYTES # (MANUAL) 0.9 10^3/uL (0.1-1.4); BASOPHILS % (MANUAL) 0 % (0-2); EOSINOPHILS % (MANUAL) 0 % (0-6); LYMPHOCYTES % (MANUAL) 13 % (13-45); MONOCYTES % (MANUAL) 10 % (3-13); SEGMENTED NEUTROPHILS % (MAN) 77 % (42-78); TOTAL CELLS COUNTED 100
[2020-07-18 06:58] LABS: ANISOCYTOSIS SLIGHT; OVALOCYTES 1+; PLATELET COMMENT ADEQUATE; POIKILOCYTOSIS SLIGHT; TEAR DROP CELLS SLIGHT; TOXIC GRANULATION SLIGHT
[2020-07-18] MEDS ORDERED: (PENDING PHARMACY ID) (Sertraline Hcl [Zoloft] 200 MG) PO SCH (10:00)
[2020-07-18] MEDS: SERTRALINE HCL 50 MG TABLET PO SCH (10:36)
[2020-07-18] MEDS: CARVEDILOL 12.5 MG TABLET PO SCH ×2 (10:37→21:22)
[2020-07-18] MEDS: LACTOBACILLUS ACIDOPHILUS 250 MG TAB PO SCH ×2 (10:38→18:00)
[2020-07-18] MEDS: TAMSULOSIN HCL 0.4 MG CAP.SR.24H PO SCH (10:38)
[2020-07-18] MEDS: ACETAMINOPHEN 325 MG TABLET PO PRN (14:02)
--- NOTE | 2020-07-18 17:46 | PDOC PROGRESS REPORT ---
Subjective Date:: 07/18/20 Subjective:: 75-year-old male admitted with a bile leak after cholecystectomy, acute kidney i njury, and hypotension. I believe his hypotension to be related to relative overuse of antihypertensives, coupled with acute kidney injury/renal failure. His hypotension has resolved. The patient is in good spirits again today. He is making large amounts of urine. His right upper quadrant abdominal pain is resolved. He denies chest pain, fevers, chills, headache, blurry vision, melena, hematochezia, or hematemesis. His BM's are more formed today. Reason For Visit: DEHYDRATION,ANEMIA,S P CHOLECYSTECTOMY Physical Exam Vital Signs: Temp Pulse Resp BP Pulse Ox 98.3 F 70 16 130/84 H 98 07/18/20 12:41 07/18/20 14:00 07/18/20 12:41 07/18/20 12:41 07/18/20 12:41 Intake & Output 07/17/20 07/18/20 07/19/20 06:59 06:59 06:59 Intake Total 1600 910 600 Output Total 2550 3225 1280 Balance -950 -2315 -680 Weight 115.3 kg 115.3 kg Exam: General appearance: PRESENT: no acute distress, cooperative Head exam: PRESENT: atraumatic, normocephalic Eye exam: PRESENT: EOMI, PERRLA. ABSENT: scleral icterus Mouth exam: PRESENT: moist, neck supple Neck exam: ABSENT: meningismus, tenderness, thyromegaly, tracheal deviation Respiratory exam: PRESENT: unlabored. ABSENT: tachypnea Cardiovascular exam: ABSENT: tachycardia GI/Abdominal exam: PRESENT: soft, other - Right upper quadrant drains in place, draining bilious fluid. ABSENT: distended, tenderness Rectal exam: PRESENT: deferred Extremities exam: ABSENT: clubbing Musculoskeletal exam: ABSENT: deformity Neurological exam: PRESENT: alert, awake Psychiatric exam: ABSENT: agitated, anxious Focused psych exam: ABSENT: delusional Skin exam: ABSENT: erythema, jaundice Results Laboratory Results: 07/18/20 05:37 07/18/20 05:37 07/18/20 07/18/20 05:37 05:37 WBC 8.6 RBC 3.99 L Hgb 11.7 L Hct 34.2 L MCV 86 MCH 29.4 MCHC 34.3 RDW 15.6 H Plt Count 182 Seg Neutrophils % Not Reportable Sodium 136.1 L Potassium 3.5 L Chloride 102 Carbon Dioxide 23 Anion Gap 11 BUN 71 H Creatinine 3.40 H Est GFR ( Amer) 22 L Glucose 97 Calcium 7.5 L Total Bilirubin 0.8 AST 22 Alkaline Phosphatase 107 Total Protein 4.7 L Albumin 2.2 L Impressions: Chest X-Ray 07/11/20 22:53 IMPRESSION: Progressive bibasilar atelectasis. Abdomen/Pelvis CT 07/11/20 23:42 IMPRESSION: 1. Postsurgical changes of interval cholecystectomy. There is a small amount of fluid and stranding in the gallbladder fossa. In addition, there is a suspected tiny focal fluid collection in the gallbladder fossa, but this is difficult to fully evaluate on this noncontrast exam. A tiny abscess is not completely excluded. 2. There is also a moderate amount of free fluid in the right upper quadrant. A drain is in place, but this enters through the right lateral abdominal wall below this level and terminates in the left lower quadrant. Abdomen Ultrasound 07/12/20 01:29 IMPRESSION: 1. Free fluid noted in the right upper quadrant. 2. Postsurgical changes of interval cholecystectomy. 3. No biliary ductal dilatation. Retroperitoneal Abscess Drainage 07/13/20 00:00 IMPRESSION: SUCCESSFUL CT GUIDED RIGHT UPPER QUADRANT PIGTAIL CATHETER PLACEMENT. Assessment & Plan - Diagnosis (1) LOBO (acute kidney injury) Is this a current diagnosis for this admission?: Yes (2) Dehydration Is this a current diagnosis for this admission?: Yes (3) Weakness Is this a current diagnosis for this admission?: Yes (4) Bile leak, postoperative Is this a current diagnosis for this admission?: Yes - Time Anticipated Discharge Disposition: Home with Home Health Anticipated Discharge Timeframe: unknown - Plan Summary Plan Summary: 75-year-old male with a bile leak after cholecystectomy. This appears to be controlled, after the placement of a new right upper quadrant percutaneous catheter. Minimal output from surgical drain at this time. Blood pressure now slightly elevated. Restart Coreg. Cont dialysis per Dr. Liang. Monitor right upper quadrant drains for effectiveness. May need repeat noncontrasted CT scan in the near future to assess their efficacy. Continue with aggressive supportive care. Cont probiotic and psyllium for diarrhea. This appears to be improving. Pt with significant weakness and easy fatigue. This is related to his protracted illness and anemia. Consult social work for DME. Pt will need a wheelchair for mobilizing outside of the home and a wheeled walker for mobilizing inside his home. It is unknown the length of time he will require the equipment. Cont with physical therapy.
--- NOTE | 2020-07-19 00:48 | PDOC PROGRESS REPORT ---
Subjective Date:: 07/18/20 Subjective:: Patient continues to do well clinically. He has been making significant amount of urine output, about 2525 mL for the last 24 hours. Although not recorded on his intake and output, patient daughter told me that he has been drinking fluids, mostly water of about 2.5 L daily. He states that he is feeling better and is trying to eat better. Reason For Visit: DEHYDRATION,ANEMIA,S P CHOLECYSTECTOMY Physical Exam Vital Signs: Temp Pulse Resp BP Pulse Ox 98.2 F 87 18 133/96 H 97 07/17/20 23:36 07/18/20 07:00 07/17/20 23:36 07/17/20 23:36 07/17/20 23:36 Intake & Output 07/17/20 07/18/20 07/19/20 06:59 06:59 06:59 Intake Total 1600 910 Output Total 2550 3225 Balance -950 -2315 Weight 115.3 kg 115.3 kg Exam: General appearance: PRESENT: no acute distress, cooperative, well-developed, well-nourished Head exam: PRESENT: atraumatic, normocephalic Eye exam: PRESENT: conjunctiva slightly pale, PERRLA. ABSENT: scleral icterus Neck exam: ABSENT: JVD Respiratory exam: PRESENT: Normal breath sounds. ABSENT: crackles, rales, rhonchi, unlabored, wheezes Cardiovascular exam: PRESENT: Regular rate rhythm -+S1, +S2. ABSENT: diastolic murmur, systolic murmur GI/Abdominal exam: PRESENT: normal bowel sounds, soft. Drain in place ABSENT: guarding, mass, tenderness Extremities exam: ABSENT: No edema Neurological exam: PRESENT: alert, awake, oriented to person, place and time. Skin exam: PRESENT: dry, warm, Results Laboratory Results: 07/18/20 05:37 07/18/20 05:37 07/17/20 07/18/20 07/18/20 10:40 05:37 05:37 WBC 8.6 RBC 3.99 L Hgb 11.7 L Hct 34.2 L MCV 86 MCH 29.4 MCHC 34.3 RDW 15.6 H Plt Count 182 Seg Neutrophils % Not Reportable Sodium 135.9 L 136.1 L Potassium 3.4 L 3.5 L Chloride 101 102 Carbon Dioxide 20 L 23 Anion Gap 15 11 BUN 67 H 71 H Creatinine 3.81 H 3.40 H Est GFR ( Amer) 19 L 22 L Glucose 121 H 97 Calcium 7.4 L 7.5 L Total Bilirubin 0.8 AST 22 Alkaline Phosphatase 107 Total Protein 4.7 L Albumin 2.2 L 07/13/20 12:05 Abdominal Fluid Gram Stain - Final 07/13/20 12:05 Abdominal Fluid Body Fluid Culture - Final Enterococcus Faecium (Group D) No Aerobic Organisms Impressions: Chest X-Ray 07/11/20 22:53 IMPRESSION: Progressive bibasilar atelectasis. Abdomen/Pelvis CT 07/11/20 23:42 IMPRESSION: 1. Postsurgical changes of interval cholecystectomy. There is a small amount of fluid and stranding in the gallbladder fossa. In addition, there is a suspected tiny focal fluid collection in the gallbladder fossa, but this is difficult to fully evaluate on this noncontrast exam. A tiny abscess is not completely excluded. 2. There is also a moderate amount of free fluid in the right upper quadrant. A drain is in place, but this enters through the right lateral abdominal wall below this level and terminates in the left lower quadrant. Abdomen Ultrasound 07/12/20 01:29 IMPRESSION: 1. Free fluid noted in the right upper quadrant. 2. Postsurgical changes of interval cholecystectomy. 3. No biliary ductal dilatation. Retroperitoneal Abscess Drainage 07/13/20 00:00 IMPRESSION: SUCCESSFUL CT GUIDED RIGHT UPPER QUADRANT PIGTAIL CATHETER PLACEMENT. Assessment & Plan - Diagnosis (1) LOBO (acute kidney injury) Is this a current diagnosis for this admission?: Yes Plan: Urine output significantly improved. Creatinine has gone from 1.91 (07/08/2020) ->4.89->5.23->3.4. Creatinine in 2019 was 1.2-1.3. Patient has minimal proteinuria without microhematuria. This is most likely secondary to multifactorial factors including IV contrast given last admission , hypotension, and some dehydration. I think this is the case of initial acute prerenal azotemia which developed to acute tubular necrosis. No evidence of hydronephrosis and abdominal CT scan. Patient had dialysis on 07/13/2020 which went well. Patient seems to be on diuretic phase of ATN. Encourage patient to continue adequate oral fluid intake to maintain euvolemia. We will hold further dialysis today and continue to reevaluate daily. I think the patient will continue to improve and most likely will not require any further dialysis moving forward if everything else remained the same. (2) Hypotension Qualifiers: Hypotension type: hypotension due to hypovolemia Qualified Code(s): I95.89 - Other hypotension; E86.1 - Hypovolemia Is this a current diagnosis for this admission?: Yes Plan: This is most likely secondary to intake of blood pressure medications despite dehydration on admission. Blood pressure is now starting to go up. May resume blood pressure medications one by one with continue to hold lisinopril for now. (3) Dehydration Is this a current diagnosis for this admission?: Yes Plan: Resolved. (4) Metabolic acidosis Is this a current diagnosis for this admission?: Yes Plan: Non-anion gap due to LOBO. Improved and now within normal limits. (5) Hyponatremia Is this a current diagnosis for this admission?: Yes Plan: Continues to improve with improvement of kidney function. (6) Anemia Is this a current diagnosis for this admission?: Yes Plan: Patient is postop. (7) Hypokalemia Is this a current diagnosis for this admission?: Yes Plan: Replace as necessary after dialysis if still low. - Notes Notes: Discussed with Dr. Tillman.
[2020-07-19] MEDS: PANTOPRAZOLE SODIUM 40 MG TABLET.DR PO SCH (06:01)
[2020-07-19 06:37] LABS: ANION GAP 10 (5-19); BLOOD UREA NITROGEN 66 mg/dL (7-20); CALCIUM 7.4 mg/dL (8.4-10.2); CARBON DIOXIDE 22 mmol/L (22-30); CHLORIDE 103 mmol/L (98-107); GLUCOSE 103 mg/dL (75-110); POTASSIUM 3.2 mmol/L (3.6-5.0)
[2020-07-19] MEDS: TAMSULOSIN HCL 0.4 MG CAP.SR.24H PO SCH (10:08)
[2020-07-19] MEDS: SERTRALINE HCL 50 MG TABLET PO SCH (10:08)
[2020-07-19] MEDS: CARVEDILOL 12.5 MG TABLET PO SCH ×2 (10:08→22:08)
[2020-07-19] MEDS: LACTOBACILLUS ACIDOPHILUS 250 MG TAB PO SCH ×2 (10:09→18:47)
[2020-07-19] MEDS: POTASSI CL 20 MEQ/50 ML RIDER 20 MEQ/50 ML RTUPB IV SCH ×2 (11:18→13:24)
[2020-07-19] MEDS: ALBUTEROL SULFATE 0.042% NEB (1.25 MG/3 ML) AMPUL NEB PRN (11:18)
--- NOTE | 2020-07-19 12:41 | PDOC PROGRESS REPORT ---
Subjective Date:: 07/19/20 Subjective:: 75-year-old male admitted with a bile leak after cholecystectomy, acute kidney i njury, and hypotension. I believe his hypotension to be related to relative overuse of antihypertensives, coupled with acute kidney injury/renal failure. His hypotension has resolved. The patient is in good spirits again today. He is making large amounts of urine. His right upper quadrant abdominal pain is resolved. He denies chest pain, fevers, chills, headache, blurry vision, melena, hematochezia, or hematemesis. Previously he complained of diarrhea, but now his BM's are more formed. Reason For Visit: DEHYDRATION,ANEMIA,S P CHOLECYSTECTOMY Physical Exam Vital Signs: Temp Pulse Resp BP Pulse Ox 97.4 F 68 16 135/82 H 97 07/19/20 08:34 07/19/20 11:20 07/19/20 11:20 07/19/20 08:34 07/19/20 11:20 Intake & Output 07/18/20 07/19/20 07/20/20 06:59 06:59 06:59 Intake Total 910 1240 Output Total 3225 3410 240 Balance -2315 -2170 -240 Weight 115.3 kg 110.8 kg Exam: General appearance: PRESENT: no acute distress, cooperative Head exam: PRESENT: atraumatic, normocephalic Eye exam: PRESENT: EOMI, PERRLA. ABSENT: scleral icterus Mouth exam: PRESENT: moist, neck supple Neck exam: ABSENT: meningismus, tenderness, thyromegaly, tracheal deviation Respiratory exam: PRESENT: unlabored. ABSENT: tachypnea Cardiovascular exam: ABSENT: tachycardia GI/Abdominal exam: PRESENT: soft, other - Right upper quadrant drains in place, draining bilious fluid. ABSENT: distended, tenderness Rectal exam: PRESENT: deferred Extremities exam: ABSENT: clubbing Musculoskeletal exam: ABSENT: deformity Neurological exam: PRESENT: alert, awake Psychiatric exam: ABSENT: agitated, anxious Focused psych exam: ABSENT: delusional Skin exam: ABSENT: erythema, jaundice Results Laboratory Results: 07/18/20 05:37 07/19/20 05:38 07/19/20 05:38 Sodium 134.8 L Potassium 3.2 L Chloride 103 Carbon Dioxide 22 Anion Gap 10 BUN 66 H Creatinine 2.67 H Est GFR ( Amer) 28 L Glucose 103 Calcium 7.4 L Impressions: Chest X-Ray 07/11/20 22:53 IMPRESSION: Progressive bibasilar atelectasis. Abdomen/Pelvis CT 07/11/20 23:42 IMPRESSION: 1. Postsurgical changes of interval cholecystectomy. There is a small amount of fluid and stranding in the gallbladder fossa. In addition, there is a suspected tiny focal fluid collection in the gallbladder fossa, but this is difficult to fully evaluate on this noncontrast exam. A tiny abscess is not completely excluded. 2. There is also a moderate amount of free fluid in the right upper quadrant. A drain is in place, but this enters through the right lateral abdominal wall below this level and terminates in the left lower quadrant. Abdomen Ultrasound 07/12/20 01:29 IMPRESSION: 1. Free fluid noted in the right upper quadrant. 2. Postsurgical changes of interval cholecystectomy. 3. No biliary ductal dilatation. Retroperitoneal Abscess Drainage 07/13/20 00:00 IMPRESSION: SUCCESSFUL CT GUIDED RIGHT UPPER QUADRANT PIGTAIL CATHETER PLACEMENT. Assessment & Plan - Diagnosis (1) LOBO (acute kidney injury) Is this a current diagnosis for this admission?: Yes (2) Dehydration Is this a current diagnosis for this admission?: Yes (3) Weakness Is this a current diagnosis for this admission?: Yes (4) Bile leak, postoperative Is this a current diagnosis for this admission?: Yes - Time Anticipated Discharge Disposition: Home with Home Health Anticipated Discharge Timeframe: within 48 hours - Plan Summary Plan Summary: 75-year-old male with a bile leak after cholecystectomy. This appears to be controlled, after the placement of a new right upper quadrant percutaneous catheter. Minimal output from surgical drain at this time. Cont Coreg. Dialysis no longer required per Dr. Liang. Remove trialysis catheter later today. Monitor right upper quadrant drains for effectiveness. Repeat noncontrasted CT scan tomorrow. Continue with aggressive supportive care. Cont probiotic and psyllium. Pt with significant weakness and easy fatigue. This is related to his protracted illness and anemia. Consult social work for DME. Pt will need a wheelchair for mobilizing outside of the home and a wheeled walker for mobilizing inside his home. It is unknown the length of time he will require the equipment. Cont with physical therapy.
[2020-07-19] MEDS: ACETAMINOPHEN 325 MG TABLET PO PRN (13:24)
--- NOTE | 2020-07-19 16:08 | PDOC PROGRESS REPORT ---
Subjective Date:: 07/19/20 Subjective:: Patient continues to do well and getting bored in the hospital. He wanted to go home. Patient's daughter and son are at bedside. He passed about 2900 mL of urine output for the last 24 hours. He is drinking fluids orally. He really does not have much new complaints. His blood pressure is improved. Reason For Visit: DEHYDRATION,ANEMIA,S P CHOLECYSTECTOMY Physical Exam Vital Signs: Temp Pulse Resp BP Pulse Ox 97.4 F 68 16 135/82 H 97 07/19/20 08:34 07/19/20 11:20 07/19/20 11:20 07/19/20 08:34 07/19/20 11:20 Intake & Output 07/18/20 07/19/20 07/20/20 06:59 06:59 06:59 Intake Total 910 1240 50 Output Total 3225 3410 240 Balance -2315 -2170 -190 Weight 115.3 kg 110.8 kg Exam: General appearance: PRESENT: no acute distress, cooperative, well-developed, well-nourished Head exam: PRESENT: atraumatic, normocephalic Eye exam: PRESENT: conjunctiva slightly pale, PERRLA. ABSENT: scleral icterus Neck exam: ABSENT: JVD Respiratory exam: PRESENT: Normal breath sounds. ABSENT: crackles, rales, rhonchi, unlabored, wheezes Cardiovascular exam: PRESENT: Regular rate rhythm -+S1, +S2. ABSENT: diastolic murmur, systolic murmur GI/Abdominal exam: PRESENT: normal bowel sounds, soft. Biliary drain still in place. ABSENT: guarding, mass, tenderness Extremities exam: ABSENT: No edema Neurological exam: PRESENT: alert, awake, oriented to person, place and time. Skin exam: PRESENT: dry, warm, Results Laboratory Results: 07/18/20 05:37 07/19/20 05:38 07/19/20 05:38 Sodium 134.8 L Potassium 3.2 L Chloride 103 Carbon Dioxide 22 Anion Gap 10 BUN 66 H Creatinine 2.67 H Est GFR ( Amer) 28 L Glucose 103 Calcium 7.4 L Impressions: Chest X-Ray 07/11/20 22:53 IMPRESSION: Progressive bibasilar atelectasis. Abdomen/Pelvis CT 07/11/20 23:42 IMPRESSION: 1. Postsurgical changes of interval cholecystectomy. There is a small amount of fluid and stranding in the gallbladder fossa. In addition, there is a suspected tiny focal fluid collection in the gallbladder fossa, but this is difficult to fully evaluate on this noncontrast exam. A tiny abscess is not completely excluded. 2. There is also a moderate amount of free fluid in the right upper quadrant. A drain is in place, but this enters through the right lateral abdominal wall below this level and terminates in the left lower quadrant. Abdomen Ultrasound 07/12/20 01:29 IMPRESSION: 1. Free fluid noted in the right upper quadrant. 2. Postsurgical changes of interval cholecystectomy. 3. No biliary ductal dilatation. Retroperitoneal Abscess Drainage 07/13/20 00:00 IMPRESSION: SUCCESSFUL CT GUIDED RIGHT UPPER QUADRANT PIGTAIL CATHETER PLACEMENT. Assessment & Plan - Diagnosis (1) LOBO (acute kidney injury) Is this a current diagnosis for this admission?: Yes Plan: Urine output significantly improved. Creatinine has gone from 1.91 (07/08/2020) ->4.89->5.23->3.4->2.67. Creatinine in 2019 was 1.2-1.3. Patient has minimal proteinuria without microhematuria. This is most likely secondary to multifactorial factors including IV contrast given last admission , hypotension, and some dehydration. I think this is the case of initial acute prerenal azotemia which developed to acute tubular necrosis. No evidence of hydronephrosis and abdominal CT scan. Patient had dialysis on 07/13/2020 which went well. Patient seems to be on diuretic phase of ATN. Encourage patient to continue adequate oral fluid intake to maintain euvolemia. I think the patient will continue to improve and most likely will not require any further dialysis moving forward if everything else remained the same. Continue to monitor kidney function. (2) Hypotension Qualifiers: Hypotension type: hypotension due to hypovolemia Qualified Code(s): I95.89 - Other hypotension; E86.1 - Hypovolemia Is this a current diagnosis for this admission?: Yes Plan: Resolved. Blood pressure medication can be resumed slowly as needed. (3) Dehydration Is this a current diagnosis for this admission?: Yes Plan: Resolved. (4) Metabolic acidosis Is this a current diagnosis for this admission?: Yes Plan: Non-anion gap due to LOBO. Resolved. (5) Hyponatremia Is this a current diagnosis for this admission?: Yes Plan: Continues to improve with improvement of kidney function. (6) Anemia Is this a current diagnosis for this admission?: Yes Plan: Patient is post-op. (7) Hypokalemia Is this a current diagnosis for this admission?: Yes Plan: Potassium replacement. - Time Time with patient: 15-25 minutes
[2020-07-20] MEDS: PANTOPRAZOLE SODIUM 40 MG TABLET.DR PO SCH (05:40)
[2020-07-20 07:59] LABS: ANION GAP 12 (5-19); BLOOD UREA NITROGEN 60 mg/dL (7-20); CALCIUM 7.5 mg/dL (8.4-10.2); CARBON DIOXIDE 21 mmol/L (22-30); CHLORIDE 102 mmol/L (98-107); GLUCOSE 94 mg/dL (75-110); POTASSIUM 3.3 mmol/L (3.6-5.0)
[2020-07-20] MEDS: SERTRALINE HCL 50 MG TABLET PO SCH (09:03)
[2020-07-20] MEDS: LACTOBACILLUS ACIDOPHILUS 250 MG TAB PO SCH ×2 (09:03→18:43)
[2020-07-20] MEDS: TAMSULOSIN HCL 0.4 MG CAP.SR.24H PO SCH (09:03)
[2020-07-20] MEDS: CARVEDILOL 12.5 MG TABLET PO SCH ×2 (09:03→21:22)
[2020-07-20] MEDS ORDERED: FENTANYL CITRATE INJ/PF 100 MCG/2 ML AMPUL ONE (10:03)
[2020-07-20] MEDS ORDERED: MIDAZOLAM 2 MG/2 ML INJ ONE (10:03)
--- NOTE | 2020-07-20 11:19 | RADIOLOGY REPORT (SQ) ---
EXAM DESCRIPTION: CT ABD/PELVIS NO ORAL OR IV IMAGES COMPLETED DATE/TIME: 07/20/2020 9:58 am REASON FOR STUDY: eval RUQ fluid collection and drain position COMPARISON: 07/12/2020 TECHNIQUE: CT scan of the abdomen and pelvis performed without intravenous or oral contrast. Images reviewed with lung, soft tissue, and bone windows. Reconstructed coronal and sagittal MPR images revi ewed. All images stored on PACS. All CT scanners at this facility use dose modulation, iterative reconstruction, and/or weight based d osing when appropriate to reduce radiation dose to as low as reasonably achievable (ALARA). [facility]: Dose Right [facility]: CareDose [facility]: Dose Right [facility]: Teradose 4D [facility]: Smart grabHalo RADIATION DOSE: CT Rad equipment meets quality standard of care and radiation dose reduction techniq ues were employed. CTDIvol: 17.0 mGy. DLP: 1221 mGy-cm.mGy. LIMITATIONS: None. FINDINGS: LOWER CHEST: Slight increase in size of the right pleural effusion right basilar airspace disease either atelectasis or pneumonia. NON-CONTRASTED LIVER, SPLEEN, ADRENALS: Increasing size of the subdiaphragmatic right fluid collectio n. An external drain lies between the liver and abdominal wall best demonstrated on series 2, image 43. No focal hepatic lesions. Small amount of fluid remains in the gallbladder fossa not significan tly changed. The spleen and adrenals are stable in appearance. PANCREAS: No masses. No peripancreatic inflammatory changes. GALLBLADDER: Surgically absent. RIGHT KIDNEY AND URETER: No suspicious masses. Assessment limited by lack of IV contrast. No signif icant calcifications. No hydronephrosis or hydroureter. LEFT KIDNEY AND URETER: No suspicious masses. Assessment limited by lack of IV contrast. Small nono bstructing left renal stone. No hydronephrosis or hydroureter. Stable cortical cyst. AORTA AND RETROPERITONEUM: Aorta is stable in appearance. IVC filter remains in place. BOWEL AND PERITONEAL CAVITY: Scattered diverticuli. No acute diverticulitis. APPENDIX: Not visualized. PELVIS, BLADDER, AND ABDOMINAL WALL:2 new fluid collections in the pelvis anterior to the sigmoid col on. The largest measures 5.8 x 5.8 cm. The smaller collection measures 4.9 x 3.2 cm. There is a sm all amount of air in the bladder presumably iatrogenic. Clinical correlation is needed. Evidence of prior hernia repair in the anterior abdominal wall. BONES: Stable in appearance. OTHER: No other significant finding. IMPRESSION: Increasing size of the right subdiaphragmatic fluid collection. A 2nd drain will be justa eric. 2 new small fluid collections in the anterior aspect of the pelvis. These measure 5.8 x 5.8 cm and 4 .9 x 3.2 cm respectively. Developing abscess cannot be excluded. Stable mild inflammatory change in the gallbladder fossa. There is air in the gallbladder presumably iatrogenic. Clinical correlation is needed. COMMENT: Quality ID # 436: Final reports with documentation of one or more dose reduction techniques (e.g., Automated exposure control, adjustment of the mA and/or kV according to patient size, use of iterative reconstruction technique) TECHNICAL DOCUMENTATION: JOB ID: [id number] 2010 [employer]- All Rights Reserved Reading location - IP/workstation name: [email or web address]
--- NOTE | 2020-07-20 13:21 | RADIOLOGY REPORT (SQ) ---
EXAM DESCRIPTION: CT GUIDED PERCUT DRAIN W/CATH; CT NEEDLE PLACEMENT IMAGES COMPLETED DATE/TIME: 07/20/2020 11:24 am; 07/20/2020 11:21 am REASON FOR STUDY: RQU UPPER DRAINAGE; DRANAGE COMPARISON: CT done earlier the same day. FLUORO TIME: 14.1 seconds 71 images saved to PACS. LIMITATIONS: None. PROCEDURE: After obtaining informed consent, the patient was brought to the CT suite and was placed prone on the CT gurney. The patient was prepped and draped in the usual sterile fashion . Axial imag es were obtained for targeting of theright subdiaphragmatic fluid collection. An appropriate access s ite was selected. IV conscious sedation was administered and physician direction by the otis parker using 0 milligrams of Versed and 100 micrograms of fentanyl. Physiologic monitoring was provided before, during, and after sedation. The total sedation time was 30 minutes. Documentation face to face time, the performing proceduralist, spent monitoring the patient: 15minute s. Using a subcostal approach from posteriorly the fluid collection in the right subdiaphragmatic space was successfully cannulated. There is immediate return of bile tinged fluid. A guidewire was placed . Sequential dilatation performed and a 10 [place] APD catheter placed. Catheter was secured to the skin and connected to accordion drainage bag. There were no complications. IMPRESSION: Successful CT-guided percutaneous drain placement into the right subdiaphragmatic fluid collection. COMMENT: Patient medication list reviewed:Yes- Quality ID# [id number]:Eligible professional attests to docu menting in the medical record they obtained, updated, or reviewed the patient's current medications. Quality ID #76: The patient was prepped and draped using maximum sterile barrier technique including cap, mask, sterile gown, sterile gloves, a large sterile sheet, hand hygiene, and 2% Chlorhexidine fo r cutaneous antisepsis. When ultrasound is used, sterile ultrasound techniques are followed requiring sterile gel and sterile probes. Quality ID 145: Final reports for procedures using fluoroscopy that document radiation exposure ef[place], or exposure time and number of fluorographic images (if radiation exposure indices are not avail able) Quality ID# 436: Final reports with documentation of one or more dose reduction techniques (e.g., Aut omated exposure control, adjustment of the mA and/or kV according to patient size, use of iterative r econstruction technique) TECHNICAL DOCUMENTATION: JOB ID: [id number] 2010 [employer]- All Rights Reserved rev Reading location - IP/workstation name: [email or web address]
[2020-07-20] MEDS: ALBUTEROL SULFATE 0.042% NEB (1.25 MG/3 ML) AMPUL NEB PRN (13:34)
--- NOTE | 2020-07-20 14:59 | PDOC PROGRESS REPORT ---
Subjective Date:: 07/20/20 Subjective:: 75-year-old male admitted with a bile leak after cholecystectomy, acute kidney i njury, and hypotension. His hypotension has resolved. The patient is in good spirits again today. His right upper quadrant abdominal pain is resolved. He denies chest pain, fevers, chills, headache, blurry vision, melena, hematochezia, or hematemesis. Previously he complained of diarrhea, but now his BM's are more formed. Reason For Visit: DEHYDRATION,ANEMIA,S P CHOLECYSTECTOMY Physical Exam Vital Signs: Temp Pulse Resp BP Pulse Ox 97.9 F 80 16 109/59 L 94 07/20/20 11:28 07/20/20 13:37 07/20/20 13:37 07/20/20 11:28 07/20/20 13:37 Intake & Output 07/19/20 07/20/20 07/21/20 06:59 06:59 06:59 Intake Total 1240 1384 Output Total 3410 1680 100 Balance -2170 -296 -100 Weight 110.8 kg 108.4 kg Exam: General appearance: PRESENT: no acute distress, cooperative Head exam: PRESENT: atraumatic, normocephalic Eye exam: PRESENT: EOMI, PERRLA. ABSENT: scleral icterus Mouth exam: PRESENT: moist, neck supple Neck exam: ABSENT: meningismus, tenderness, thyromegaly, tracheal deviation Respiratory exam: PRESENT: unlabored. ABSENT: tachypnea Cardiovascular exam: ABSENT: tachycardia GI/Abdominal exam: PRESENT: soft, other - Right upper quadrant drains in place, draining bilious fluid. ABSENT: distended, tenderness Rectal exam: PRESENT: deferred Extremities exam: ABSENT: clubbing Musculoskeletal exam: ABSENT: deformity Neurological exam: PRESENT: alert, awake Psychiatric exam: ABSENT: agitated, anxious Focused psych exam: ABSENT: delusional Skin exam: ABSENT: erythema, jaundice Results Laboratory Results: 07/18/20 05:37 07/20/20 07:06 07/20/20 07:06 Sodium 135.2 L Potassium 3.3 L Chloride 102 Carbon Dioxide 21 L Anion Gap 12 BUN 60 H Creatinine 2.71 H Est GFR ( Amer) 28 L Glucose 94 Calcium 7.5 L Impressions: Chest X-Ray 07/11/20 22:53 IMPRESSION: Progressive bibasilar atelectasis. Abdomen Ultrasound 07/12/20 01:29 IMPRESSION: 1. Free fluid noted in the right upper quadrant. 2. Postsurgical changes of interval cholecystectomy. 3. No biliary ductal dilatation. Retroperitoneal Abscess Drainage 07/13/20 00:00 IMPRESSION: SUCCESSFUL CT GUIDED RIGHT UPPER QUADRANT PIGTAIL CATHETER PLACEMENT. Abdomen/Pelvis CT 07/20/20 00:00 IMPRESSION: Increasing size of the right subdiaphragmatic fluid collection. A 2nd drain will be placed. 2 new small fluid collections in the anterior aspect of the pelvis. These measure 5.8 x 5.8 cm and 4.9 x 3.2 cm respectively. Developing abscess cannot be excluded. Stable mild inflammatory change in the gallbladder fossa. There is air in the gallbladder presumably iatrogenic. Clinical correlation is needed. Guidance Needle Placement CT 07/20/20 00:00 IMPRESSION: Successful CT-guided percutaneous drain placement into the right subdiaphragmatic fluid collection. Percutaneous Drainage 07/20/20 00:00 IMPRESSION: Successful CT-guided percutaneous drain placement into the right subdiaphragmatic fluid collection. Assessment & Plan - Diagnosis (1) LOBO (acute kidney injury) Is this a current diagnosis for this admission?: Yes (2) Dehydration Is this a current diagnosis for this admission?: Yes (3) Weakness Is this a current diagnosis for this admission?: Yes (4) Bile leak, postoperative Is this a current diagnosis for this admission?: Yes - Time Anticipated Discharge Disposition: Home with Home Health Anticipated Discharge Timeframe: within 48 hours - Plan Summary Plan Summary: 75-year-old male with a bile leak after cholecystectomy. He underwent repeat CT scanning today, showing a residual subdiaphragmatic fluid collection. He is now s/p placement of a new right upper quadrant percutaneous catheter extending into the subdiaphragmatic space. It returned bilious fluid. Minimal output from surgical drain at this time. Cont Coreg. Dialysis no longer required per Dr. Liang. Continue with aggressive supportive care. Cont probiotic and psyllium. DME is still being worked-out. Plan for D/c once DME is arranged.
--- NOTE | 2020-07-20 16:31 | PDOC PROGRESS REPORT ---
Subjective Date:: 07/20/20 Reason For Visit: Patient seen today. Chart review was done. This is a 75-year-old male admitted with a bile leak after cholecystectomy, acute on chronic kidney injury, and hypotension. I believe his hypotension to be related to relative overuse of antihypertensives, coupled with dehydration/diarrhea. His hypotension has resolved. He now has a right upper quadrant drain that is leaking moderate amounts of serosanguineous fluids but patient is clinically whole lot better. He has a good appetite and is eating. He is more actively mobile. He is making large amounts of urine. His right upper quadrant abdominal pain is almost resolved. He denies chest pain, fevers, chills, headache, blurry vision, melena, hematochezia, or hematemesis. Labs and medications were reviewed. His baseline creatinine was around close to 2 in June.He did receive a couple of dialysis last week but then seems to be making good renal recovery. Physical Exam Vital Signs: Temp Pulse Resp BP Pulse Ox 98.1 F 59 L 17 109/61 100 07/20/20 15:41 07/20/20 15:41 07/20/20 15:41 07/20/20 15:41 07/20/20 15:41 Intake & Output 07/19/20 07/20/20 07/21/20 06:59 06:59 06:59 Intake Total 1240 1384 Output Total 3410 1680 100 Balance -2170 -296 -100 Weight 110.8 kg 108.4 kg General appearance: PRESENT: no acute distress Respiratory exam: PRESENT: clear to auscultation gretta, decreased breath sounds. ABSENT: crackles Cardiovascular exam: PRESENT: +S1, +S2 GI/Abdominal exam: PRESENT: normal bowel sounds, soft, tenderness. ABSENT: organomegaly Extremities exam: PRESENT: pedal edema Neurological exam: PRESENT: alert, awake, oriented to person, oriented to place Psychiatric exam: PRESENT: appropriate affect Results Laboratory Results: 07/18/20 05:37 07/20/20 07:06 07/20/20 07:06 Sodium 135.2 L Potassium 3.3 L Chloride 102 Carbon Dioxide 21 L Anion Gap 12 BUN 60 H Creatinine 2.71 H Est GFR ( Amer) 28 L Glucose 94 Calcium 7.5 L Impressions: Chest X-Ray 07/11/20 22:53 IMPRESSION: Progressive bibasilar atelectasis. Abdomen Ultrasound 07/12/20 01:29 IMPRESSION: 1. Free fluid noted in the right upper quadrant. 2. Postsurgical changes of interval cholecystectomy. 3. No biliary ductal dilatation. Retroperitoneal Abscess Drainage 07/13/20 00:00 IMPRESSION: SUCCESSFUL CT GUIDED RIGHT UPPER QUADRANT PIGTAIL CATHETER PLACEM ENT. Abdomen/Pelvis CT 07/20/20 00:00 IMPRESSION: Increasing size of the right subdiaphragmatic fluid collection. A 2nd drain will be placed. 2 new small fluid collections in the anterior aspect of the pelvis. These measure 5.8 x 5.8 cm and 4.9 x 3.2 cm respectively. Developing abscess cannot be excluded. Stable mild inflammatory change in the gallbladder fossa. There is air in the gallbladder presumably iatrogenic. Clinical correlation is needed. Guidance Needle Placement CT 07/20/20 00:00 IMPRESSION: Successful CT-guided percutaneous drain placement into the right subdiaphragmatic fluid collection. Percutaneous Drainage 07/20/20 00:00 IMPRESSION: Successful CT-guided percutaneous drain placement into the right subdiaphragmatic fluid collection. Assessment & Plan - Diagnosis (1) LOBO (acute kidney injury) Is this a current diagnosis for this admission?: Yes Plan: Currently nonoliguric and seems to have made good renal recovery after receiving couple of dialysis last week. Continue on present guidelines. Blood pressure is a bit on the low side will make necessary adjustments in antihypertensives. (2) Bile leak, postoperative Is this a current diagnosis for this admission?: Yes Plan: Being managed by surgery. He has a right upper quadrant drain that is producing mild-moderate amount of serosanguineous fluid. Patient has marked relief of his symptoms that he came in with. He is eating well. He has got usually 3-4 bowel movements a day rather semisolid. (3) Hypotension Qualifiers: Hypotension type: hypotension due to hypovolemia Qualified Code(s): I95.89 - Other hypotension; E86.1 - Hypovolemia Is this a current diagnosis for this admission?: Yes Plan: Resolved and is now being reintroduced back on his antihypertensives which would be done cautiously.Down titrated his carvedilol. (4) Hypertension Plan: Low normal. Monitor.
[2020-07-20] MEDS: ACETAMINOPHEN 325 MG TABLET PO PRN (18:43)
[2020-07-21] MEDS: ACETAMINOPHEN 325 MG TABLET PO PRN ×2 (00:58→23:01)
[2020-07-21] MEDS: ONDANSETRON HCL INJ/PF 4 MG/2 ML SDV IV PRN ×3 (02:37→16:56)
[2020-07-21] MEDS: PANTOPRAZOLE SODIUM 40 MG TABLET.DR PO SCH (05:59)
[2020-07-21] MEDS: LACTOBACILLUS ACIDOPHILUS 250 MG TAB PO SCH ×2 (09:41→17:30)
[2020-07-21] MEDS: SERTRALINE HCL 50 MG TABLET PO SCH (09:42)
[2020-07-21] MEDS: CARVEDILOL 12.5 MG TABLET PO SCH ×2 (09:42→21:03)
[2020-07-21] MEDS: TAMSULOSIN HCL 0.4 MG CAP.SR.24H PO SCH (09:42)
[2020-07-21 10:19] LABS: HEMATOCRIT 37.6 % (37.9-51.0); HEMOGLOBIN 12.4 g/dL (13.5-17.0); MEAN CORPUSCULAR HEMOGLOBIN 28.9 pg (27.0-33.4); MEAN CORPUSCULAR HGB CONC 33.1 g/dL (32.0-36.0); MEAN CORPUSCULAR VOLUME 88 fl (80-97); PLATELET COUNT 261 10^3/uL (150-450); RED CELL DISTRIBUTION WIDTH 15.8 % (11.5-14.0); WHITE BLOOD COUNT 9.5 10^3/uL (4.0-10.5)
[2020-07-21 10:48] LABS: ALBUMIN 2.9 g/dL (3.5-5.0); ALKALINE PHOSPHATASE 113 U/L (38-126); ANION GAP 13 (5-19); ASPARTATE AMINO TRANSFERASE 22 U/L (17-59); BILIRUBIN,DIRECT 0.4 mg/dL (0.0-0.4); BILIRUBIN,TOTAL 0.7 mg/dL (0.2-1.3); BLOOD UREA NITROGEN 55 mg/dL (7-20); CALCIUM 7.9 mg/dL (8.4-10.2); CARBON DIOXIDE 21 mmol/L (22-30); CHLORIDE 103 mmol/L (98-107); GLUCOSE 113 mg/dL (75-110); POTASSIUM 3.4 mmol/L (3.6-5.0); TOTAL PROTEIN 5.8 g/dL (6.3-8.2)
[2020-07-21] MEDS: ALBUTEROL SULFATE 0.042% NEB (1.25 MG/3 ML) AMPUL NEB PRN (15:34)
--- NOTE | 2020-07-21 20:08 | PDOC PROGRESS REPORT ---
Subjective Date:: 07/21/20 Subjective:: 75-year-old male admitted with a bile leak after cholecystectomy, acute kidney i njury, and hypotension. His hypotension has resolved. The patient is in good spirits again today. His right upper quadrant abdominal pain is resolved. He denies chest pain, fevers, chills, headache, blurry vision, melena, hematochezia, or hematemesis. Previously he complained of diarrhea, but now his BM's are more formed. Reason For Visit: DEHYDRATION,ANEMIA,S P CHOLECYSTECTOMY Physical Exam Vital Signs: Temp Pulse Resp BP Pulse Ox 98.3 F 78 16 110/67 95 07/21/20 15:29 07/21/20 15:35 07/21/20 15:35 07/21/20 15:29 07/21/20 15:35 Intake & Output 07/20/20 07/21/20 07/22/20 06:59 06:59 06:59 Intake Total 1384 250 Output Total 1680 450 45 Balance -296 -200 -45 Weight 108.4 kg 108.8 kg Exam: General appearance: PRESENT: no acute distress, cooperative Head exam: PRESENT: atraumatic, normocephalic Eye exam: PRESENT: EOMI, PERRLA. ABSENT: scleral icterus Mouth exam: PRESENT: moist, neck supple Neck exam: ABSENT: meningismus, tenderness, thyromegaly, tracheal deviation Respiratory exam: PRESENT: unlabored. ABSENT: tachypnea Cardiovascular exam: ABSENT: tachycardia GI/Abdominal exam: PRESENT: soft, other - Right upper quadrant drains in place, draining bilious fluid. ABSENT: distended, tenderness Rectal exam: PRESENT: deferred Extremities exam: ABSENT: clubbing Musculoskeletal exam: ABSENT: deformity Neurological exam: PRESENT: alert, awake Psychiatric exam: ABSENT: agitated, anxious Focused psych exam: ABSENT: delusional Skin exam: ABSENT: erythema, jaundice Results Laboratory Results: 07/21/20 09:28 07/21/20 09:28 07/21/20 07/21/20 09:28 09:28 WBC 9.5 RBC 4.30 L Hgb 12.4 L Hct 37.6 L MCV 88 MCH 28.9 MCHC 33.1 RDW 15.8 H Plt Count 261 Sodium 136.8 L Potassium 3.4 L Chloride 103 Carbon Dioxide 21 L Anion Gap 13 BUN 55 H Creatinine 2.49 H Est GFR ( Amer) 31 L Glucose 113 H Calcium 7.9 L Total Bilirubin 0.7 AST 22 Alkaline Phosphatase 113 Total Protein 5.8 L Albumin 2.9 L Impressions: Chest X-Ray 07/11/20 22:53 IMPRESSION: Progressive bibasilar atelectasis. Abdomen Ultrasound 07/12/20 01:29 IMPRESSION: 1. Free fluid noted in the right upper quadrant. 2. Postsurgical changes of interval cholecystectomy. 3. No biliary ductal dilatation. Retroperitoneal Abscess Drainage 07/13/20 00:00 IMPRESSION: SUCCESSFUL CT GUIDED RIGHT UPPER QUADRANT PIGTAIL CATHETER PLACEM ENT. Abdomen/Pelvis CT 07/20/20 00:00 IMPRESSION: Increasing size of the right subdiaphragmatic fluid collection. A 2nd drain will be placed. 2 new small fluid collections in the anterior aspect of the pelvis. These measure 5.8 x 5.8 cm and 4.9 x 3.2 cm respectively. Developing abscess cannot be excluded. Stable mild inflammatory change in the gallbladder fossa. There is air in the gallbladder presumably iatrogenic. Clinical correlation is needed. Guidance Needle Placement CT 07/20/20 00:00 IMPRESSION: Successful CT-guided percutaneous drain placement into the right subdiaphragmatic fluid collection. Percutaneous Drainage 07/20/20 00:00 IMPRESSION: Successful CT-guided percutaneous drain placement into the right subdiaphragmatic fluid collection. Assessment & Plan - Diagnosis (1) LOBO (acute kidney injury) Is this a current diagnosis for this admission?: Yes (2) Dehydration Is this a current diagnosis for this admission?: Yes (3) Weakness Is this a current diagnosis for this admission?: Yes (4) Bile leak, postoperative Is this a current diagnosis for this admission?: Yes - Time Anticipated Discharge Disposition: Home with Home Health Anticipated Discharge Timeframe: within 24 hours - Plan Summary Plan Summary: 75-year-old male with a bile leak after cholecystectomy. He is s/p placement of right upper quadrant percutaneous catheters into the bilious fluid collections. Minimal output from surgical drain at this time. Cont Coreg. Continue with aggressive supportive care. Cont probiotic and psyllium. DME is still being worked-out. Plan for D/c once DME is arranged.
[2020-07-22] MEDS: PANTOPRAZOLE SODIUM 40 MG TABLET.DR PO SCH (05:54)
[2020-07-22] MEDS: SERTRALINE HCL 50 MG TABLET PO SCH (09:39)
[2020-07-22] MEDS: CARVEDILOL 12.5 MG TABLET PO SCH ×2 (09:39→21:21)
[2020-07-22] MEDS: LACTOBACILLUS ACIDOPHILUS 250 MG TAB PO SCH ×2 (09:39→17:20)
[2020-07-22] MEDS: TAMSULOSIN HCL 0.4 MG CAP.SR.24H PO SCH (09:43)
[2020-07-22] MEDS: ONDANSETRON HCL INJ/PF 4 MG/2 ML SDV IV PRN ×2 (09:44→15:12)
[2020-07-22 10:50] LABS: ANION GAP 14 (5-19); BLOOD UREA NITROGEN 52 mg/dL (7-20); CALCIUM 8.4 mg/dL (8.4-10.2); CARBON DIOXIDE 21 mmol/L (22-30); CHLORIDE 104 mmol/L (98-107); GLUCOSE 116 mg/dL (75-110)
--- NOTE | 2020-07-22 13:05 | RADIOLOGY REPORT (SQ) ---
EXAM DESCRIPTION: NM HIDA SCAN IMAGES COMPLETED DATE/TIME: 07/22/2020 12:52 pm REASON FOR STUDY: continued bile leak after cholecystectomy COMPARISON: CT dated 07/20/2020 RADIONUCLIDE AND DOSE: DOSAGE RADIONUCLIDE: 5.47 millicuries Tc99m Mebrofenin. DOSAGE MORPHINE: Not required. The route of agent administration: Intravenous TECHNIQUE: Serial imaging right upper quadrant up to 60 minutes following injection of radionuclide. Patient imaged AP and Right Lateral. LIMITATIONS: None. FINDINGS: LIVER: Normal visualization without areas of photopenia. INTRA-HEPATIC BILE DUCTS: Temporal visualization normal. No dilatation. COMMON BILE DUCT: Normal without dilatation or delayed visualization. GALLBLADDER: The gallbladder has been removed. OTHER: There is abnormal accumulation in the right sub fragments base consistent with bile leak. There is linear uptake in the midline which may represent bowel extravasation as well. This appear s to be separate from the indwelling drainage tube. IMPRESSION: Evidence of bile leak as described. TECHNICAL DOCUMENTATION: JOB ID: [id number] 2010 [employer]- All Rights Reserved Reading location - IP/workstation name: [email or web address]
--- NOTE | 2020-07-22 13:32 | PDOC PROGRESS REPORT ---
Subjective Date:: 07/22/20 Subjective:: 75-year-old male admitted with a bile leak after cholecystectomy, acute kidney i njury, and hypotension. His hypotension has resolved. The patient is in good spirits again today. His right upper quadrant abdominal pain has resolved. He denies fevers, chills, headache, blurry vision, melena, hematochezia, or hematemesis. Previously he complained of diarrhea, but now his BM's are more formed. Today he reports more discomfort at the posterior percutaneous catheter insertion site. He also reports increased nausea today. Reason For Visit: DEHYDRATION,ANEMIA,S P CHOLECYSTECTOMY Physical Exam Vital Signs: Temp Pulse Resp BP Pulse Ox 98.0 F 75 17 128/62 H 97 07/22/20 10:00 07/22/20 07:00 07/21/20 19:45 07/21/20 19:45 07/21/20 19:45 Intake & Output 07/21/20 07/22/20 07/23/20 06:59 06:59 06:59 Intake Total 250 Output Total 450 100 Balance -200 -100 Weight 108.8 kg 109.1 kg 109.1 kg Exam: General appearance: PRESENT: no acute distress, cooperative Head exam: PRESENT: atraumatic, normocephalic Eye exam: PRESENT: EOMI, PERRLA. ABSENT: scleral icterus Mouth exam: PRESENT: moist, neck supple Neck exam: ABSENT: meningismus, tenderness, thyromegaly, tracheal deviation Respiratory exam: PRESENT: unlabored. ABSENT: tachypnea Cardiovascular exam: ABSENT: tachycardia GI/Abdominal exam: PRESENT: soft, other - Right upper quadrant drains in place, draining bilious fluid. ABSENT: distended, tenderness Rectal exam: PRESENT: deferred Extremities exam: ABSENT: clubbing Musculoskeletal exam: ABSENT: deformity Neurological exam: PRESENT: alert, awake Psychiatric exam: ABSENT: agitated, anxious Focused psych exam: ABSENT: delusional Skin exam: ABSENT: erythema, jaundice Results Laboratory Results: 07/21/20 09:28 07/22/20 10:11 07/22/20 10:11 Sodium 139.2 Potassium 4.0 Chloride 104 Carbon Dioxide 21 L Anion Gap 14 BUN 52 H Creatinine 2.49 H Est GFR ( Amer) 31 L Glucose 116 H Calcium 8.4 Impressions: Chest X-Ray 07/11/20 22:53 IMPRESSION: Progressive bibasilar atelectasis. Abdomen Ultrasound 07/12/20 01:29 IMPRESSION: 1. Free fluid noted in the right upper quadrant. 2. Postsurgical changes of interval cholecystectomy. 3. No biliary ductal dilatation. Retroperitoneal Abscess Drainage 07/13/20 00:00 IMPRESSION: SUCCESSFUL CT GUIDED RIGHT UPPER QUADRANT PIGTAIL CATHETER PLACEMENT. Abdomen/Pelvis CT 07/20/20 00:00 IMPRESSION: Increasing size of the right subdiaphragmatic fluid collection. A 2nd drain will be placed. 2 new small fluid collections in the anterior aspect of the pelvis. These measure 5.8 x 5.8 cm and 4.9 x 3.2 cm respectively. Developing abscess cannot be excluded. Stable mild inflammatory change in the gallbladder fossa. There is air in the gallbladder presumably iatrogenic. Clinical correlation is needed. Guidance Needle Placement CT 07/20/20 00:00 IMPRESSION: Successful CT-guided percutaneous drain placement into the right subdiaphragmatic fluid collection. Percutaneous Drainage 07/20/20 00:00 IMPRESSION: Successful CT-guided percutaneous drain placement into the right subdiaphragmatic fluid collection. Hepatobiliary Scan Nuclear Medicine 07/22/20 00:00 IMPRESSION: Evidence of bile leak as described. Assessment & Plan - Diagnosis (1) LOBO (acute kidney injury) Is this a current diagnosis for this admission?: Yes (2) Dehydration Is this a current diagnosis for this admission?: Yes (3) Weakness Is this a current diagnosis for this admission?: Yes (4) Bile leak, postoperative Is this a current diagnosis for this admission?: Yes - Time Anticipated Discharge Disposition: unknown Anticipated Discharge Timeframe: unknown - Plan Summary Plan Summary: 75-year-old male with a bile leak after cholecystectomy. He is s/p placement of right upper quadrant percutaneous catheters into the bilious fluid collections. He continues to have output from his percutaneous right upper quadrant drains. Minimal output from surgical drain at this time. Today he complains of pain in his back, at the site of the most recently placed catheter. He also complains of nausea (which is new since catheter placement). If the patient is excessively symptomatic, he cannot be discharged home. I will continue his work-up with a HIDA scan and MRCP. Unfortunately, ERCP is not available at this facility (due to his gastric bypass). ERCP would elucidate the location and magnitude of the leak. It would also allow for treatment of the leak in most circumstances. I will proceed with further work-up. If necessary, the patient may require transfer to [facility] ([facility]) for ERCP through his gastric bypass. Cont Coreg. Continue with aggressive supportive care. Cont probiotic and psyllium. D/c planning.
[2020-07-22] MEDS: ACETAMINOPHEN 325 MG TABLET PO PRN (15:21)
--- NOTE | 2020-07-22 15:25 | RADIOLOGY REPORT (SQ) ---
EXAM DESCRIPTION: MRI ABDOMEN WITHOUT IMAGES COMPLETED DATE/TIME: 07/22/2020 2:52 pm REASON FOR STUDY: continued bile leak after cholecystectomy COMPARISON: CT abdomen pelvis dated 07/20/2020, hepatobiliary scan done earlier the same day. TECHNIQUE: Noncontrast MRCP. Source and MIP images reviewed. LIMITATIONS: None. FINDINGS: GALLBLADDER: Surgically absent. INTRAHEPATIC DUCTS: Nondilated. EXTRAHEPATIC DUCTS: Filling defect in the distal common bile duct. Suspicious for either blood clot or possibly stone. No obvious disruption of the common bile duct. PANCREAS: Generally homogeneous, no gross mass or significant signal alteration. No surrounding infl ammatory changes or fluid. Pancreatic duct is normal. LIVER, SPLEEN, KIDNEYS, ADRENALS: Perihepatic fluid collections are again noted VESSELS: No evidence of aneurysm. Grossly appropriate flow voids in the major vascular structures. LUNG BASES: Right basilar airspace disease consistent with atelectasis and effusion. OTHER: No other significant finding. IMPRESSION: Filling defect of some type in the distal common bile duct. Possibly blood products or small stone. No disruption of the common duct or pancreatic duct. TECHNICAL DOCUMENTATION: JOB ID: [id number] 2010 [employer]- All Rights Reserved Reading location - IP/workstation name: [email or web address]
[2020-07-22] MEDS: SCOPOLAMINE HYDROBROMIDE 1.5 MG PATCH.TD72 TD SCH (16:48)
[2020-07-23] MEDS: ACETAMINOPHEN 325 MG TABLET PO PRN (03:51)
[2020-07-23] MEDS: ONDANSETRON HCL INJ/PF 4 MG/2 ML SDV IV PRN (04:54)
[2020-07-23] MEDS ORDERED: PROMETHAZINE HCL INJ 25 MG/1 ML VIAL ONE (06:11)
[2020-07-23] MEDS ORDERED: MORPHINE SULFATE 10 MG/ML INJ ONE ×2 (06:11→11:02)
[2020-07-23] MEDS ORDERED: MORPHINE SULFATE 10 MG/ML INJ IV ONE (06:15)
[2020-07-23] MEDS ORDERED: PROMETHAZINE HCL INJ 25 MG/1 ML VIAL IV ONE (06:15)
[2020-07-23] MEDS: PANTOPRAZOLE SODIUM 40 MG TABLET.DR PO SCH (06:20)
[2020-07-23] MEDS: TAMSULOSIN HCL 0.4 MG CAP.SR.24H PO SCH (10:01)
[2020-07-23] MEDS: CARVEDILOL 12.5 MG TABLET PO SCH ×2 (10:02→22:15)
[2020-07-23] MEDS: LACTOBACILLUS ACIDOPHILUS 250 MG TAB PO SCH ×2 (10:03→17:24)
[2020-07-23] MEDS: SERTRALINE HCL 50 MG TABLET PO SCH (10:03)
[2020-07-23] MEDS: ALBUTEROL SULFATE 0.042% NEB (1.25 MG/3 ML) AMPUL NEB PRN ×2 (10:28→20:18)
--- NOTE | 2020-07-23 12:42 | PDOC PROGRESS REPORT ---
Subjective Date:: 07/23/20 Subjective:: 75-year-old male admitted with a bile leak after cholecystectomy, acute kidney i njury, and hypotension. His hypotension has resolved. The patient is experiencing more back pain today at his upper drain site. He denies fevers, chills, headache, blurry vision, melena, hematochezia, or hematemesis. Previously he complained of diarrhea, but now his BM's are more formed. Reason For Visit: DEHYDRATION,ANEMIA,S P CHOLECYSTECTOMY Physical Exam Vital Signs: Temp Pulse Resp BP Pulse Ox 98.2 F 73 14 162/84 H 95 07/23/20 08:17 07/23/20 10:30 07/23/20 10:30 07/23/20 04:58 07/23/20 10:30 Intake & Output 07/22/20 07/23/20 07/24/20 06:59 06:59 06:59 Intake Total 1680 Output Total 100 1510 280 Balance -100 170 -280 Weight 109.1 kg 109.3 kg Exam: General appearance: PRESENT: no acute distress, cooperative Head exam: PRESENT: atraumatic, normocephalic Eye exam: PRESENT: EOMI, PERRLA. ABSENT: scleral icterus Mouth exam: PRESENT: moist, neck supple Neck exam: ABSENT: meningismus, tenderness, thyromegaly, tracheal deviation Respiratory exam: PRESENT: unlabored. ABSENT: tachypnea Cardiovascular exam: ABSENT: tachycardia GI/Abdominal exam: PRESENT: soft, other - Right upper quadrant drains in place, draining bilious fluid. ABSENT: distended, tenderness Rectal exam: PRESENT: deferred Extremities exam: ABSENT: clubbing Musculoskeletal exam: ABSENT: deformity Neurological exam: PRESENT: alert, awake Psychiatric exam: ABSENT: agitated, anxious Focused psych exam: ABSENT: delusional Skin exam: ABSENT: erythema, jaundice Results Laboratory Results: 07/21/20 09:28 07/22/20 10:11 Impressions: Chest X-Ray 07/11/20 22:53 IMPRESSION: Progressive bibasilar atelectasis. Abdomen Ultrasound 07/12/20 01:29 IMPRESSION: 1. Free fluid noted in the right upper quadrant. 2. Postsurgical changes of interval cholecystectomy. 3. No biliary ductal dilatation. Retroperitoneal Abscess Drainage 07/13/20 00:00 IMPRESSION: SUCCESSFUL CT GUIDED RIGHT UPPER QUADRANT PIGTAIL CATHETER PLACEMENT. Abdomen/Pelvis CT 07/20/20 00:00 IMPRESSION: Increasing size of the right subdiaphragmatic fluid collection. A 2nd drain will be placed. 2 new small fluid collections in the anterior aspect of the pelvis. These measure 5.8 x 5.8 cm and 4.9 x 3.2 cm respectively. Developing abscess cannot be excluded. Stable mild inflammatory change in the gallbladder fossa. There is air in the gallbladder presumably iatrogenic. Clinical correlation is needed. Guidance Needle Placement CT 07/20/20 00:00 IMPRESSION: Successful CT-guided percutaneous drain placement into the right subdiaphragmatic fluid collection. Percutaneous Drainage 07/20/20 00:00 IMPRESSION: Successful CT-guided percutaneous drain placement into the right subdiaphragmatic fluid collection. Abdomen MRI 07/22/20 00:00 IMPRESSION: Filling defect of some type in the distal common bile duct. Possibly blood products or small stone. No disruption of the common duct or pancreatic duct. Hepatobiliary Scan Nuclear Medicine 07/22/20 00:00 IMPRESSION: Evidence of bile leak as described. Assessment & Plan - Diagnosis (1) LOBO (acute kidney injury) Is this a current diagnosis for this admission?: Yes (2) Dehydration Is this a current diagnosis for this admission?: Yes (3) Weakness Is this a current diagnosis for this admission?: Yes (4) Bile leak, postoperative Is this a current diagnosis for this admission?: Yes - Time Anticipated Discharge Disposition: unknown Anticipated Discharge Timeframe: unknown - Plan Summary Plan Summary: 75-year-old male with a bile leak after cholecystectomy. He is s/p placement of right upper quadrant percutaneous catheters into the bilious fluid collections. He continues to have output from his percutaneous right upper quadrant drains. Minimal output from surgical drain at this time. He continues to complain of pain in his back, at the site of the most recently placed catheter. I have reviewed his HIDA scan and MRCP. The patient has an obvious leak on HIDA scan. I believe it to be in the area of his cystic duct stump. I have reviewed his MRCP. There is no obvious ductal injury on MRCP. There appears to be stones and possibly sludge within the distal common bile duct, which I believe to be exacerbating the bile leak. I discussed options wi th the patient and his son at length. I have offered him transfer to a tertiary care facility, but they prefer to remain in [place]. Plan for common bile duct exploration in the next few days, with Dr. Knight's assistance. Cont Coreg. Continue with aggressive supportive care. Cont probiotic and psyllium. Add pain meds for back pain.
[2020-07-23] MEDS: HYDROMORPHONE HCL INJ/PF 2 MG/ML AMPULE IV PRN ×2 (15:32→20:30)
[2020-07-24] MEDS: HYDROMORPHONE HCL INJ/PF 2 MG/ML AMPULE IV PRN ×5 (01:23→22:20)
[2020-07-24] MEDS: PANTOPRAZOLE SODIUM 40 MG TABLET.DR PO SCH (05:20)
[2020-07-24 06:52] LABS: ABSOLUTE EOSINOPHILS # (AUTO) 0.1 10^3/uL (0.0-0.6); ABSOLUTE LYMPHOCYTES (AUTO) 0.7 10^3/uL (0.5-4.7); ABSOLUTE MONOCYTES (AUTO) 0.6 10^3/uL (0.1-1.4); BASOPHILS % (AUTO) 0.3 % (0-2); EOSINOPHILS % (AUTO) 1.2 % (0-6); HEMATOCRIT 32.5 % (37.9-51.0); HEMOGLOBIN 11.2 g/dL (13.5-17.0); LYMPHOCYTES % (AUTO) 6.9 % (13-45); MEAN CORPUSCULAR HGB CONC 34.5 g/dL (32.0-36.0); MEAN CORPUSCULAR VOLUME 87 fl (80-97); PLATELET COUNT 349 10^3/uL (150-450); RED BLOOD COUNT 3.75 10^6/uL (4.35-5.55); RED CELL DISTRIBUTION WIDTH 15.8 % (11.5-14.0); SEGMENTED NEUTROPHILS % (AUTO) 85.6 % (42-78); TOTAL CELLS COUNTED % (AUTO) 100 %; WHITE BLOOD COUNT 10.5 10^3/uL (4.0-10.5)
[2020-07-24 07:22] LABS: ALBUMIN 2.8 g/dL (3.5-5.0); ALKALINE PHOSPHATASE 99 U/L (38-126); ANION GAP 10 (5-19); ASPARTATE AMINO TRANSFERASE 24 U/L (17-59); BILIRUBIN,DIRECT 0.3 mg/dL (0.0-0.4); BILIRUBIN,TOTAL 0.6 mg/dL (0.2-1.3); BLOOD UREA NITROGEN 48 mg/dL (7-20); CALCIUM 8.4 mg/dL (8.4-10.2); CARBON DIOXIDE 21 mmol/L (22-30); CHLORIDE 105 mmol/L (98-107); GLUCOSE 104 mg/dL (75-110); POTASSIUM 5.2 mmol/L (3.6-5.0); TOTAL PROTEIN 5.7 g/dL (6.3-8.2)
[2020-07-24] MEDS ORDERED: KETOROLAC TROMETHAMINE INJ/PF 30 MG/1 ML SDV IV PRN (07:59)
[2020-07-24] MEDS ORDERED: BISACODYL 10 MG SUPP.RECT PR ONE (08:00)
[2020-07-24] MEDS: ALBUTEROL SULFATE 0.042% NEB (1.25 MG/3 ML) AMPUL NEB PRN ×2 (09:18→19:46)
[2020-07-24] MEDS: SERTRALINE HCL 50 MG TABLET PO SCH (09:29)
[2020-07-24] MEDS: TAMSULOSIN HCL 0.4 MG CAP.SR.24H PO SCH (09:29)
[2020-07-24] MEDS: CARVEDILOL 12.5 MG TABLET PO SCH ×2 (09:30→22:31)
[2020-07-24] MEDS: LACTOBACILLUS ACIDOPHILUS 250 MG TAB PO SCH ×2 (09:30→18:15)
--- NOTE | 2020-07-24 10:40 | PDOC PROGRESS REPORT ---
Subjective Date:: 07/24/20 Subjective:: 75-year-old male admitted with a bile leak after cholecystectomy, acute kidney i njury, and hypotension. His hypotension has resolved. The patient continues to experience back pain at his upper drain site. He denies fevers, chills, headache, blurry vision, melena, hematochezia, or hematemesis. Previously he complained of diarrhea, but now his BM's are more formed. Reason For Visit: DEHYDRATION,ANEMIA,S P CHOLECYSTECTOMY Physical Exam Vital Signs: Temp Pulse Resp BP Pulse Ox 97.8 F 73 16 141/88 H 94 07/24/20 08:56 07/24/20 09:19 07/24/20 09:19 07/24/20 08:00 07/24/20 09:19 Intake & Output 07/23/20 07/24/20 07/25/20 06:59 06:59 06:59 Intake Total 1680 886 Output Total 1510 2465 300 Balance 170 -1579 -300 Weight 109.3 kg 105.2 kg Exam: General appearance: PRESENT: no acute distress, cooperative Head exam: PRESENT: atraumatic, normocephalic Eye exam: PRESENT: EOMI, PERRLA. ABSENT: scleral icterus Mouth exam: PRESENT: moist, neck supple Neck exam: ABSENT: meningismus, tenderness, thyromegaly, tracheal deviation Respiratory exam: PRESENT: unlabored. ABSENT: tachypnea Cardiovascular exam: ABSENT: tachycardia GI/Abdominal exam: PRESENT: soft, other - Right upper quadrant drains in place, draining bilious fluid. ABSENT: distended, tenderness Rectal exam: PRESENT: deferred Extremities exam: ABSENT: clubbing Musculoskeletal exam: ABSENT: deformity Neurological exam: PRESENT: alert, awake Psychiatric exam: ABSENT: agitated, anxious Focused psych exam: ABSENT: delusional Skin exam: ABSENT: erythema, jaundice Results Laboratory Results: 07/24/20 06:29 07/24/20 06:29 07/24/20 07/24/20 06:29 06:29 WBC 10.5 RBC 3.75 L Hgb 11.2 L Hct 32.5 L MCV 87 MCH 30.0 MCHC 34.5 RDW 15.8 H Plt Count 349 Seg Neutrophils % 85.6 H Sodium 135.5 L Potassium 5.2 H Chloride 105 Carbon Dioxide 21 L Anion Gap 10 BUN 48 H Creatinine 2.19 H Est GFR ( Amer) 36 L Glucose 104 Calcium 8.4 Total Bilirubin 0.6 AST 24 Alkaline Phosphatase 99 Total Protein 5.7 L Albumin 2.8 L Impressions: Chest X-Ray 07/11/20 22:53 IMPRESSION: Progressive bibasilar atelectasis. Abdomen Ultrasound 07/12/20 01:29 IMPRESSION: 1. Free fluid noted in the right upper quadrant. 2. Postsurgical changes of interval cholecystectomy. 3. No biliary ductal dilatation. Retroperitoneal Abscess Drainage 07/13/20 00:00 IMPRESSION: SUCCESSFUL CT GUIDED RIGHT UPPER QUADRANT PIGTAIL CATHETER PLACEMENT. Abdomen/Pelvis CT 07/20/20 00:00 IMPRESSION: Increasing size of the right subdiaphragmatic fluid collection. A 2nd drain will be placed. 2 new small fluid collections in the anterior aspect of the pelvis. These measure 5.8 x 5.8 cm and 4.9 x 3.2 cm respectively. Developing abscess cannot be excluded. Stable mild inflammatory change in the gallbladder fossa. There is air in the gallbladder presumably iatrogenic. Clinical correlation is needed. Guidance Needle Placement CT 07/20/20 00:00 IMPRESSION: Successful CT-guided percutaneous drain placement into the right subdiaphragmatic fluid collection. Percutaneous Drainage 07/20/20 00:00 IMPRESSION: Successful CT-guided percutaneous drain placement into the right subdiaphragmatic fluid collection. Abdomen MRI 07/22/20 00:00 IMPRESSION: Filling defect of some type in the distal common bile duct. Possibly blood products or small stone. No disruption of the common duct or pancreatic duct. Hepatobiliary Scan Nuclear Medicine 07/22/20 00:00 IMPRESSION: Evidence of bile leak as described. Assessment & Plan - Diagnosis (1) LOBO (acute kidney injury) Is this a current diagnosis for this admission?: Yes (2) Dehydration Is this a current diagnosis for this admission?: Yes (3) Weakness Is this a current diagnosis for this admission?: Yes (4) Bile leak, postoperative Is this a current diagnosis for this admission?: Yes - Time Anticipated Discharge Disposition: unknown Anticipated Discharge Timeframe: unknown - Plan Summary Plan Summary: 75-year-old male with a bile leak after cholecystectomy. He is s/p placement of right upper quadrant percutaneous catheters into the bilious fluid collections. He continues to have output from his percutaneous right upper quadrant drains. Minimal output from surgical drain at this time. He continues to complain of pain in his back, at the site of the most recently placed catheter. I have reviewed his HIDA scan and MRCP. The patient has an obvious leak on HIDA scan. I believe it to be in the area of his cystic duct stump. I have reviewed his MRCP. There is no obvious ductal injury on MRCP. There appears to be stones and possibly sludge within the distal common bile duct, which I believe to be exacerbating the bile leak. I discussed options with the patient and his son at length. I have offered him transfer to a tertiary care facility, but they prefer to remain in [place]. Plan for common bile duct exploration in the next few days, with Dr. Knight's assistance. Cont Coreg. Continue with aggressive supportive care. Cont probiotic and psyllium. Add pain meds for back pain.
[2020-07-24] MEDS: ONDANSETRON HCL INJ/PF 4 MG/2 ML SDV IV PRN (22:38)
[2020-07-25] MEDS: MORPHINE SULFATE 10 MG/ML INJ IV PRN ×2 (01:18→07:27)
[2020-07-25] MEDS: HYDROMORPHONE HCL INJ/PF 2 MG/ML AMPULE IV PRN ×3 (03:54→20:38)
[2020-07-25] MEDS: PANTOPRAZOLE SODIUM 40 MG TABLET.DR PO SCH (07:24)
[2020-07-25] MEDS: ALBUTEROL SULFATE 0.042% NEB (1.25 MG/3 ML) AMPUL NEB PRN ×2 (07:54→21:47)
[2020-07-25] MEDS: ONDANSETRON HCL INJ/PF 4 MG/2 ML SDV IV PRN (09:11)
[2020-07-25] MEDS: SCOPOLAMINE HYDROBROMIDE 1.5 MG PATCH.TD72 TD SCH (09:11)
[2020-07-25] MEDS: CARVEDILOL 12.5 MG TABLET PO SCH ×2 (09:11→23:10)
[2020-07-25] MEDS: TAMSULOSIN HCL 0.4 MG CAP.SR.24H PO SCH (09:11)
[2020-07-25] MEDS: LACTOBACILLUS ACIDOPHILUS 250 MG TAB PO SCH ×2 (09:11→17:20)
[2020-07-25] MEDS: SERTRALINE HCL 50 MG TABLET PO SCH (09:11)
--- NOTE | 2020-07-25 13:05 | PDOC PROGRESS REPORT ---
Subjective Date:: 07/25/20 Subjective:: 75-year-old male admitted with a bile leak after cholecystectomy, acute kidney i njury, and hypotension. His hypotension has resolved. The patient continues to experience back pain at his upper drain site. He denies fevers, chills, headache, blurry vision, melena, hematochezia, or hematemesis. Previously he complained of diarrhea, but now his BM's are more formed. He is resting comfortably in bed upon my arrival. Reason For Visit: DEHYDRATION,ANEMIA,S P CHOLECYSTECTOMY Physical Exam Vital Signs: Temp Pulse Resp BP Pulse Ox 97.8 F 68 18 132/69 H 100 07/25/20 10:00 07/25/20 08:00 07/25/20 08:00 07/25/20 08:00 07/25/20 08:00 Intake & Output 07/24/20 07/25/20 07/26/20 06:59 06:59 06:59 Intake Total 886 1130 120 Output Total 2465 1480 100 Balance -1579 -350 20 Weight 105.2 kg 106.7 kg Exam: General appearance: PRESENT: no acute distress, cooperative Head exam: PRESENT: atraumatic, normocephalic Eye exam: PRESENT: EOMI, PERRLA. ABSENT: scleral icterus Mouth exam: PRESENT: moist, neck supple Neck exam: ABSENT: meningismus, tenderness, thyromegaly, tracheal deviation Respiratory exam: PRESENT: unlabored. ABSENT: tachypnea Cardiovascular exam: ABSENT: tachycardia GI/Abdominal exam: PRESENT: soft, other - Right upper quadrant drains in place, draining bilious fluid. ABSENT: distended, tenderness Rectal exam: PRESENT: deferred Extremities exam: ABSENT: clubbing Musculoskeletal exam: ABSENT: deformity Neurological exam: PRESENT: alert, awake Psychiatric exam: ABSENT: agitated, anxious Focused psych exam: ABSENT: delusional Skin exam: ABSENT: erythema, jaundice Results Laboratory Results: 07/24/20 06:29 07/24/20 06:29 Impressions: Chest X-Ray 07/11/20 22:53 IMPRESSION: Progressive bibasilar atelectasis. Abdomen Ultrasound 07/12/20 01:29 IMPRESSION: 1. Free fluid noted in the right upper quadrant. 2. Postsurgical changes of interval cholecystectomy. 3. No biliary ductal dilatation. Retroperitoneal Abscess Drainage 07/13/20 00:00 IMPRESSION: SUCCESSFUL CT GUIDED RIGHT UPPER QUADRANT PIGTAIL CATHETER PLACEMENT. Abdomen/Pelvis CT 07/20/20 00:00 IMPRESSION: Increasing size of the right subdiaphragmatic fluid collection. A 2nd drain will be placed. 2 new small fluid collections in the anterior aspect of the pelvis. These measure 5.8 x 5.8 cm and 4.9 x 3.2 cm respectively. Developing abscess cannot be excluded. Stable mild inflammatory change in the gallbladder fossa. There is air in the gallbladder presumably iatrogenic. Clinical correlation is needed. Guidance Needle Placement CT 07/20/20 00:00 IMPRESSION: Successful CT-guided percutaneous drain placement into the right subdiaphragmatic fluid collection. Percutaneous Drainage 07/20/20 00:00 IMPRESSION: Successful CT-guided percutaneous drain placement into the right subdiaphragmatic fluid collection. Abdomen MRI 07/22/20 00:00 IMPRESSION: Filling defect of some type in the distal common bile duct. Possibly blood products or small stone. No disruption of the common duct or pancreatic duct. Hepatobiliary Scan Nuclear Medicine 07/22/20 00:00 IMPRESSION: Evidence of bile leak as described. Assessment & Plan - Diagnosis (1) LOBO (acute kidney injury) Is this a current diagnosis for this admission?: Yes (2) Dehydration Is this a current diagnosis for this admission?: Yes (3) Weakness Is this a current diagnosis for this admission?: Yes (4) Bile leak, postoperative Is this a current diagnosis for this admission?: Yes - Time Anticipated Discharge Disposition: unknown Anticipated Discharge Timeframe: unknown - Plan Summary Plan Summary: 75-year-old male with a bile leak after cholecystectomy. He is s/p placement of right upper quadrant percutaneous catheters into the bilious fluid collections. He continues to have output from his percutaneous right upper quadrant drains. Minimal output from surgical drain at this time. He continues to complain of pain in his back, at the site of the most recently placed catheter. I have reviewed his HIDA scan and MRCP. The patient has an obvious leak on HIDA scan. I believe it to be in the area of his cystic duct stump. I have reviewed his MRCP. There is no obvious ductal injury on MRCP. T here appears to be stones and possibly sludge within the distal common bile duct, which I believe to be exacerbating the bile leak. I discussed options with the patient and his son at length. I have offered him transfer to a tertiary care facility, but they prefer to remain in [place]. Plan for common bile duct exploration tomorrow, with Dr. Knight's assistance. Cont Coreg. Continue with aggressive supportive care. Cont probiotic and psyllium. Cont with pain meds for back pain.
[2020-07-26] MEDS: HYDROMORPHONE HCL INJ/PF 2 MG/ML AMPULE IV PRN ×4 (00:42→13:52)
[2020-07-26] MEDS: PANTOPRAZOLE SODIUM 40 MG TABLET.DR PO SCH (05:16)
[2020-07-26 07:12] LABS: ABSOLUTE BASOPHILS # (AUTO) 0.1 10^3/uL (0.0-0.2); ABSOLUTE EOSINOPHILS # (AUTO) 0.1 10^3/uL (0.0-0.6); ABSOLUTE LYMPHOCYTES (AUTO) 0.8 10^3/uL (0.5-4.7); ABSOLUTE MONOCYTES (AUTO) 0.7 10^3/uL (0.1-1.4); BASOPHILS % (AUTO) 0.5 % (0-2); HEMATOCRIT 29.5 % (37.9-51.0); HEMOGLOBIN 10.1 g/dL (13.5-17.0); LYMPHOCYTES % (AUTO) 6.6 % (13-45); MEAN CORPUSCULAR HEMOGLOBIN 29.7 pg (27.0-33.4); MEAN CORPUSCULAR HGB CONC 34.2 g/dL (32.0-36.0); MEAN CORPUSCULAR VOLUME 87 fl (80-97); MONOCYTES % (AUTO) 5.8 % (3-13); PLATELET COUNT 246 10^3/uL (150-450); RED CELL DISTRIBUTION WIDTH 15.6 % (11.5-14.0); SEGMENTED NEUTROPHILS % (AUTO) 86.1 % (42-78); TOTAL CELLS COUNTED % (AUTO) 100 %; WHITE BLOOD COUNT 11.7 10^3/uL (4.0-10.5)
[2020-07-26 07:35] LABS: ALBUMIN 2.5 g/dL (3.5-5.0); ALKALINE PHOSPHATASE 103 U/L (38-126); ANION GAP 5 (5-19); ASPARTATE AMINO TRANSFERASE 23 U/L (17-59); BILIRUBIN,DIRECT 0.3 mg/dL (0.0-0.4); BILIRUBIN,TOTAL 0.6 mg/dL (0.2-1.3); BLOOD UREA NITROGEN 42 mg/dL (7-20); CALCIUM 8.3 mg/dL (8.4-10.2); CARBON DIOXIDE 24 mmol/L (22-30); CHLORIDE 105 mmol/L (98-107); GLUCOSE 108 mg/dL (75-110); POTASSIUM 4.9 mmol/L (3.6-5.0); TOTAL PROTEIN 5.3 g/dL (6.3-8.2)
[2020-07-26] MEDS: CARVEDILOL 12.5 MG TABLET PO SCH ×2 (09:52→22:11)
[2020-07-26] MEDS: ALBUTEROL SULFATE 0.042% NEB (1.25 MG/3 ML) AMPUL NEB PRN (10:05)
[2020-07-26] MEDS: CEFOXITIN SODIUM 2 GM in DEXTROSE 5%-WATER 100 ML IV SCH ×2 (13:53→22:11)
[2020-07-26] MEDS ORDERED: GLYCOPYRROLATE 1 MG/5 ML VIAL ONE (14:44)
[2020-07-26] MEDS ORDERED: ONDANSETRON HCL INJ/PF 4 MG/2 ML SDV ONE (14:44)
[2020-07-26] MEDS ORDERED: ESMOLOL HCL INJ/PF 100 MG/10 ML SDV IV ONE (14:44)
[2020-07-26] MEDS ORDERED: ROCURONIUM BROMIDE INJ 50 MG/5 ML VIAL IV ONE (14:44)
[2020-07-26] MEDS ORDERED: NEOSTIGMINE METHYLSULFATE 10 MG/10 ML VIAL ONE (14:44)
[2020-07-26] MEDS ORDERED: DEXAMETHASONE SOD PHOSPHATE INJ 4 MG/1 ML VIAL ONE (14:44)
[2020-07-26] MEDS ORDERED: FENTANYL CITRATE INJ/PF 250 MCG/5 ML AMPULE ONE (15:56)
[2020-07-26] MEDS ORDERED: MORPHINE SULFATE 10 MG/ML INJ ONE (15:57)
[2020-07-26] MEDS ORDERED: EPHEDRINE SULFATE INJ 50 MG/1 ML AMPULE ONE (15:57)
[2020-07-26] MEDS ORDERED: MIDAZOLAM 2 MG/2 ML INJ ONE (15:57)
[2020-07-26] MEDS ORDERED: SUGAMMADEX SODIUM 200 MG/2 ML SDV IV ONE (15:57)
[2020-07-26] MEDS ORDERED: PROPOFOL INJ 200 MG/20 ML VIAL IV ONE (15:57)
[2020-07-26] MEDS ORDERED: PROMETHAZINE HCL INJ 25 MG/1 ML VIAL IV PRN (19:06)
[2020-07-26] MEDS ORDERED: FENTANYL CITRATE INJ/PF 100 MCG/2 ML AMPUL IV PRN ×3 (19:06)
[2020-07-26] MEDS ORDERED: MEPERIDINE HCL/PF INJ 25 MG/1 ML DISP.SYRIN IV PRN (19:06)
[2020-07-26] MEDS ORDERED: BUPIVACAINE INJ/PF LIPOSOME/PF 266 MG/20 ML SDV ONE (19:33)
--- NOTE | 2020-07-26 20:10 | PDOC PROGRESS REPORT ---
Subjective Date:: 07/26/20 Subjective:: 75-year-old male admitted with a bile leak after cholecystectomy, acute kidney i njury, and hypotension. His hypotension has resolved. The patient continues to experience back pain at his upper drain site. He denies fevers, chills, headache, blurry vision, melena, hematochezia, or hematemesis. Previously he complained of diarrhea, but now his BM's are more formed. Reason For Visit: DEHYDRATION,ANEMIA,S P CHOLECYSTECTOMY Physical Exam Vital Signs: Temp Pulse Resp BP Pulse Ox 98.2 F 57 L 15 101/62 96 07/26/20 15:45 07/26/20 15:45 07/26/20 15:45 07/26/20 15:45 07/26/20 15:45 Intake & Output 07/25/20 07/26/20 07/27/20 06:59 06:59 06:59 Intake Total 1130 360 Output Total 1480 920 Balance -350 -560 Weight 106.7 kg 104.9 kg Exam: General appearance: PRESENT: no acute distress, cooperative Head exam: PRESENT: atraumatic, normocephalic Eye exam: PRESENT: EOMI, PERRLA. ABSENT: scleral icterus Mouth exam: PRESENT: moist, neck supple Neck exam: ABSENT: meningismus, tenderness, thyromegaly, tracheal deviation Respiratory exam: PRESENT: unlabored. ABSENT: tachypnea Cardiovascular exam: ABSENT: tachycardia GI/Abdominal exam: PRESENT: soft, other - Right upper quadrant drains in place, draining bilious fluid. ABSENT: distended, tenderness Rectal exam: PRESENT: deferred Extremities exam: ABSENT: clubbing Musculoskeletal exam: ABSENT: deformity Neurological exam: PRESENT: alert, awake Psychiatric exam: ABSENT: agitated, anxious Focused psych exam: ABSENT: delusional Skin exam: ABSENT: erythema, jaundice Results Laboratory Results: 07/26/20 06:50 07/26/20 06:50 07/26/20 07/26/20 07/26/20 06:50 06:50 18:22 WBC 11.7 H RBC 3.40 L Hgb 10.1 L Hct 29.5 L MCV 87 MCH 29.7 MCHC 34.2 RDW 15.6 H Plt Count 246 Seg Neutrophils % 86.1 H Sodium 134.3 L Potassium 4.9 Chloride 105 Carbon Dioxide 24 Anion Gap 5 BUN 42 H Creatinine 2.06 H Est GFR ( Amer) 38 L Glucose 108 Calcium 8.3 L Total Bilirubin 0.6 AST 23 Alkaline Phosphatase 103 Total Protein 5.3 L Albumin 2.5 L Blood Type B POSITIVE Antibody Screen NEGATIVE Impressions: Chest X-Ray 07/11/20 22:53 IMPRESSION: Progressive bibasilar atelectasis. Abdomen Ultrasound 07/12/20 01:29 IMPRESSION: 1. Free fluid noted in the right upper quadrant. 2. Postsurgical changes of interval cholecystectomy. 3. No biliary ductal dilatation. Retroperitoneal Abscess Drainage 07/13/20 00:00 IMPRESSION: SUCCESSFUL CT GUIDED RIGHT UPPER QUADRANT PIGTAIL CATHETER PLACEMENT. Abdomen/Pelvis CT 07/20/20 00:00 IMPRESSION: Increasing size of the right subdiaphragmatic fluid collection. A 2nd drain will be placed. 2 new small fluid collections in the anterior aspect of the pelvis. These measure 5.8 x 5.8 cm and 4.9 x 3.2 cm respectively. Developing abscess cannot be excluded. Stable mild inflammatory change in the gallbladder fossa. There is air in the gallbladder presumably iatrogenic. Clinical correlation is needed. Guidance Needle Placement CT 07/20/20 00:00 IMPRESSION: Successful CT-guided percutaneous drain placement into the right subdiaphragmatic fluid collection. Percutaneous Drainage 07/20/20 00:00 IMPRESSION: Successful CT-guided percutaneous drain placement into the right nguyen bdiaphragmatic fluid collection. Abdomen MRI 07/22/20 00:00 IMPRESSION: Filling defect of some type in the distal common bile duct. Possibly blood products or small stone. No disruption of the common duct or pancreatic duct. Hepatobiliary Scan Nuclear Medicine 07/22/20 00:00 IMPRESSION: Evidence of bile leak as described. Assessment & Plan - Diagnosis (1) LOBO (acute kidney injury) Is this a current diagnosis for this admission?: Yes (2) Dehydration Is this a current diagnosis for this admission?: Yes (3) Weakness Is this a current diagnosis for this admission?: Yes (4) Bile leak, postoperative Is this a current diagnosis for this admission?: Yes - Time Anticipated Discharge Disposition: unknown Anticipated Discharge Timeframe: unknown - Plan Summary Plan Summary: 75-year-old male with a bile leak after cholecystectomy. He is s/p placement of right upper quadrant percutaneous catheters into the bilious fluid collections. He continues to have output from his percutaneous right upper quadrant drains. Minimal output from surgical drain at this time. He continues to complain of pain in his back, at the site of the most recently placed catheter. I have reviewed his HIDA scan and MRCP. The patient has an obvious leak on HIDA scan. I believe it to be in the area of his cystic duct stump. I have reviewed his MRCP. There is no obvious ductal injury on MRCP. There appears to be stones and possibly sludge within the distal common bile duct, which I believe to be exacerbating the bile leak. Plan for common bile duct exploration today. Cont Coreg. Continue with aggressive supportive care. Cont probiotic and psyllium. Cont with pain meds for back pain. Start Mefoxin.
[2020-07-26] MEDS ORDERED: PROMETHAZINE HCL INJ 25 MG/1 ML VIAL ONE (20:36)
[2020-07-26] MEDS: LACTOBACILLUS ACIDOPHILUS 250 MG TAB PO SCH ×2 (21:30→21:31)
[2020-07-26] MEDS: TAMSULOSIN HCL 0.4 MG CAP.SR.24H PO SCH (21:31)
[2020-07-26] MEDS: SERTRALINE HCL 50 MG TABLET PO SCH (21:31)
[2020-07-26] MEDS: NORMAL SALINE 1000 ML 1,000 ML IV PRN (21:56)
[2020-07-26] MEDS ORDERED: HYDROMORPHONE HCL 30 MG/60 ML RTUINJ IV PRN (22:54)
[2020-07-27] MEDS: HYDROMORPHONE HCL INJ/PF 2 MG/ML AMPULE IV PRN ×7 (00:35→20:39)
[2020-07-27] MEDS: CEFOXITIN SODIUM 2 GM in DEXTROSE 5%-WATER 100 ML IV SCH ×3 (05:41→23:11)
[2020-07-27] MEDS: PANTOPRAZOLE SODIUM 40 MG TABLET.DR PO SCH (05:41)
[2020-07-27 06:53] LABS: ABSOLUTE LYMPHOCYTES (AUTO) 0.6 10^3/uL (0.5-4.7); ABSOLUTE MONOCYTES (AUTO) 0.6 10^3/uL (0.1-1.4); ABSOLUTE NEUT (AUTO) 9.4 10^3/uL (1.7-8.2); BASOPHILS % (AUTO) 0.3 % (0-2); EOSINOPHILS % (AUTO) 0.1 % (0-6); HEMOGLOBIN 11.5 g/dL (13.5-17.0); LYMPHOCYTES % (AUTO) 5.5 % (13-45); MEAN CORPUSCULAR HEMOGLOBIN 29.6 pg (27.0-33.4); MEAN CORPUSCULAR HGB CONC 33.7 g/dL (32.0-36.0); MEAN CORPUSCULAR VOLUME 88 fl (80-97); PLATELET COUNT 253 10^3/uL (150-450); RED BLOOD COUNT 3.87 10^6/uL (4.35-5.55); RED CELL DISTRIBUTION WIDTH 15.4 % (11.5-14.0); SEGMENTED NEUTROPHILS % (AUTO) 88.1 % (42-78); TOTAL CELLS COUNTED % (AUTO) 100 %; WHITE BLOOD COUNT 10.6 10^3/uL (4.0-10.5)
[2020-07-27 07:00] LABS: ALBUMIN 2.6 g/dL (3.5-5.0); ALKALINE PHOSPHATASE 128 U/L (38-126); ANION GAP 9 (5-19); ASPARTATE AMINO TRANSFERASE 156 U/L (17-59); BILIRUBIN,DIRECT 0.3 mg/dL (0.0-0.4); BILIRUBIN,TOTAL 0.7 mg/dL (0.2-1.3); BLOOD UREA NITROGEN 41 mg/dL (7-20); CALCIUM 8.2 mg/dL (8.4-10.2); CARBON DIOXIDE 20 mmol/L (22-30); CHLORIDE 108 mmol/L (98-107); GLUCOSE 124 mg/dL (75-110); POTASSIUM 5.5 mmol/L (3.6-5.0); TOTAL PROTEIN 5.1 g/dL (6.3-8.2)
--- NOTE | 2020-07-27 08:25 | RADIOLOGY REPORT (SQ) ---
EXAM DESCRIPTION: CHOLANGIOGRAM OPERATIVE; FLUORO/NEEDLE PLACEMENT IMAGES COMPLETED DATE/TIME: 07/26/2020 8:22 pm REASON FOR STUDY: IOC COMPARISON: None. FLUOROSCOPY TIME: 2.9 minutes Cine images saved to PACs. TECHNIQUE: Cinegraphic images were obtained from an intraoperative cholangiogram. LIMITATIONS: None. FINDINGS: There is opacification of the bile ducts, cystic duct remnants and second portion of the d uodenum without evidence of fixed filling defect or significant extravasation. IMPRESSION: INTRAOPERATIVE CHOLANGIOGRAM. COMMENT: Quality ID 145: Final reports for procedures using fluoroscopy that document radiation exp osure indices, or exposure time and number of fluorographic images (if radiation exposure indices are not available) TECHNICAL DOCUMENTATION: JOB ID: [id number] 2010 [employer]- All Rights Reserved Reading location - IP/workstation name: [email or web address]
--- NOTE | 2020-07-27 08:25 | RADIOLOGY REPORT (SQ) ---
EXAM DESCRIPTION: CHOLANGIOGRAM OPERATIVE; FLUORO/NEEDLE PLACEMENT IMAGES COMPLETED DATE/TIME: 07/26/2020 8:22 pm REASON FOR STUDY: IOC COMPARISON: None. FLUOROSCOPY TIME: 2.9 minutes Cine images saved to PACs. TECHNIQUE: Cinegraphic images were obtained from an intraoperative cholangiogram. LIMITATIONS: None. FINDINGS: There is opacification of the bile ducts, cystic duct remnants and second portion of the d uodenum without evidence of fixed filling defect or significant extravasation. IMPRESSION: INTRAOPERATIVE CHOLANGIOGRAM. COMMENT: Quality ID 145: Final reports for procedures using fluoroscopy that document radiation exp osure indices, or exposure time and number of fluorographic images (if radiation exposure indices are not available) TECHNICAL DOCUMENTATION: JOB ID: [id number] 2010 [employer]- All Rights Reserved Reading location - IP/workstation name: [email or web address]
[2020-07-27] MEDS: NORMAL SALINE 1000 ML 1,000 ML IV PRN ×2 (08:47→20:40)
[2020-07-27] MEDS: SERTRALINE HCL 50 MG TABLET PO SCH (09:08)
[2020-07-27] MEDS: HEPARIN SOD (PORCINE) 5,000 UNIT/ML 1 ML VIAL SUBCUT SCH ×3 (09:08→23:11)
[2020-07-27] MEDS: TAMSULOSIN HCL 0.4 MG CAP.SR.24H PO SCH (09:08)
[2020-07-27] MEDS: LACTOBACILLUS ACIDOPHILUS 250 MG TAB PO SCH ×2 (09:08→17:08)
[2020-07-27] MEDS: CARVEDILOL 12.5 MG TABLET PO SCH ×2 (09:09→23:12)
--- NOTE | 2020-07-27 17:15 | PDOC PROGRESS REPORT ---
Subjective Date:: 07/27/20 Reason For Visit: DEHYDRATION,ANEMIA,S P CHOLECYSTECTOMY Physical Exam Vital Signs: Temp Pulse Resp BP Pulse Ox 97.8 F 70 18 90/62 L 92 07/27/20 15:42 07/27/20 15:42 07/27/20 15:42 07/27/20 15:42 07/27/20 15:47 Pulse Oximeter Continuous Start: 07/26/20 20:20 Freq: RTQ4 Status: Active Protocol: Document 07/27/20 15:47 [facility] (Rec: 07/27/20 15:47 [facility] [id number]) Pulse Oximetry Assessment Oxygen Saturation (92-100) 92 Oxygen Delivery Method Room Air Fraction of Inspired Oxygen (FIO2) 21 Equipment Usage Equipment in Use Continuous SpO2 Machine # 4 Intake & Output 07/26/20 07/27/20 07/28/20 06:59 06:59 06:59 Intake Total 360 4550 1120 Output Total 920 3134 380 Balance -560 1416 740 Weight 104.9 kg 110.2 kg 110.2 kg Results Laboratory Results: 07/27/20 06:06 07/27/20 06:06 07/26/20 07/27/20 07/27/20 18:22 06:06 06:06 WBC 10.6 H RBC 3.87 L Hgb 11.5 L Hct 34.0 L MCV 88 MCH 29.6 MCHC 33.7 RDW 15.4 H Plt Count 253 Seg Neutrophils % 88.1 H Sodium 137.1 Potassium 5.5 H Chloride 108 H Carbon Dioxide 20 L Anion Gap 9 BUN 41 H Creatinine 1.93 H Est GFR ( Amer) 41 L Glucose 124 H Calcium 8.2 L Total Bilirubin 0.7 AST 156 H Alkaline Phosphatase 128 H Total Protein 5.1 L Albumin 2.6 L Blood Type B POSITIVE Antibody Screen NEGATIVE Impressions: Chest X-Ray 07/11/20 22:53 IMPRESSION: Progressive bibasilar atelectasis. Abdomen Ultrasound 07/12/20 01:29 IMPRESSION: 1. Free fluid noted in the right upper quadrant. 2. Postsurgical changes of interval cholecystectomy. 3. No biliary ductal dilatation. Retroperitoneal Abscess Drainage 07/13/20 00:00 IMPRESSION: SUCCESSFUL CT GUIDED RIGHT UPPER QUADRANT PIGTAIL CATHETER PLACEMENT. Abdomen/Pelvis CT 07/20/20 00:00 IMPRESSION: Increasing size of the right subdiaphragmatic fluid collection. A 2nd drain will be placed. 2 new small fluid collections in the anterior aspect of the pelvis. These measure 5.8 x 5.8 cm and 4.9 x 3.2 cm respectively. Developing abscess cannot be excluded. Stable mild inflammatory change in the gallbladder fossa. There is air in the gallbladder presumably iatrogenic. Clinical correlation is needed. Guidance Needle Placement CT 07/20/20 00:00 IMPRESSION: Successful CT-guided percutaneous drain placement into the right subdiaphragmatic fluid collection. Percutaneous Drainage 07/20/20 00:00 IMPRESSION: Successful CT-guided percutaneous drain placement into the right subdiaphragmatic fluid collection. Abdomen MRI 07/22/20 00:00 IMPRESSION: Filling defect of some type in the distal common bile duct. Possibly blood products or small stone. No disruption of the common duct or pancreatic duct. Hepatobiliary Scan Nuclear Medicine 07/22/20 00:00 IMPRESSION: Evidence of bile leak as described. Cholangiogram 07/26/20 00:00 IMPRESSION: INTRAOPERATIVE CHOLANGIOGRAM. Guidance Fluoroscopy 07/26/20 00:00 IMPRESSION: INTRAOPERATIVE CHOLANGIOGRAM. Assessment & Plan - Diagnosis (1) LOBO (acute kidney injury) Is this a current diagnosis for this admission?: Yes (2) Dehydration Is this a current diagnosis for this admission?: Yes (3) Weakness Is this a current diagnosis for this admission?: Yes (4) Bile leak, postoperative Is this a current diagnosis for this admission?: Yes - Time Anticipated Discharge Disposition: Home with Home Health Anticipated Discharge Timeframe: unknown - Plan Summary Plan Summary: 75-year-old male status post open common bile duct exploration with extraction of multiple stones, T-tube placement, and completion cholecystectomy. He is doing well today. He was out of bed with physical therapy. He is tolerating liquids. His THEE drains are productive of serosanguineous fluid. His T-tube is producing joseph bile. DVT prophylaxis with heparin. Continue antibiotics for now. PT/OT/ambulate in the hallways.
[2020-07-28] MEDS: HYDROMORPHONE HCL INJ/PF 2 MG/ML AMPULE IV PRN ×3 (00:01→11:25)
[2020-07-28] MEDS: CEFOXITIN SODIUM 2 GM in DEXTROSE 5%-WATER 100 ML IV SCH ×3 (06:24→21:50)
[2020-07-28] MEDS: HEPARIN SOD (PORCINE) 5,000 UNIT/ML 1 ML VIAL SUBCUT SCH ×3 (06:24→21:50)
[2020-07-28] MEDS: PANTOPRAZOLE SODIUM 40 MG TABLET.DR PO SCH (06:25)
[2020-07-28] MEDS ORDERED: HYDROCODONE/ACETAMINOPHEN 10-325 MG TABLET PO PRN (07:04)
--- NOTE | 2020-07-28 08:24 | PDOC PROGRESS REPORT ---
Subjective Reason For Visit: DEHYDRATION,ANEMIA,S P CHOLECYSTECTOMY Physical Exam Vital Signs: Temp Pulse Resp BP Pulse Ox 98.1 F 81 18 111/74 95 07/28/20 04:48 07/28/20 07:41 07/28/20 07:41 07/28/20 07:41 07/28/20 07:41 Pulse Oximeter Continuous Start: 07/26/20 20:20 Freq: RTQ4 Status: Active Protocol: Document 07/28/20 04:05 [facility] (Rec: 07/28/20 05:42 [facility] [id number]) Pulse Oximetry Assessment Oxygen Saturation (92-100) 97 Oxygen Delivery Method Room Air Fraction of Inspired Oxygen (FIO2) 21 Equipment Usage Equipment in Use Continuous SpO2 Machine # 4 Intake & Output 07/27/20 07/28/20 07/29/20 06:59 06:59 06:59 Intake Total 4550 3191 Output Total 3134 1165 250 Balance 1416 2026 -250 Weight 110.2 kg 108.9 kg Results Laboratory Results: 07/27/20 06:06 07/27/20 06:06 07/26/20 18:22 Blood Type B POSITIVE Antibody Screen NEGATIVE Impressions: Chest X-Ray 07/11/20 22:53 IMPRESSION: Progressive bibasilar atelectasis. Abdomen Ultrasound 07/12/20 01:29 IMPRESSION: 1. Free fluid noted in the right upper quadrant. 2. Postsurgical changes of interval cholecystectomy. 3. No biliary ductal dilatation. Retroperitoneal Abscess Drainage 07/13/20 00:00 IMPRESSION: SUCCESSFUL CT GUIDED RIGHT UPPER QUADRANT PIGTAIL CATHETER PLACEMENT. Abdomen/Pelvis CT 07/20/20 00:00 IMPRESSION: Increasing size of the right subdiaphragmatic fluid collection. A 2nd drain will be placed. 2 new small fluid collections in the anterior aspect of the pelvis. These measure 5.8 x 5.8 cm and 4.9 x 3.2 cm respectively. Developing abscess cannot be excluded. Stable mild inflammatory change in the gallbladder fossa. There is air in the gallbladder presumably iatrogenic. Clinical correlation is needed. Guidance Needle Placement CT 07/20/20 00:00 IMPRESSION: Successful CT-guided percutaneous drain placement into the right subdiaphragmatic fluid collection. Percutaneous Drainage 07/20/20 00:00 IMPRESSION: Successful CT-guided percutaneous drain placement into the right subdiaphragmatic fluid collection. Abdomen MRI 07/22/20 00:00 IMPRESSION: Filling defect of some type in the distal common bile duct. Possibly blood products or small stone. No disruption of the common duct or pancreatic duct. Hepatobiliary Scan Nuclear Medicine 07/22/20 00:00 IMPRESSION: Evidence of bile leak as described. Cholangiogram 07/26/20 00:00 IMPRESSION: INTRAOPERATIVE CHOLANGIOGRAM. Guidance Fluoroscopy 07/26/20 00:00 IMPRESSION: INTRAOPERATIVE CHOLANGIOGRAM. Assessment & Plan - Diagnosis (1) LOBO (acute kidney injury) Is this a current diagnosis for this admission?: Yes (2) Dehydration Is this a current diagnosis for this admission?: Yes (3) Weakness Is this a current diagnosis for this admission?: Yes (4) Bile leak, postoperative Is this a current diagnosis for this admission?: Yes - Time Anticipated Discharge Disposition: Home with Home Health Anticipated Discharge Timeframe: within 48 hours - Plan Summary Plan Summary: 75-year-old male status post open common bile duct exploration with extraction of multiple stones, T-tube placement, and completion cholecystectomy. He is doing well today. He still complains of pain. He is tolerating liquids. His THEE drains are productive of serosanguineous fluid. His T-tube is producing colby k bile. DVT prophylaxis with heparin. Continue antibiotics for now. PT/OT/ambulate in the hallways. Add hydrocodone for pain control.
[2020-07-28] MEDS: LACTOBACILLUS ACIDOPHILUS 250 MG TAB PO SCH ×2 (10:45→18:15)
[2020-07-28] MEDS: CARVEDILOL 12.5 MG TABLET PO SCH ×2 (10:45→21:50)
[2020-07-28] MEDS: TAMSULOSIN HCL 0.4 MG CAP.SR.24H PO SCH (10:46)
[2020-07-28] MEDS: SERTRALINE HCL 50 MG TABLET PO SCH (10:46)
[2020-07-28] MEDS: SCOPOLAMINE HYDROBROMIDE 1.5 MG PATCH.TD72 TD SCH (10:50)
[2020-07-28] MEDS ORDERED: HYDROMORPHONE HCL INJ/PF 2 MG/ML AMPULE IV PRN (13:03)
[2020-07-28] MEDS: ALBUTEROL SULFATE 0.042% NEB (1.25 MG/3 ML) AMPUL NEB PRN (18:41)
--- NOTE | 2020-07-28 19:05 | EKG REPORT ---
SEVERITY:- ABNORMAL ECG - ATRIAL FIBRILLATION, V-RATE 58-113 RIGHT BUNDLE BRANCH BLOCK : Confirmed by: Cristina Gibson MD 28-Jul-2020 19:05:09
[2020-07-29] MEDS: PANTOPRAZOLE SODIUM 40 MG TABLET.DR PO SCH (06:00)
[2020-07-29] MEDS: CEFOXITIN SODIUM 2 GM in DEXTROSE 5%-WATER 100 ML IV SCH (06:00)
[2020-07-29] MEDS: HEPARIN SOD (PORCINE) 5,000 UNIT/ML 1 ML VIAL SUBCUT SCH ×2 (06:00→14:44)
[2020-07-29] MEDS: SERTRALINE HCL 50 MG TABLET PO SCH (09:43)
[2020-07-29] MEDS: CARVEDILOL 12.5 MG TABLET PO SCH ×2 (09:43→21:05)
[2020-07-29] MEDS: TAMSULOSIN HCL 0.4 MG CAP.SR.24H PO SCH (09:43)
[2020-07-29] MEDS: LACTOBACILLUS ACIDOPHILUS 250 MG TAB PO SCH ×2 (09:43→17:03)
[2020-07-29] MEDS ORDERED: HALOPERIDOL LACTATE INJ 5 MG/1 ML VIAL IV PRN (13:33)
--- NOTE | 2020-07-29 14:12 | PDOC PROGRESS REPORT ---
Subjective Date:: 07/29/20 Reason For Visit: DEHYDRATION,ANEMIA,S P CHOLECYSTECTOMY Physical Exam Vital Signs: Temp Pulse Resp BP Pulse Ox 98.4 F 68 20 129/80 H 99 07/29/20 12:09 07/29/20 12:09 07/29/20 12:09 07/29/20 12:09 07/29/20 12:09 Pulse Oximeter Continuous Start: 07/26/20 20:20 Freq: RTQ4 Status: Complete Protocol: Document 07/28/20 16:00 [facility] (Rec: 07/28/20 16:52 [facility] [id number]) Pulse Oximetry Assessment Oxygen Saturation (92-100) 93 Oxygen Delivery Method Room Air Fraction of Inspired Oxygen (FIO2) 21 Equipment Usage Equipment Standby Continuous SpO2 Machine # 4 Intake & Output 07/28/20 07/29/20 07/30/20 06:59 06:59 06:59 Intake Total 3191 240 360 Output Total 1165 1305 200 Balance 6 -1064 160 Weight 108.9 kg 108.9 kg 108.862 kg Results Laboratory Results: 07/27/20 06:06 07/27/20 06:06 07/26/20 18:22 Blood Type B POSITIVE Antibody Screen NEGATIVE Impressions: Chest X-Ray 07/11/20 22:53 IMPRESSION: Progressive bibasilar atelectasis. Abdomen Ultrasound 07/12/20 01:29 IMPRESSION: 1. Free fluid noted in the right upper quadrant. 2. Postsurgical changes of interval cholecystectomy. 3. No biliary ductal dilatation. Retroperitoneal Abscess Drainage 07/13/20 00:00 IMPRESSION: SUCCESSFUL CT GUIDED RIGHT UPPER QUADRANT PIGTAIL CATHETER PLACEMENT. Abdomen/Pelvis CT 07/20/20 00:00 IMPRESSION: Increasing size of the right subdiaphragmatic fluid collection. A 2nd drain will be placed. 2 new small fluid collections in the anterior aspect of the pelvis. These measure 5.8 x 5.8 cm and 4.9 x 3.2 cm respectively. Developing abscess cannot be excluded. Stable mild inflammatory change in the gallbladder fossa. There is air in the gallbladder presumably iatrogenic. Clinical correlation is needed. Guidance Needle Placement CT 07/20/20 00:00 IMPRESSION: Successful CT-guided percutaneous drain placement into the right subdiaphragmatic fluid collection. Percutaneous Drainage 07/20/20 00:00 IMPRESSION: Successful CT-guided percutaneous drain placement into the right subdiaphragmatic fluid collection. Abdomen MRI 07/22/20 00:00 IMPRESSION: Filling defect of some type in the distal common bile duct. Possibly blood products or small stone. No disruption of the common duct or pancreatic duct. Hepatobiliary Scan Nuclear Medicine 07/22/20 00:00 IMPRESSION: Evidence of bile leak as described. Cholangiogram 07/26/20 00:00 IMPRESSION: INTRAOPERATIVE CHOLANGIOGRAM. Guidance Fluoroscopy 07/26/20 00:00 IMPRESSION: INTRAOPERATIVE CHOLANGIOGRAM. Assessment & Plan - Diagnosis (1) LOBO (acute kidney injury) Is this a current diagnosis for this admission?: Yes (2) Dehydration Is this a current diagnosis for this admission?: Yes (3) Weakness Is this a current diagnosis for this admission?: Yes (4) Bile leak, postoperative Is this a current diagnosis for this admission?: Yes - Time Anticipated Discharge Disposition: Home with Home Health Anticipated Discharge Timeframe: unknown - Plan Summary Plan Summary: 75-year-old male status post open common bile duct exploration with extraction of multiple stones, T-tube placement, and completion cholecystectomy. He is confused today. He has been taking pain meds. He did not sleep last night per nursing staff. He is tolerating regular diet. His THEE drains are productive of serosanguineous fluid. His T-tube is producing joseph bile. DVT prophylaxis with heparin. Continue antibiotics for now. PT/OT/ambulate in the hallways. Dilerium today. Not severe, but pt irritable and easily confused. Re-orients easily. No weakness, facial droop, or paralysis. --> Discontinue Narcotics. Tylenol only for pain. Add small dose of Haldol. Check electrolytes. Needs to mobilize and remain awake during the daytime so he can sleep at night. If no improvement tomorrow, will consult hospitalist for dilerium.
[2020-07-29 15:03] LABS: ABSOLUTE EOSINOPHILS # (AUTO) 0.2 10^3/uL (0.0-0.6); ABSOLUTE LYMPHOCYTES (AUTO) 0.7 10^3/uL (0.5-4.7); ABSOLUTE MONOCYTES (AUTO) 0.6 10^3/uL (0.1-1.4); BASOPHILS % (AUTO) 0.4 % (0-2); EOSINOPHILS % (AUTO) 2.7 % (0-6); HEMATOCRIT 27.6 % (37.9-51.0); LYMPHOCYTES % (AUTO) 10.8 % (13-45); MEAN CORPUSCULAR HEMOGLOBIN 29.6 pg (27.0-33.4); MEAN CORPUSCULAR HGB CONC 34.1 g/dL (32.0-36.0); MEAN CORPUSCULAR VOLUME 87 fl (80-97); MONOCYTES % (AUTO) 8.7 % (3-13); PLATELET COUNT 186 10^3/uL (150-450); RED BLOOD COUNT 3.17 10^6/uL (4.35-5.55); RED CELL DISTRIBUTION WIDTH 15.3 % (11.5-14.0); SEGMENTED NEUTROPHILS % (AUTO) 77.4 % (42-78); TOTAL CELLS COUNTED % (AUTO) 100 %; WHITE BLOOD COUNT 6.5 10^3/uL (4.0-10.5)
[2020-07-29 15:15] LABS: HEMOGLOBIN 9.4 g/dL (13.5-17.0)
[2020-07-29 15:20] LABS: ALBUMIN 2.4 g/dL (3.5-5.0); ALKALINE PHOSPHATASE 119 U/L (38-126); ANION GAP 10 (5-19); ASPARTATE AMINO TRANSFERASE 36 U/L (17-59); BILIRUBIN,DIRECT 0.3 mg/dL (0.0-0.4); BILIRUBIN,TOTAL 0.5 mg/dL (0.2-1.3); BLOOD UREA NITROGEN 46 mg/dL (7-20); CALCIUM 7.9 mg/dL (8.4-10.2); CARBON DIOXIDE 17 mmol/L (22-30); CHLORIDE 106 mmol/L (98-107); GLUCOSE 99 mg/dL (75-110); TOTAL PROTEIN 5.2 g/dL (6.3-8.2)
[2020-07-29] MEDS: ACETAMINOPHEN 325 MG TABLET PO PRN (17:03)
[2020-07-29] MEDS: NORMAL SALINE 1000 ML 1,000 ML IV PRN (17:03)
--- NOTE | 2020-07-29 18:40 | PDOC CONSULTATION ---
Consultation Consult Date: 07/29/20 Attending physician:: NIKKI STEELE Provider Consulted: LINDA TOMLIN Consult reason:: altered mental status, A/CKD History of Present Illness Admission Date/PCP: 07/12/20 03:17 History of Present Illness: PARKER NOWAK is a 75 year old male with a past medical history of hypertension, hyperlipidemia, Iron deficiency anemia (family reports that he receives iron transfusions), GERD, BPH, and depression who was admitted 07/12/2020 to the surgical service for complication of laparoscopic cholecystectomy. The patient, unfortunately, had a complicated course due to bile leak and development of acute kidney injury requiring short-term dialysis. Patient was maintained on a dopamine drip 07/12-07/13. Patient had a RUQ fluid collection drainage completed by IR 07/13/2020. Culture revealed Enterococcus faecium; received IV metronidazole and renally dosed Levaquin. Dialysis catheter placed 07/13/2020 Received hemodialysis 07/13-07/15/2020. Underwent interventional radiology percutaneous drainage placement on 07/20/2020. The patient's renal function had returned to baseline CR 1.93/BUN 40. The patient's vital signs and remaining labs showed continued improvement. However, beginning yesterday, the patient began demonstrating evidence of intermittent confusion and on lab work today he is found to have a precipitous drop in his hemoglobin (11.5-> 9.4) and recurrence of his hyponatremia (132.7), metabolic acidosis (bicarb 17), and acute on chronic kidney injury (CR 2.79/BUN 46). The hospitalist service is consulted for further evaluation and management of the patient's altered mentation and renal function. Past Medical History Cardiac Medical History: Reports: Hyperlipidema, Hypertension, Other - Arrhythmia Denies: Atrial Fibrillation, Congestive Heart Failure, Coronary Artery Disease, Myocardial Infarction Pulmonary Medical History: Denies: Asthma, Chronic Obstructive Pulmonary Disease (COPD) EENT Medical History: Reports: None Neurological Medical History: Reports: Other - TIA Denies: Seizures Endocrine Medical History: Reports: Obesity Denies: Diabetes Mellitus Type 1, Diabetes Mellitus Type 2, Hyperthyroidism, Hypothyroidism Renal/ Medical History: Reports: Chronic Kidney Disease Malignancy Medical History: Reports: Other - Prostate cancer status post radiation therapy GI Medical History: Denies: Cirrhosis, Hepatitis Musculoskeltal Medical History: Reports: Arthritis Denies: Gout Skin Medical History: Denies: Eczema, Psoriasis Psychiatric Medical History: Reports: Depression Traumatic Medical History: Reports: None Hematology: Denies: Anemia, Bleeding Tendencies Past Surgical History Past Surgical History: Reports: Cardiac Catheterization - With cardiac ablation, Cholecystectomy, Gastric Bypass Surgery, Orthopedic Surgery - Left knee replacement, Tonsillectomy, Vascular Surgery - IVC filter placement for DVT, Other - Radiation therapy for prostate cancer Social History Information Source: Patient, Relative, REPLACED BY [facility] Records Lives with: Alone Smoking Status: Former Smoker Electronic Cigarette use?: No Number of Years Smokin Frequency of Alcohol Use: Occasional Hx Recreational Drug Use: No Drugs: None Hx Prescription Drug Abuse: No - Advance Directive Resuscitation Status: Full Code Family History Family History: CAD, Malignancy Parental Family History Reviewed: Yes Children Family History Reviewed: Yes Sibling(s) Family History Reviewed.: Yes Medication/Allergy Home Medications: Amlodipine Besylate [Norvasc 10 mg Tablet] 10 mg PO DAILY 10/29/18 Omeprazole 40 mg PO DAILY 10/29/18 Sertraline HCl [Zoloft] 200 mg PO DAILY 10/29/18 Tamsulosin HCl [Flomax 0.4 mg Cap.sr] 0.4 mg PO DAILY 10/29/18 Atorvastatin Calcium [Lipitor 40 mg Tablet] 40 mg PO QHS 30 Days #30 tablet 10/31/18 Lisinopril [Prinivil 10 mg Tablet] 40 mg PO DAILY 30 Days #30 tablet 10/31/18 Carvedilol [Coreg 25 mg Tablet] 25 mg PO Q12 08/17/19 Chlorthalidone [Hygroton 25 mg Tablet] 12.5 mg PO DAILY 07/07/20 Clopidogrel Bisulfate [Plavix 75 mg Tablet] 75 mg PO QHS 07/07/20 Ibuprofen [Motrin 400 mg Tablet] 400 mg PO BID 07/07/20 Multivitamin [Tab-A-Brianda (Multiple Vitamin) Tablet] 1 tab PO DAILY 07/07/20 Hydrocodone/Acetaminophen [[place] 10-325 mg Tablet] 1 tab PO Q6HP PRN #14 tablet 07/09/20 Allergies/Adverse Reactions: diphenhydramine [From Benadryl] Allergy (Verified 07/07/20 07:14) Anaphylaxis Review of Systems Constitutional: PRESENT: weakness. ABSENT: chills, fever(s), headache(s), weig ht gain, weight loss Eyes: ABSENT: visual disturbances Ears: ABSENT: hearing changes Cardiovascular: ABSENT: chest pain, dyspnea on exertion, edema, orthropnea, palpitations Respiratory: PRESENT: cough. ABSENT: hemoptysis Gastrointestinal: PRESENT: abdominal pain. ABSENT: constipation, diarrhea, hematemesis, hematochezia, nausea, vomiting Genitourinary: ABSENT: dysuria, hematuria Musculoskeletal: ABSENT: joint swelling Integumentary: ABSENT: rash, wounds Neurological: PRESENT: confusion, weakness. ABSENT: abnormal gait, abnormal speech, dizziness, focal weakness, syncope Psychiatric: ABSENT: anxiety, depression, homidical ideation, suicidal ideation Endocrine: ABSENT: cold intolerance, heat intolerance, polydipsia, polyuria Hematologic/Lymphatic: ABSENT: easy bleeding, easy bruising Physical Exam Vital Signs: Temp Pulse Resp BP Pulse Ox 97.7 F 51 L 18 112/76 96 07/29/20 16:20 07/29/20 16:20 07/29/20 16:20 07/29/20 16:20 07/29/20 16:20 Pulse Oximeter Continuous Start: 07/26/20 20:20 Freq: RTQ4 Status: Complete Protocol: Document 07/28/20 16:00 OPAL (Rec: 07/28/20 16:52 OPAL [email or web address]) Pulse Oximetry Assessment Oxygen Saturation (92-100) 93 Oxygen Delivery Method Room Air Fraction of Inspired Oxygen (FIO2) 21 Equipment Usage Equipment Standby Continuous SpO2 Machine # 4 Intake & Output 07/28/20 07/29/20 07/30/20 06:59 06:59 06:59 Intake Total 3191 240 360 Output Total 1165 1305 200 Balance 2025 -1064 160 Weight 108.9 kg 108.9 kg 108.862 kg General appearance: PRESENT: no acute distress, cooperative, obese, well- developed, well-nourished Head exam: PRESENT: atraumatic, normocephalic Eye exam: PRESENT: conjunctiva pink, EOMI, PERRLA. ABSENT: scleral icterus Mouth exam: PRESENT: moist, tongue midline Neck exam: ABSENT: carotid bruit, JVD, lymphadenopathy, thyromegaly Respiratory exam: PRESENT: symmetrical, unlabored, wheezes, other - room air. ABSENT: rales, rhonchi Cardiovascular exam: PRESENT: RRR, +S1, +S2. ABSENT: diastolic murmur, rubs, systolic murmur Pulses: PRESENT: normal dorsalis pedis pul Vascular exam: PRESENT: normal capillary refill GI/Abdominal exam: PRESENT: normal bowel sounds, soft, tenderness. ABSENT: distended, guarding, mass, organolmegaly, rebound Rectal exam: PRESENT: deferred Extremities exam: PRESENT: full ROM. ABSENT: calf tenderness, clubbing, pedal edema, +1 edema Neurological exam: PRESENT: alert, awake, oriented to person, oriented to place, oriented to time, oriented to situation, CN II-XII grossly intact, other - Confabulates. ABSENT: motor sensory deficit Psychiatric exam: PRESENT: appropriate affect - Irritated by family members, normal mood. ABSENT: homicidal ideation, suicidal ideation Skin exam: PRESENT: dry, warm. ABSENT: cyanosis, rash Results Laboratory Results: 07/29/20 14:30 07/29/20 14:30 07/26/20 07/29/20 07/29/20 18:22 14:30 14:30 WBC 6.5 RBC 3.17 L Hgb 9.4 L D Hct 27.6 L MCV 87 MCH 29.6 MCHC 34.1 RDW 15.3 H Plt Count 186 Seg Neutrophils % 77.4 Sodium 132.7 L Potassium 5.0 Chloride 106 Carbon Dioxide 17 L Anion Gap 10 BUN 46 H Creatinine 2.79 H Est GFR ( Amer) 27 L Glucose 99 Calcium 7.9 L Total Bilirubin 0.5 AST 36 Alkaline Phosphatase 119 Total Protein 5.2 L Albumin 2.4 L Blood Type B POSITIVE Antibody Screen NEGATIVE Impressions: Chest X-Ray 07/11/20 22:53 IMPRESSION: Progressive bibasilar atelectasis. Abdomen Ultrasound 07/12/20 01:29 IMPRESSION: 1. Free fluid noted in the right upper quadrant. 2. Postsurgical changes of interval cholecystectomy. 3. No biliary ductal dilatation. Retroperitoneal Abscess Drainage 07/13/20 00:00 IMPRESSION: SUCCESSFUL CT GUIDED RIGHT UPPER QUADRANT PIGTAIL CATHETER PLACEMENT. Abdomen/Pelvis CT 07/20/20 00:00 IMPRESSION: Increasing size of the right subdiaphragmatic fluid collection. A 2nd drain will be placed. 2 new small fluid collections in the anterior aspect of the pelvis. These measure 5.8 x 5.8 cm and 4.9 x 3.2 cm respectively. Developing abscess cannot be excluded. Stable mild inflammatory change in the gallbladder fossa. There is air in the gallbladder presumably iatrogenic. Clinical correlation is needed. Guidance Needle Placement CT 07/20/20 00:00 IMPRESSION: Successful CT-guided percutaneous drain placement into the right subdiaphragmatic fluid collection. Percutaneous Drainage 07/20/20 00:00 IMPRESSION: Successful CT-guided percutaneous drain placement into the right subdiaphragmatic fluid collection. Abdomen MRI 07/22/20 00: IMPRESSION: Filling defect of some type in the distal common bile duct. Possibly blood products or small stone. No disruption of the common duct or pancreatic duct. Hepatobiliary Scan Nuclear Medicine 07/22/20 00: IMPRESSION: Evidence of bile leak as described. Cholangiogram 07/26/20 00:00 IMPRESSION: INTRAOPERATIVE CHOLANGIOGRAM. Guidance Fluoroscopy 07/26/20 00: IMPRESSION: INTRAOPERATIVE CHOLANGIOGRAM. Assessment and Plan - Diagnosis (1) Confabulation Is this a current diagnosis for this admission?: Yes Plan: The patient is alert and oriented x4. He does answer most questions appropriately, however, is noted to confabulate. Fortunately, his family members were at the bedside and by their facial expressions and body postures it was easy to distinguish when the patient was providing inaccurate information. He is conversational and socially appropriate. He did become somewhat irritated/agitated at his family members direction to "tell the truth," however, when allowed to speak uninterrupted, he generally would return to the topic at hand and provide meaningful information. On exam, he was noted to have a rhythmic head rotation (as if shaking his head no) that family report has been present since his admission but is not a typical behavior/movement for him. Otherwise he has a benign neuro exam without slurred speech, facial droop, or focal deficits. Presumptively this is a hospital psychosis (with possible underlying early dementia that the family was not fully aware of as he was independent and lives alone) due to his prolonged hospital stay, acute illnesses, multiple surgical procedures, and analgesic medications. Alternatively, will evaluate for source of his anemia, acute kidney injury, metabolic acidosis as potential contributing factors. Will evaluate for further infectious process (chest x-ray and urinalysis pen ding). He does have some hyponatremia (NA 132), although, this is mild and not likely to be a significant factor. Minimal suspicion for CVA event, however, patient's family members are highly anxious and therefore will obtain CT imaging. Check EKG, proBNP, and Trop. Will evaluate thyroid panel, B12, thiamine, vitamin D, magnesium, and AM cortisol level. We will provide supportive care with clear day/night indications (communication order to turn on lights and open blinds; minimize nighttime interruptions). Out of bed for meals. Ambulate in the hallways twice daily. Continue to reorient but otherwise allow patient to confabulate to prevent anxiety/agitation so long as he remains safe. Minimize sedating medications. Family reassurance provided. (2) Altered mental status Is this a current diagnosis for this admission?: Yes Plan: A&Ox4. However, easily distracted and confabulates extensively. Further evaluation as above. (3) Acute on chronic renal insufficiency Is this a current diagnosis for this admission?: Yes Plan: Patient did have ATN initially during this admission requiring short-term dialysis. He was supported on a dopamine drip during this timeframe. His renal function did recover to his baseline CKD 3. However, he now has an acute on chronic kidney injury again with creatinine 2.79. Patient does appear euvolemic on exam, however, daily weights and I&O's have not been followed closely. Urine sodium and creatinine pending. Consider renal ultrasound. Check post void residual; patient does have a history of prostate cancer and may have a postobstructive process not previously identified. Continue gentle IV fluids. Avoid nephrotoxic medications as able; renally dosed where appropriate. Daily weights, strict I&O's. Follow-up chemistry. Low threshold for nephrology consultation. (4) Hyponatremia Is this a current diagnosis for this admission?: Yes Plan: Secondary to #3 Urine Osmolarity and Urine Sodium pending. Continue gentle IVF. Follow up chemistry. (5) Anemia Qualifiers: Anemia type: unspecified type Qualified Code(s): D64.9 - Anemia, unspecified Is this a current diagnosis for this admission?: Yes Plan: Per patient and family, he has a history of iron deficiency anemia. Has a remote gastric bypass for which he received B12 injections. Noted precipitous drop in hemoglobin over the last 48 hours; 11.5->9.4. Unfortunately, I&O's were not followed and so I cannot determine whether or not this is potentially hemodilution as IV fluids were recently reinitiated. Vital signs are stable and exam is benign; low suspicion for acute blood loss anemia at this time. We will check anemia panel with a.m. lab work. Follow CBC closely. Transfuse as necessary. (6) Metabolic acidosis Is this a current diagnosis for this admission?: Yes Plan: Secondary to acute on chronic kidney injury. Management of LOBO as above. Follow-up chemistry. Consider initiating oral bicarb if acidosis persists. (7) Hypertension Qualifiers: Hypertension type: essential hypertension Qualified Code(s): I10 - Essential (primary) hypertension Is this a current diagnosis for this admission?: Yes Plan: Well-controlled at present. Continue carvedilol 12.5 mg every 12 hours. (8) Obesity Qualifiers: Obesity type: unspecified obesity type Body mass index: BMI 31.0-31.9 Is this a current diagnosis for this admission?: Yes Plan: Continue prerenal diet. Dietary and lifestyle modification to be encouraged. Encourage pulmonary toilet and the position changes. (9) Weakness Is this a current diagnosis for this admission?: Yes Plan: PT/OT consultations. Out of bed activities. Ambulate the hallways with nursing. - Time Time Spent with patient: 35 or more minutes Medications reviewed and adjusted accordingly: Yes Anticipated Discharge Disposition: unknown Anticipated Discharge Timeframe: unknown
--- NOTE | 2020-07-29 19:42 | EKG REPORT ---
SEVERITY:- ABNORMAL ECG - ATRIAL FIBRILLATION, V-RATE 64-82 RIGHT BUNDLE BRANCH BLOCK : Confirmed by: Cristina Gibson MD 29-Jul-2020 19:40:59
[2020-07-29 20:54] LABS: APPEARANCE,URINE CLOUDY; BILIRUBIN,URINE NEGATIVE (NEGATIVE); COLOR,URINE YELLOW; GLUCOSE, URINE NEGATIVE (NEGATIVE); KETONES,URINE NEGATIVE (NEGATIVE); PROTEIN,URINE 30 mg/dL (NEGATIVE); URINE SPECIFIC GRAVITY 1.012; UROBILINOGEN,URINE NEGATIVE mg/dL (<2.0)
--- NOTE | 2020-07-29 21:01 | RADIOLOGY REPORT (SQ) ---
EXAM DESCRIPTION: CT HEAD WITHOUT CLINICAL HISTORY: 75 years Male altered mental status TECHNIQUE: Noncontrast CT head. All CT scans at this facility use dose modulation, iterative reconstruction, and/or weight based dosing when appropriate to reduce radiation dose to as low as reasonably achievable. COMPARISON: August 16, 2019 FINDINGS: There is mild cerebral volume loss. Mild periventricular and white matter hypodensities are nonspecific, but in a pattern compatible with chronic microvascular ischemic change. No acute hemorrhage or mass effect. Visualized portions of paranasal sinuses and mastoids are clear. Visualized portions of the calvarium are within normal limits. IMPRESSION: 1. No acute intracranial hemorrhage or mass effect. Nonspecific appearance compatible with chronic microvascular ischemic change is present. If there is clinical concern for acute stroke, consider MRI brain as a more sensitive evaluation.
[2020-07-29 21:04] LABS: URINE CREATININE 76.2 mg/dL (22-328)
[2020-07-30] MEDS: NORMAL SALINE 1000 ML 1,000 ML IV PRN ×2 (02:21→10:14)
[2020-07-30 05:12] LABS: ABSOLUTE RETICS # 0.062 10^6/uL (0.028-0.122); HEMATOCRIT 22.9 % (37.9-51.0); MEAN CORPUSCULAR HEMOGLOBIN 29.8 pg (27.0-33.4); MEAN CORPUSCULAR HGB CONC 33.5 g/dL (32.0-36.0); MEAN CORPUSCULAR VOLUME 89 fl (80-97); PLATELET COUNT 154 10^3/uL (150-450); RED BLOOD COUNT 2.57 10^6/uL (4.35-5.55); RED CELL DISTRIBUTION WIDTH 15.6 % (11.5-14.0); RETICULOCYTE COUNT (AUTO) 2.39 % (0.66-2.85); WHITE BLOOD COUNT 4.8 10^3/uL (4.0-10.5)
[2020-07-30] MEDS: PANTOPRAZOLE SODIUM 40 MG TABLET.DR PO SCH (05:18)
[2020-07-30 05:27] LABS: ANION GAP 6 (5-19); BLOOD UREA NITROGEN 38 mg/dL (7-20); CARBON DIOXIDE 16 mmol/L (22-30); CHLORIDE 114 mmol/L (98-107); GLUCOSE 72 mg/dL (75-110); IRON(TIBC) 13.1 ug/dL (49-181); PHOSPHORUS 3.3 mg/dL (2.5-4.5)
[2020-07-30 05:32] LABS: HEMOGLOBIN 7.7 g/dL (13.5-17.0)
[2020-07-30 05:52] LABS: POTASSIUM 3.9 mmol/L (3.6-5.0)
[2020-07-30 05:53] LABS: CALCIUM 6.2 mg/dL (8.4-10.2)
[2020-07-30 06:35] LABS: FOLATE 4.68 ng/mL (>2.76)
--- NOTE | 2020-07-30 08:16 | RADIOLOGY REPORT (SQ) ---
EXAM DESCRIPTION: CHEST SINGLE VIEW IMAGES COMPLETED DATE/TIME: 07/29/2020 6:49 pm REASON FOR STUDY: wheezing COMPARISON: 07/11/2020 and 08/16/2019. EXAM PARAMETERS: NUMBER OF VIEWS: One view. TECHNIQUE: Single frontal radiographic view of the chest acquired. RADIATION DOSE: NA LIMITATIONS: None. FINDINGS: LUNGS AND PLEURA: Chronic elevation of the right hemidiaphragm. Linear densities in the l rasta bases. No lobar infiltrates, masses or pneumothorax. No pleural effusion. MEDIASTINUM AND HILAR STRUCTURES: No masses. Contour normal. HEART AND VASCULAR STRUCTURES: Heart normal in size. Normal vasculature. BONES: No acute findings. HARDWARE: None in the chest. OTHER: No other significant finding. IMPRESSION: BASILAR ATELECTASIS. NO SIGNIFICANT CHANGE. TECHNICAL DOCUMENTATION: JOB ID: [id number] 2010 [employer]- All Rights Reserved Reading location - IP/workstation name: [email or web address]
[2020-07-30] MEDS ORDERED: NORMAL SALINE 250 ML IV PRN ×2 (09:23)
[2020-07-30] MEDS ORDERED: FUROSEMIDE INJ/PF 20 MG/2 ML SDV IV PRN (09:23)
[2020-07-30] MEDS: CALCIUM CARBONATE 600 MG/VITAMIN D3 400 UNIT TABLET PO SCH ×2 (10:05→17:50)
[2020-07-30] MEDS: LACTOBACILLUS ACIDOPHILUS 250 MG TAB PO SCH ×2 (10:05→17:50)
[2020-07-30] MEDS: CARVEDILOL 12.5 MG TABLET PO SCH ×2 (10:05→22:41)
[2020-07-30] MEDS: TAMSULOSIN HCL 0.4 MG CAP.SR.24H PO SCH (10:06)
[2020-07-30] MEDS: SERTRALINE HCL 50 MG TABLET PO SCH (10:06)
[2020-07-30] MEDS ORDERED: MAGNESIUM SULFATE/D5W 1 GM/100 ML RTUPB IV ONE (11:00)
[2020-07-30 11:59] LABS: ARTERIAL BLOOD BASE EXCESS -8.7 mmol/L; ARTERIAL BLOOD H2CO3 0.89 mmol/L (1.05-1.35); ARTERIAL BLOOD HCO3 15.8 mmol/L (20-24); ARTERIAL BLOOD O2 SATURATION 96.3 % (94-98); ARTERIAL BLOOD PCO2 29.6 mmHg (35-45); ARTERIAL BLOOD PH 7.35 (7.35-7.45); ARTERIAL BLOOD PO2 86.9 mmHg (80-100); ARTERIAL BLOOD TOTAL CO2 16.7 mmol/L (23-27)
[2020-07-30 12:00] LABS: ARTERIAL BLOOD FIO2 21%
--- NOTE | 2020-07-30 13:31 | PDOC PROGRESS REPORT ---
Subjective Date:: 07/30/20 Reason For Visit: DEHYDRATION,ANEMIA,S P CHOLECYSTECTOMY Physical Exam Vital Signs: Temp Pulse Resp BP Pulse Ox 97.7 F 69 16 151/82 H 97 07/30/20 13:20 07/30/20 13:20 07/30/20 13:20 07/30/20 13:20 07/30/20 13:20 Pulse Oximeter Continuous Start: 07/26/20 20:20 Freq: RTQ4 Status: Complete Protocol: Document 07/28/20 16:00 OPAL (Rec: 07/28/20 16:52 OPAL [email or web address]) Pulse Oximetry Assessment Oxygen Saturation (92-100) 93 Oxygen Delivery Method Room Air Fraction of Inspired Oxygen (FIO2) 21 Equipment Usage Equipment Standby Continuous SpO2 Machine # 4 Intake & Output 07/29/20 07/30/20 07/31/20 06:59 06:59 06:59 Intake Total 240 1940 1077 Output Total 1305 1775 Balance -1950 722 2229 Weight 108.9 kg 107.6 kg Results Laboratory Results: 07/30/20 04:26 07/30/20 04:26 07/26/20 07/29/20 07/29/20 18:22 14:30 14:30 WBC 6.5 RBC 3.17 L Hgb 9.4 L D Hct 27.6 L MCV 87 MCH 29.6 MCHC 34.1 RDW 15.3 H Plt Count 186 Seg Neutrophils % 77.4 Retic Count (auto) Carbonic Acid HCO3/H2CO3 Ratio ABG pH ABG pCO2 ABG pO2 ABG HCO3 ABG O2 Saturation ABG Base Excess FiO2 Sodium 132.7 L Potassium 5.0 Chloride 106 Carbon Dioxide 17 L Anion Gap 10 BUN 46 H Creatinine 2.79 H Est GFR ( Amer) 27 L Glucose 99 Serum Osmolality Lactic Acid Calcium 7.9 L Phosphorus Magnesium Iron TIBC % Saturation Ferritin Total Bilirubin 0.5 AST 36 Alkaline Phosphatase 119 Ammonia Total Protein 5.2 L Albumin 2.4 L Vitamin B12 Folate TSH Urine Color Urine Appearance Urine pH Ur Specific [place] Urine Protein Urine Glucose (UA) Urine Ketones Urine Blood Urine RBC (Auto) Urine Osmolality Stool Occult Blood Blood Type B POSITIVE Antibody Screen NEGATIVE 07/29/20 07/29/20 07/29/20 14:30 20:10 20:10 WBC RBC Hgb Hct MCV MCH MCHC RDW Plt Count Seg Neutrophils % Retic Count (auto) Carbonic Acid HCO3/H2CO3 Ratio ABG pH ABG pCO2 ABG pO2 ABG HCO3 ABG O2 Saturation ABG Base Excess FiO2 Sodium Potassium Chloride Carbon Dioxide Anion Gap BUN Creatinine Est GFR ( Amer) Glucose Serum Osmolality 290 Lactic Acid Calcium Phosphorus Magnesium Iron TIBC % Saturation Ferritin Total Bilirubin AST Alkaline Phosphatase Ammonia Total Protein Albumin Vitamin B12 Folate TSH Urine Color YELLOW Urine Appearance CLOUDY Urine pH 5.0 Ur Specific [place] 1.012 Urine Protein 30 H Urine Glucose (UA) NEGATIVE Urine Ketones NEGATIVE Urine Blood MODERATE H Urine RBC (Auto) 1 Urine Osmolality 308 Stool Occult Blood Blood Type Antibody Screen 07/30/20 07/30/20 07/30/20 04:26 04:26 04:26 WBC 4.8 RBC 2.57 L Hgb 7.7 L Hct 22.9 L MCV 89 MCH 29.8 MCHC 33.5 RDW 15.6 H Plt Count 154 Seg Neutrophils % Retic Count (auto) 2.39 Carbonic Acid HCO3/H2CO3 Ratio ABG pH ABG pCO2 ABG pO2 ABG HCO3 ABG O2 Saturation ABG Base Excess FiO2 Sodium 136.2 L Potassium 3.9 D Chloride 114 H Carbon Dioxide 16 L Anion Gap 6 BUN 38 H Creatinine 2.18 H Est GFR ( Amer) 36 L Glucose 72 L Serum Osmolality Lactic Acid Calcium 6.2 L* Phosphorus 3.3 Magnesium 1.3 L Iron 13.1 L TIBC 176 L % Saturation 7 Ferritin 368.00 Total Bilirubin AST Alkaline Phosphatase Ammonia Total Protein Albumin Vitamin B12 908.0 Folate 4.68 TSH 2.13 Urine Color Urine Appearance Urine pH Ur Specific [place] Urine Protein Urine Glucose (UA) Urine Ketones Urine Blood Urine RBC (Auto) Urine Osmolality Stool Occult Blood Blood Type Antibody Screen 07/30/20 07/30/20 07/30/20 09:58 11:08 11:27 WBC RBC Hgb Hct MCV MCH MCHC RDW Plt Count Seg Neutrophils % Retic Count (auto) Carbonic Acid HCO3/H2CO3 Ratio ABG pH ABG pCO2 ABG pO2 ABG HCO3 ABG O2 Saturation ABG Base Excess FiO2 Sodium Potassium Chloride Carbon Dioxide Anion Gap BUN Creatinine Est GFR ( Amer) Glucose Serum Osmolality Lactic Acid < 0.5 L Calcium Phosphorus Magnesium Iron TIBC % Saturation Ferritin Total Bilirubin AST Alkaline Phosphatase Ammonia Total Protein Albumin Vitamin B12 Folate TSH Urine Color Urine Appearance Urine pH Ur Specific [place] Urine Protein Urine Glucose (UA) Urine Ketones Urine Blood Urine RBC (Auto) Urine Osmolality Stool Occult Blood NEGATIVE Blood Type B POSITIVE Antibody Screen NEGATIVE 07/30/20 07/30/20 11:27 11:50 WBC RBC Hgb Hct MCV MCH MCHC RDW Plt Count Seg Neutrophils % Retic Count (auto) Carbonic Acid 0.89 L HCO3/H2CO3 Ratio 17:1 ABG pH 7.35 ABG pCO2 29.6 L ABG pO2 86.9 ABG HCO3 15.8 L ABG O2 Saturation 96.3 ABG Base Excess -8.7 FiO2 21% Sodium Potassium Chloride Carbon Dioxide Anion Gap BUN Creatinine Est GFR ( Amer) Glucose Serum Osmolality Lactic Acid Calcium Phosphorus Magnesium Iron TIBC % Saturation Ferritin Total Bilirubin AST Alkaline Phosphatase Ammonia < 8.7 L Total Protein Albumin Vitamin B12 Folate TSH Urine Color Urine Appearance Urine pH Ur Specific [place] Urine Protein Urine Glucose (UA) Urine Ketones Urine Blood Urine RBC (Auto) Urine Osmolality Stool Occult Blood Blood Type Antibody Screen 07/29/20 07/29/20 07/30/20 18:37 18:37 04:26 Creatine Kinase 167 Troponin I < 0.012 NT-Pro-B Natriuret Pep 5130 H Impressions: Abdomen Ultrasound 07/12/20 01:29 IMPRESSION: 1. Free fluid noted in the right upper quadrant. 2. Postsurgical changes of interval cholecystectomy. 3. No biliary ductal dilatation. Retroperitoneal Abscess Drainage 07/13/20 00:00 IMPRESSION: SUCCESSFUL CT GUIDED RIGHT UPPER QUADRANT PIGTAIL CATHETER PLACEMENT. Abdomen/Pelvis CT 07/20/20 00:00 IMPRESSION: Increasing size of the right subdiaphragmatic fluid collection. A 2nd drain will be placed. 2 new small fluid collections in the anterior aspect of the pelvis. These amie ure 5.8 x 5.8 cm and 4.9 x 3.2 cm respectively. Developing abscess cannot be excluded. Stable mild inflammatory change in the gallbladder fossa. There is air in the gallbladder presumably iatrogenic. Clinical correlation is needed. Guidance Needle Placement CT 07/20/20 00:00 IMPRESSION: Successful CT-guided percutaneous drain placement into the right subdiaphragmatic fluid collection. Percutaneous Drainage 07/20/20 00:00 IMPRESSION: Successful CT-guided percutaneous drain placement into the right subdiaphragmatic fluid collection. Abdomen MRI 07/22/20 00:00 IMPRESSION: Filling defect of some type in the distal common bile duct. Possibly blood products or small stone. No disruption of the common duct or pancreatic duct. Hepatobiliary Scan Nuclear Medicine 07/22/20 00:00 IMPRESSION: Evidence of bile leak as described. Cholangiogram 07/26/20 00:00 IMPRESSION: INTRAOPERATIVE CHOLANGIOGRAM. Guidance Fluoroscopy 07/26/20 00:00 IMPRESSION: INTRAOPERATIVE CHOLANGIOGRAM. Chest X-Ray 07/29/20 00:00 IMPRESSION: BASILAR ATELECTASIS. NO SIGNIFICANT CHANGE. Head CT 07/29/20 00:00 IMPRESSION: 1. No acute intracranial hemorrhage or mass effect. Nonspecific appearance compatible with chronic microvascular ischemic change is present. If there is clinical concern for acute stroke, consider MRI brain as a more sensitive evaluation. Assessment & Plan - Diagnosis (1) LOBO (acute kidney injury) Is this a current diagnosis for this admission?: Yes (2) Dehydration Is this a current diagnosis for this admission?: Yes (3) Weakness Is this a current diagnosis for this admission?: Yes (4) Bile leak, postoperative Is this a current diagnosis for this admission?: Yes - Time Anticipated Discharge Disposition: Home with Home Health Anticipated Discharge Timeframe: unknown - Plan Summary Plan Summary: 75-year-old male status post open common bile duct exploration with extraction of multiple stones, T-tube placement, and completion cholecystectomy. He remains confused today. He is off all narcotics. He did not sleep again last night per nursing staff. He is tolerating regular diet. His THEE drains are productive of serosanguineous fluid. His T-tube is producing joseph bile. Low Hgb today, d/c'd heparin. PT/OT/ambulate in the hallways. Dilerium persists today. Not severe, but pt irritable and easily confused. Re-orients easily. No weakness, facial droop, or paralysis. --> Tylenol only for pain. Hospitalist following. I appreciate their input. Needs to mobilize and remain awake during the daytime so he can sleep at night. C/o diarrhea --> may be due to c. diff (or possibly post cholecystectomy diarrhea). Will check stool for c. diff. If negative, will start Cholestyramine. BUN and Creatnine improved.
[2020-07-30 14:16] LABS: C DIFFICILE GDH POSITIVE (NEGATIVE)
[2020-07-30] MEDS: NYSTATIN 500000 UNIT/5 ML UDCUP PO SCH ×3 (14:30→22:41)
[2020-07-30] MEDS: SODIUM BICARBONATE 650 MG TABLET PO SCH ×2 (15:16→18:07)
--- NOTE | 2020-07-30 15:25 | PDOC PROGRESS REPORT ---
Subjective Date:: 07/30/20 Subjective:: \PARKER NOWAK is a 75 year old male with a past medical history of hypertension, hyperlipidemia, Iron deficiency anemia (family reports that he receives iron transfusions), GERD, BPH, and depression who was admitted 07/12/2020 to the surgical service for complication of laparoscopic cholecystectomy. Patient was seen on morning rounds with family members present. He is found resting in bed, comfortably, on room air. He is tentatively alert and oriented to self, place, situation, however, quickly becomes confused with confabulation, fidgeting, and reaching for things in the air. When prompted, he states that he feels well and is ready to go home. He does not clearly answer questions regarding ROS. Therefore it is limited. He does appear to be comfortable and is not noted to be in any acute distress at this time. No concerns per nursing. Reason For Visit: DEHYDRATION,ANEMIA,S P CHOLECYSTECTOMY Physical Exam Vital Signs: Temp Pulse Resp BP Pulse Ox 97.9 F 84 16 147/96 H 100 07/30/20 14:20 07/30/20 14:20 07/30/20 14:20 07/30/20 14:20 07/30/20 14:20 Pulse Oximeter Continuous Start: 07/26/20 20:20 Freq: RTQ4 Status: Complete Protocol: Document 07/28/20 16:00 OPAL (Rec: 07/28/20 16:52 OPAL [email or web address]) Pulse Oximetry Assessment Oxygen Saturation (92-100) 93 Oxygen Delivery Method Room Air Fraction of Inspired Oxygen (FIO2) 21 Equipment Usage Equipment Standby Continuous SpO2 Machine # 4 Intake & Output 07/29/20 07/30/20 07/31/20 06:59 06:59 06:59 Intake Total 240 1940 1202 Output Total 1305 1775 300 Balance -1065 165 902 Weight 108.9 kg 107.6 kg General appearance: PRESENT: no acute distress, cooperative, disheveled, well- developed, well-nourished, other - overweight Head exam: PRESENT: atraumatic, normocephalic Eye exam: PRESENT: conjunctiva pink, EOMI, PERRLA. ABSENT: scleral icterus Mouth exam: PRESENT: moist, tongue midline, other - thrush Respiratory exam: PRESENT: decreased breath sounds - throughtou, symmetrical, unlabored, wheezes, other - room air. ABSENT: rales, rhonchi Cardiovascular exam: PRESENT: RRR. ABSENT: diastolic murmur, rubs, systolic murmur Pulses: PRESENT: normal dorsalis pedis pul Vascular exam: PRESENT: normal capillary refill GI/Abdominal exam: PRESENT: normal bowel sounds, soft, tenderness - at incision sites, other - THEE drains with scant serosanguineous fluid. PERC drain with bile. Right upper quadrant surgical incision well approximated with josé luis; no signs of infection. Periumbilical ecchymosis.. ABSENT: distended, guarding, mass, organolmegaly, rebound Rectal exam: PRESENT: deferred Extremities exam: PRESENT: full ROM - Moves all extremities. ABSENT: calf tenderness, clubbing, pedal edema Neurological exam: PRESENT: alert, awake, oriented to person, oriented to place, oriented to situation, CN II-XII grossly intact, other - Encephalopathic; fidgeting and reaching for things near. Confabulates. Reorientate easily for a very brief period of time.. ABSENT: motor sensory deficit Psychiatric exam: PRESENT: agitated, normal mood. ABSENT: homicidal ideation, suicidal ideation Skin exam: PRESENT: dry, warm. ABSENT: cyanosis, rash Results Laboratory Results: 07/30/20 04:26 07/30/20 04:26 07/29/20 07/29/20 07/29/20 14:30 14:30 14:30 WBC 6.5 RBC 3.17 L Hgb 9.4 L D Hct 27.6 L MCV 87 MCH 29.6 MCHC 34.1 RDW 15.3 H Plt Count 186 Seg Neutrophils % 77.4 Retic Count (auto) Carbonic Acid HCO3/H2CO3 Ratio ABG pH ABG pCO2 ABG pO2 ABG HCO3 ABG O2 Saturation ABG Base Excess FiO2 Sodium 132.7 L Potassium 5.0 Chloride 106 Carbon Dioxide 17 L Anion Gap 10 BUN 46 H Creatinine 2.79 H Est GFR ( Amer) 27 L Glucose 99 Serum Osmolality 290 Lactic Acid Calcium 7.9 L Phosphorus Magnesium Iron TIBC % Saturation Ferritin Total Bilirubin 0.5 AST 36 Alkaline Phosphatase 119 Ammonia Total Protein 5.2 L Albumin 2.4 L Vitamin B12 Folate TSH Urine Color Urine Appearance Urine pH Ur Specific [place] Urine Protein Urine Glucose (UA) Urine Ketones Urine Blood Urine RBC (Auto) Urine Osmolality Stool Occult Blood Blood Type Antibody Screen 07/29/20 07/29/20 07/30/20 20:10 20:10 04:26 WBC 4.8 RBC 2.57 L Hgb 7.7 L Hct 22.9 L MCV 89 MCH 29.8 MCHC 33.5 RDW 15.6 H Plt Count 154 Seg Neutrophils % Retic Count (auto) 2.39 Carbonic Acid HCO3/H2CO3 Ratio ABG pH ABG pCO2 ABG pO2 ABG HCO3 ABG O2 Saturation ABG Base Excess FiO2 Sodium Potassium Chloride Carbon Dioxide Anion Gap BUN Creatinine Est GFR ( Amer) Glucose Serum Osmolality Lactic Acid Calcium Phosphorus Magnesium Iron TIBC % Saturation Ferritin Total Bilirubin AST Alkaline Phosphatase Ammonia Total Protein Albumin Vitamin B12 Folate TSH Urine Color YELLOW Urine Appearance CLOUDY Urine pH 5.0 Ur Specific [place] 1.012 Urine Protein 30 H Urine Glucose (UA) NEGATIVE Urine Ketones NEGATIVE Urine Blood MODERATE H Urine RBC (Auto) 1 Urine Osmolality 308 Stool Occult Blood Blood Type Antibody Screen 07/30/20 07/30/20 07/30/20 04:26 04:26 09:58 WBC RBC Hgb Hct MCV MCH MCHC RDW Plt Count Seg Neutrophils % Retic Count (auto) Carbonic Acid HCO3/H2CO3 Ratio ABG pH ABG pCO2 ABG pO2 ABG HCO3 ABG O2 Saturation ABG Base Excess FiO2 Sodium 136.2 L Potassium 3.9 D Chloride 114 H Carbon Dioxide 16 L Anion Gap 6 BUN 38 H Creatinine 2.18 H Est GFR ( Amer) 36 L Glucose 72 L Serum Osmolality Lactic Acid Calcium 6.2 L* Phosphorus 3.3 Magnesium 1.3 L Iron 13.1 L TIBC 176 L % Saturation 7 Ferritin 368.00 Total Bilirubin AST Alkaline Phosphatase Ammonia Total Protein Albumin Vitamin B12 908.0 Folate 4.68 TSH 2.13 Urine Color Urine Appearance Urine pH Ur Specific [place] Urine Protein Urine Glucose (UA) Urine Ketones Urine Blood Urine RBC (Auto) Urine Osmolality Stool Occult Blood Blood Type B POSITIVE Antibody Screen NEGATIVE 07/30/20 07/30/20 07/30/20 11:08 11:27 11:27 WBC RBC Hgb Hct MCV MCH MCHC RDW Plt Count Seg Neutrophils % Retic Count (auto) Carbonic Acid HCO3/H2CO3 Ratio ABG pH ABG pCO2 ABG pO2 ABG HCO3 ABG O2 Saturation ABG Base Excess FiO2 Sodium Potassium Chloride Carbon Dioxide Anion Gap BUN Creatinine Est GFR ( Amer) Glucose Serum Osmolality Lactic Acid < 0.5 L Calcium Phosphorus Magnesium Iron TIBC % Saturation Ferritin Total Bilirubin AST Alkaline Phosphatase Ammonia < 8.7 L Total Protein Albumin Vitamin B12 Folate TSH Urine Color Urine Appearance Urine pH Ur Specific [place] Urine Protein Urine Glucose (UA) Urine Ketones Urine Blood Urine RBC (Auto) Urine Osmolality Stool Occult Blood NEGATIVE Blood Type Antibody Screen 07/30/20 11:50 WBC RBC Hgb Hct MCV MCH MCHC RDW Plt Count Seg Neutrophils % Retic Count (auto) Carbonic Acid 0.89 L HCO3/H2CO3 Ratio 17:1 ABG pH 7.35 ABG pCO2 29.6 L ABG pO2 86.9 ABG HCO3 15.8 L ABG O2 Saturation 96.3 ABG Base Excess -8.7 FiO2 21% Sodium Potassium Chloride Carbon Dioxide Anion Gap BUN Creatinine Est GFR ( Amer) Glucose Serum Osmolality Lactic Acid Calcium Phosphorus Magnesium Iron TIBC % Saturation Ferritin Total Bilirubin AST Alkaline Phosphatase Ammonia Total Protein Albumin Vitamin B12 Folate TSH Urine Color Urine Appearance Urine pH Ur Specific [place] Urine Protein Urine Glucose (UA) Urine Ketones Urine Blood Urine RBC (Auto) Urine Osmolality Stool Occult Blood Blood Type Antibody Screen 07/29/20 07/29/20 07/30/20 18:37 18:37 04:26 Creatine Kinase 167 Troponin I < 0.012 NT-Pro-B Natriuret Pep 5130 H Impressions: Abdomen Ultrasound 07/12/20 01:29 IMPRESSION: 1. Free fluid noted in the right upper quadrant. 2. Postsurgical changes of interval cholecystectomy. 3. No biliary ductal dilatation. Retroperitoneal Abscess Drainage 07/13/20 00:00 IMPRESSION: SUCCESSFUL CT GUIDED RIGHT UPPER QUADRANT PIGTAIL CATHETER PLACEMENT. Abdomen/Pelvis CT 07/20/20 00:00 IMPRESSION: Increasing size of the right subdiaphragmatic fluid collection. A 2nd drain will be placed. 2 new small fluid collections in the anterior aspect of the pelvis. These m easure 5.8 x 5.8 cm and 4.9 x 3.2 cm respectively. Developing abscess cannot be excluded. Stable mild inflammatory change in the gallbladder fossa. There is air in the gallbladder presumably iatrogenic. Clinical correlation is needed. Guidance Needle Placement CT 07/20/20 00:00 IMPRESSION: Successful CT-guided percutaneous drain placement into the right subdiaphragmatic fluid collection. Percutaneous Drainage 07/20/20 00:00 IMPRESSION: Successful CT-guided percutaneous drain placement into the right subdiaphragmatic fluid collection. Abdomen MRI 07/22/20 00:00 IMPRESSION: Filling defect of some type in the distal common bile duct. Possibly blood products or small stone. No disruption of the common duct or pancreatic duct. Hepatobiliary Scan Nuclear Medicine 07/22/20 00:00 IMPRESSION: Evidence of bile leak as described. Cholangiogram 07/26/20 00:00 IMPRESSION: INTRAOPERATIVE CHOLANGIOGRAM. Guidance Fluoroscopy 07/26/20 00:00 IMPRESSION: INTRAOPERATIVE CHOLANGIOGRAM. Chest X-Ray 07/29/20 00:00 IMPRESSION: BASILAR ATELECTASIS. NO SIGNIFICANT CHANGE. Head CT 07/29/20 00:00 IMPRESSION: 1. No acute intracranial hemorrhage or mass effect. Nonspecific appearance compatible with chronic microvascular ischemic change is present. If there is clinical concern for acute stroke, consider MRI brain as a more sensitive evaluation. Assessment and Plan - Diagnosis (1) Acute metabolic encephalopathy Is this a current diagnosis for this admission?: Yes Plan: Likely multifactorial secondary to acute illness (c. diff, bile leaks s/p cholecystectomy), LOBO w/ metabolic acidosis, and hospital psychosis in patient with likely underlying early dementia. Family members also confide that patient has a hx of heavy EtOH use (sober for many years) and there has been suspicion of recent drinking. CT head is negative for acute findings. Does reveal chronic microvascular disease. Check EKG reassuring. Troponin nml. proBNP elevated to 5130; no prior history of CHF TSH and B12 nml Thiamine and vitamin D pending. AM cortisol level as expected given acute illness/surgeries (slightly elevated) Sodium is improved. Magnesium 1.3. Corrected calcium 7.5 Urinalysis negative. CXR benign C. diff positive for active infection. Treatment of anemia, c. diff, LOBO w/ metabolic acidosis, and evaluation of CHF as described elsewhere. Continue supportive care: We will provide supportive care with clear day/night indications (communication order to turn on lights and open blinds; minimize nighttime interruptions). Out of bed for meals. Ambulate in the hallways twice daily. Continue to reorient but otherwise allow patient to confabulate to prevent anxiety/agitation so long as he remains safe. Minimize sedating medications. Family reassurance provided. (2) Acute on chronic renal insufficiency Is this a current diagnosis for this admission?: Yes Plan: Slight improvement today; 1.93-> 2.79-> 2.18. Baseline 1.9 Patient did have ATN initially during this admission requiring short-term dialysis. He was supported on a dopamine drip during this timeframe. His renal function did recover to his baseline CKD 3. Patient does appear euvolemic on exam, however, daily weights and I&O's have not been followed closely. Consider renal ultrasound. Check post void residual; patient does have a history of prostate cancer and may have a postobstructive process not previously identified. Continue gentle IV fluids. Avoid nephrotoxic medications as able; renally dosed where appropriate. Daily weights, strict I&O's. Follow-up chemistry. Low threshold for nephrology consultation. (3) Hyponatremia Is this a current diagnosis for this admission?: Yes Plan: Improved today; 132.7-> 136.2 Urine Osmolarity 76.2, Urine Sodium 31 Continue gentle IVF w/ banana bag nightly. Follow up chemistry. (4) Anemia Qualifiers: Anemia type: unspecified type Qualified Code(s): D64.9 - Anemia, unspecified Is this a current diagnosis for this admission?: Yes Plan: Hgb 10.8-> 9.9-> 11.9 (s/p 2 units)-> 12.4-> 9.4-> 7.7 Per patient and family, he has a history of iron deficiency anemia. Has a remote gastric bypass for which he received B12 injections. Anemia panel confirms iron deficiency. Guiac negative. Unfortunately, I&O's were not followed and so cannot determine whether or not this is potentially hemodilution as IV fluids were recently reinitiated and patient has some evidence of CHF. Vital signs are stable and exam is benign; low suspicion for acute blood loss anemia at this time. Will provide 2 units PRBC. Plan for Feraheme tomorrow. Follow up CBC Transfuse as necessary. Potential Hematology consultation. Surgery attending. (5) Metabolic acidosis Is this a current diagnosis for this admission?: Yes Plan: Secondary to acute on chronic kidney injury. ABG confirms compensated metabolic acidosis. PO BiCarb x 3 doses; will continue pending follow up chemistry. Management of LOBO as above. (6) Hypertension Qualifiers: Hypertension type: essential hypertension Qualified Code(s): I10 - Essential (primary) hypertension Is this a current diagnosis for this admission?: Yes Plan: Well-controlled at present. Continue carvedilol 12.5 mg every 12 hours. (7) Hypocalcemia Is this a current diagnosis for this admission?: Yes Plan: Corrected calcium 7.5. Start oral replacement. Follow-up chemistries. (8) Hypomagnesemia Is this a current diagnosis for this admission?: Yes Plan: Magnesium 1.3. IV replacement today. Follow-up mag level. (9) CHF (congestive heart failure) Qualifiers: Heart failure type: unspecified Heart failure chronicity: unspecified Qualified Code(s): I50.9 - Heart failure, unspecified Is this a current diagnosis for this admission?: Yes Plan: No known history of CHF. proBNP 5130. Troponin negative. EKG benign. Monitor I&O's closely. Daily weights. Echocardiogram pending. (10) C. difficile diarrhea Is this a current diagnosis for this admission?: Yes Plan: C. difficile positive. Start oral vancomycin 125 mg every 6 hours. Start lactobacillus. (11) Altered mental status Is this a current diagnosis for this admission?: Yes Plan: Secondary to #1 Further evaluation as above. (12) Weakness Is this a current diagnosis for this admission?: Yes Plan: PT/OT consultations. Out of bed activities. Ambulate the hallways with nursing. (13) Confabulation Is this a current diagnosis for this admission?: Yes Plan: Secondary to #1 Evaluation and management as above. (14) Obesity Qualifiers: Obesity type: unspecified obesity type Body mass index: BMI 31.0-31.9 Is this a current diagnosis for this admission?: Yes Plan: Continue prerenal diet. Dietary and lifestyle modification to be encouraged. Encourage pulmonary toilet and the position changes. - Time Time Spent with patient: 35 or more minutes Medications reviewed and adjusted accordingly: Yes Anticipated Discharge Disposition: undetermin Anticipated Discharge Timeframe: >72 hrs
[2020-07-30] MEDS: NORMAL SALINE 1000 ML 1,000 ML with POTASSIUM CHLORIDE 20 MEQ, MAGNESIUM SULFATE 8 MEQ,... IV SCH ×5 (17:58)
[2020-07-30] MEDS: VANCOMYCIN HCL INJ 500 MG VIAL PO SCH (17:58)
[2020-07-30 19:59] LABS: ABSOLUTE EOSINOPHILS # (AUTO) 0.1 10^3/uL (0.0-0.6); ABSOLUTE LYMPHOCYTES (AUTO) 0.5 10^3/uL (0.5-4.7); ABSOLUTE MONOCYTES (AUTO) 0.5 10^3/uL (0.1-1.4); ABSOLUTE NEUT (AUTO) 6.8 10^3/uL (1.7-8.2); BASOPHILS % (AUTO) 0.3 % (0-2); EOSINOPHILS % (AUTO) 0.7 % (0-6); HEMATOCRIT 33.4 % (37.9-51.0); LYMPHOCYTES % (AUTO) 5.7 % (13-45); MEAN CORPUSCULAR HEMOGLOBIN 29.1 pg (27.0-33.4); MEAN CORPUSCULAR HGB CONC 33.5 g/dL (32.0-36.0); MEAN CORPUSCULAR VOLUME 87 fl (80-97); MONOCYTES % (AUTO) 6.7 % (3-13); PLATELET COUNT 203 10^3/uL (150-450); RED BLOOD COUNT 3.83 10^6/uL (4.35-5.55); RED CELL DISTRIBUTION WIDTH 15.7 % (11.5-14.0); SEGMENTED NEUTROPHILS % (AUTO) 86.6 % (42-78); TOTAL CELLS COUNTED % (AUTO) 100 %; WHITE BLOOD COUNT 7.9 10^3/uL (4.0-10.5)
[2020-07-30 20:02] LABS: HEMOGLOBIN 11.2 g/dL (13.5-17.0)
[2020-07-31] MEDS: VANCOMYCIN HCL INJ 500 MG VIAL PO SCH ×6 (06:00→23:09)
[2020-07-31] MEDS: PANTOPRAZOLE SODIUM 40 MG TABLET.DR PO SCH (06:54)
[2020-07-31] MEDS: SODIUM BICARBONATE 650 MG TABLET PO SCH (06:54)
[2020-07-31 08:08] LABS: HEMATOCRIT 32.4 % (37.9-51.0); HEMOGLOBIN 10.9 g/dL (13.5-17.0); MEAN CORPUSCULAR HEMOGLOBIN 29.3 pg (27.0-33.4); MEAN CORPUSCULAR HGB CONC 33.6 g/dL (32.0-36.0); MEAN CORPUSCULAR VOLUME 87 fl (80-97); PLATELET COUNT 220 10^3/uL (150-450); RED BLOOD COUNT 3.72 10^6/uL (4.35-5.55); RED CELL DISTRIBUTION WIDTH 15.7 % (11.5-14.0); WHITE BLOOD COUNT 9.2 10^3/uL (4.0-10.5)
[2020-07-31 08:26] LABS: ALBUMIN 2.5 g/dL (3.5-5.0); ALKALINE PHOSPHATASE 119 U/L (38-126); ANION GAP 15 (5-19); ASPARTATE AMINO TRANSFERASE 24 U/L (17-59); BILIRUBIN,DIRECT 0.3 mg/dL (0.0-0.4); BILIRUBIN,TOTAL 0.7 mg/dL (0.2-1.3); BLOOD UREA NITROGEN 41 mg/dL (7-20); CALCIUM 8.2 mg/dL (8.4-10.2); CARBON DIOXIDE 14 mmol/L (22-30); CHLORIDE 109 mmol/L (98-107); GLUCOSE 99 mg/dL (75-110); POTASSIUM 3.8 mmol/L (3.6-5.0)
[2020-07-31] MEDS ORDERED: FUROSEMIDE INJ/PF 20 MG/2 ML SDV IV ONE ×2 (09:00→10:45)
[2020-07-31] MEDS ORDERED: DEXTROSE 5%-WATER 1000 ML 1,000 ML with SODIUM BICARBONATE 50 MEQ IV PRN ×2 (09:17)
[2020-07-31] MEDS: CALCIUM CARBONATE 600 MG/VITAMIN D3 400 UNIT TABLET PO SCH (10:40)
[2020-07-31] MEDS: SERTRALINE HCL 50 MG TABLET PO SCH (10:40)
[2020-07-31] MEDS: CARVEDILOL 12.5 MG TABLET PO SCH ×2 (10:42→21:30)
[2020-07-31] MEDS: NYSTATIN 500000 UNIT/5 ML UDCUP PO SCH ×4 (10:42→21:30)
[2020-07-31] MEDS: TAMSULOSIN HCL 0.4 MG CAP.SR.24H PO SCH (10:42)
[2020-07-31] MEDS: LACTOBACILLUS ACIDOPHILUS 250 MG TAB PO SCH ×2 (10:42→17:57)
--- NOTE | 2020-07-31 13:28 | PDOC PROGRESS REPORT ---
Subjective Date:: 07/31/20 Reason For Visit: DEHYDRATION,ANEMIA,S P CHOLECYSTECTOMY Physical Exam Vital Signs: Temp Pulse Resp BP Pulse Ox 97.8 F 78 20 171/94 H 98 07/31/20 12:00 07/31/20 12:00 07/31/20 12:00 07/31/20 12:00 07/31/20 12:00 Pulse Oximeter Continuous Start: 07/26/20 20:20 Freq: RTQ4 Status: Complete Protocol: Document 07/28/20 16:00 OPAL (Rec: 07/28/20 16:52 OPAL [email or web address]) Pulse Oximetry Assessment Oxygen Saturation (92-100) 93 Oxygen Delivery Method Room Air Fraction of Inspired Oxygen (FIO2) 21 Equipment Usage Equipment Standby Continuous SpO2 Machine # 4 Intake & Output 07/30/20 07/31/20 08/01/20 06:59 06:59 06:59 Intake Total 1940 1862 120 Output Total 1775 755 350 Balance 165 1107 -230 Weight 107.6 kg 107.6 kg Results Laboratory Results: 07/31/20 07:30 07/31/20 07:30 07/30/20 07/30/20 07/31/20 09:58 19:30 07:30 WBC 7.9 9.2 RBC 3.83 L 3.72 L Hgb 11.2 L D 10.9 L Hct 33.4 L 32.4 L MCV 87 87 MCH 29.1 29.3 MCHC 33.5 33.6 RDW 15.7 H 15.7 H Plt Count 203 220 Seg Neutrophils % 86.6 H Sodium Potassium Chloride Carbon Dioxide Anion Gap BUN Creatinine Est GFR ( Amer) Glucose Calcium Total Bilirubin AST Alkaline Phosphatase Total Protein Albumin Blood Type B POSITIVE Antibody Screen NEGATIVE 07/31/20 07:30 WBC RBC Hgb Hct MCV MCH MCHC RDW Plt Count Seg Neutrophils % Sodium 137.8 Potassium 3.8 Chloride 109 H Carbon Dioxide 14 L Anion Gap 15 BUN 41 H Creatinine 2.76 H Est GFR ( Amer) 27 L Glucose 99 Calcium 8.2 L Total Bilirubin 0.7 AST 24 Alkaline Phosphatase 119 Total Protein 5.0 L Albumin 2.5 L Blood Type Antibody Screen 07/29/20 20:10 Catheterized Urine Urine Culture - Final C.albicans/C.dubliniensis 07/29/20 07/29/20 07/30/20 18:37 18:37 04:26 Creatine Kinase 167 Troponin I < 0.012 NT-Pro-B Natriuret Pep 5130 H Impressions: Abdomen Ultrasound 07/12/20 01:29 IMPRESSION: 1. Free fluid noted in the right upper quadrant. 2. Postsurgical changes of interval cholecystectomy. 3. No biliary ductal dilatation. Retroperitoneal Abscess Drainage 07/13/20 00:00 IMPRESSION: SUCCESSFUL CT GUIDED RIGHT UPPER QUADRANT PIGTAIL CATHETER MARY CEMENT. Abdomen/Pelvis CT 07/20/20 00:00 IMPRESSION: Increasing size of the right subdiaphragmatic fluid collection. A 2nd drain will be placed. 2 new small fluid collections in the anterior aspect of the pelvis. These measure 5.8 x 5.8 cm and 4.9 x 3.2 cm respectively. Developing abscess cannot be excluded. Stable mild inflammatory change in the gallbladder fossa. There is air in the gallbladder presumably iatrogenic. Clinical correlation is needed. Guidance Needle Placement CT 07/20/20 00:00 IMPRESSION: Successful CT-guided percutaneous drain placement into the right subdiaphragmatic fluid collection. Percutaneous Drainage 07/20/20 00:00 IMPRESSION: Successful CT-guided percutaneous drain placement into the right subdiaphragmatic fluid collection. Abdomen MRI 07/22/20 00:00 IMPRESSION: Filling defect of some type in the distal common bile duct. Possibly blood products or small stone. No disruption of the common duct or pancreatic duct. Hepatobiliary Scan Nuclear Medicine 07/22/20 00:00 IMPRESSION: Evidence of bile leak as described. Cholangiogram 07/26/20 00:00 IMPRESSION: INTRAOPERATIVE CHOLANGIOGRAM. Guidance Fluoroscopy 07/26/20 00:00 IMPRESSION: INTRAOPERATIVE CHOLANGIOGRAM. Chest X-Ray 07/29/20 00:00 IMPRESSION: BASILAR ATELECTASIS. NO SIGNIFICANT CHANGE. Head CT 07/29/20 00:00 IMPRESSION: 1. No acute intracranial hemorrhage or mass effect. Nonspecific appearance compatible with chronic microvascular ischemic change is present. If there is clinical concern for acute stroke, consider MRI brain as a more sensitive evaluation. Assessment & Plan - Diagnosis (1) LOBO (acute kidney injury) Is this a current diagnosis for this admission?: Yes (2) Dehydration Is this a current diagnosis for this admission?: Yes (3) Weakness Is this a current diagnosis for this admission?: Yes (4) Bile leak, postoperative Is this a current diagnosis for this admission?: Yes - Time Anticipated Discharge Disposition: Home with Home Health Anticipated Discharge Timeframe: Unknown - Plan Summary Plan Summary: 75-year-old male status post open common bile duct exploration with extraction of multiple stones, T-tube placement, and completion cholecystectomy. His sensorium is improved today. He is off all narcotics. He did sleep well last night per nursing staff. He is tolerating regular diet. His THEE drains are productive of serosanguineous fluid. His T-tube is producing joseph bile. heparin discontinued due to low hemoglobin. PT/OT/ambulate in the hallways. Dilerium is much improved today. --> Continue with Tylenol only for pain. Hospitalist following. I appreciate their input. Needs to mobilize and remain awake during the daytime so he can sleep at night. C/o diarrhea --> c. diff positive. On oral vancomycin. No evidence of intra- abdominal sepsis or C. difficile toxicity, will start Cholestyramine to help bind the C. difficile spores and treat his diarrhea.
[2020-07-31] MEDS ORDERED: HYDRALAZINE HCL INJ/PF 20 MG/1 ML SDV IV PRN (14:51)
--- NOTE | 2020-07-31 15:03 | PDOC PROGRESS REPORT ---
Subjective Date:: 07/31/20 Subjective:: PARKER NOWAK is a 75 year old male with a past medical history of hypertension, hyperlipidemia, Iron deficiency anemia (family reports that he receives iron transfusions), GERD, BPH, and depression who was admitted 07/12/2020 to the surgical service for complication of laparoscopic cholecystectomy. Patient was seen on morning rounds with son present. He is found resting in b ed, comfortably, on room air. He was sleeping, but woke easily. He did answer a few questions, but quickly fell back to sleep. He is alert and oriented to self, place, year, and situation. He states he feels "fine but not ready to go home yet." Per son and nursing, confusion is decreased. Slept well overnight. Continues to have frequent loose stools. He does not clearly answer questions regarding ROS. Therefore it is limited. He does appear to be comfortable and is not noted to be in any acute distress at this time. Reviewed POC with family; all questions answered. No concerns per nursing. Reason For Visit: DEHYDRATION,ANEMIA,S P CHOLECYSTECTOMY Physical Exam Vital Signs: Temp Pulse Resp BP Pulse Ox 97.8 F 78 20 171/94 H 98 07/31/20 12:00 07/31/20 12:00 07/31/20 12:00 07/31/20 12:00 07/31/20 12:00 Pulse Oximeter Continuous Start: 07/26/20 20:20 Freq: RTQ4 Status: Complete Protocol: Document 07/28/20 16:00 OPAL (Rec: 07/28/20 16:52 OPAL [id number]) Pulse Oximetry Assessment Oxygen Saturation (92-100) 93 Oxygen Delivery Method Room Air Fraction of Inspired Oxygen (FIO2) 21 Equipment Usage Equipment Standby Continuous SpO2 Machine # 4 Intake & Output 07/30/20 07/31/20 08/01/20 06:59 06:59 06:59 Intake Total 1940 1862 120 Output Total 5354 745 350 Balance 165 1107 -230 Weight 107.6 kg 107.6 kg General appearance: PRESENT: no acute distress, cooperative, disheveled, well- developed, well-nourished - overweight Head exam: PRESENT: atraumatic, normocephalic Eye exam: PRESENT: conjunctiva pink, EOMI, PERRLA. ABSENT: scleral icterus Mouth exam: PRESENT: moist, tongue midline Respiratory exam: PRESENT: clear to auscultation gretta, symmetrical, unlabored, other - room air. ABSENT: rales, rhonchi, wheezes Cardiovascular exam: PRESENT: RRR. ABSENT: diastolic murmur, rubs, systolic mur mur Pulses: PRESENT: normal dorsalis pedis pul Vascular exam: PRESENT: normal capillary refill GI/Abdominal exam: PRESENT: normal bowel sounds, soft, other - THEE drains with scant serosanguineous fluid. PERC drain with bile. Right upper quadrant surgical incision well approximated with josé luis; no signs of infection. Inocencia umbilical ecchymosis. ABSENT: distended, guarding, mass, organolmegaly, rebound, tenderness Rectal exam: PRESENT: deferred Extremities exam: PRESENT: full ROM - moves all extremities. ABSENT: calf tenderness, clubbing, pedal edema Neurological exam: PRESENT: alert, awake, oriented to person, oriented to place, oriented to time, oriented to situation, CN II-XII grossly intact, other - Decreased confusion from yesterday. Does continue to confabulate. No visual/auditory hallucinations today.. ABSENT: motor sensory deficit Psychiatric exam: PRESENT: appropriate affect, normal mood. ABSENT: homicidal ideation, suicidal ideation Skin exam: PRESENT: dry, warm. ABSENT: cyanosis, rash Results Laboratory Results: 07/31/20 07:30 07/31/20 07:30 07/30/20 07/30/20 07/31/20 09:58 19:30 07:30 WBC 7.9 9.2 RBC 3.83 L 3.72 L Hgb 11.2 L D 10.9 L Hct 33.4 L 32.4 L MCV 87 87 MCH 29.1 29.3 MCHC 33.5 33.6 RDW 15.7 H 15.7 H Plt Count 203 220 Seg Neutrophils % 86.6 H Sodium Potassium Chloride Carbon Dioxide Anion Gap BUN Creatinine Est GFR ( Amer) Glucose Calcium Total Bilirubin AST Alkaline Phosphatase Total Protein Albumin Blood Type B POSITIVE Antibody Screen NEGATIVE 07/31/20 07:30 WBC RBC Hgb Hct MCV MCH MCHC RDW Plt Count Seg Neutrophils % Sodium 137.8 Potassium 3.8 Chloride 109 H Carbon Dioxide 14 L Anion Gap 15 BUN 41 H Creatinine 2.76 H Est GFR ( Amer) 27 L Glucose 99 Calcium 8.2 L Total Bilirubin 0.7 AST 24 Alkaline Phosphatase 119 Total Protein 5.0 L Albumin 2.5 L Blood Type Antibody Screen 07/29/20 20:10 Catheterized Urine Urine Culture - Final C.albicans/C.dubliniensis 07/29/20 07/29/20 07/30/20 18:37 18:37 04:26 Creatine Kinase 167 Troponin I < 0.012 NT-Pro-B Natriuret Pep 5130 H Impressions: Abdomen Ultrasound 07/12/20 01:29 IMPRESSION: 1. Free fluid noted in the right upper quadrant. 2. Postsurgical changes of interval cholecystectomy. 3. No biliary ductal dilatation. Retroperitoneal Abscess Drainage 07/13/20 00:00 IMPRESSION: SUCCESSFUL CT GUIDED RIGHT UPPER QUADRANT PIGTAIL CATHETER PLACEMENT. Abdomen/Pelvis CT 07/20/20 00:00 IMPRESSION: Increasing size of the right subdiaphragmatic fluid collection. A 2nd drain will be placed. 2 new small fluid collections in the anterior aspect of the pelvis. These measure 5.8 x 5.8 cm and 4.9 x 3.2 cm respectively. Developing abscess cannot be excluded. Stable mild inflammatory change in the gallbladder fossa. There is air in the gallbladder presumably iatrogenic. Clinical correlation is needed. Guidance Needle Placement CT 07/20/20 00:00 IMPRESSION: Successful CT-guided percutaneous drain placement into the right subdiaphragmatic fluid collection. Percutaneous Drainage 07/20/20 00:00 IMPRESSION: Successful CT-guided percutaneous drain placement into the right subdiaphragmatic fluid collection. Abdomen MRI 07/22/20 00:00 IMPRESSION: Filling defect of some type in the distal common bile duct. Possibly blood products or small stone. No disruption of the common duct or pancreatic duct. Hepatobiliary Scan Nuclear Medicine 07/22/20 00:00 IMPRESSION: Evidence of bile leak as described. Cholangiogram 07/26/20 00:00 IMPRESSION: INTRAOPERATIVE CHOLANGIOGRAM. Guidance Fluoroscopy 07/26/20 00:00 IMPRESSION: INTRAOPERATIVE CHOLANGIOGRAM. Chest X-Ray 07/29/20 00:00 IMPRESSION: BASILAR ATELECTASIS. NO SIGNIFICANT CHANGE. Head CT 07/29/20 00:00 IMPRESSION: 1. No acute intracranial hemorrhage or mass effect. Nonspecific appearance compatible with chronic microvascular ischemic change is present. If there is clinical concern for acute stroke, consider MRI brain as a more sensitive evaluation. Assessment and Plan - Diagnosis (1) Acute metabolic encephalopathy Is this a current diagnosis for this admission?: Yes Plan: Slightly Improved. Likely multifactorial secondary to acute illness (c. diff, bile leaks s/p cholecystectomy), LOBO w/ metabolic acidosis, and hospital psychosis in patient with likely underlying early dementia. Family members also confide that patient has a hx of heavy EtOH use (sober for many years) and there has been suspicion of recent drinking. CT head is negative for acute findings. Does reveal chronic microvascular disease. Check EKG reassuring. Troponin nml. proBNP elevated to 5130; no prior history of CHF TSH and B12 nml Thiamine and vitamin D pending. AM cortisol level as expected given acute illness/surgeries (slightly elevated) Sodium is improved. Magnesium 1.3. Corrected calcium 7.5 Urinalysis negative. CXR benign C. diff positive for active infection. Treatment of anemia, c. diff, LOBO w/ metabolic acidosis, and evaluation of CHF as described elsewhere. Continue supportive care: We will provide supportive care with clear day/night indications (communication order to turn on lights and open blinds; minimize nighttime interruptions). Out of bed for meals. Ambulate in the hallways twice daily. Continue to reorient but otherwise allow patient to confabulate to prevent anxiety/agitation so long as he remains safe. Minimize sedating medications. Family reassurance provided. (2) Acute on chronic renal insufficiency Is this a current diagnosis for this admission?: Yes Plan: Slight improvement today; 1.93-> 2.79-> 2.18-> 2.7. Baseline 1.9 Patient did have ATN initially during this admission requiring short-term dialysis. He was supported on a dopamine drip during this timeframe. His renal function did recover to his baseline CKD 3. FeNA 0/.7% = Prerenal Continue gentle IV fluids. Avoid nephrotoxic medications as able; renally dosed where appropriate. Daily weights, strict I&O's. Follow-up chemistry. Low threshold for nephrology consultation. (3) Hyponatremia Is this a current diagnosis for this admission?: Yes Plan: Resolved; 132.7-> 136.2-> 137..8 Urine Osmolarity 76.2, Urine Sodium 31 Continue gentle IVF w/ banana bag nightly. Receiving D5 w/ Bicarb today x 1 L (Bicarb 50 mEq) which may decrease sodium slightly. Follow up chemistry. (4) Anemia Qualifiers: Anemia type: unspecified type Qualified Code(s): D64.9 - Anemia, unspecified Is this a current diagnosis for this admission?: Yes Plan: Hgb 10.8-> 9.9-> 11.9 (s/p 2 units)-> 12.4-> 9.4-> 7.7-> 11.2 (s/p 2 units PRBC)-> 10.9 Per patient and family, he has a history of iron deficiency anemia. Has a remote gastric bypass for which he received B12 injections. Anemia panel confirms iron deficiency. Guiac negative. Vital signs are stable and exam is benign; no suspicion for acute blood loss anemia at this time. Has received 4 units PRBC Plan for Feraheme tomorrow. Follow up CBC Transfuse as necessary. Potential Hematology consultation. Surgery attending. (5) Metabolic acidosis Is this a current diagnosis for this admission?: Yes Plan: Bicarb trending down; 20-> 17-> 16-> 14 Secondary to acute on chronic kidney injury w/ dehydration. ABG confirms compensated metabolic acidosis. PO BiCarb x 3 doses w/o effect No further furosemide (peripheral edema resolved) Continue gentle IVF; D5 w/ Bibarb 50 mEQ x1 L today Further management of LOBO as above. Low threshold for nephrology consultation. Follow up chemistry. (6) Hypertension Qualifiers: Hypertension type: essential hypertension Qualified Code(s): I10 - Essential (primary) hypertension Is this a current diagnosis for this admission?: Yes Plan: Elevated today Continue carvedilol 12.5 mg every 12 hours. Hold MELANIA/ARB r/t renal function. IV Hydralazine prn (7) Hypocalcemia Is this a current diagnosis for this admission?: Yes Plan: Corrected calcium 9.4 Received oral replacement; now on hold while rehydrating. May need to resume. Follow-up chemistries. (8) Hypomagnesemia Is this a current diagnosis for this admission?: Yes Plan: Replete Periodic follow-up mag level. (9) CHF (congestive heart failure) Qualifiers: Heart failure type: unspecified Heart failure chronicity: unspecified Qualified Code(s): I50.9 - Heart failure, unspecified Is this a current diagnosis for this admission?: Yes Plan: No known history of CHF. proBNP 5130. Troponin negative. EKG benign. Monitor I&O's closely. Daily weights. Echocardiogram pending. (10) C. difficile diarrhea Is this a current diagnosis for this admission?: Yes Plan: C. difficile positive. Start oral vancomycin 125 mg every 6 hours. Start lactobacillus. (11) Altered mental status Is this a current diagnosis for this admission?: Yes Plan: Secondary to #1 Further evaluation as above. (12) Weakness Is this a current diagnosis for this admission?: Yes Plan: PT/OT consultations. Out of bed activities. Ambulate the hallways with nursing. (13) Confabulation Is this a current diagnosis for this admission?: Yes Plan: Secondary to #1 Evaluation and management as above. (14) Obesity Qualifiers: Obesity type: unspecified obesity type Body mass index: BMI 31.0-31.9 Is this a current diagnosis for this admission?: Yes Plan: Continue prerenal diet. Dietary and lifestyle modification to be encouraged. Encourage pulmonary toilet and the position changes. - Time Time Spent with patient: 35 or more minutes Medications reviewed and adjusted accordingly: Yes Anticipated Discharge Disposition: unknown Anticipated Discharge Timeframe: >72 hrs
[2020-07-31] MEDS: CHOLESTYRAMINE 4 GM PACKET PO SCH (15:41)
[2020-07-31] MEDS: NORMAL SALINE 1000 ML 1,000 ML with POTASSIUM CHLORIDE 20 MEQ, MAGNESIUM SULFATE 8 MEQ,... IV SCH ×5 (17:58)
[2020-08-01] MEDS: VANCOMYCIN HCL INJ 500 MG VIAL PO SCH ×3 (05:14→17:15)
[2020-08-01] MEDS: PANTOPRAZOLE SODIUM 40 MG TABLET.DR PO SCH (05:15)
[2020-08-01 08:17] LABS: ABSOLUTE EOSINOPHILS # (AUTO) 0.2 10^3/uL (0.0-0.6); ABSOLUTE LYMPHOCYTES (AUTO) 0.6 10^3/uL (0.5-4.7); ABSOLUTE MONOCYTES (AUTO) 0.5 10^3/uL (0.1-1.4); ABSOLUTE NEUT (AUTO) 5.7 10^3/uL (1.7-8.2); BASOPHILS % (AUTO) 0.5 % (0-2); HEMATOCRIT 30.5 % (37.9-51.0); HEMOGLOBIN 10.5 g/dL (13.5-17.0); LYMPHOCYTES % (AUTO) 8.3 % (13-45); MEAN CORPUSCULAR HEMOGLOBIN 29.8 pg (27.0-33.4); MEAN CORPUSCULAR HGB CONC 34.5 g/dL (32.0-36.0); MEAN CORPUSCULAR VOLUME 86 fl (80-97); MONOCYTES % (AUTO) 7.5 % (3-13); PLATELET COUNT 217 10^3/uL (150-450); RED BLOOD COUNT 3.54 10^6/uL (4.35-5.55); RED CELL DISTRIBUTION WIDTH 15.9 % (11.5-14.0); SEGMENTED NEUTROPHILS % (AUTO) 80.7 % (42-78); TOTAL CELLS COUNTED % (AUTO) 100 %
[2020-08-01 08:45] LABS: ALBUMIN 2.3 g/dL (3.5-5.0); ALKALINE PHOSPHATASE 110 U/L (38-126); ANION GAP 12 (5-19); ASPARTATE AMINO TRANSFERASE 19 U/L (17-59); BILIRUBIN,DIRECT 0.3 mg/dL (0.0-0.4); BILIRUBIN,TOTAL 0.6 mg/dL (0.2-1.3); BLOOD UREA NITROGEN 36 mg/dL (7-20); CALCIUM 7.6 mg/dL (8.4-10.2); CARBON DIOXIDE 15 mmol/L (22-30); CHLORIDE 110 mmol/L (98-107); GLUCOSE 94 mg/dL (75-110); POTASSIUM 3.5 mmol/L (3.6-5.0); TOTAL PROTEIN 4.8 g/dL (6.3-8.2)
[2020-08-01] MEDS ORDERED: FERUMOXYTOL 510 MG in NORMAL SALINE 100 ML IV ONE (09:00)
[2020-08-01] MEDS: NYSTATIN 500000 UNIT/5 ML UDCUP PO SCH ×4 (09:57→21:17)
[2020-08-01] MEDS: CARVEDILOL 12.5 MG TABLET PO SCH ×2 (09:58→21:18)
[2020-08-01] MEDS: LACTOBACILLUS ACIDOPHILUS 250 MG TAB PO SCH ×2 (09:58→17:16)
[2020-08-01] MEDS: TAMSULOSIN HCL 0.4 MG CAP.SR.24H PO SCH (09:59)
[2020-08-01] MEDS: SERTRALINE HCL 50 MG TABLET PO SCH (09:59)
[2020-08-01] MEDS: CHOLESTYRAMINE 4 GM PACKET PO SCH (09:59)
[2020-08-01] MEDS ORDERED: POTASSIUM CHLORIDE 10 MEQ TABLET.ER PO ONE ×2 (10:39→12:54)
[2020-08-01] MEDS: SODIUM BICARBONATE 650 MG TABLET PO SCH ×2 (13:00→21:18)
--- NOTE | 2020-08-01 13:54 | PDOC PROGRESS REPORT ---
Subjective Date:: 08/01/20 Subjective:: PARKER NOWAK is a 75 year old male with a past medical history of hypertension, hyperlipidemia, Iron deficiency anemia (family reports that he receives iron transfusions), GERD, BPH, and depression who was admitted 07/12/2020 to the surgical service for complication of laparoscopic cholecystectomy. Patient was seen on morning rounds with daughter present. He is found resting in bed, comfortably, on room air. He was awake, A&Ox4. He does not recall the events of the last few days, however, is able to answer questions regarding his recent health, hospital admission, and gallbladder surgery in great detail. He recognized Dr. Liang, waved to her and called her by name. Was no evidence of disorganized thought, confabulation, or confusion. He does report fatigue, and generalized abdominal discomfort, however, improved from prior. Overall, he states that he is feeling well and hopeful to be in recovering to return to home soon. He denies fever, chest pain, palpitations, dyspnea, cough, nausea, vomiting, diarrhea. Reports that he ate approximately 50% of his omelette. He states that this is about his normal oral intake (s/p remote gastric bypass). He has no questions or concerns at this time. No concerns per nursing. Reason For Visit: DEHYDRATION,ANEMIA,S P CHOLECYSTECTOMY Physical Exam Vital Signs: Temp Pulse Resp BP Pulse Ox 98 F 67 16 144/86 H 97 08/01/20 10:00 07/31/20 20:00 07/31/20 20:00 07/31/20 20:00 07/31/20 20:00 Pulse Oximeter Continuous Start: 07/26/20 20:20 Freq: RTQ4 Status: Complete Protocol: Document 07/28/20 16:00 OPAL (Rec: 07/28/20 16:52 OPAL [id number]) Pulse Oximetry Assessment Oxygen Saturation (92-100) 93 Oxygen Delivery Method Room Air Fraction of Inspired Oxygen (FIO2) 21 Equipment Usage Equipment Standby Continuous SpO2 Machine # 4 Intake & Output 07/31/20 08/01/20 08/02/20 06:59 06:59 06:59 Intake Total 2742 3506 Output Total 070 1195 Balance 1107 1091 Weight 107.6 kg 105.007 kg General appearance: PRESENT: no acute distress, cooperative, well-developed, well-nourished - Overweight Head exam: PRESENT: atraumatic, normocephalic Eye exam: PRESENT: conjunctiva pink, EOMI, PERRLA. ABSENT: scleral icterus Mouth exam: PRESENT: moist, tongue midline Respiratory exam: PRESENT: clear to auscultation gretta, symmetrical, unlabored, other - Room air. ABSENT: rales, rhonchi, wheezes Cardiovascular exam: PRESENT: RRR, +S1, +S2. ABSENT: diastolic murmur, rubs, systolic murmur Pulses: PRESENT: normal dorsalis pedis pul Vascular exam: PRESENT: normal capillary refill GI/Abdominal exam: PRESENT: normal bowel sounds, soft, tenderness - Generalized, other - P drains with scant serosanguineous fluid. PERC drain with bile. Right upper quadrant surgical incision well approximated with josé luis; no signs of infection. Periumbilical ecchymosis; improved.. ABSENT: distended, guarding, mass, organolmegaly, rebound Rectal exam: PRESENT: deferred, other - FMS Extremities exam: PRESENT: full ROM. ABSENT: calf tenderness, clubbing, pedal edema Neurological exam: PRESENT: alert, awake, oriented to person, oriented to place, oriented to time, oriented to situation, CN II-XII grossly intact. ABSENT: motor sensory deficit Psychiatric exam: PRESENT: appropriate affect, normal mood. ABSENT: homicidal ideation, suicidal ideation Skin exam: PRESENT: dry, intact, warm, other - Hyperpigmentation/chronic venous stasis changes bilateral lower extremities. ABSENT: cyanosis, rash Results Laboratory Results: 08/01/20 07:43 08/01/20 07:43 08/01/20 08/01/20 08/01/20 07:43 07:43 07:43 WBC 7.0 RBC 3.54 L Hgb 10.5 L Hct 30.5 L MCV 86 MCH 29.8 MCHC 34.5 RDW 15.9 H Plt Count 217 Seg Neutrophils % 80.7 H Sodium 136.6 L Potassium 3.5 L Chloride 110 H Carbon Dioxide 15 L Anion Gap 12 BUN 36 H Creatinine 2.30 H Est GFR ( Amer) 34 L Glucose 94 Calcium 7.6 L Magnesium 1.9 Total Bilirubin 0.6 AST 19 Alkaline Phosphatase 110 Total Protein 4.8 L Albumin 2.3 L 11/20/20 20:10 Catheterized Urine Urine Culture - Final C.albicans/C.dubliniensis 07/29/20 07/29/20 07/30/20 18:37 18:37 04:26 Creatine Kinase 167 Troponin I < 0.012 NT-Pro-B Natriuret Pep 5130 H Impressions: Abdomen Ultrasound 07/12/20 01:29 IMPRESSION: 1. Free fluid noted in the right upper quadrant. 2. Postsurgical changes of interval cholecystectomy. 3. No biliary ductal dilatation. Retroperitoneal Abscess Drainage 07/13/20 00:00 IMPRESSION: SUCCESSFUL CT GUIDED RIGHT UPPER QUADRANT PIGTAIL CATHETER PLACEMENT. Abdomen/Pelvis CT 07/20/20 00:00 IMPRESSION: Increasing size of the right subdiaphragmatic fluid collection. A 2nd drain will be placed. 2 new small fluid collections in the anterior aspect of the pelvis. These measure 5.8 x 5.8 cm and 4.9 x 3.2 cm respectively. Developing abscess cannot be excluded. Stable mild inflammatory change in the gallbladder fossa. There is air in the gallbladder presumably iatrogenic. Clinical correlation is needed. Guidance Needle Placement CT 07/20/20 00:00 IMPRESSION: Successful CT-guided percutaneous drain placement into the right subdiaphragmatic fluid collection. Percutaneous Drainage 07/20/20 00:00 IMPRESSION: Successful CT-guided percutaneous drain placement into the right subdiaphragmatic fluid collection. Abdomen MRI 07/22/20 00:00 IMPRESSION: Filling defect of some type in the distal common bile duct. Possibly blood products or small stone. No disruption of the common duct or pancreatic duct. Hepatobiliary Scan Nuclear Medicine 07/22/20 00:00 IMPRESSION: Evidence of bile leak as described. Cholangiogram 07/26/20 00:00 IMPRESSION: INTRAOPERATIVE CHOLANGIOGRAM. Guidance Fluoroscopy 07/26/20 00:00 IMPRESSION: INTRAOPERATIVE CHOLANGIOGRAM. Chest X-Ray 07/29/20 00:00 IMPRESSION: BASILAR ATELECTASIS. NO SIGNIFICANT CHANGE. Head CT 07/29/20 00:00 IMPRESSION: 1. No acute intracranial hemorrhage or mass effect. Nonspecific appearance compatible with chronic microvascular ischemic change is present. If there is clinical concern for acute stroke, consider MRI brain as a more sensitive evaluation. Assessment and Plan - Diagnosis (1) Acute metabolic encephalopathy Is this a current diagnosis for this admission?: Yes Plan: Resolved; now alert and oriented x4. Likely multifactorial secondary to acute illness (c. diff, bile leaks s/p cholecystectomy), LOBO w/ metabolic acidosis, and hospital psychosis in patient with likely underlying early dementia. Family members also confide that patient has a hx of heavy EtOH use (sober for many years) and there has been suspicion of recent drinking. CT head is negative for acute findings. Does reveal chronic microvascular disease. Check EKG reassuring. Troponin nml. proBNP elevated to 5130; no prior history of CHF TSH and B12 nml Thiamine and vitamin D pending. AM cortisol level as expected given acute illness/surgeries (slightly elevated) Sodium is improved. Magnesium 1.3. Corrected calcium 7.5 Urinalysis negative. CXR benign C. diff positive for active infection. Treatment of anemia, c. diff, LOBO w/ metabolic acidosis, and evaluation of CHF as described elsewhere. Continue supportive care: We will provide supportive care with clear day/night indications (communication order to turn on lights and open blinds; minimize nighttime interruptions). Out of bed for meals. Ambulate in the hallways twice daily. Continue to reorient but otherwise allow patient to confabulate to prevent anxiety/agitation so long as he remains safe. Minimize sedating medications. Family reassurance provided. (2) Acute on chronic renal insufficiency Is this a current diagnosis for this admission?: Yes Plan: Slight improvement today; 1.93-> 2.79-> 2.18-> 2.76-> 2.30. Baseline 1.9 Patient did have ATN initially during this admission requiring short-term dialysis. He was supported on a dopamine drip during this timeframe. His renal function did recover to his baseline CKD 3. FeNA 0/.7% = Prerenal Continue gentle IV fluids. Avoid nephrotoxic medications as able; renally dosed where appropriate. Daily weights, strict I&O's. Follow-up chemistry. Low threshold for nephrology consultation. (3) Hyponatremia Is this a current diagnosis for this admission?: Yes Plan: Resolved; 132.7-> 136.2-> 137.8 Urine Osmolarity 76.2, Urine Sodium 31 Continue gentle IVF w/ banana bag nightly. Receiving D5 w/ Bicarb x 1 L (Bicarb 50 mEq) which may have contributed to the slight decrease in sodium. Follow up chemistry. (4) Anemia Qualifiers: Anemia type: unspecified type Qualified Code(s): D64.9 - Anemia, unspecified Is this a current diagnosis for this admission?: Yes Plan: Hgb 10.8-> 9.9-> 11.9 (s/p 2 units)-> 12.4-> 7.7-> 11.2 (s/p 2 units PRBC)-> 10.9-> 10.5 Per patient and family, he has a history of iron deficiency anemia. Has a remote gastric bypass for which he received B12 injections. Anemia panel confirms iron deficiency. Guiac negative. Vital signs are stable and exam is benign; no suspicion for acute blood loss anemia at this time. Has received 4 units PRBC IV Feraheme today Follow up CBC Transfuse as necessary. Potential Hematology consultation; followed by Dr. Maynard as outpatient. Surgery attending. (5) Metabolic acidosis Is this a current diagnosis for this admission?: Yes Plan: Bicarb trending down; 20-> 17-> 16-> 14-> 15 Secondary to acute on chronic kidney injury w/ dehydration. ABG confirms compensated metabolic acidosis. No further furosemide (peripheral edema resolved) Continue gentle IVF; received D5 w/ Bibarb 50 mEQ x1 L yesterday Further management of LOBO as above. Nephrology re-consultation requested. Appreciate Dr. Liang's assistance; has ordered PO sodium bicarb and potassium Follow up chemistry. (6) Hypertension Qualifiers: Hypertension type: essential hypertension Qualified Code(s): I10 - Essential (primary) hypertension Is this a current diagnosis for this admission?: Yes Plan: Improved today. Continue carvedilol 12.5 mg every 12 hours. Hold MELANIA/ARB r/t renal function. IV Hydralazine prn (7) Hypocalcemia Is this a current diagnosis for this admission?: Yes Plan: Corrected calcium 9.0 Received oral replacement; now on hold while rehydrating. May need to resume. Follow-up chemistries. (8) Hypomagnesemia Is this a current diagnosis for this admission?: Yes Plan: Replete Periodic follow-up mag level. (9) CHF (congestive heart failure) Qualifiers: Heart failure type: unspecified Heart failure chronicity: unspecified Qualified Code(s): I50.9 - Heart failure, unspecified Is this a current diagnosis for this admission?: Yes Plan: No known history of CHF. proBNP 5130. Troponin negative. EKG benign Echocardiogram pending. Monitor I&O's closely. Daily weights. (10) C. difficile diarrhea Is this a current diagnosis for this admission?: Yes Plan: C. difficile positive. Start oral vancomycin 125 mg every 6 hours. Start lactobacillus. (11) Altered mental status Is this a current diagnosis for this admission?: Yes Plan: Resolved. Secondary to #1 Further evaluation as above. (12) Weakness Is this a current diagnosis for this admission?: Yes Plan: PT/OT consultations. Out of bed activities. Ambulate the hallways with nursing. (13) Confabulation Is this a current diagnosis for this admission?: Yes Plan: Resolved. Secondary to #1 Evaluation and management as above. (14) Obesity Qualifiers: Obesity type: unspecified obesity type Body mass index: BMI 31.0-31.9 Is this a current diagnosis for this admission?: Yes Plan: Continue prerenal diet. Dietary and lifestyle modification to be encouraged. Encourage pulmonary toilet and the position changes. - Time Time Spent with patient: 25-34 minutes Medications reviewed and adjusted accordingly: Yes Anticipated Discharge Disposition: unclear Anticipated Discharge Timeframe: >72 hrs
[2020-08-01] MEDS: ACETAMINOPHEN 325 MG TABLET PO PRN (15:58)
--- NOTE | 2020-08-01 16:08 | PDOC PROGRESS REPORT ---
Subjective Date:: 08/01/20 Reason For Visit: DEHYDRATION,ANEMIA,S P CHOLECYSTECTOMY Physical Exam Vital Signs: Temp Pulse Resp BP Pulse Ox 98.1 F 76 17 139/71 H 97 08/01/20 13:31 08/01/20 13:31 08/01/20 13:31 08/01/20 13:31 08/01/20 13:31 Pulse Oximeter Continuous Start: 07/26/20 20:20 Freq: RTQ4 Status: Complete Protocol: Document 07/28/20 16:00 OAPL (Rec: 07/28/20 16:52 OPAL [id number]) Pulse Oximetry Assessment Oxygen Saturation (92-100) 93 Oxygen Delivery Method Room Air Fraction of Inspired Oxygen (FIO2) 21 Equipment Usage Equipment Standby Continuous SpO2 Machine # 4 Intake & Output 07/31/20 08/01/20 08/02/20 06:59 06:59 06:59 Intake Total 1862 2286 1100 Output Total 755 1195 Balance 1107 1091 1100 Weight 107.6 kg 105.007 kg 105 kg Results Laboratory Results: 08/01/20 07:43 08/01/20 07:43 08/01/20 08/01/20 08/01/20 07:43 07:43 07:43 WBC 7.0 RBC 3.54 L Hgb 10.5 L Hct 30.5 L MCV 86 MCH 29.8 MCHC 34.5 RDW 15.9 H Plt Count 217 Seg Neutrophils % 80.7 H Sodium 136.6 L Potassium 3.5 L Chloride 110 H Carbon Dioxide 15 L Anion Gap 12 BUN 36 H Creatinine 2.30 H Est GFR ( Amer) 34 L Glucose 94 Calcium 7.6 L Magnesium 1.9 Total Bilirubin 0.6 AST 19 Alkaline Phosphatase 110 Total Protein 4.8 L Albumin 2.3 L 07/29/20 20:10 Catheterized Urine Urine Culture - Final C.albicans/C.dubliniensis 07/29/20 07/29/20 07/30/20 18:37 18:37 04:26 Creatine Kinase 167 Troponin I < 0.012 NT-Pro-B Natriuret Pep 5130 H Impressions: Abdomen Ultrasound 07/12/20 01:29 IMPRESSION: 1. Free fluid noted in the right upper quadrant. 2. Postsurgical changes of interval cholecystectomy. 3. No biliary ductal dilatation. Retroperitoneal Abscess Drainage 07/13/20 00:00 IMPRESSION: SUCCESSFUL CT GUIDED RIGHT UPPER QUADRANT PIGTAIL CATHETER PLACEMENT. Abdomen/Pelvis CT 07/20/20 00:00 IMPRESSION: Increasing size of the right subdiaphragmatic fluid collection. A 2nd drain will be placed. 2 new small fluid collections in the anterior aspect of the pelvis. These measure 5.8 x 5.8 cm and 4.9 x 3.2 cm respectively. Developing abscess cannot be excluded. Stable mild inflammatory change in the gallbladder fossa. There is air in the gallbladder presumably iatrogenic. Clinical correlation is needed. Guidance Needle Placement CT 07/20/20 00:00 IMPRESSION: Successful CT-guided percutaneous drain placement into the right subdiaphragmatic fluid collection. Percutaneous Drainage 07/20/20 00:00 IMPRESSION: Successful CT-guided percutaneous drain placement into the right subdiaphragmatic fluid collection. Abdomen MRI 07/22/20 00:00 IMPRESSION: Filling defect of some type in the distal common bile duct. Possibly blood products or small stone. No disruption of the common duct or pancreatic duct. Hepatobiliary Scan Nuclear Medicine 07/22/20 00:00 IMPRESSION: Evidence of bile leak as described. Cholangiogram 07/26/20 00:00 IMPRESSION: INTRAOPERATIVE CHOLANGIOGRAM. Guidance Fluoroscopy 07/26/20 00:00 IMPRESSION: INTRAOPERATIVE CHOLANGIOGRAM. Chest X-Ray 07/29/20 00:00 IMPRESSION: BASILAR ATELECTASIS. NO SIGNIFICANT CHANGE. Head CT 07/29/20 00:00 IMPRESSION: 1. No acute intracranial hemorrhage or mass effect. Nonspecific appearance compatible with chronic microvascular ischemic change is present. If there is clinical concern for acute stroke, consider MRI brain as a more sensitive evaluation. Assessment & Plan - Diagnosis (1) LOBO (acute kidney injury) Is this a current diagnosis for this admission?: Yes (2) Dehydration Is this a current diagnosis for this admission?: Yes (3) Weakness Is this a current diagnosis for this admission?: Yes (4) Bile leak, postoperative Is this a current diagnosis for this admission?: Yes - Time Anticipated Discharge Disposition: Home with Home Health Anticipated Discharge Timeframe: unknown - Plan Summary Plan Summary: 75-year-old male status post open common bile duct exploration with extraction of multiple stones, T-tube placement, and completion cholecystectomy. His sensorium has returned to baseline. He is off all narcotics. He did sleep well last night per nursing staff. He is tolerating regular diet. His THEE drains are productive of serosanguineous fluid. His T-tube is producing joseph bile. heparin discontinued due to low hemoglobin. PT/OT/ambulate in the hallways. Dilerium is much improved today. --> Continue with Tylenol only for pain. Hospitalist following. I appreciate their input. Needs to mobilize and remain awake during the daytime so he can sleep at night. C/o diarrhea --> c. diff positive. On oral vancomycin. No evidence of intra- abdominal sepsis or C. difficile toxicity. Taking Cholestyramine to help bind the C. difficile spores and treat his diarrhea. This appears to be working well.
[2020-08-01] MEDS: NORMAL SALINE 1000 ML 1,000 ML IV PRN (17:16)
--- NOTE | 2020-08-01 20:15 | XCELERA REPORT ---
[address] [address] Transthoracic Echocardiogram Report Name: PARKER NOWAK Age: 75 yrs Gender: Male : 1945 Patient Status: Inpatient Patient Location: [facility]^A Study Date: 08/01/2020 09:17 AM Height: 74 in Weight: 232 lb BSA: 2.3 m2 Procedure: A complete two-dimensional transthoracic echocardiogram was performed (2D, M-mode, spectral and color flow Doppler). The study was technically difficult with many images being suboptimal in quality. Reason For Study: CHF Ordering Physician: TOÑA MEDRANO Performed By: Richelle Thomas Interpretation Summary The left ventricle is grossly normal size. The left ventricle is hyperdynamic. Left ventricular systolic function is normal. The Ejection Fraction estimate is >70%. Doppler measurements suggest reversible restrictive left ventricular relaxation, which is associated with grade III/IV or moderate diastolic dysfunction. Regional wall motion abnormalities cannot be excluded due to limited visualization. Trace MR, trace AI, mild TR. MMode/2D Measurements & Calculations RVDd: 2.9 cm LVIDd: 5.6 cm FS: 35.9 % Ao root diam: 3.0 cm IVSd: 1.1 cm LVIDs: 3.6 cm EDV(Teich): 151.1 ml Ao root area: 6.9 cm2 LVPWd: 0.88 cm ESV(Teich): 53.1 ml EF(Teich): 64.9 % Doppler Measurements & Calculations MV E max kailey: MV dec slope: Ao V2 max: LV V1 max P.2 cm/sec 496.0 cm/sec2 148.3 cm/sec 6.1 mmHg MV A max kailey: MV dec time: Ao max PG: LV V1 mean P.5 cm/sec 0.22 sec 8.8 mmHg 2.8 mmHg MV E/A: 2.1 Ao V2 mean: LV V1 max: 101.1 cm/sec 123.8 cm/sec Ao mean PG: LV V1 mean: 4.6 mmHg 77.2 cm/sec Ao V2 VTI: 26.6 cm LV V1 VTI: 22.9 cm PA V2 max: TR max kailey: 187.7 cm/sec 267.8 cm/sec PA max PG: TR max P.7 mmHg 14.1 mmHg Left Ventricle The left ventricle is grossly normal size. The left ventricle is hyperdynamic. Left ventricular systolic function is normal. The Ejection Fraction estimate is >70%. Doppler measurements suggest reversible restrictive left ventricular relaxation, which is associated with grade III/IV or moderate diastolic dysfunction. Regional wall motion abnormalities cannot be excluded due to limited visualization. Right Ventricle The right ventricle is grossly normal size. The right ventricular systolic function is normal. Atria The right atrium is normal. The left atrium is mildly dilated. Interarterial septum not well visualized and not well dopplered. Cannot comment on ASD/PFO presence. Mitral Valve The mitral valve is normal in structure and function. There is a trace amount of mitral regurgitation. Aortic Valve The aortic valve is sclerotic, but shows no functional abnormality. There is a trace amount of aortic regurgitation. Tricuspid Valve The tricuspid is normal in structure and function. There is a mild amount of tricuspid regurgitation. Pulmonic Valve The pulmonic valve is not well visualized. There is no pulmonic valvular regurgitation. Great Vessels The aortic root is not well visualized. The inferior vena cava was not well visualized. : TOÑA MEDRANO Antonio
--- NOTE | 2020-08-01 20:18 | PDOC PROGRESS REPORT ---
Subjective Date:: 08/01/20 Subjective:: I was reconsulted due to electrolyte and metabolic abnormalities. Events over t he weekend noted. Apparently the patient had an episode of acute encephalopathy deemed to be possibly due to to dehydration. He was given 2 units of packed RBC with hemoglobin improving from 7.7 to current of 10.5. He was also given a liter of bicarb drip with 50 mEq of bicarbonate. He is currently being treated for C. difficile infection. Today when I saw the patient is pretty much at his baseline mental state delay I have seen him a couple weeks ago. He is awake and answering questions ap propriately. Daughter is at bedside. He admits that he is really not eating much nor drinking much fluids. He still having loose stools. Reason For Visit: DEHYDRATION,ANEMIA,S P CHOLECYSTECTOMY Physical Exam Vital Signs: Temp Pulse Resp BP Pulse Ox 98 F 67 16 144/86 H 97 07/31/20 20:00 07/31/20 20:00 07/31/20 20:00 07/31/20 20:00 07/31/20 20:00 Pulse Oximeter Continuous Start: 07/26/20 20:20 Freq: RTQ4 Status: Complete Protocol: Document 07/28/20 16:00 OPAL (Rec: 07/28/20 16:52 OPAL [email or web address]) Pulse Oximetry Assessment Oxygen Saturation (92-100) 93 Oxygen Delivery Method Room Air Fraction of Inspired Oxygen (FIO2) 21 Equipment Usage Equipment Standby Continuous SpO2 Machine # 4 Intake & Output 07/31/20 08/01/20 08/02/20 06:59 06:59 06:59 Intake Total 1862 2286 Output Total 755 1195 Balance 1107 1091 Weight 107.6 kg 105.007 kg Exam: General appearance: PRESENT: no acute distress, cooperative, well-developed, well-nourished Head exam: PRESENT: atraumatic, normocephalic Eye exam: PRESENT: conjunctiva slightly pale, PERRLA. ABSENT: scleral icterus Neck exam: ABSENT: JVD Respiratory exam: PRESENT: Normal breath sounds. ABSENT: crackles, rales, rhonchi, unlabored, wheezes Cardiovascular exam: PRESENT: Irregular rate rhythm -+S1, +S2. ABSENT: diastolic murmur, systolic murmur GI/Abdominal exam: PRESENT: normal bowel sounds, soft. THEE drain. Rectal tube. ABSENT: guarding, mass, tenderness Extremities exam: ABSENT: No edema Neurological exam: PRESENT: alert, awake, oriented to person, place and time. Skin exam: PRESENT: dry, warm, Cardiovascular exam: PRESENT: +S1, +S2 GI/Abdominal exam: PRESENT: normal bowel sounds, soft, tenderness. ABSENT: organomegaly Results Laboratory Results: 08/01/20 07:43 08/01/20 07:43 08/01/20 08/01/20 07:43 07:43 WBC 7.0 RBC 3.54 L Hgb 10.5 L Hct 30.5 L MCV 86 MCH 29.8 MCHC 34.5 RDW 15.9 H Plt Count 217 Seg Neutrophils % 80.7 H Sodium 136.6 L Potassium 3.5 L Chloride 110 H Carbon Dioxide 15 L Anion Gap 12 BUN 36 H Creatinine 2.30 H Est GFR ( Amer) 34 L Glucose 94 Calcium 7.6 L Total Bilirubin 0.6 AST 19 Alkaline Phosphatase 110 Total Protein 4.8 L Albumin 2.3 L 07/29/20 20:10 Catheterized Urine Urine Culture - Final C.albicans/C.dubliniensis 07/29/20 07/29/20 07/30/20 18:37 18:37 04:26 Creatine Kinase 167 Troponin I < 0.012 NT-Pro-B Natriuret Pep 5130 H Impressions: Abdomen Ultrasound 07/12/20 01:29 IMPRESSION: 1. Free fluid noted in the right upper quadrant. 2. Postsurgical changes of interval cholecystectomy. 3. No biliary ductal dilatation. Retroperitoneal Abscess Drainage 07/13/20 00:00 IMPRESSION: SUCCESSFUL CT GUIDED RIGHT UPPER QUADRANT PIGTAIL CATHETER PLACEMENT. Abdomen/Pelvis CT 07/20/20 00:00 IMPRESSION: Increasing size of the right subdiaphragmatic fluid collection. A 2nd drain will be placed. 2 new small fluid collections in the anterior aspect of the pelvis. These measure 5.8 x 5.8 cm and 4.9 x 3.2 cm respectively. Developing abscess cannot be excluded. Stable mild inflammatory change in the gallbladder fossa. There is air in the gallbladder presumably iatrogenic. Clinical correlation is needed. Guidance Needle Placement CT 07/20/20 00:00 IMPRESSION: Successful CT-guided percutaneous drain placement into the right subdiaphragmatic fluid collection. Percutaneous Drainage 07/20/20 00:00 IMPRESSION: Successful CT-guided percutaneous drain placement into the right subdiaphragmatic fluid collection. Abdomen MRI 07/22/20 00:00 IMPRESSION: Filling defect of some type in the distal common bile duct. Possibly blood products or small stone. No disruption of the common duct or pancreatic duct. Hepatobiliary Scan Nuclear Medicine 07/22/20 00:00 IMPRESSION: Evidence of bile leak as described. Cholangiogram 07/26/20 00:00 IMPRESSION: INTRAOPERATIVE CHOLANGIOGRAM. Guidance Fluoroscopy 07/26/20 00:00 IMPRESSION: INTRAOPERATIVE CHOLANGIOGRAM. Chest X-Ray 07/29/20 00:00 IMPRESSION: BASILAR ATELECTASIS. NO SIGNIFICANT CHANGE. Head CT 07/29/20 00:00 IMPRESSION: 1. No acute intracranial hemorrhage or mass effect. Nonspecific appearance compatible with chronic microvascular ischemic change is present. If there is clinical concern for acute stroke, consider MRI brain as a more sensitive evaluation. Assessment & Plan - Diagnosis (1) LOBO (acute kidney injury) Is this a current diagnosis for this admission?: Yes Plan: Creatinine has gone from 1.91 (07/08/2020) ->4.89->5.23->3.4->2.67->1.9 -.2.79->2.3. Creatinine in 2019 was 1.2-1.3. Patient has minimal proteinuria without microhematuria. Initially with LOBO secondary to multifactorial factors including IV contrast given last admission , hypotension, and some dehydration. No evidence of hydronephrosis and abdominal CT scan. Patient had dialysis on 07/13/2020 which went well. Patient has improved since then until over the weekend when he apparently became volume depleted and dehydrated again. Creatinine has now improved after 2 units of packed RBC and a liter of IV fluids with bicarbonate. Encourage patient to drink a little bit more fluids to avoid volume depletion since he still has ongoing diarrhea. We will continue to monitor kidney function. Avoid nephrotoxic medications. (2) Dehydration Is this a current diagnosis for this admission?: Yes Plan: Resolved. (3) Metabolic acidosis Is this a current diagnosis for this admission?: Yes Plan: As recently portion likely due to C. difficile diarrhea and mild worsening of kidney function. Patient was given a liter of fluids and bicarbonate drip yesterday. Start oral sodium bicarbonate today. (4) Hyponatremia Is this a current diagnosis for this admission?: Yes Plan: Much improved. (5) Anemia Qualifiers: Anemia type: unspecified type Qualified Code(s): D64.9 - Anemia, unspecified Is this a current diagnosis for this admission?: Yes Plan: Patient is post-op. Status post 2 units of packed RBC transfusion. (6) Hypokalemia Is this a current diagnosis for this admission?: Yes Plan: Due to GI loss. Replace as necessary. (7) Hypoalbuminemia Is this a current diagnosis for this admission?: Yes Plan: Start some Nepro supplements. (8) Acute metabolic encephalopathy Is this a current diagnosis for this admission?: Yes Plan: Resolved. (9) C. difficile diarrhea Is this a current diagnosis for this admission?: Yes Plan: On oral vancomycin. (10) Hypertension Qualifiers: Hypertension type: essential hypertension Qualified Code(s): I10 - Essential (primary) hypertension Is this a current diagnosis for this admission?: Yes Plan: Improved. - Notes Notes: Discussed with Elsy MISTRY. - Time Time with patient: 15-25 minutes
[2020-08-02] MEDS: VANCOMYCIN HCL INJ 500 MG VIAL PO SCH ×4 (00:56→17:26)
[2020-08-02 05:57] LABS: HEMATOCRIT 30.2 % (37.9-51.0); HEMOGLOBIN 10.1 g/dL (13.5-17.0); MEAN CORPUSCULAR HEMOGLOBIN 29.4 pg (27.0-33.4); MEAN CORPUSCULAR HGB CONC 33.6 g/dL (32.0-36.0); MEAN CORPUSCULAR VOLUME 87 fl (80-97); PLATELET COUNT 206 10^3/uL (150-450); RED BLOOD COUNT 3.45 10^6/uL (4.35-5.55); RED CELL DISTRIBUTION WIDTH 15.5 % (11.5-14.0); WHITE BLOOD COUNT 6.3 10^3/uL (4.0-10.5)
[2020-08-02] MEDS: PANTOPRAZOLE SODIUM 40 MG TABLET.DR PO SCH (06:08)
[2020-08-02 06:16] LABS: ANION GAP 7 (5-19); BLOOD UREA NITROGEN 30 mg/dL (7-20); CALCIUM 7.1 mg/dL (8.4-10.2); CARBON DIOXIDE 15 mmol/L (22-30); CHLORIDE 119 mmol/L (98-107); GLUCOSE 84 mg/dL (75-110); POTASSIUM 3.3 mmol/L (3.6-5.0)
[2020-08-02] MEDS: NORMAL SALINE 1000 ML 1,000 ML IV PRN ×2 (06:36→22:20)
--- NOTE | 2020-08-02 08:42 | PDOC PROGRESS REPORT ---
Subjective Date:: 08/02/20 Reason For Visit: DEHYDRATION,ANEMIA,S P CHOLECYSTECTOMY Physical Exam Vital Signs: Temp Pulse Resp BP Pulse Ox 98.1 F 80 18 158/96 H 99 08/01/20 20:00 08/01/20 20:00 08/01/20 20:00 08/01/20 20:00 08/01/20 20:00 Pulse Oximeter Continuous Start: 07/26/20 20:20 Freq: RTQ4 Status: Complete Protocol: Document 07/28/20 16:00 OPAL (Rec: 07/28/20 16:52 OPAL [email or web address]) Pulse Oximetry Assessment Oxygen Saturation (92-100) 93 Oxygen Delivery Method Room Air Fraction of Inspired Oxygen (FIO2) 21 Equipment Usage Equipment Standby Continuous SpO2 Machine # 4 Intake & Output 08/01/20 08/02/20 08/03/20 06:59 06:59 06:59 Intake Total 2286 2350 Output Total 1425 3500 Balance 861 -1150 Weight 105.007 kg 105 kg Results Laboratory Results: 08/02/20 05:27 08/02/20 05:27 08/01/20 08/01/20 08/02/20 07:43 07:43 05:27 WBC 6.3 RBC 3.45 L Hgb 10.1 L Hct 30.2 L MCV 87 MCH 29.4 MCHC 33.6 RDW 15.5 H Plt Count 206 Sodium 136.6 L Potassium 3.5 L Chloride 110 H Carbon Dioxide 15 L Anion Gap 12 BUN 36 H Creatinine 2.30 H Est GFR ( Amer) 34 L Glucose 94 Calcium 7.6 L Magnesium 1.9 Total Bilirubin 0.6 AST 19 Alkaline Phosphatase 110 Total Protein 4.8 L Albumin 2.3 L 08/02/20 05:27 WBC RBC Hgb Hct MCV MCH MCHC RDW Plt Count Sodium 141.3 Potassium 3.3 L Chloride 119 H Carbon Dioxide 15 L Anion Gap 7 BUN 30 H Creatinine 1.92 H Est GFR ( Amer) 42 L Glucose 84 Calcium 7.1 L Magnesium Total Bilirubin AST Alkaline Phosphatase Total Protein Albumin 07/29/20 07/29/20 07/30/20 18:37 18:37 04:26 Creatine Kinase 167 Troponin I < 0.012 NT-Pro-B Natriuret Pep 5130 H Impressions: Abdomen Ultrasound 07/12/20 01:29 IMPRESSION: 1. Free fluid noted in the right upper quadrant. 2. Postsurgical changes of interval cholecystectomy. 3. No biliary ductal dilatation. Retroperitoneal Abscess Drainage 07/13/20 00:00 IMPRESSION: SUCCESSFUL CT GUIDED RIGHT UPPER QUADRANT PIGTAIL CATHETER PLACEMENT. Abdomen/Pelvis CT 07/20/20 00:00 IMPRESSION: Increasing size of the right subdiaphragmatic fluid collection. A 2nd drain will be placed. 2 new small fluid collections in the anterior aspect of the pelvis. These measure 5.8 x 5.8 cm and 4.9 x 3.2 cm respectively. Developing abscess cannot be excluded. Stable mild inflammatory change in the gallbladder fossa. There is air in the gallbladder presumably iatrogenic. Clinical correlation is needed. Guidance Needle Placement CT 07/20/20 00:00 IMPRESSION: Successful CT-guided percutaneous drain placement into the right subdiaphragmatic fluid collection. Percutaneous Drainage 07/20/20 00:00 IMPRESSION: Successful CT-guided percutaneous drain placement into the right subdiaphragmatic fluid collection. Abdomen MRI 07/22/20 00:00 IMPRESSION: Filling defect of some type in the distal common bile duct. Possibly blood products or small stone. No disruption of the common duct or pancreatic duct. Hepatobiliary Scan Nuclear Medicine 07/22/20 00:00 IMPRESSION: Evidence of bile leak as described. Cholangiogram 07/26/20 00:00 IMPRESSION: INTRAOPERATIVE CHOLANGIOGRAM. Guidance Fluoroscopy 07/26/20 00:00 IMPRESSION: INTRAOPERATIVE CHOLANGIOGRAM. Chest X-Ray 07/29/20 00:00 IMPRESSION: BASILAR ATELECTASIS. NO SIGNIFICANT CHANGE. Head CT 07/29/20 00:00 IMPRESSION: 1. No acute intracranial hemorrhage or mass effect. Nonspecific appearance compatible with chronic microvascular ischemic change is present. If there is clinical concern for acute stroke, consider MRI brain as a more sensitive evaluation. Assessment & Plan - Diagnosis (1) LOBO (acute kidney injury) Is this a current diagnosis for this admission?: Yes (2) Dehydration Is this a current diagnosis for this admission?: Yes (3) Weakness Is this a current diagnosis for this admission?: Yes (4) Bile leak, postoperative Is this a current diagnosis for this admission?: Yes - Time Anticipated Discharge Disposition: Home with Home Health Anticipated Discharge Timeframe: unknown - Plan Summary Plan Summary: 75-year-old male status post open common bile duct exploration with extraction of multiple stones, T-tube placement, and completion cholecystectomy. His sensorium has returned to baseline. He is off all narcotics. He did sleep well last night per nursing staff. He is tolerating regular diet. His THEE drains are productive of serosanguineous fluid. His T-tube is producing joseph bile. heparin discontinued due to low hemoglobin. PT/OT/ambulate in the hallways. Dilerium is much improved today. --> Continue with Tylenol only for pain. Hospitalist following. I appreciate their input. Needs to mobilize and remain awake during the daytime so he can sleep at night. C/o diarrhea --> c. diff positive. On oral vancomycin. No evidence of intra- abdominal sepsis or C. difficile toxicity. Taking Cholestyramine to help bind the C. difficile spores and treat his diarrhea. This appears to be working well. D/c Flexi-seal today.
[2020-08-02] MEDS ORDERED: POTASSIUM CHLORIDE 10 MEQ TABLET.ER PO ONE (08:45)
[2020-08-02] MEDS: CHOLESTYRAMINE 4 GM PACKET PO SCH (10:26)
[2020-08-02] MEDS: CARVEDILOL 12.5 MG TABLET PO SCH ×2 (10:26→21:54)
[2020-08-02] MEDS: FOLIC ACID 1 MG TABLET PO SCH (10:26)
[2020-08-02] MEDS: SODIUM BICARBONATE 650 MG TABLET PO SCH ×2 (10:27→21:54)
[2020-08-02] MEDS: TAMSULOSIN HCL 0.4 MG CAP.SR.24H PO SCH (10:27)
[2020-08-02] MEDS: SERTRALINE HCL 50 MG TABLET PO SCH (10:27)
[2020-08-02] MEDS: THIAMINE HCL 100 MG TABLET PO SCH (10:27)
[2020-08-02] MEDS: LACTOBACILLUS ACIDOPHILUS 250 MG TAB PO SCH ×2 (10:27→17:26)
[2020-08-02] MEDS: NYSTATIN 500000 UNIT/5 ML UDCUP PO SCH ×4 (10:27→21:54)
--- NOTE | 2020-08-02 17:39 | PDOC PROGRESS REPORT ---
Subjective Date:: 08/02/20 Subjective:: Patient is doing fine. He has good urine output of 2200 mL for the past 24 hours. Is a still negative fluid balance.. According to the nurse who just removed his rectal tube when I came into the room his his stool is getting a little bit semiformed. He still tries to eat better and drink fluids. No other new complaints. Mental status at baseline. Son at bedside. Reason For Visit: DEHYDRATION,ANEMIA,S P CHOLECYSTECTOMY Physical Exam Vital Signs: Temp Pulse Resp BP Pulse Ox 98.1 F 80 18 158/96 H 99 08/02/20 08:59 08/01/20 20:00 08/01/20 20:00 08/01/20 20:00 08/01/20 20:00 Pulse Oximeter Continuous Start: 07/26/20 20:20 Freq: RTQ4 Status: Complete Protocol: Document 07/28/20 16:00 OPAL (Rec: 07/28/20 16:52 OPAL [email or web address]) Pulse Oximetry Assessment Oxygen Saturation (92-100) 93 Oxygen Delivery Method Room Air Fraction of Inspired Oxygen (FIO2) 21 Equipment Usage Equipment Standby Continuous SpO2 Machine # 4 Intake & Output 08/01/20 08/02/20 08/03/20 06:59 06:59 06:59 Intake Total 2286 2350 Output Total 1425 3500 Balance 861 -1150 Weight 105.007 kg 105 kg Exam: General appearance: PRESENT: no acute distress, cooperative, well-developed, well-nourished Head exam: PRESENT: atraumatic, normocephalic Eye exam: PRESENT: conjunctiva slightly pale, PERRLA. ABSENT: scleral icterus Neck exam: ABSENT: JVD Respiratory exam: PRESENT: Normal breath sounds. ABSENT: crackles, rales, rhonchi, unlabored, wheezes Cardiovascular exam: PRESENT: Regular rate rhythm -+S1, +S2. ABSENT: diastolic murmur, systolic murmur GI/Abdominal exam: PRESENT: normal bowel sounds, soft. THEE drain in right upper quadrant ABSENT: guarding, mass, tenderness Extremities exam: ABSENT: No edema Neurological exam: PRESENT: alert, awake, oriented to person, place and time. Skin exam: PRESENT: dry, warm, Cardiovascular exam: PRESENT: +S1, +S2 GI/Abdominal exam: PRESENT: normal bowel sounds, soft, tenderness. ABSENT: organomegaly Results Laboratory Results: 08/02/20 05:27 08/02/20 05:27 08/01/20 08/02/20 08/02/20 07:43 05:27 05:27 WBC 6.3 RBC 3.45 L Hgb 10.1 L Hct 30.2 L MCV 87 MCH 29.4 MCHC 33.6 RDW 15.5 H Plt Count 206 Sodium 141.3 Potassium 3.3 L Chloride 119 H Carbon Dioxide 15 L Anion Gap 7 BUN 30 H Creatinine 1.92 H Est GFR ( Amer) 42 L Glucose 84 Calcium 7.1 L Magnesium 1.9 Albumin 08/02/20 05:27 WBC RBC Hgb Hct MCV MCH MCHC RDW Plt Count Sodium Potassium Chloride Carbon Dioxide Anion Gap BUN Creatinine Est GFR ( Amer) Glucose Calcium Magnesium Albumin 2.1 L 07/29/20 07/29/20 07/30/20 18:37 18:37 04:26 Creatine Kinase 167 Troponin I < 0.012 NT-Pro-B Natriuret Pep 5130 H Impressions: Abdomen Ultrasound 07/12/20 01:29 IMPRESSION: 1. Free fluid noted in the right upper quadrant. 2. Postsurgical changes of interval cholecystectomy. 3. No biliary ductal dilatation. Retroperitoneal Abscess Drainage 07/13/20 00:00 IMPRESSION: SUCCESSFUL CT GUIDED RIGHT UPPER QUADRANT PIGTAIL CATHETER PLACEMENT. Abdomen/Pelvis CT 07/20/20 00:00 IMPRESSION: Increasing size of the right subdiaphragmatic fluid collection. A 2nd drain will be placed. 2 new small fluid collections in the anterior aspect of the pelvis. These measure 5.8 x 5.8 cm and 4.9 x 3.2 cm respectively. Developing abscess cannot be excluded. Stable mild inflammatory change in the gallbladder fossa. There is air in the gallbladder presumably iatrogenic. Clinical correlation is needed. Guidance Needle Placement CT 07/20/20 00:00 IMPRESSION: Successful CT-guided percutaneous drain placement into the right subdiaphragmatic fluid collection. Percutaneous Drainage 07/20/20 00:00 IMPRESSION: Successful CT-guided percutaneous drain placement into the right subdiaphragmatic fluid collection. Abdomen MRI 07/22/20 00:00 IMPRESSION: Filling defect of some type in the distal common bile duct. Possibly blood products or small stone. No disruption of the common duct or pancreatic duct. Hepatobiliary Scan Nuclear Medicine 07/22/20 00:00 IMPRESSION: Evidence of bile leak as described. Cholangiogram 07/26/20 00:00 IMPRESSION: INTRAOPERATIVE CHOLANGIOGRAM. Guidance Fluoroscopy 07/26/20 00:00 IMPRESSION: INTRAOPERATIVE CHOLANGIOGRAM. Chest X-Ray 07/29/20 00:00 IMPRESSION: BASILAR ATELECTASIS. NO SIGNIFICANT CHANGE. Head CT 07/29/20 00:00 IMPRESSION: 1. No acute intracranial hemorrhage or mass effect. Nonspecific appearance compatible with chronic microvascular ischemic change is present. If there is clinical concern for acute stroke, consider MRI brain as a more sensitive evaluation. Assessment & Plan - Diagnosis (1) LOBO (acute kidney injury) Is this a current diagnosis for this admission?: Yes Plan: Creatinine has gone from 1.91 (07/08/2020) ->4.89->5.23->3.4->2.67->1.9 -.2.79->2.3-> 1.91. Creatinine in 2019 was 1.2-1.3. Patient has minimal proteinuria without microhematuria. Initially with LOBO secondary to multifactorial factors including IV contrast given last admission , hypotension, and some dehydration. No evidence of hydronephrosis and abdominal CT scan. Patient had dialysis on 07/13/2020 which went well. Patient has improved since then until over the weekend when he apparently became volume depleted and dehydrated again. Creatinine has now improved after 2 units of packed RBC and a liter of IV fluids with bicarbonate. Encourage patient to drink a little bit more fluids to avoid volume depletion since he still has ongoing diarrhea. Continue to monitor kidney function. Avoid nephrotoxic medications. (2) Metabolic acidosis Is this a current diagnosis for this admission?: Yes Plan: Most likely due to C. difficile diarrhea and mild worsening of kidney function. Patient was given a liter of fluids and bicarbonate drip yesterday. Increased dose of oral sodium bicarbonate. Hopefully this improves as the diarrhea improves. (3) Dehydration Is this a current diagnosis for this admission?: Yes Plan: Resolved. (4) Hypokalemia Is this a current diagnosis for this admission?: Yes Plan: Due to GI loss. Replace as necessary. (5) Hyponatremia Is this a current diagnosis for this admission?: Yes Plan: Much improved. Now within normal limits. (6) Anemia Qualifiers: Anemia type: unspecified type Qualified Code(s): D64.9 - Anemia, unspecified Is this a current diagnosis for this admission?: Yes Plan: Patient is post-op. Status post 2 units of packed RBC transfusion. (7) Hypoalbuminemia Is this a current diagnosis for this admission?: Yes Plan: Start some Nepro supplements. (8) Acute metabolic encephalopathy Is this a current diagnosis for this admission?: Yes Plan: Resolved. (9) C. difficile diarrhea Is this a current diagnosis for this admission?: Yes Plan: On oral vancomycin. (10) Hypertension Qualifiers: Hypertension type: essential hypertension Qualified Code(s): I10 - Essential (primary) hypertension Is this a current diagnosis for this admission?: Yes Plan: Uncontrolled. Start amlodipine 5 mg daily. - Time Time with patient: 15-25 minutes
[2020-08-02] MEDS: AMLODIPINE BESYLATE 5 MG TABLET PO SCH (17:53)
--- NOTE | 2020-08-02 19:05 | PDOC PROGRESS REPORT ---
Subjective Date:: 08/02/20 Subjective:: PARKER NOWAK is a 75 year old male with a past medical history of hypertensio n, hyperlipidemia, Iron deficiency anemia (family reports that he receives iron transfusions), GERD, BPH, and depression who was admitted 07/12/2020 to the surgical service for complication of laparoscopic cholecystectomy. 08/02/20 Care assumed today. HE was seen and examined at bedside. Still having diarrhea but has been less watery. He denies any abdominal pain, nausea/vomiting. Fair appetite. Reason For Visit: DEHYDRATION,ANEMIA,S P CHOLECYSTECTOMY Physical Exam Vital Signs: Temp Pulse Resp BP Pulse Ox 97.8 F 66 16 157/97 H 97 08/02/20 15:15 08/02/20 15:15 08/02/20 15:15 08/02/20 15:15 08/02/20 15:15 Pulse Oximeter Continuous Start: 07/26/20 20:20 Freq: RTQ4 Status: Complete Protocol: Document 07/28/20 16:00 OPAL (Rec: 07/28/20 16:52 OPAL [email or web address]) Pulse Oximetry Assessment Oxygen Saturation (92-100) 93 Oxygen Delivery Method Room Air Fraction of Inspired Oxygen (FIO2) 21 Equipment Usage Equipment Standby Continuous SpO2 Machine # 4 Intake & Output 08/01/20 08/02/20 08/03/20 06:59 06:59 06:59 Intake Total 2286 2350 800 Output Total 1425 3500 300 Balance 861 -1150 500 Weight 105.007 kg 105 kg General appearance: PRESENT: no acute distress, cooperative Head exam: PRESENT: atraumatic, normocephalic Eye exam: PRESENT: EOMI, PERRLA Mouth exam: PRESENT: moist Neck exam: PRESENT: full ROM Respiratory exam: PRESENT: clear to auscultation gretta, symmetrical, unlabored Cardiovascular exam: PRESENT: RRR, +S1, +S2 Pulses: PRESENT: +2 pedal pulses bilateral GI/Abdominal exam: PRESENT: normal bowel sounds, soft. ABSENT: rebound, tenderness Extremities exam: PRESENT: full ROM Musculoskeletal exam: PRESENT: full ROM Neurological exam: PRESENT: alert, awake, oriented to person, oriented to place, oriented to time, oriented to situation Psychiatric exam: PRESENT: normal mood Results Laboratory Results: 08/02/20 05:27 08/02/20 05:27 08/02/20 08/02/20 08/02/20 05:27 05:27 05:27 WBC 6.3 RBC 3.45 L Hgb 10.1 L Hct 30.2 L MCV 87 MCH 29.4 MCHC 33.6 RDW 15.5 H Plt Count 206 Sodium 141.3 Potassium 3.3 L Chloride 119 H Carbon Dioxide 15 L Anion Gap 7 BUN 30 H Creatinine 1.92 H Est GFR ( Amer) 42 L Glucose 84 Calcium 7.1 L Albumin 2.1 L 07/29/20 07/29/20 07/30/20 18:37 18:37 04:26 Creatine Kinase 167 Troponin I < 0.012 NT-Pro-B Natriuret Pep 5130 H Impressions: Abdomen Ultrasound 07/12/20 01:29 IMPRESSION: 1. Free fluid noted in the right upper quadrant. 2. Postsurgical changes of interval cholecystectomy. 3. No biliary ductal dilatation. Retroperitoneal Abscess Drainage 07/13/20 00:00 IMPRESSION: SUCCESSFUL CT GUIDED RIGHT UPPER QUADRANT PIGTAIL CATHETER PLACEMENT. Abdomen/Pelvis CT 07/20/20 00:00 IMPRESSION: Increasing size of the right subdiaphragmatic fluid collection. A 2nd drain will be placed. 2 new small fluid collections in the anterior aspect of the pelvis. These measure 5.8 x 5.8 cm and 4.9 x 3.2 cm respectively. Developing abscess cannot be excluded. Stable mild inflammatory change in the gallbladder fossa. There is air in the gallbladder presumably iatrogenic. Clinical correlation is needed. Guidance Needle Placement CT 07/20/20 00:00 IMPRESSION: Successful CT-guided percutaneous drain placement into the right subdiaphragmatic fluid collection. Percutaneous Drainage 07/20/20 00:00 IMPRESSION: Successful CT-guided percutaneous drain placement into the right subdiaphragmatic fluid collection. Abdomen MRI 07/22/20 00:00 IMPRESSION: Filling defect of some type in the distal common bile duct. Possibly blood products or small stone. No disruption of the common duct or pancreatic duct. Hepatobiliary Scan Nuclear Medicine 07/22/20 00:00 IMPRESSION: Evidence of bile leak as described. Cholangiogram 07/26/20 00:00 IMPRESSION: INTRAOPERATIVE CHOLANGIOGRAM. Guidance Fluoroscopy 07/26/20 00:00 IMPRESSION: INTRAOPERATIVE CHOLANGIOGRAM. Chest X-Ray 07/29/20 00:00 IMPRESSION: BASILAR ATELECTASIS. NO SIGNIFICANT CHANGE. Head CT 07/29/20 00:00 IMPRESSION: 1. No acute intracranial hemorrhage or mass effect. Nonspecific appearance compatible with chronic microvascular ischemic change is present. If there is clinical concern for acute stroke, consider MRI brain as a more sensitive evaluation. Assessment and Plan - Diagnosis (1) C. difficile diarrhea Is this a current diagnosis for this admission?: Yes Plan: C. difficile positive. Start oral vancomycin 125 mg every 6 hours. On cholestyramine as well Start lactobacillus. (2) Acute metabolic encephalopathy Is this a current diagnosis for this admission?: Yes Plan: Resolved; now alert and oriented x4. Likely multifactorial secondary to acute illness (c. diff, bile leaks s/p cholecystectomy), LOBO w/ metabolic acidosis, and hospital psychosis in patient with likely underlying early dementia. Family members also confide that patient has a hx of heavy EtOH use (sober for many years) and there has been suspicion of recent drinking. CT head is negative for acute findings. Does reveal chronic microvascular disease. Check EKG reassuring. Troponin nml. proBNP elevated to 5130; no prior history of CHF TSH and B12 nml Sodium is improved. Magnesium 1.3. Corrected calcium 7.5 Urinalysis negative. CXR benign C. diff positive for active infection. We will provide supportive care with clear day/night indications (communication order to turn on lights and open blinds; minimize nighttime interruptions). Out of bed for meals. Ambulate in the hallways twice daily. Continue to reorient but otherwise allow patient to confabulate to prevent anxiety/agitation so long as he remains safe. Minimize sedating medications. Family reassurance provided. (3) Acute on chronic renal insufficiency Is this a current diagnosis for this admission?: Yes Plan: Slight improvement today; 1.93-> 2.79-> 2.18-> 2.76-> 2.30>1.9. Baseline 1.9 Patient did have ATN initially during this admission requiring short-term dialysis. He was supported on a dopamine drip during this timeframe. His renal function did recover to his baseline CKD 3. FeNA 0/.7% = Prerenal Continue gentle IV fluids. Avoid nephrotoxic medications as able; renally dosed where appropriate. Daily weights, strict I&O's. Follow-up chemistry. Nephro following (4) Anemia Qualifiers: Anemia type: unspecified type Qualified Code(s): D64.9 - Anemia, unspecified Is this a current diagnosis for this admission?: Yes Plan: Hgb 10.8-> 9.9-> 11.9 (s/p 2 units)-> 12.4-> 7.7-> 11.2 (s/p 2 units PRBC)-> 10.9-> 10.5>10.1 Per patient and family, he has a history of iron deficiency anemia. Has a remote gastric bypass for which he received B12 injections. Anemia panel confirms iron deficiency. Guiac negative. Vital signs are stable and exam is benign; no suspicion for acute blood loss anemia at this time. Has received 4 units PRBC IV Feraheme today Follow up CBC Transfuse as necessary. Potential Hematology consultation; followed by Dr. Maynard as outpatient. Surgery attending. (5) CHF (congestive heart failure) Qualifiers: Heart failure type: unspecified Heart failure chronicity: unspecified Qualified Code(s): I50.9 - Heart failure, unspecified Is this a current diagnosis for this admission?: Yes Plan: No known history of CHF. proBNP 5130. Troponin negative. EKG benign Echocardiogram pending. Monitor I&O's closely. Daily weights. (6) Hypocalcemia Is this a current diagnosis for this admission?: Yes Plan: Corrected calcium 9.0 Received oral replacement; now on hold while rehydrating. May need to resume. Follow-up chemistries. (7) Hypomagnesemia Is this a current diagnosis for this admission?: Yes Plan: Replete Periodic follow-up mag level. (8) Hyponatremia Is this a current diagnosis for this admission?: Yes Plan: Resolved; 132.7-> 136.2-> 137.8 Urine Osmolarity 76.2, Urine Sodium 31 Continue gentle IVF w/ banana bag nightly. Receiving D5 w/ Bicarb x 1 L (Bicarb 50 mEq) which may have contributed to the slight decrease in sodium. Follow up chemistry. (9) Metabolic acidosis Is this a current diagnosis for this admission?: Yes Plan: Bicarb trending down; 20-> 17-> 16-> 14-> 15 Secondary to acute on chronic kidney injury w/ dehydration. ABG confirms compensated metabolic acidosis. No further furosemide (peripheral edema resolved) Continue gentle IVF; received D5 w/ Bibarb 50 mEQ x1 L yesterday Further management of LOBO as above. Nephrology re-consultation requested. Appreciate Dr. Liang's assistance; has ordered PO sodium bicarb and potassium Follow up chemistry. (10) Hypertension Qualifiers: Hypertension type: essential hypertension Qualified Code(s): I10 - Essential (primary) hypertension Is this a current diagnosis for this admission?: Yes Plan: Improved today. Continue carvedilol 12.5 mg every 12 hours. Hold MELANIA/ARB r/t renal function. IV Hydralazine prn (11) Obesity Qualifiers: Obesity type: unspecified obesity type Body mass index: BMI 31.0-31.9 Is this a current diagnosis for this admission?: Yes Plan: Continue prerenal diet. Dietary and lifestyle modification to be encouraged. Encourage pulmonary toilet and the position changes. (12) Physical deconditioning Is this a current diagnosis for this admission?: Yes Plan: - will order PT/OT - Time Time Spent with patient: 25-34 minutes Medications reviewed and adjusted accordingly: Yes Anticipated Discharge Disposition: Home with Home Health Anticipated Discharge Timeframe: TBD
[2020-08-03] MEDS: PANTOPRAZOLE SODIUM 40 MG TABLET.DR PO SCH (05:01)
[2020-08-03] MEDS: VANCOMYCIN HCL INJ 500 MG VIAL PO SCH ×5 (05:01→23:51)
[2020-08-03 07:11] LABS: ANION GAP 8 (5-19); BLOOD UREA NITROGEN 30 mg/dL (7-20); CALCIUM 8.1 mg/dL (8.4-10.2); CARBON DIOXIDE 17 mmol/L (22-30); CHLORIDE 118 mmol/L (98-107); GLUCOSE 92 mg/dL (75-110); POTASSIUM 3.9 mmol/L (3.6-5.0)
--- NOTE | 2020-08-03 07:51 | Operative Report ---
Nonrecallable Operative Report DATE OF SURGERY: 07/26/20 PREOPERATIVE DIAGNOSIS: 1. Persistent bile leak after laparoscopic cholecystectomy. 2. Evidence of distal common bile duct stones on MRCP. POSTOPERATIVE DIAGNOSIS: 1. Dilated common bile duct. 2. Multiple distal common bile duct stones. 3. Leakage from small, peripheral ductal structure within the gallbladder fossa (likely duct of Luschka). 4. Large right upper quadrant bile collection. OPERATION: 1. Open completion cholecystectomy. 2. Common bile duct exploration with extraction of multiple stones. 3. Choledochoscopy. 4. Oversewing of duct of Luschka. 5. Intraoperative cholangiogram. 6. Placement of T-tube. 7. Washout of a large right upper quadrant bile collection. SURGEON: NIKKI SALDIVAR ELDERLY COMPANION: GABRIELA MEDLEY ANESTHESIA: GA TISSUE REMOVED OR ALTERED: gallbladder infundibulum COMPLICATIONS: Draining small ductal structure noted in the gallbladder fossa, oversewn. Documentation error causing a discrepancy in the number of laparotomy sponges. ESTIMATED BLOOD LOSS: 500 cc PROCEDURE: Drains/implants: 1. T-tube in the common bile duct. 2. 15 Thai round Demar drain in the lupe hepatis, adjacent to the T-tube. 3. 15 Thai round Demar drain in the gallbladder fossa. Procedure in detail: After informed consent was obtained, the patient was brought to the operating room and laid in the supine position. The area of the abdomen was prepped and draped in a normal sterile fashion. A right upper quadrant Adriana incision was then created using a 10 blade scalpel. Dissection was carried down to the anterior fascia, which was incised sharply. The musculature of the abdominal wall was then exposed. The muscles were divided using Bovie electrocautery. Posterior sheath was incised sharply, and the abdomen was entered. Next the [facility] abdominal wall retractor was placed on the bed, and used for retraction purposes. There was a large amount of bile remaining in the abdomen, in the right paracolic gutter and posterior to the liver. This was suctioned and irrigated. The previously placed percutaneous catheters were removed. There was a large amount of omentum stuck to the liver and gallbladder fossa. This was freed using a mixture of sharp dissection and blunt dissection. It was done very carefully. The transverse colon and duodenum were easily identified. These were freed from the inflammatory reaction around the hilum of the liver. This was done very carefully, to avoid injury to these adjacent structures. Once the gallbladder fossa was exposed, the gallbladder remnant was easily identified. It was freed from the surrounding tissues using a mixture of sharp dissection and blunt dissection. During this maneuver, bleeding was encountered. It was halted using suture ligations. Approximately 500 cc of blood loss was estimated during this maneuver. The cystic artery was found in its usual position. It was ligated and divided. Next, attention was turned to freeing of the cystic duct, and performing of the cholangiogram. Once the gallbladder remnant was freed, the cystic duct was exposed, and a small ductotomy was created. An Arrow cholangiogram catheter was then inserted into the cystic duct. A cholangiogram was shot. The cholangiogram showed distal obstruction of the common bile duct (which was previously known). The intra and extrahepatic ducts were dilated. There was leakage of contrast within the gallbladder fossa. The main right and left hepatic ducts appeared intact. Once this was confirmed, a common bile duct exploration was found to be necessary. The cystic duct was ligated using 2-0 silk ties. The gallbladder remnant was resected and removed. The common bile duct was then exposed using blunt dissection. Stay sutures using 4-0 PDS were placed on the right and left anterior surface of the duct. A small ductotomy was created with an 11 blade scalpel. The incision was lengthened using Mcghee scissors. Next, stone forceps were used to extract multiple stones from the distal common bile duct. The duct was then forcefully irrigated with saline, using a red rubber catheter. This removed more stones. Next, the choledochoscope was used to examine the distal and proximal bile ducts. The scope was passed proximally. The main right and left hepatic ducts appeared normal. The scope was inserted proximal to the bifurcation, where no significant injury could be found. Next, attention was turned to the distal common bile duct. The scope was passed distally. The ampulla was identified. No other stones were noted. The choledochoscope passed easily into the duodenum. Next the cholangiogram catheter was again used to instill saline into the proximal bile ducts. The area of leakage (that was seen on the cholangiogram) was identified in the gallbladder fossa. It was not associated with a major ductal structure. It had the appearance of a duct of Luschka. This was ligated using 4-0 PDS suture. Once this was confirmed, attention was turned to placement of the T-tube and drains. The T-tube was trimmed to length, and inserted into the ductotomy. The ductotomy was closed using 4-0 PDS suture in simple running fashion. This helped anchor the T-tube in place. The T-tube was brought out of the abdominal wall, inferior to the Adriana incision. 2 more 15 Thai round Demar drains were then placed through the abdominal wall. One was situated in the lupe hepatis, adjacent to the T-tube. Another Demar drain was placed into the gallbladder fossa. Once this was completed, the abdomen was copiously irrigated and suctioned, until the effluent was clear. The gallbladder fossa was again inspected and hemostasis was ensured. There was no evidence of leakage of bile from the T-tube site, or the gallbladder fossa. Attention was then turned to closure of the abdomen. Number 1 Vicryl suture was used to close the posterior sheath in simple running fashion. The anterior sheath was closed using #1 double-stranded looped PDS suture in simple running fashion. The overlying skin was closed using skin josé luis. Dressings were placed, and the procedure was concluded. Instrument and needle counts were correct x2. There was a discrepancy in the sponge count. 40 sponges were supposedly opened, however only 35 sponges could be accounted for. This was found to be due to a documentation error. The abdominal cavity was visually inspected, and found to be free of any sponges. X -rays were also used to examine the patient, and no x-ray sponges could be found within the abdominal cavity. This confirmed that the error was a documentation error only (and no sponges were "missing"). The patient was then taken to PACU in stable condition.
[2020-08-03] MEDS: CARVEDILOL 12.5 MG TABLET PO SCH ×2 (10:51→21:58)
[2020-08-03] MEDS: TAMSULOSIN HCL 0.4 MG CAP.SR.24H PO SCH (10:51)
[2020-08-03] MEDS: SODIUM BICARBONATE 650 MG TABLET PO SCH ×2 (10:51→21:58)
[2020-08-03] MEDS: FOLIC ACID 1 MG TABLET PO SCH (10:51)
[2020-08-03] MEDS: LACTOBACILLUS ACIDOPHILUS 250 MG TAB PO SCH ×2 (10:52→18:41)
[2020-08-03] MEDS: SERTRALINE HCL 50 MG TABLET PO SCH (10:52)
[2020-08-03] MEDS: AMLODIPINE BESYLATE 5 MG TABLET PO SCH (10:52)
[2020-08-03] MEDS: THIAMINE HCL 100 MG TABLET PO SCH (10:53)
[2020-08-03] MEDS: CHOLESTYRAMINE 4 GM PACKET PO SCH (10:53)
[2020-08-03] MEDS: NYSTATIN 500000 UNIT/5 ML UDCUP PO SCH ×4 (10:53→21:59)
--- NOTE | 2020-08-03 13:51 | PDOC PROGRESS REPORT ---
Subjective Reason For Visit: DEHYDRATION,ANEMIA,S P CHOLECYSTECTOMY Physical Exam Vital Signs: Temp Pulse Resp BP Pulse Ox 97.3 F 80 18 159/83 H 96 08/03/20 11:58 08/03/20 11:58 08/03/20 11:58 08/03/20 11:58 08/03/20 11:58 Pulse Oximeter Continuous Start: 07/26/20 20:20 Freq: RTQ4 Status: Complete Protocol: Document 07/28/20 16:00 OPAL (Rec: 07/28/20 16:52 OPAL [email or web address]) Pulse Oximetry Assessment Oxygen Saturation (92-100) 93 Oxygen Delivery Method Room Air Fraction of Inspired Oxygen (FIO2) 21 Equipment Usage Equipment Standby Continuous SpO2 Machine # 4 Intake & Output 08/02/20 08/03/20 08/04/20 06:59 06:59 06:59 Intake Total 2350 1214 1183 Output Total 3500 810 500 Balance -1150 404 683 Weight 105 kg 102 kg Results Laboratory Results: 08/02/20 05:27 08/03/20 06:20 08/03/20 08/03/20 06:20 06:20 Sodium 142.5 Potassium 3.9 Chloride 118 H Carbon Dioxide 17 L Anion Gap 8 BUN 30 H Creatinine 1.86 H Est GFR ( Amer) 43 L Glucose 92 Calcium 8.1 L Magnesium 1.8 07/29/20 07/29/20 07/30/20 18:37 18:37 04:26 Creatine Kinase 167 Troponin I < 0.012 NT-Pro-B Natriuret Pep 5130 H Impressions: Abdomen Ultrasound 07/12/20 01:29 IMPRESSION: 1. Free fluid noted in the right upper quadrant. 2. Postsurgical changes of interval cholecystectomy. 3. No biliary ductal dilatation. Retroperitoneal Abscess Drainage 07/13/20 00:00 IMPRESSION: SUCCESSFUL CT GUIDED RIGHT UPPER QUADRANT PIGTAIL CATHETER PLACEMENT. Abdomen/Pelvis CT 07/20/20 00:00 IMPRESSION: Increasing size of the right subdiaphragmatic fluid collection. A 2nd drain will be placed. 2 new small fluid collections in the anterior aspect of the pelvis. These measure 5.8 x 5.8 cm and 4.9 x 3.2 cm respectively. Developing abscess cannot be excluded. Stable mild inflammatory change in the gallbladder fossa. There is air in the gallbladder presumably iatrogenic. Clinical correlation is needed. Guidance Needle Placement CT 07/20/20 00:00 IMPRESSION: Successful CT-guided percutaneous drain placement into the right subdiaphragmatic fluid collection. Percutaneous Drainage 07/20/20 00:00 IMPRESSION: Successful CT-guided percutaneous drain placement into the right subdiaphragmatic fluid collection. Abdomen MRI 07/22/20 00:00 IMPRESSION: Filling defect of some type in the distal common bile duct. Possibly blood products or small stone. No disruption of the common duct or pancreatic duct. Hepatobiliary Scan Nuclear Medicine 07/22/20 00:00 IMPRESSION: Evidence of bile leak as described. Cholangiogram 07/26/20 00:00 IMPRESSION: INTRAOPERATIVE CHOLANGIOGRAM. Guidance Fluoroscopy 07/26/20 00:00 IMPRESSION: INTRAOPERATIVE CHOLANGIOGRAM. Chest X-Ray 07/29/20 00:00 IMPRESSION: BASILAR ATELECTASIS. NO SIGNIFICANT CHANGE. Head CT 07/29/20 00:00 IMPRESSION: 1. No acute intracranial hemorrhage or mass effect. Nonspecific appearance compatible with chronic microvascular ischemic change is present. If there is clinical concern for acute stroke, consider MRI brain as a more sensitive evaluation. Assessment & Plan - Diagnosis (1) LOBO (acute kidney injury) Is this a current diagnosis for this admission?: Yes (2) Dehydration Is this a current diagnosis for this admission?: Yes (3) Weakness Is this a current diagnosis for this admission?: Yes (4) Bile leak, postoperative Is this a current diagnosis for this admission?: Yes - Time Anticipated Discharge Disposition: Home with Home Health Anticipated Discharge Timeframe: within 24 hours - Plan Summary Plan Summary: 75-year-old male status post open common bile duct exploration with extraction of multiple stones, T-tube placement, and completion cholecystectomy. His sensorium has returned to baseline. He is off all narcotics. He did sleep well last night per nursing staff. He is tolerating regular diet. His THEE drains are minimally productive of serosanguineous fluid. His T-tube is producing joseph bile. heparin discontinued due to low hemoglobin. PT/OT/ambulate in the hallways. Dilerium is much improved. Sensorium at baseline. --> Continue with Tylenol only for pain. Hospitalist following. I appreciate their input. Needs to mobilize and remain awake during the daytime so he can sleep at night. C/o diarrhea --> c. diff positive. On oral vancomycin. No evidence of intra-abdominal sepsis or C. difficile toxicity. Taking Cholestyramine to help bind the C. difficile spores and treat his diarrhea. This appears to be working well. Likely d/c home tomorrow with home health/home PT.
--- NOTE | 2020-08-03 18:27 | PDOC PROGRESS REPORT ---
Subjective Date:: 08/03/20 Subjective:: PARKER NOWAK is a 75 year old male with a past medical history of hypertensio n, hyperlipidemia, Iron deficiency anemia (family reports that he receives iron transfusions), GERD, BPH, and depression who was admitted 07/12/2020 to the surgical service for complication of laparoscopic cholecystectomy. 08/02/20 Care assumed today. HE was seen and examined at bedside. Still having diarrhea but has been less watery. He denies any abdominal pain, nausea/vomiting. Fair appetite. 08/03/20 HE was seen and examined at bedside. he is eager to go home. reports improvement of diarrhea. he is on D4 of vancomycin, needs to complete 10 day course which he can do at home. His confusion has resolved. Internal medicine agree with planned discharge with home health. Per Dr. Liang's note to be discharged on amlodipine. He should also resume plavix, lisinopril and carvedilol on discharge. Reason For Visit: DEHYDRATION,ANEMIA,S P CHOLECYSTECTOMY Physical Exam Vital Signs: Temp Pulse Resp BP Pulse Ox 98.5 F 83 18 165/88 H 96 08/03/20 15:53 08/03/20 15:53 08/03/20 15:53 08/03/20 15:53 08/03/20 15:53 Pulse Oximeter Continuous Start: 07/26/20 20:20 Freq: RTQ4 Status: Complete Protocol: Document 07/28/20 16:00 OPAL (Rec: 07/28/20 16:52 OPAL [id number]) Pulse Oximetry Assessment Oxygen Saturation (92-100) 93 Oxygen Delivery Method Room Air Fraction of Inspired Oxygen (FIO2) 21 Equipment Usage Equipment Standby Continuous SpO2 Machine # 4 Intake & Output 08/02/20 08/03/20 08/04/20 06:59 06:59 06:59 Intake Total 2350 1214 1183 Output Total 3500 810 500 Balance -1150 404 683 Weight 105 kg 102 kg General appearance: PRESENT: no acute distress, cooperative Head exam: PRESENT: atraumatic, normocephalic Eye exam: PRESENT: EOMI, PERRLA Mouth exam: PRESENT: moist Neck exam: PRESENT: full ROM Cardiovascular exam: PRESENT: RRR, +S1, +S2 Pulses: PRESENT: +2 pedal pulses bilateral GI/Abdominal exam: PRESENT: normal bowel sounds, soft. ABSENT: rebound, tenderness Extremities exam: PRESENT: full ROM Musculoskeletal exam: PRESENT: full ROM Neurological exam: PRESENT: alert, awake, oriented to person, oriented to place, oriented to time, oriented to situation Psychiatric exam: PRESENT: normal mood Skin exam: PRESENT: normal color Results Laboratory Results: 08/02/20 05:27 08/03/20 06:20 08/03/20 08/03/20 06:20 06:20 Sodium 142.5 Potassium 3.9 Chloride 118 H Carbon Dioxide 17 L Anion Gap 8 BUN 30 H Creatinine 1.86 H Est GFR ( Amer) 43 L Glucose 92 Calcium 8.1 L Magnesium 1.8 07/29/20 07/29/20 07/30/20 18:37 18:37 04:26 Creatine Kinase 167 Troponin I < 0.012 NT-Pro-B Natriuret Pep 5130 H Impressions: Abdomen Ultrasound 07/12/20 01:29 IMPRESSION: 1. Free fluid noted in the right upper quadrant. 2. Postsurgical changes of interval cholecystectomy. 3. No biliary ductal dilatation. Retroperitoneal Abscess Drainage 07/13/20 00:00 IMPRESSION: SUCCESSFUL CT GUIDED RIGHT UPPER QUADRANT PIGTAIL CATHETER PLACEMENT. Abdomen/Pelvis CT 07/20/20 00:00 IMPRESSION: Increasing size of the right subdiaphragmatic fluid collection. A 2nd drain will be placed. 2 new small fluid collections in the anterior aspect of the pelvis. These measure 5.8 x 5.8 cm and 4.9 x 3.2 cm respectively. Developing abscess cannot be excluded. Stable mild inflammatory change in the gallbladder fossa. There is air in the gallbladder presumably iatrogenic. Clinical correlation is needed. Guidance Needle Placement CT 07/20/20 00:00 IMPRESSION: Successful CT-guided percutaneous drain placement into the right subdiaphragmatic fluid collection. Percutaneous Drainage 07/20/20 00:00 IMPRESSION: Successful CT-guided percutaneous drain placement into the right subdiaphragmatic fluid collection. Abdomen MRI 07/22/20 00:00 IMPRESSION: Filling defect of some type in the distal common bile duct. P ossibly blood products or small stone. No disruption of the common duct or pancreatic duct. Hepatobiliary Scan Nuclear Medicine 07/22/20 00:00 IMPRESSION: Evidence of bile leak as described. Cholangiogram 07/26/20 00:00 IMPRESSION: INTRAOPERATIVE CHOLANGIOGRAM. Guidance Fluoroscopy 07/26/20 00:00 IMPRESSION: INTRAOPERATIVE CHOLANGIOGRAM. Chest X-Ray 07/29/20 00:00 IMPRESSION: BASILAR ATELECTASIS. NO SIGNIFICANT CHANGE. Head CT 07/29/20 00:00 IMPRESSION: 1. No acute intracranial hemorrhage or mass effect. Nonspecific appearance compatible with chronic microvascular ischemic change is present. If there is clinical concern for acute stroke, consider MRI brain as a more sensitive evaluation. Assessment and Plan - Diagnosis (1) C. difficile diarrhea Is this a current diagnosis for this admission?: Yes Plan: C. difficile positive. Start oral vancomycin 125 mg every 6 hours to complete 10 days of treatment On cholestyramine as well Start lactobacillus. (2) Acute metabolic encephalopathy Is this a current diagnosis for this admission?: Yes Plan: Resolved; now alert and oriented x4. Likely multifactorial secondary to acute illness (c. diff, bile leaks s/p cholecystectomy), LOBO w/ metabolic acidosis, and hospital psychosis in patient with likely underlying early dementia. Family members also confide that patient has a hx of heavy EtOH use (sober for many years) and there has been suspicion of recent drinking. CT head is negative for acute findings. Does reveal chronic microvascular disease. Check EKG reassuring. Troponin nml. proBNP elevated to 5130; no prior history of CHF TSH and B12 nml Sodium is improved. Magnesium 1.3. Corrected calcium 7.5 Urinalysis negative. CXR benign C. diff positive for active infection. We will provide supportive care with clear day/night indications (communication order to turn on lights and open blinds; minimize nighttime interruptions). Out of bed for meals. Ambulate in the hallways twice daily. Continue to reorient but otherwise allow patient to confabulate to prevent anxiety/agitation so long as he remains safe. Minimize sedating medications. Family reassurance provided. (3) Acute on chronic renal insufficiency Is this a current diagnosis for this admission?: Yes Plan: Slight improvement today; 1.93-> 2.79-> 2.18-> 2.76-> 2.30>1.9. Baseline 1.9 Patient did have ATN initially during this admission requiring short-term dialysis. He was supported on a dopamine drip during this timeframe. His renal function did recover to his baseline CKD 3. FeNA 0/.7% = Prerenal Continue gentle IV fluids. Avoid nephrotoxic medications as able; renally dosed where appropriate. Daily weights, strict I&O's. Follow-up chemistry. Nephro following (4) Anemia Qualifiers: Anemia type: unspecified type Qualified Code(s): D64.9 - Anemia, unspecified Is this a current diagnosis for this admission?: Yes Plan: Hgb 10.8-> 9.9-> 11.9 (s/p 2 units)-> 12.4-> 7.7-> 11.2 (s/p 2 units PRBC)-> 10.9-> 10.5>10.1 Per patient and family, he has a history of iron deficiency anemia. Has a remote gastric bypass for which he received B12 injections. Anemia panel confirms iron deficiency. Guiac negative. Vital signs are stable and exam is benign; no suspicion for acute blood loss anemia at this time. Has received 4 units PRBC IV Feraheme today Follow up CBC Transfuse as necessary. Potential Hematology consultation; followed by Dr. Maynard as outpatient. Surgery attending. (5) CHF (congestive heart failure) Qualifiers: Heart failure type: unspecified Heart failure chronicity: unspecified Qualified Code(s): I50.9 - Heart failure, unspecified Is this a current diagnosis for this admission?: Yes Plan: No known history of CHF. proBNP 5130. Troponin negative. EKG benign Echocardiogram moderate diastolic dysfunction Monitor I&O's closely. Daily weights. (6) Hypocalcemia Is this a current diagnosis for this admission?: Yes Plan: Corrected calcium 9.0 Received oral replacement; now on hold while rehydrating. May need to resume. Follow-up chemistries. (7) Hypomagnesemia Is this a current diagnosis for this admission?: Yes Plan: Replete Periodic follow-up mag level. (8) Hyponatremia Is this a current diagnosis for this admission?: Yes Plan: Resolved; 132.7-> 136.2-> 137.8 Urine Osmolarity 76.2, Urine Sodium 31 Continue gentle IVF w/ banana bag nightly. Receiving D5 w/ Bicarb x 1 L (Bicarb 50 mEq) which may have contributed to the slight decrease in sodium. Follow up chemistry. (9) Metabolic acidosis Is this a current diagnosis for this admission?: Yes Plan: Bicarb trending down; 20-> 17-> 16-> 14-> 15 Secondary to acute on chronic kidney injury w/ dehydration. ABG confirms compensated metabolic acidosis. No further furosemide (peripheral edema resolved) Continue gentle IVF; received D5 w/ Bibarb 50 mEQ x1 L yesterday Further management of LOBO as above. Nephrology re-consultation requested. Appreciate Dr. Liang's assistance; has ordered PO sodium bicarb and potassium Follow up chemistry. (10) Hypertension Qualifiers: Hypertension type: essential hypertension Qualified Code(s): I10 - E ssential (primary) hypertension Is this a current diagnosis for this admission?: Yes Plan: Improved today. Continue carvedilol 12.5 mg every 12 hours. Hold MELANIA/ARB r/t renal function. IV Hydralazine prn (11) Obesity Qualifiers: Obesity type: unspecified obesity type Body mass index: BMI 31.0-31.9 Is this a current diagnosis for this admission?: Yes Plan: Continue prerenal diet. Dietary and lifestyle modification to be encouraged. Encourage pulmonary toilet and the position changes. (12) Physical deconditioning Is this a current diagnosis for this admission?: Yes Plan: - will order PT/OT - Time Time Spent with patient: 25-34 minutes Medications reviewed and adjusted accordingly: Yes Anticipated Discharge Disposition: Home with Home Health Anticipated Discharge Timeframe: TBD
[2020-08-04] MEDS: VANCOMYCIN HCL INJ 500 MG VIAL PO SCH ×2 (05:53→09:52)
[2020-08-04] MEDS: PANTOPRAZOLE SODIUM 40 MG TABLET.DR PO SCH (05:54)
[2020-08-04] MEDS: ACETAMINOPHEN 325 MG TABLET PO PRN (07:47)
[2020-08-04 09:07] VITALS: BP 162/98
--- NOTE | 2020-08-04 09:27 | PDOC DISCHARGE SUMMARY ---
General - Admit/Disc Date/PCP Admission Date/Primary Care Provider: 07/12/20 03:17 Discharge Date: 08/04/20 - Discharge Diagnosis Final Diagnosis: Retained common bile duct stones after cholecystectomy. Bile leak. - Assessment Summary: This is a 75-year-old male who was admitted to the hospital previously for acute cholecystitis. The patient underwent laparoscopic cholecystectomy was discharged home. Patient began having fevers, chills, upper quadrant pain, and bile draining from his surgical drain. He represented to the hospital was found to have a bile leak after cholecystectomy. The patient had percutaneous drains inserted, to control the bile leak, however due to his history of gastric bypass he could not had an ERCP. An MRCP was performed showing dilated bile ducts with stones in the distal common bile duct. Secondary to this the patient was offered transfer to a tertiary care facility, versus open common bile duct exploration at our hospital. The patient chose to remain in [facility], and an open common bile duct exploration was performed. The surgery went well. The patient's bile duct was cleared of all stones and debris. A T-tube was placed, with multiple drains. Please see the separate dictation for details regarding the surgery. Patient was taken to the floor in stable condition. After surgery he required narcotic pain medications, which precipitated a hospital delirium. The patient was delirious for several days. The hospitalist service was consulted to help with his delirium. His narcotics were stopped, and his delirium improved. He also began having diarrhea, and C. difficile was checked. The patient tested positive for C. difficile infection. The patient was started on oral vancomycin and cholestyramine. This signif icantly improved his diarrhea. The patient continued to improve. He worked with physical therapy. As of today, 08/04/2020 the patient has home health arranged (with home physical therapy). He is doing well. He is able to control his bowel movements. He is able to ambulate short distances on his own. He and his son are requesting discharge. I believe he is medically fit for discharge. - Additional Information Resuscitation Status: Full Code Discharge Diet: As Tolerated Discharge Activity: Balance Activity w/Rest, No Lifting Over 10 Pounds, No Lifting/Push/Pulling Referrals: AI REYNOSO MD [ACTIVE STAFF] - PAMELA GARCIA NP [NURSE PRACTITIONER] - 08/11/20 9:45 am Prescriptions: Lactobacillus Acidophilus [Bacid 250 mg Tablet] 250 mg PO BID 10 Days #20 tab Calcium Carbonate/Vitamin D3 [Caltrate 600-Vit D3 400 Tablet] 1 tab PO BID 15 Days #30 tablet Folic Acid [Folvite 1 mg Tablet] 1 mg PO DAILY 30 Days #30 tablet Nystatin [Mycostatin 500,000 Unit/5 ml Susp Udcup] 500,000 unit PO QID 3 Days #12 udc Cholestyramine [Questran 4 gm Packet] 4 gm PO DAILY #30 packet Thiamine HCl [Thiamine 100 mg Tablet] 100 mg PO DAILY 30 Days #30 tablet Vancomycin HCl [Vancocin Inj 500 mg Vial] 125 mg PO Q6 7 Days #28 vial Home Medications: Amlodipine Besylate [Norvasc 10 mg Tablet] 10 mg PO DAILY 10/29/18 Omeprazole 40 mg PO DAILY 10/29/18 Sertraline HCl [Zoloft] 200 mg PO DAILY 10/29/18 Tamsulosin HCl [Flomax 0.4 mg Cap.sr] 0.4 mg PO DAILY 10/29/18 Atorvastatin Calcium [Lipitor 40 mg Tablet] 40 mg PO QHS 30 Days #30 tablet 10/31/18 Carvedilol [Coreg 25 mg Tablet] 25 mg PO Q12 08/17/19 Clopidogrel Bisulfate [Plavix 75 mg Tablet] 75 mg PO QHS 07/07/20 Multivitamin [Tab-A-Brianda (Multiple Vitamin) Tablet] 1 tab PO DAILY 07/07/20 Calcium Carbonate/Vitamin D3 [Caltrate 600-Vit D3 400 Tablet] 1 tab PO BID 15 D ays #30 tablet 08/03/20 Folic Acid [Folvite 1 mg Tablet] 1 mg PO DAILY 30 Days #30 tablet 08/03/20 Lactobacillus Acidophilus [Bacid 250 mg Tablet] 250 mg PO BID 10 Days #20 tab 08/03/20 Nystatin [Mycostatin 500,000 Unit/5 ml Susp Udcup] 500,000 unit PO QID 3 Days #12 udc 08/03/20 Thiamine HCl [Thiamine 100 mg Tablet] 100 mg PO DAILY 30 Days #30 tablet 08/03/20 Vancomycin HCl [Vancocin Inj 500 mg Vial] 125 mg PO Q6 7 Days #28 vial 08/03/20 Cholestyramine [Questran 4 gm Packet] 4 gm PO DAILY #30 packet 08/04/20 Additional Information: Discharge home. Diet as tolerated. Activity: No lifting greater than 10 pounds x 6 weeks after surgery. Follow-up with [facility] in 7 to 10 days. Record output from surgical drains. Leave surgical drains and T-tube in place. Tylenol only for pain control. Okay to shower. DO NOT TAKE LISINOPRIL> DO NOT TAKE HYDROCODONE> History of Present Illiness History of Present Illness: PARKER NOWAK is a 75 year old male who is several days s/p laparoscopic cholecystectomy for acute cholecystitis. He was discharged on Saturday, and initially did well. On Saturday he began to have left lower quadrant abdominal pain and nausea. He reports that he could not keep any food down. He began having shortness of breath, and his daughter brought him to the ER. Currently he denies CP, fevers, chills, blurry vision. He does report lower abdominal pain, mild shortness of breath, mild confusion. His daughter reports that his drain has been productive of ~100cc of brownish liquid q24 hours. Physical Exam Vital Signs: Temp Pulse Resp BP Pulse Ox 97.2 F 72 14 175/94 H 99 08/03/20 22:05 08/03/20 22:05 08/03/20 22:05 08/03/20 22:05 08/03/20 22:05 Pulse Oximeter Continuous Start: 07/26/20 20:20 Freq: RTQ4 Status: Complete Protocol: Document 07/28/20 16:00 OPAL (Rec: 07/28/20 16:52 OPAL [email or web address]) Pulse Oximetry Assessment Oxygen Saturation (92-100) 93 Oxygen Delivery Method Room Air Fraction of Inspired Oxygen (FIO2) 21 Equipment Usage Equipment Standby Continuous SpO2 Machine # 4 Intake & Output 08/02/20 08/03/20 08/04/20 06:59 06:59 06:59 Intake Total 2350 1214 1183 Output Total 3500 810 810 Balance -1150 404 373 Weight 105 kg 102 kg Results Laboratory Results: WBC 6.3 10^3/uL (4.0-10.5) 08/02/20 05:27 RBC 3.45 10^6/uL (4.35-5.55) L 08/02/20 05:27 Hgb 10.1 g/dL (13.5-17.0) L 08/02/20 05:27 Hct 30.2 % (37.9-51.0) L 08/02/20 05:27 MCV 87 fl (80-97) 08/02/20 05:27 MCH 29.4 pg (27.0-33.4) 08/02/20 05:27 MCHC 33.6 g/dL (32.0-36.0) 08/02/20 05:27 RDW 15.5 % (11.5-14.0) H 08/02/20 05:27 Plt Count 206 10^3/uL (150-450) 08/02/20 05:27 Lymph % (Auto) 8.3 % (13-45) L 08/01/20 07:43 [place] % (Auto) 7.5 % (3-13) 08/01/20 07:43 Eos % (Auto) 3.0 % (0-6) 08/01/20 07:43 Baso % (Auto) 0.5 % (0-2) 08/01/20 07:43 Reticulocyte # 0.062 10^6/uL (0.028-0.122) 07/30/20 04:26 Absolute Neuts (auto) 5.7 10^3/uL (1.7-8.2) 08/01/20 07:43 Absolute Lymphs (auto) 0.6 10^3/uL (0.5-4.7) 08/01/20 07:43 Absolute Monos (auto) 0.5 10^3/uL (0.1-1.4) 08/01/20 07:43 Absolute Eos (auto) 0.2 10^3/uL (0.0-0.6) 08/01/20 07:43 Absolute Basos (auto) 0.0 10^3/uL (0.0-0.2) 08/01/20 07:43 Total Counted 100 07/18/20 05:37 Seg Neutrophils % 80.7 % (42-78) H 08/01/20 07:43 Seg Neuts % (Manual) 77 % (42-78) 07/18/20 05:37 Band Neutrophils % 6 % (3-5) H 07/13/20 05:40 Lymphocytes % (Manual) 13 % (13-45) 07/18/20 05:37 Monocytes % (Manual) 10 % (3-13) 07/18/20 05:37 Eosinophils % (Manual) 0 % (0-6) 07/18/20 05:37 Basophils % (Manual) 0 % (0-2) 07/18/20 05:37 Metamyelocytes % 1 % (0-1) 07/16/20 06:32 Abs Neuts (Manual) 6.6 10^3/uL (1.7-8.2) 07/18/20 05:37 Abs Lymphs (Manual) 1.1 10^3/uL (0.5-4.7) 07/18/20 05:37 Abs Monocytes (Manual) 0.9 10^3/uL (0.1-1.4) 07/18/20 05:37 Absolute Eos (Manual) 0.0 10^3/uL (0.0-0.6) 07/18/20 05:37 Abs Basophils (Manual) 0.0 10^3/uL (0.0-0.2) 07/18/20 05:37 Toxic Granulation SLIGHT 07/18/20 05:37 Toxic Vacuolation PRESENT 07/13/20 05:40 Platelet Comment ADEQUATE 07/18/20 05:37 Poikilocytosis SLIGHT 07/18/20 05:37 Anisocytosis SLIGHT 07/18/20 05:37 Tear Drop Cells SLIGHT 07/18/20 05:37 Ovalocytes 1+ 07/18/20 05:37 [place] Cells SLIGHT 07/13/20 05:40 Retic Count (auto) 2.39 % (0.66-2.85) 07/30/20 04:26 PT 16.7 SEC (11.4-15.4) H 07/11/20 22:20 INR 1.33 07/11/20 22:20 Carbonic Acid 0.89 mmol/L (1.05-1.35) L 07/30/20 11:50 HCO3/H2CO3 Ratio 17:1 07/30/20 11:50 ABG pH 7.35 (7.35-7.45) 07/30/20 11:50 ABG pCO2 29.6 mmHg (35-45) L 07/30/20 11:50 ABG pO2 86.9 mmHg (80-100) 07/30/20 11:50 ABG HCO3 15.8 mmol/L (20-24) L 07/30/20 11:50 ABG Total CO2 16.7 mmol/L (23-27) L 07/30/20 11:50 ABG O2 Saturation 96.3 % (94-98) 07/30/20 11:50 ABG Base Excess -8.7 mmol/L 07/30/20 11:50 VBG pH 7.24 (7.30-7.42) L 07/11/20 22:20 VBG pCO2 47.1 mmHg (35-63) 07/11/20 22:20 VBG HCO3 19.8 mmol/L (20-32) L 07/11/20 22:20 VBG Base Excess -7.6 mmol/L 07/11/20 22:20 FiO2 21% 07/30/20 11:50 Sodium 142.5 mmol/L (137-145) 08/03/20 06:20 Potassium 3.9 mmol/L (3.6-5.0) 08/03/20 06:20 Chloride 118 mmol/L (98-107) H 08/03/20 06:20 Carbon Dioxide 17 mmol/L (22-30) L 08/03/20 06:20 Anion Gap 8 (5-19) 08/03/20 06:20 BUN 30 mg/dL (7-20) H 08/03/20 06:20 Creatinine 1.86 mg/dL (0.52-1.25) H 08/03/20 06:20 Est GFR ( Amer) 43 (>60) L 08/03/20 06:20 Est GFR (MDRD) Non-Af 36 (>60) L 08/03/20 06:20 Glucose 92 mg/dL (75-110) 08/03/20 06:20 Serum Osmolality 290 mOsm/kg (275-301) 07/29/20 14:30 Lactic Acid < 0.5 mmol/L (0.7-2.1) L 07/30/20 11:27 Calcium 8.1 mg/dL (8.4-10.2) L 08/03/20 06:20 Phosphorus 3.3 mg/dL (2.5-4.5) 07/30/20 04:26 Magnesium 1.8 mg/dL (1.6-2.3) 08/03/20 06:20 Iron 13.1 ug/dL (49-181) L 07/30/20 04:26 TIBC 176 ug/dL (250-450) L 07/30/20 04:26 % Saturation 7 % 07/30/20 04:26 Ferritin 368.00 ng/mL (17.9-464.0) 07/30/20 04:26 Total Bilirubin 0.6 mg/dL (0.2-1.3) 08/01/20 07:43 Direct Bilirubin 0.3 mg/dL (0.0-0.4) 08/01/20 07:43 Neonat Total Bilirubin Not Reportable 08/01/20 07:43 Neonat Direct Bilirubin Not Reportable 08/01/20 07:43 Neonat Indirect Bili Not Reportable 08/01/20 07:43 AST 19 U/L (17-59) 08/01/20 07:43 ALT 18 U/L (<50) 08/01/20 07:43 Alkaline Phosphatase 110 U/L (38-126) 08/01/20 07:43 Ammonia < 8.7 umol/L (9-33) L 07/30/20 11:27 Creatine Kinase 167 U/L (55-170) 07/29/20 18:37 Troponin I < 0.012 ng/mL 07/29/20 18:37 NT-Pro-B Natriuret Pep 5130 pg/mL (<125) H 07/30/20 04:26 Total Protein 4.8 g/dL (6.3-8.2) L 08/01/20 07:43 Albumin 2.1 g/dL (3.5-5.0) L 08/02/20 05:27 Lipase 33.2 U/L (23-300) 07/11/20 22:20 Vitamin B12 908.0 pg/mL (239-931) 07/30/20 04:26 Vit D 1,25-Dihydroxy 10.5 pg/mL (19.9-79.3) L 07/30/20 04:26 Folate 4.68 ng/mL (>2.76) 07/30/20 04:26 TSH 2.13 uIU/mL (0.47-4.68) 07/30/20 04:26 Cortisol AM Sample 30.90 ug/dL (4.46-22.7) H 07/30/20 04:26 Urine Color YELLOW 07/29/20 20:10 Urine Appearance CLOUDY 07/29/20 20:10 Urine pH 5.0 (5.0-9.0) 07/29/20 20:10 Ur Specific [place] 1.012 07/29/20 20:10 Urine Protein 30 mg/dL (NEGATIVE) H 07/29/20 20:10 Urine Glucose (UA) NEGATIVE mg/dL (NEGATIVE) 07/29/20 20:10 Urine Ketones NEGATIVE mg/dL (NEGATIVE) 07/29/20 20:10 Urine Blood MODERATE (NEGATIVE) H 07/29/20 20:10 Urine Nitrite (Reflex) NEGATIVE (NEGATIVE) 07/29/20 20:10 Urine Bilirubin NEGATIVE (NEGATIVE) 07/29/20 20:10 Urine Urobilinogen NEGATIVE mg/dL (<2.0) 07/29/20 20:10 Leukocyte Esterase Rfl MODERATE (NEGATIVE) H 07/29/20 20:10 Urine RBC (Auto) 1 /HPF 07/29/20 20:10 Urine Bacteria (Auto) TRACE /HPF 07/29/20 20:10 Urine WBC (Reflex) 34 /HPF 07/29/20 20:10 Squamous Epi Cells Auto 1 /HPF 07/29/20 20:10 Calcium Oxalate Cr Auto RARE /HPF 07/12/20 03:09 Amorphous Sediment Auto TRACE /HPF 07/12/20 03:09 Urine Mucus (Auto) RARE /LPF 07/12/20 03:09 Urine Osmolality 308 mOsm/kg (300-900) 07/29/20 20:10 Urine Creatinine 76.2 mg/dL (22-328) 07/29/20 20:10 Urine Sodium 31 mmol/L (30-90) 07/29/20 20:10 Urine Potassium 33.9 mmol/L (17-99) 07/12/20 03:09 Urine Ascorbic Acid NEGATIVE (NEGATIVE) 07/29/20 20:10 Stool Occult Blood NEGATIVE (NEGATIVE) 07/30/20 11:08 Stl C. Difficile GDH Ag POSITIVE (NEGATIVE) 07/30/20 11:08 Stl C.difficile Tox A&B POSITIVE (NEGATIVE) 07/30/20 11:08 Hep Bs Antigen 07/13/20 10:18 Hep Bs Ag Confirmation 07/13/20 10:18 Hep Bs Antibody, Quant 07/13/20 10:18 Hep B Core Total Ab 07/13/20 10:18 HCV RNA PCR Test Info Not Reportable 07/13/20 10:18 SARS-CoV-2 (PCR) NEGATIVE (NEGATIVE) 07/26/20 12:45 Blood Type B POSITIVE 07/30/20 09:58 Antibody Screen NEGATIVE 07/30/20 09:58 Crossmatch See Detail 07/30/20 09:58 07/29/20 07/30/20 18:37 04:26 Troponin I < 0.012 NT-Pro-B Natriuret Pep 5130 H Impressions: Chest X-Ray 07/11/20 22:53 IMPRESSION: Progressive bibasilar atelectasis. Abdomen/Pelvis CT 07/11/20 23:42 IMPRESSION: 1. Postsurgical changes of interval cholecystectomy. There is a small amount of fluid and stranding in the gallbladder fossa. In addition, there is a suspected tiny focal fluid collection in the gallbladder fossa, but this is difficult to fully evaluate on this noncontrast exam. A tiny abscess is not completely excluded. 2. There is also a moderate amount of free fluid in the right upper quadrant. A drain is in place, but this enters through the right lateral abdominal wall below this level and terminates in the left lower quadrant. Abdomen Ultrasound 07/12/20 01:29 IMPRESSION: 1. Free fluid noted in the right upper quadrant. 2. Postsurgical changes of interval cholecystectomy. 3. No biliary ductal dilatation. Retroperitoneal Abscess Drainage 07/13/20 00:00 IMPRESSION: SUCCESSFUL CT GUIDED RIGHT UPPER QUADRANT PIGTAIL CATHETER PLACEMENT. Abdomen/Pelvis CT 07/20/20 00:00 IMPRESSION: Increasing size of the right subdiaphragmatic fluid collection. A 2nd drain will be placed. 2 new small fluid collections in the anterior aspect of the pelvis. These measure 5.8 x 5.8 cm and 4.9 x 3.2 cm respectively. Developing abscess cannot be excluded. Stable mild inflammatory change in the gallbladder fossa. There is air in the gallbladder presumably iatrogenic. Clinical correlation is needed. Guidance Needle Placement CT 07/20/20 00:00 IMPRESSION: Successful CT-guided percutaneous drain placement into the right subdiaphragmatic fluid collection. Percutaneous Drainage 07/20/20 00:00 IMPRESSION: Successful CT-guided percutaneous drain placement into the right subdiaphragmatic fluid collection. Abdomen MRI 07/22/20 00:00 IMPRESSION: Filling defect of some type in the distal common bile duct. Possibly blood products or small stone. No disruption of the common duct or pancreatic duct. Hepatobiliary Scan Nuclear Medicine 07/22/20 00:00 IMPRESSION: Evidence of bile leak as described. Cholangiogram 07/26/20 00:00 IMPRESSION: INTRAOPERATIVE CHOLANGIOGRAM. Guidance Fluoroscopy 07/26/20 00:00 IMPRESSION: INTRAOPERATIVE CHOLANGIOGRAM. Chest X-Ray 07/29/20 00:00 IMPRESSION: BASILAR ATELECTASIS. NO SIGNIFICANT CHANGE. Head CT 07/29/20 00:00 IMPRESSION: 1. No acute intracranial hemorrhage or mass effect. Nonspecific appearance compatible with chronic microvascular ischemic change is present. If there is clinical concern for acute stroke, consider MRI brain as a more sensitive evaluation.
[2020-08-04] MEDS: LACTOBACILLUS ACIDOPHILUS 250 MG TAB PO SCH (09:51)
[2020-08-04] MEDS: CARVEDILOL 12.5 MG TABLET PO SCH (09:51)
[2020-08-04] MEDS: FOLIC ACID 1 MG TABLET PO SCH (09:52)
[2020-08-04] MEDS: NYSTATIN 500000 UNIT/5 ML UDCUP PO SCH (09:52)
[2020-08-04] MEDS: TAMSULOSIN HCL 0.4 MG CAP.SR.24H PO SCH (09:52)
[2020-08-04] MEDS: SERTRALINE HCL 50 MG TABLET PO SCH (09:52)
[2020-08-04] MEDS: AMLODIPINE BESYLATE 5 MG TABLET PO SCH (09:52)
[2020-08-04] MEDS: SODIUM BICARBONATE 650 MG TABLET PO SCH (09:52)
[2020-08-04] MEDS: THIAMINE HCL 100 MG TABLET PO SCH (10:06)
[2020-08-04] MEDS: CHOLESTYRAMINE 4 GM PACKET PO SCH (10:06)
== END 2020-08-04 11:33 | disposition home or self-care (01) | DRG 356 ==
LOC: ER 22:04 → EH 07-12 03:17 → 5 07-12 05:46
PROVIDERS: ADMIT Surgery; ATTEND Surgery
PROC: 06HY33Z Insertion of Infusion Device into Lower Vein, Percutaneous Approach (ICD-10-PCS; 2020-07-13)
PROC: 5A1D70Z Performance of Urinary Filtration, Intermittent, Less than 6 Hours Per Day (ICD-10-PCS; 2020-07-13)
PROC: 0W9G30Z Drainage of Peritoneal Cavity with Drainage Device, Percutaneous Approach (ICD-10-PCS; 2020-07-20)
PROC: 0FC90ZZ Extirpation of Matter from Common Bile Duct, Open Approach (ICD-10-PCS; 2020-07-26)
PROC: 0F9900Z Drainage of Common Bile Duct with Drainage Device, Open Approach (ICD-10-PCS; 2020-07-26)
PROC: 3C1ZX8Z Irrigation of Indwelling Device using Irrigating Substance, External Approach (ICD-10-PCS; 2020-07-26)
PROC: BF101ZZ Fluoroscopy of Bile Ducts using Low Osmolar Contrast (ICD-10-PCS; 2020-07-26)
PROC: 30233N1 Transfusion of Nonautologous Red Blood Cells into Peripheral Vein, Percutaneous Approach (ICD-10-PCS; 2020-07-26)
PROC: 30233K1 Transfusion of Nonautologous Frozen Plasma into Peripheral Vein, Percutaneous Approach (ICD-10-PCS; 2020-07-26)
PROC: 0FT40ZZ Resection of Gallbladder, Open Approach (ICD-10-PCS; principal; 2020-07-26 16:00)
PROC: 30233N1 Transfusion of Nonautologous Red Blood Cells into Peripheral Vein, Percutaneous Approach (ICD-10-PCS; 2020-07-30)
DX: K91.89 Other postprocedural complications and disorders of digestive system (principal); G93.41 Metabolic encephalopathy; A04.72 Enterocolitis due to Clostridium difficile, not specified as recurrent; N17.9 Acute kidney failure, unspecified; E87.2 Acidosis; E87.1 Hypo-osmolality and hyponatremia; J98.11 Atelectasis; E83.51 Hypocalcemia; I95.89 Other hypotension; I50.9 Heart failure, unspecified; T81.89XA Other complications of procedures, not elsewhere classified, initial encounter; R53.1 Weakness; K91.86 Retained cholelithiasis following cholecystectomy; K59.00 Constipation, unspecified; E86.0 Dehydration; R11.0 Nausea; Y83.8 Other surgical procedures as the cause of abnormal reaction of the patient, or of later complication, without mention of misadventure at the time of the procedure; R41.0 Disorientation, unspecified; T40.605A Adverse effect of unspecified narcotics, initial encounter; E78.5 Hyperlipidemia, unspecified; D50.9 Iron deficiency anemia, unspecified; K21.9 Gastro-esophageal reflux disease without esophagitis; N40.0 Benign prostatic hyperplasia without lower urinary tract symptoms; F32.9 Major depressive disorder, single episode, unspecified; E66.9 Obesity, unspecified; I12.9 Hypertensive chronic kidney disease with stage 1 through stage 4 chronic kidney disease, or unspecified chronic kidney disease; M19.90 Unspecified osteoarthritis, unspecified site; Z96.652 Presence of left artificial knee joint; N18.30 Chronic kidney disease, stage 3 unspecified; R06.02 Shortness of breath; E87.6 Hypokalemia; E83.42 Hypomagnesemia; Z98.84 Bariatric surgery status; Z79.899 Other long term (current) drug therapy; Z11.59 Encounter for screening for other viral diseases; Z86.73 Personal history of transient ischemic attack (TIA), and cerebral infarction without residual deficits; Z92.3 Personal history of irradiation; Z86.718 Personal history of other venous thrombosis and embolism; Z87.891 Personal history of nicotine dependence; Z88.8 Allergy status to other drugs, medicaments and biological substances; Z85.46 Personal history of malignant neoplasm of prostate; Z68.31 Body mass index [BMI] 31.0-31.9, adult; Z79.02 Long term (current) use of antithrombotics/antiplatelets; Z80.0 Family history of malignant neoplasm of digestive organs
CPT/HCPCS: 00790; 36415; 36430; 36600; 49406; 70450; 71045; 74176; 74181; 74300; 75989; 76705; 77002; 77012; 78226; 80048; 80053; 81001; 82040; 82140; 82272; 82533; 82550; 82570; 82607; 82652; 82728; 82746; 82803; 83540; 83550; 83605; 83690; 83735; 83880; 83930; 83935; 84100; 84133; 84300; 84425; 84443; 84484; 85025; 85027; 85045; 85610; 86317; 86704; 86850; 86900; 86901; 86920; 87040; 87070; 87075; 87077; 87086; 87186; 87205; 87324; 87340; 87449; 87522; 87635; 88304; 93005; 93010; 93306; 94762; 96361; 96365; 96366; 96367; 96375; 99285; A9537; C1713; C1729; C1769; C1894; C9290; C9803; J0131; J0694; J0744; J1100; J1170; J1265; J1644; J1885; J1940; J1956; J2250; J2270; J2405; J2550; J2704; J2710; J2997; J3010; J3370; J3411; J3475; J3480; J3490; J7030; J7050; J7060; J7120; P9016; P9017; Q0138; Q9969

== ENCOUNTER 2020-09-02 09:51 | Inpatient (IN) | payer MEDICARE, OTHER ==
[2020-09-02] MEDS ORDERED: NORMAL SALINE 250 ML IV ONE ×2 (10:29→12:08)
--- NOTE | 2020-09-02 11:17 | RADIOLOGY REPORT (SQ) ---
EXAM DESCRIPTION: CT ABD/PELVIS NO ORAL OR IV IMAGES COMPLETED DATE/TIME: 09/02/2020 9:54 am REASON FOR STUDY: hematuria/leftcva tenderness/ s/p cholecystectomy COMPARISON: MRI abdomen, 07/22/2020. CT abdomen and pelvis 07/20/2020. CT abdomen and pelvis 07/07. TECHNIQUE: CT scan of the abdomen and pelvis performed without intravenous or oral contrast. Images reviewed with lung, soft tissue, and bone windows. Reconstructed coronal and sagittal MPR images revi ewed. All images stored on PACS. All CT scanners at this facility use dose modulation, iterative reconstruction, and/or weight based d osing when appropriate to reduce radiation dose to as low as reasonably achievable (ALARA). [facility]: Dose Right [facility]: CareDose [facility]: Dose Right [facility]: Teradose 4D [facility]: Smart [place] RADIATION DOSE: CT Rad equipment meets quality standard of care and radiation dose reduction techniq ues were employed. CTDIvol: 10.5 mGy. DLP: 629 mGy-cm.mGy. LIMITATIONS: None. FINDINGS: LOWER CHEST: No significant findings. No nodules or infiltrates. NON-CONTRASTED LIVER, SPLEEN, ADRENALS: Evaluation limited by lack of IV contrast. No identified sign ificant masses. PANCREAS: No masses. No peripancreatic inflammatory changes. GALLBLADDER: Surgically absent. Percutaneous drainage catheter remains in place. RIGHT KIDNEY AND URETER: No suspicious masses. Assessment limited by lack of IV contrast. No signif icant calcifications. No hydronephrosis or hydroureter. LEFT KIDNEY AND URETER: No suspicious masses. Assessment limited by lack of IV contrast. Nonobstruc ting left renal calculus. No obstructing renal or ureteral calculus. Exophytic renal cortical cysts are stable. No hydronephrosis or hydroureter. AORTA AND RETROPERITONEUM: No aneurysm. No retroperitoneal masses or adenopathy. BOWEL AND PERITONEAL CAVITY: Extensive colonic diverticulosis without evidence of diverticulitis. Po stoperative changes of prior gastric bypass are stable. No bowel obstruction. No bowel wall thicken ing or inflammatory change. Resolved fluid collection at the gallbladder fossa with percutaneous phil inage catheter remaining in place. 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 No surrounding inflammatory change to suggest acuity. Small hiatal hernia. APPENDIX: Not visualized. PELVIS, BLADDER, AND ABDOMINAL WALL:Ventral hernia repair mesh without evidence of complication. Pos tsurgical change in the anterior right abdomen. No subcutaneous fluid collection or abscess. Urinar y bladder is decompressed. Fiducial markers or radiation seeds in the prostate unchanged. BONES: No significant findings. OTHER: IVC filter in good position. IMPRESSION: 1. No acute abnormality to explain the patient's symptoms. 2. Resolved fluid at the gallbladder fossa with expected postoperative changes in the right abdomen. Percutaneous drainage catheter remains in place. 3. Expected postoperative changes in the anterior right abdomen and peritoneum. No focal drainable a bscess. 4. Colonic diverticulosis without evidence of diverticulitis. 5. Nonobstructing left renal calculus. No obstructing renal or ureteral calculi. No hydronephrosis. COMMENT: Quality ID # [id number]: Final reports with documentation of one or more dose reduction techniques (e.g., Automated exposure control, adjustment of the mA and/or kV according to patient size, use of iterative reconstruction technique) TECHNICAL DOCUMENTATION: JOB ID: [id number] 2010 [employer]- All Rights Reserved Reading location - IP/workstation name: [email or web address]
[2020-09-02 11:28] LABS: ABSOLUTE EOSINOPHILS # (AUTO) 0.1 10^3/uL (0.0-0.6); ABSOLUTE LYMPHOCYTES (AUTO) 0.9 10^3/uL (0.5-4.7); ABSOLUTE MONOCYTES (AUTO) 0.3 10^3/uL (0.1-1.4); ABSOLUTE NEUT (AUTO) 5.2 10^3/uL (1.7-8.2); BASOPHILS % (AUTO) 0.4 % (0-2); EOSINOPHILS % (AUTO) 1.1 % (0-6); HEMATOCRIT 39.8 % (37.9-51.0); HEMOGLOBIN 13.3 g/dL (13.5-17.0); LYMPHOCYTES % (AUTO) 13.8 % (13-45); MEAN CORPUSCULAR HEMOGLOBIN 29.5 pg (27.0-33.4); MEAN CORPUSCULAR HGB CONC 33.4 g/dL (32.0-36.0); MEAN CORPUSCULAR VOLUME 88 fl (80-97); MONOCYTES % (AUTO) 4.6 % (3-13); PLATELET COUNT 212 10^3/uL (150-450); RED BLOOD COUNT 4.52 10^6/uL (4.35-5.55); SEGMENTED NEUTROPHILS % (AUTO) 80.1 % (42-78); TOTAL CELLS COUNTED % (AUTO) 100 %; WHITE BLOOD COUNT 6.5 10^3/uL (4.0-10.5)
[2020-09-02 11:41] LABS: ALBUMIN 3.5 g/dL (3.5-5.0); ALKALINE PHOSPHATASE 134 U/L (38-126); ANION GAP 11 (5-19); ASPARTATE AMINO TRANSFERASE 21 U/L (17-59); BILIRUBIN,DIRECT 0.2 mg/dL (0.0-0.4); BILIRUBIN,TOTAL 0.4 mg/dL (0.2-1.3); BLOOD UREA NITROGEN 63 mg/dL (7-20); CARBON DIOXIDE 13 mmol/L (22-30); CHLORIDE 114 mmol/L (98-107); GLUCOSE 95 mg/dL (75-110); POTASSIUM 4.9 mmol/L (3.6-5.0); TOTAL PROTEIN 6.9 g/dL (6.3-8.2)
[2020-09-02 12:37] LABS: INTERNATIONAL RATION (INR) 1.72; PROTHROMBIN TIME 20.3 SEC (11.4-15.4)
[2020-09-02 12:46] LABS: APPEARANCE,URINE CLOUDY; BILIRUBIN,URINE NEGATIVE (NEGATIVE); COLOR,URINE YELLOW; GLUCOSE, URINE NEGATIVE (NEGATIVE); KETONES,URINE NEGATIVE (NEGATIVE); LEUKOCYTE ESTERASE,URINE LARGE (NEGATIVE); NITRITE,URINE POSITIVE (NEGATIVE); PROTEIN,URINE 100 mg/dL (NEGATIVE); URINE SPECIFIC GRAVITY 1.013; UROBILINOGEN,URINE NEGATIVE mg/dL (<2.0)
[2020-09-02] MEDS ORDERED: CIPROFLOXACIN 400 MG/D5W RTU 400 MG/200 ML RTUPB IV ONE (13:23)
[2020-09-02] MEDS ORDERED: CEFTRIAXONE 1 GM/D5W RTU 1 GM/50 ML RTUPB IV ONE (13:28)
[2020-09-02] MEDS ORDERED: NORMAL SALINE 1000 ML 1,000 ML IV ONE (14:22)
--- NOTE | 2020-09-02 14:41 | ER Document Report ---
Entered by ZOFIA MCCANN SCRIBE 09/02/20 1025 Acting as scribe for:MARILYN KEYS MD ED GI/ - General Chief Complaint: Urinary Problem Stated Complaint: PENILE PAIN,BLOOD IN URINE Primary Care Provider: PAMELA GARCIA, LAUNDRY SORTER [Primary Care Provider] - Follow up as needed Mode of Arrival: Ambulatory Information source: Patient Notes: This 75 year old male patient presents to the emergency department today with complaints of hematuria. He reports that last night at around 10:00 PM he developed some right flank pain prior to urination and while urinating he noticed a black crystal hit the toilet water. He reports he has never had kidney stones to his knowledge. Patient has continued to have hematuria today but he has no pain. He denies fevers, chills, or constipation. TRAVEL OUTSIDE OF THE [place] IN LAST 30 DAYS: No - Related Data Allergies/Adverse Reactions: diphenhydramine [From Benadryl] Allergy (Verified 07/07/20 07:14) Anaphylaxis Past Medical History - General Information source: Patient - Social History Smoking Status: Never Smoker Cigarette use (# per day): No Frequency of alcohol use: Occasional Drug Abuse: None Lives with: Family Family History: Reviewed & Not Pertinent, CAD, Malignancy - Past Medical History Cardiac Medical History: Reports: Hx Hypercholesterolemia, Hx Hypertension Musculoskeletal Medical History: Reports Hx Arthritis Psychiatric Medical History: Reports: Hx Depression Past Surgical History: Reports: Hx Cardiac Catheterization - With cardiac ablation, Hx Cholecystectomy, Hx Gastric Bypass Surgery, Hx Orthopedic Surgery - Left knee replacement, Hx Tonsillectomy, Hx Vascular Surgery - IVC filter placement for DVT, Other - Radiation therapy for prostate cancer - Immunizations Hx Pneumococcal Vaccination: 09/09/17 Review of Systems - Review of Systems Constitutional: No symptoms reported EENT: No symptoms reported Cardiovascular: No symptoms reported Respiratory: No symptoms reported Gastrointestinal: No symptoms reported Genitourinary: See HPI, Burning, Hematuria, Pain Male Genitourinary: No symptoms reported Musculoskeletal: No symptoms reported Skin: No symptoms reported Hematologic/Lymphatic: No symptoms reported Neurological/Psychological: No symptoms reported -: Yes All other systems reviewed and negative Physical Exam - Vital signs Vitals: Temp Pulse Resp BP Pulse Ox 97.6 F 87 20 135/85 H 100 09/02/20 09:56 09/02/20 09:56 09/02/20 09:56 09/02/20 09:56 09/02/20 09:56 - Notes Notes: Physical Exam: General: Alert, appears well. HEENT: Normocephalic. Atraumatic. PERRL. Extraocular movements intact. Oropharynx clear. Neck: Supple. Non-tender. Respiratory: No respiratory distress. Clear and equal breath sounds bilaterally. No rib tenderness to palpation, no crepitus. Cardiovascular: Regular rate and rhythm. Abdominal: Drain in RUQ with bag draining bile. Non-tender. No distension. Normal Bowel Sounds. Back: Minimal right CVA tenderness to percussion. There is a superficial midline abrasion without tenderness to palpation. No gross abnormalities. Extremities: Moves all four extremities. Upper extremities: Normal inspection. Normal ROM. Lower extremities: Normal inspection. No edema. Normal ROM. Neurological: Normal cognition. AAOx4. Normal speech. Psychological: Normal affect. Normal Mood. Skin: Warm. Dry. Normal color. Course - Re-evaluation Re-evalutation: 09/02/20 11:57 Abdomen/Pelvis CT 09/02/20 10:27 IMPRESSION: 1. No acute abnormality to explain the patient's symptoms. 2. Resolved fluid at the gallbladder fossa with expected postoperative changes in the right abdomen. Percutaneous drainage catheter remains in place. 3. Expected postoperative changes in the anterior right abdomen and peritoneum. No focal drainable abscess. 4. Colonic diverticulosis without evidence of diverticulitis. 5. Nonobstructing left renal calculus. No obstructing renal or ureteral calculi. No hydronephrosis. 09/02/20 14:13 Patient resting comfortably not showing any signs of distress at this time. - Vital Signs Vital signs: Temp Pulse Resp BP Pulse Ox 97.8 F 80 19 136/78 H 100 09/02/20 13:54 09/02/20 13:54 09/02/20 13:54 09/02/20 13:54 09/02/20 13:54 09/02/20 14:13 Patient's vital signs are stable. - Laboratory Results Result Diagrams: 09/02/20 11:12 09/02/20 11:12 Laboratory Results Interpreted: 09/02/20 09/02/20 09/02/20 11:12 11:12 11:12 Hgb 13.3 L RDW 18.0 H Seg Neutrophils % 80.1 H PT 20.3 H Chloride 114 H Carbon Dioxide 13 L BUN 63 H Creatinine 3.79 H Est GFR ( Amer) 19 L Est GFR (MDRD) Non-Af 16 L Alkaline Phosphatase 134 H Urine Protein Urine Blood Urine Nitrite Ur Leukocyte Esterase 09/02/20 12:16 Hgb RDW Seg Neutrophils % PT Chloride Carbon Dioxide BUN Creatinine Est GFR ( Amer) Est GFR (MDRD) Non-Af Alkaline Phosphatase Urine Protein 100 H Urine Blood LARGE H Urine Nitrite POSITIVE H Ur Leukocyte Esterase LARGE H BUN 63 creatinine 3.79 CO2 of 13 chloride is 114 large amount of blood in urine nitrite positive leukocyte Estrace large amount. Most likely patient has another acute kidney injury from dehydration and also a urinary tract infection with nitrite positive and blood in urine and also a kidney stone apparently passed as patient hurt a nugget strike the commode this a.m. when he urinated of which he noted some blood with urination. Critical Laboratory Results Reviewed: Yes Attending or Supervising Physician who Reviewed Labs: MARILYN KEYS Radiology Results Radiology Results Interpreted: 09/02/20 14:38 Abdomen/Pelvis CT 09/02/20 10:27 IMPRESSION: 1. No acute abnormality to explain the patient's symptoms. 2. Resolved fluid at the gallbladder fossa with expected postoperative changes in the right abdomen. Percutaneous drainage catheter remains in place. 3. Expected postoperative changes in the anterior right abdomen and peritoneum. No focal drainable abscess. 4. Colonic diverticulosis without evidence of diverticulitis. 5. Nonobstructing left renal calculus. No obstructing renal or ureteral calculi. No hydronephrosis. Right failure blood pressure of 207: Currently norethidrone and on the morning when okay thank you Chest x-ray 1 view single view portable preliminary interpretation by me raise right hemidiaphragm not new no acute process no evidence of overwhelming CHF. CT scan of abdomen and pelvis shows no acute abnormalities to explain the hematuria there is a nonobstructing left renal calculus but no obstruction or h ydronephrosis noted patient does have postoperative changes no abscess percutaneous drainage catheter is in place no other acute finding. Critical Radiology Results Reviewed: No Critical Results Discharge - Discharge Clinical Impression: Acute kidney injury, Urinary tract infection, Kidney stone on left side, Hematuria Condition: Stable Disposition: ADMITTED INPATIENT Unit Admitted: Medical Floor Referrals: PAMELA GARCIA, LAUNDRY SORTER [Primary Care Provider] - Follow up as needed I personally performed the services described in the documentation, reviewed and edited the documentation which was dictated to the scribe in my presence, and it accurately records my words and actions.
--- NOTE | 2020-09-02 14:59 | RADIOLOGY REPORT (SQ) ---
EXAM DESCRIPTION: CHEST SINGLE VIEW IMAGES COMPLETED DATE/TIME: 09/02/2020 1:35 pm REASON FOR STUDY: Decreased breath sounds bilateral COMPARISON: 07/29/2020 EXAM PARAMETERS: NUMBER OF VIEWS: One view. TECHNIQUE: Single frontal radiographic view of the chest acquired. RADIATION DOSE: NA LIMITATIONS: None. FINDINGS: LUNGS AND PLEURA: Right pleural effusion has decreased since prior. Elevation the right h emidiaphragm is stable. Lungs are hyperinflated. Linear atelectasis at the lung bases. No pneumoth orax. No focal confluent consolidation. MEDIASTINUM AND HILAR STRUCTURES: No masses. Contour normal. HEART AND VASCULAR STRUCTURES: Heart normal in size. Normal vasculature. BONES: No acute findings. HARDWARE: None in the chest. OTHER: No other significant finding. IMPRESSION: Improved right pleural effusion. No acute cardiopulmonary disease. TECHNICAL DOCUMENTATION: JOB ID: [id number] 2010 [employer]- All Rights Reserved Reading location - IP/workstation name: [email or web address]
[2020-09-02] MEDS ORDERED: IPRATROPIUM/ALBUTEROL 0.5-2.5 MG/3 ML AMPUL NEB PRN (15:53)
[2020-09-02] MEDS ORDERED: ONDANSETRON 4 MG TAB.RAPDIS PO PRN (15:53)
--- NOTE | 2020-09-02 17:47 | PDOC H&P ---
History of Present Illness Admission Date/PCP: 09/02/20 16:13 PAMELANIKOLAY GARCIA NP Patient complains of: hematuria History of Present Illness: PARKER NOWAK is a 75 year old male, medical history of hypertension, hyperlipidemia, iron deficiency anemia, GERD, BPH, depression who to the ED today due to hematuria. His symptoms started last night when he noted gross hematuria whenever he pees. He also mentioned that he thinks he might have passed the stone because he saw a black solid substance at the bottom of double. He denied any prior history of hematuria, no history of kidney stones. He denies any fever chills diarrhea or abdominal pain. In the emergency room blood pressure 132/81, heart rate 98, respiratory rate of 18, temperature 97.9, O2 sat 99% on room air. CBC showed normal WBC count, hemoglobin 13.3, platelet count 212. BMP showed normal sodium and potassium, creatinine 3.79 baseline of 1.8. Urine showed positive blood positive nitrite positive leukocyte esterase, WBC 151. Patient was given Cipro and Rocephin in the ED. CT abdomen and pelvis without oral and IV contrast showed nonobstructing left renal calculus, no hydronephrosis. Resolved fluid at the gallbladder fossa with expected postop changes in the right abdomen. Percutaneous drainage catheter remains in place. Of note patient had a prolonged stay in the hospital 1 month prior due to postop complications after laparoscopic cholecystectomy. During that admission he became septic due to bile leak and also suffered LOBO requiring short-term dialysis. He also had C. difficile during the last infection and he was discharged on oral vancomycin and he has completed treatment for this. He was admitted on July 12 and was discharged on August 04, 2020. He was discharged on a percutaneous drain right upper quadrant. Past Medical History Cardiac Medical History: Reports: Hyperlipidema, Hypertension Denies: Atrial Fibrillation, Congestive Heart Failure, Coronary Artery Disease, DVT, Myocardial Infarction Pulmonary Medical History: Denies: Asthma, Chronic Obstructive Pulmonary Disease (COPD) Neurological Medical History: Denies: Seizures Endocrine Medical History: Denies: Diabetes Mellitus Type 1, Diabetes Mellitus Type 2, Hyperthyroidism, Hypothyroidism Renal/ Medical History: Reports: Chronic Kidney Disease GI Medical History: Reports: Gastroesophageal Reflux Disease Denies: Cirrhosis, Hepatitis Musculoskeltal Medical History: Reports: Arthritis Denies: Gout Skin Medical History: Denies: Eczema, Psoriasis Psychiatric Medical History: Reports: Depression Hematology: Denies: Anemia, Bleeding Tendencies Past Surgical History Past Surgical History: Reports: Cardiac Catheterization - With cardiac ablation, Cholecystectomy, Gastric Bypass Surgery, Orthopedic Surgery - Left knee replacement, Tonsillectomy, Vascular Surgery - IVC filter placement for DVT, Other - Radiation therapy for prostate cancer Social History Lives with: Family Smoking Status: Never Smoker Frequency of Alcohol Use: Occasional Hx Recreational Drug Use: No Drugs: None Hx Prescription Drug Abuse: No Family History Family History: Reviewed & Not Pertinent, CAD, Malignancy Parental Family History Reviewed: No Children Family History Reviewed: No Sibling(s) Family History Reviewed.: No Medication/Allergy Home Medications: Amlodipine Besylate [Norvasc 10 mg Tablet] 10 mg PO DAILY 10/29/18 Omeprazole 40 mg PO DAILY 10/29/18 Sertraline HCl [Zoloft] 200 mg PO DAILY 10/29/18 Tamsulosin HCl [Flomax 0.4 mg Cap.sr] 0.4 mg PO DAILY 10/29/18 Atorvastatin Calcium [Lipitor 40 mg Tablet] 40 mg PO QHS 30 Days #30 tablet 10/31/18 Carvedilol [Coreg 25 mg Tablet] 25 mg PO Q12 08/17/19 Clopidogrel Bisulfate [Plavix 75 mg Tablet] 75 mg PO QHS 07/07/20 Multivitamin [Tab-A-Brianda (Multiple Vitamin) Tablet] 1 tab PO DAILY 07/07/20 Calcium Carbonate/Vitamin D3 [Caltrate 600-Vit D3 400 Tablet] 1 tab PO BID 15 Days #30 tablet 08/03/20 Folic Acid [Folvite 1 mg Tablet] 1 mg PO DAILY 30 Days #30 tablet 08/03/20 Lactobacillus Acidophilus [Bacid 250 mg Tablet] 250 mg PO BID 10 Days #20 tab 08/03/20 Nystatin [Mycostatin 500,000 Unit/5 ml Susp Udcup] 500,000 unit PO QID 3 Days #12 udc 08/03/20 Thiamine HCl [Thiamine 100 mg Tablet] 100 mg PO DAILY 30 Days #30 tablet 08/03/20 Vancomycin HCl [Vancocin Inj 500 mg Vial] 125 mg PO Q6 7 Days #28 vial 08/03/20 Cholestyramine [Questran 4 gm Packet] 4 gm PO DAILY #30 packet 08/04/20 Allergies/Adverse Reactions: diphenhydramine [From Benadryl] Allergy (Verified 07/07/20 07:14) Anaphylaxis Review of Systems Constitutional: ABSENT: chills, fatigue, fever(s), night sweats, weakness Eyes: ABSENT: visual disturbances Ears: ABSENT: hearing changes Cardiovascular: ABSENT: dyspnea on exertion, edema Respiratory: ABSENT: dyspnea, hemoptysis Gastrointestinal: ABSENT: abdominal pain, coffee ground emesis, diarrhea, hematemesis, hematochezia Genitourinary: PRESENT: difficulty urinating, hematuria. ABSENT: dysuria, nocturia Physical Exam Vital Signs: Temp Pulse Resp BP Pulse Ox 97.8 F 80 19 136/78 H 100 09/02/20 13:54 09/02/20 13:54 09/02/20 13:54 09/02/20 13:54 09/02/20 13:54 Intake & Output 09/01/20 09/02/20 09/03/20 06:59 06:59 06:59 Intake Total 300 Balance 300 Weight 88.8 kg General appearance: PRESENT: no acute distress, cooperative Head exam: PRESENT: atraumatic, normocephalic Eye exam: PRESENT: EOMI, PERRLA Mouth exam: PRESENT: moist Neck exam: PRESENT: full ROM Respiratory exam: PRESENT: clear to auscultation gretta, symmetrical, unlabored Cardiovascular exam: PRESENT: RRR, +S1, +S2 Pulses: PRESENT: +2 pedal pulses bilateral GI/Abdominal exam: PRESENT: normal bowel sounds, soft, other - Percutaneous ri ght upper quadrant drain draining dark green fluid. ABSENT: rebound, tenderness Extremities exam: PRESENT: full ROM Musculoskeletal exam: PRESENT: full ROM Neurological exam: PRESENT: alert, awake, oriented to person, oriented to place, oriented to time, oriented to situation Psychiatric exam: PRESENT: normal mood Skin exam: PRESENT: normal color Results Laboratory Results: 09/02/20 11:12 09/02/20 11:12 09/02/20 09/02/20 09/02/20 11:12 11:12 12:16 WBC 6.5 RBC 4.52 Hgb 13.3 L Hct 39.8 MCV 88 MCH 29.5 MCHC 33.4 RDW 18.0 H Plt Count 212 Seg Neutrophils % 80.1 H Sodium 138.1 Potassium 4.9 Chloride 114 H Carbon Dioxide 13 L Anion Gap 11 BUN 63 H Creatinine 3.79 H Est GFR ( Amer) 19 L Glucose 95 Calcium 9.0 Total Bilirubin 0.4 AST 21 Alkaline Phosphatase 134 H Total Protein 6.9 Albumin 3.5 Lipase 233.3 Urine Color YELLOW Urine Appearance CLOUDY Urine pH 5.0 Ur Specific [place] 1.013 Urine Protein 100 H Urine Glucose (UA) NEGATIVE Urine Ketones NEGATIVE Urine Blood LARGE H Urine Nitrite POSITIVE H Ur Leukocyte Esterase LARGE H Urine WBC (Auto) 151 Urine RBC (Auto) 40 Impressions: Abdomen/Pelvis CT 09/02/20 10:27 IMPRESSION: 1. No acute abnormality to explain the patient's symptoms. 2. Resolved fluid at the gallbladder fossa with expected postoperative changes in the right abdomen. Percutaneous drainage catheter remains in place. 3. Expected postoperative changes in the anterior right abdomen and peritoneum. No focal drainable abscess. 4. Colonic diverticulosis without evidence of diverticulitis. 5. Nonobstructing left renal calculus. No obstructing renal or ureteral calculi. No hydronephrosis. Chest X-Ray 09/02/20 14:24 IMPRESSION: Improved right pleural effusion. No acute cardiopulmonary disease. Assessment and Plan - Diagnosis (1) Urinary tract infection Qualifiers: Urinary tract infection type: site unspecified Hematuria presence: with hematuria Qualified Code(s): N39.0 - Urinary tract infection, site not specified; R31.9 - Hematuria, unspecified Is this a current diagnosis for this admission?: Yes Plan: - came in due to hematuria possibly passed a kidney stone - UA showed +ve nitrite, leukocyte esterase, >151.WBC - CT abdomen left renal calculi non obstructing, no hydronephrosis - Crea 3.4 baseline 1.8 - awaiting blood and urine culture - started on rocephin - continue IV fluids (2) LOBO (acute kidney injury) Is this a current diagnosis for this admission?: Yes Plan: - Crea 3.4 baseline of 1.8 - he has a history of LOBO requiring short term hemodialysis during last admission - likely due to UTI, less likley post renal from obstruction since there is no hydronephrosis in the CT - CT abdomen non obstructing left renal calculi, no hydronephrosis - started on NS 100 ml/hr - strict IO - continue abx for UTI - no indication for dialysis at this time (3) Kidney stone on left side Is this a current diagnosis for this admission?: Yes Plan: - per patient he thought he saw a kidney stone passed today - CT abdomen showed non obstructing left renal calculi, no hydronephrosis - will continue IV fluids - strain urine (4) Hematuria Qualifiers: Hematuria type: gross Qualified Code(s): R31.0 - Gross hematuria Is this a current diagnosis for this admission?: Yes Plan: - 2/2 UTI with kidney stone - hgb stable - continue to monitor (5) Kidney stone on left side Is this a current diagnosis for this admission?: Yes Plan: - as seen on CT abdomen,non obstructing - no prior hx - continue IV fluids, abx, pain medications (6) CHF (congestive heart failure) Qualifiers: Heart failure type: unspecified Heart failure chronicity: unspecified Qualified Code(s): I50.9 - Heart failure, unspecified Is this a current diagnosis for this admission?: Yes Plan: -grade III diastolic heart failure not decompensated - will cautiously hydrate - strict IO - daily weights (7) Hypertension Qualifiers: Hypertension type: essential hypertension Qualified Code(s): I10 - Essential (primary) hypertension Is this a current diagnosis for this admission?: Yes Plan: - amlodipine resumed (8) Bile leak, postoperative Is this a current diagnosis for this admission?: Yes Plan: - s/p lapa robert complicated by bile leak, sepsis, LOBO - has a percutanous drain appears non infected - will continue to drain and monitor output - Time Time Spent with patient: 25-34 minutes Medications reviewed and adjusted accordingly: Yes Anticipated Discharge Disposition: Home, Self Care Anticipated Discharge Timeframe: within 48 hours
[2020-09-02] MEDS: CALCIUM CARBONATE 600 MG/VITAMIN D3 400 UNIT TABLET PO SCH (19:41)
[2020-09-02] MEDS: HEPARIN SOD (PORCINE) 5,000 UNIT/ML 1 ML VIAL SUBCUT SCH (21:42)
[2020-09-02] MEDS: CLOPIDOGREL BISULFATE 75 MG TABLET PO SCH (21:43)
[2020-09-02] MEDS: CARVEDILOL 12.5 MG TABLET PO SCH (21:43)
[2020-09-02] MEDS: ATORVASTATIN CALCIUM 40 MG TABLET PO SCH (21:43)
[2020-09-02] MEDS: NORMAL SALINE 1000 ML 1,000 ML IV PRN (21:44)
[2020-09-03 04:51] LABS: ABSOLUTE EOSINOPHILS # (AUTO) 0.2 10^3/uL (0.0-0.6); ABSOLUTE LYMPHOCYTES (AUTO) 1.2 10^3/uL (0.5-4.7); ABSOLUTE MONOCYTES (AUTO) 0.5 10^3/uL (0.1-1.4); ABSOLUTE NEUT (AUTO) 3.7 10^3/uL (1.7-8.2); BASOPHILS % (AUTO) 0.6 % (0-2); EOSINOPHILS % (AUTO) 3.5 % (0-6); HEMATOCRIT 34.2 % (37.9-51.0); HEMOGLOBIN 11.4 g/dL (13.5-17.0); LYMPHOCYTES % (AUTO) 20.8 % (13-45); MEAN CORPUSCULAR HEMOGLOBIN 28.9 pg (27.0-33.4); MEAN CORPUSCULAR HGB CONC 33.2 g/dL (32.0-36.0); MEAN CORPUSCULAR VOLUME 87 fl (80-97); MONOCYTES % (AUTO) 8.8 % (3-13); PLATELET COUNT 158 10^3/uL (150-450); RED BLOOD COUNT 3.94 10^6/uL (4.35-5.55); RED CELL DISTRIBUTION WIDTH 17.7 % (11.5-14.0); SEGMENTED NEUTROPHILS % (AUTO) 66.3 % (42-78); TOTAL CELLS COUNTED % (AUTO) 100 %; WHITE BLOOD COUNT 5.6 10^3/uL (4.0-10.5)
[2020-09-03] MEDS: HEPARIN SOD (PORCINE) 5,000 UNIT/ML 1 ML VIAL SUBCUT SCH ×3 (05:04→22:11)
[2020-09-03] MEDS: PANTOPRAZOLE SODIUM 40 MG TABLET.DR PO SCH (05:10)
[2020-09-03 05:27] LABS: ALBUMIN 2.6 g/dL (3.5-5.0); ALKALINE PHOSPHATASE 96 U/L (38-126); ANION GAP 7 (5-19); ASPARTATE AMINO TRANSFERASE 21 U/L (17-59); BILIRUBIN,DIRECT 0.3 mg/dL (0.0-0.4); BILIRUBIN,TOTAL 0.4 mg/dL (0.2-1.3); BLOOD UREA NITROGEN 62 mg/dL (7-20); CALCIUM 8.5 mg/dL (8.4-10.2); CARBON DIOXIDE 12 mmol/L (22-30); CHLORIDE 123 mmol/L (98-107); GLUCOSE 95 mg/dL (75-110); POTASSIUM 4.7 mmol/L (3.6-5.0); TOTAL PROTEIN 5.2 g/dL (6.3-8.2)
[2020-09-03] MEDS: NORMAL SALINE 1000 ML 1,000 ML IV PRN ×2 (08:41→17:55)
[2020-09-03] MEDS: CALCIUM CARBONATE 600 MG/VITAMIN D3 400 UNIT TABLET PO SCH ×2 (11:08→17:57)
[2020-09-03] MEDS: CARVEDILOL 12.5 MG TABLET PO SCH ×2 (11:09→22:11)
[2020-09-03] MEDS: TAMSULOSIN HCL 0.4 MG CAP.SR.24H PO SCH (11:09)
[2020-09-03] MEDS: CEFTRIAXONE 2 GM/D5W RTU 2 GM/50 ML RTUPB IV SCH (11:09)
[2020-09-03] MEDS: SERTRALINE HCL 50 MG TABLET PO SCH (11:10)
[2020-09-03] MEDS: THIAMINE HCL 100 MG TABLET PO SCH (11:10)
[2020-09-03] MEDS: AMLODIPINE BESYLATE 10 MG TABLET PO SCH (11:10)
[2020-09-03] MEDS: FOLIC ACID 1 MG TABLET PO SCH (11:10)
--- NOTE | 2020-09-03 15:12 | PDOC PROGRESS REPORT ---
Subjective Date:: 09/03/20 Subjective:: PARKER NOWAK is a 75 year old male, medical history of hypertension, hyperlip idemia, iron deficiency anemia, GERD, BPH, depression who to the ED today due to hematuria. His symptoms started last night when he noted gross hematuria whenever he pees. He also mentioned that he thinks he might have passed the stone because he saw a black solid substance at the bottom of double. He denied any prior history of hematuria, no history of kidney stones. He denies any fever chills diarrhea or abdominal pain. In the emergency room blood pressure 132/81, heart rate 98, respiratory rate of 18, temperature 97.9, O2 sat 99% on room air. CBC showed normal WBC count, hemoglobin 13.3, platelet count 212. BMP showed normal sodium and potassium, creatinine 3.79 baseline of 1.8. Urine showed positive blood positive nitrite positive leukocyte esterase, WBC 151. Patient was given Cipro and Rocephin in the ED. CT abdomen and pelvis without oral and IV contrast showed nonobstructing left renal calculus, no hydronephrosis. Resolved fluid at the gallbladder fossa with expected postop changes in the right abdomen. Percutaneous drainage catheter remains in place. Of note patient had a prolonged stay in the hospital 1 month prior due to postop complications after laparoscopic cholecystectomy. During that admission he became septic due to bile leak and also suffered LOBO requiring short-term dialysis. He also had C. difficile during the last infection and he was discharged on oral vancomycin and he has completed treatment for this. He was admitted on July 12 and was discharged on August 04, 2020. He was discharged on a percutaneous drain right upper quadrant. D2 Hospital stay 09/03/20. Patient was seen and examined at bedside. No acute events overnight. No fever, chills, back pain. Urine in the mcgee bag was clear yellow. Crea improved to 3.6 . Reason For Visit: UTI, UROLITHIASIS Physical Exam Vital Signs: Temp Pulse Resp BP Pulse Ox 97.6 F 89 16 115/63 99 09/03/20 11:38 09/03/20 12:02 09/03/20 12:02 09/03/20 11:38 09/03/20 12:02 Intake & Output 09/02/20 09/03/20 09/04/20 06:59 06:59 06:59 Intake Total 1300 1500 Output Total 500 Balance 800 1500 Weight 90.3 kg General appearance: PRESENT: no acute distress, cooperative Head exam: PRESENT: atraumatic, normocephalic Eye exam: PRESENT: EOMI, PERRLA Mouth exam: PRESENT: moist Neck exam: PRESENT: full ROM Respiratory exam: PRESENT: clear to auscultation gretta, symmetrical, unlabored Cardiovascular exam: PRESENT: RRR, +S1, +S2 Pulses: PRESENT: +2 pedal pulses bilateral GI/Abdominal exam: PRESENT: normal bowel sounds, soft. ABSENT: rebound, tenderness Gentrourinary exam: PRESENT: indwelling catheter Extremities exam: PRESENT: full ROM Musculoskeletal exam: PRESENT: full ROM Neurological exam: PRESENT: alert, awake, oriented to person, oriented to place, oriented to time, oriented to situation Psychiatric exam: PRESENT: normal mood Skin exam: PRESENT: normal color Results Laboratory Results: 09/03/20 04:38 09/03/20 04:38 09/02/20 09/03/20 09/03/20 12:16 04:38 04:38 WBC 5.6 RBC 3.94 L Hgb 11.4 L Hct 34.2 L MCV 87 MCH 28.9 MCHC 33.2 RDW 17.7 H Plt Count 158 Seg Neutrophils % 66.3 Sodium 141.7 Potassium 4.7 Chloride 123 H Carbon Dioxide 12 L Anion Gap 7 BUN 62 H Creatinine 3.66 H Est GFR ( Amer) 20 L Glucose 95 Calcium 8.5 Total Bilirubin 0.4 AST 21 Alkaline Phosphatase 96 Total Protein 5.2 L Albumin 2.6 L Urine Color YELLOW Urine Appearance CLOUDY Urine pH 5.0 Ur Specific Libby 1.013 Urine Protein 100 H Urine Glucose (UA) NEGATIVE Urine Ketones NEGATIVE Urine Blood LARGE H Urine Nitrite POSITIVE H Ur Leukocyte Esterase LARGE H Urine WBC (Auto) 151 Urine RBC (Auto) 40 09/02/20 13:34 Blood Blood Culture (PCR) - Final Enterococcus Species Staphylococcus Species Impressions: Abdomen/Pelvis CT 09/02/20 10:27 IMPRESSION: 1. No acute abnormality to explain the patient's symptoms. 2. Resolved fluid at the gallbladder fossa with expected postoperative changes in the right abdomen. Percutaneous drainage catheter remains in place. 3. Expected postoperative changes in the anterior right abdomen and peritoneum. No focal drainable abscess. 4. Colonic diverticulosis without evidence of diverticulitis. 5. Nonobstructing left renal calculus. No obstructing renal or ureteral calculi. No hydronephrosis. Chest X-Ray 09/02/20 14:24 IMPRESSION: Improved right pleural effusion. No acute cardiopulmonary disease. Assessment and Plan - Diagnosis (1) Urinary tract infection Qualifiers: Urinary tract infection type: site unspecified Hematuria presence: with hematuria Qualified Code(s): N39.0 - Urinary tract infection, site not specif ied; R31.9 - Hematuria, unspecified Is this a current diagnosis for this admission?: Yes Plan: - came in due to hematuria possibly passed a kidney stone - UA showed +ve nitrite, leukocyte esterase, >151 WBC - CT abdomen left renal calculi non obstructing, no hydronephrosis - Crea 3.79>3.6 baseline 1.8 - urine culture growing gram negative rods - blood culture growing entercoccus species - started on rocephin, ampicillin added for enterococcus - repeat blood culture - continue IV fluids (2) LOBO (acute kidney injury) Is this a current diagnosis for this admission?: Yes Plan: - Crea 3.7>3.6 baseline of 1.8 - he has a history of LOBO requiring short term hemodialysis during last admission - likely due to UTI, less likley post renal from obstruction since there is no h ydronephrosis in the CT - CT abdomen non obstructing left renal calculi, no hydronephrosis - started on NS 100 ml/hr - strict IO - continue abx for UTI - no indication for dialysis at this time (3) Kidney stone on left side Is this a current diagnosis for this admission?: Yes Plan: - per patient he thought he saw a kidney stone passed today - CT abdomen showed non obstructing left renal calculi, no hydronephrosis - will continue IV fluids - strain urine (4) Hematuria Qualifiers: Hematuria type: gross Qualified Code(s): R31.0 - Gross hematuria Is this a current diagnosis for this admission?: Yes Plan: - 2/2 UTI with kidney stone - hgb stable - continue to monitor (5) Kidney stone on left side Is this a current diagnosis for this admission?: Yes Plan: - as seen on CT abdomen,non obstructing - no prior hx - continue IV fluids, abx, pain medications (6) CHF (congestive heart failure) Qualifiers: Heart failure type: unspecified Heart failure chronicity: unspecified Qualified Code(s): I50.9 - Heart failure, unspecified Is this a current diagnosis for this admission?: Yes Plan: -grade III diastolic heart failure not decompensated - will cautiously hydrate - strict IO - daily weights (7) Hypertension Qualifiers: Hypertension type: essential hypertension Qualified Code(s): I10 - Essential (primary) hypertension Is this a current diagnosis for this admission?: Yes Plan: - amlodipine resumed (8) Bile leak, postoperative Is this a current diagnosis for this admission?: Yes Plan: - s/p lapa robert complicated by bile leak, sepsis, LOBO - has a percutanous drain appears non infected - will continue to drain and monitor output - Time Time Spent with patient: 25-34 minutes Medications reviewed and adjusted accordingly: Yes Anticipated Discharge Disposition: Home with Home Health Anticipated Discharge Timeframe: - tbd
[2020-09-03] MEDS: AMPICILLIN SODIUM 2 GM in NORMAL SALINE 100 ML IV SCH (17:54)
[2020-09-03] MEDS ORDERED: AMPICILLIN SOD INJ 2 GM VIAL IV SCH (18:00)
[2020-09-03] MEDS: ACETAMINOPHEN 325 MG TABLET PO PRN (22:10)
[2020-09-03] MEDS: ATORVASTATIN CALCIUM 40 MG TABLET PO SCH (22:11)
[2020-09-03] MEDS: CLOPIDOGREL BISULFATE 75 MG TABLET PO SCH (22:11)
[2020-09-04] MEDS: AMPICILLIN SODIUM 2 GM in NORMAL SALINE 100 ML IV SCH ×4 (00:38→17:10)
[2020-09-04 05:36] LABS: ABSOLUTE EOSINOPHILS # (AUTO) 0.1 10^3/uL (0.0-0.6); ABSOLUTE LYMPHOCYTES (AUTO) 0.9 10^3/uL (0.5-4.7); ABSOLUTE MONOCYTES (AUTO) 0.4 10^3/uL (0.1-1.4); ABSOLUTE NEUT (AUTO) 3.4 10^3/uL (1.7-8.2); BASOPHILS % (AUTO) 0.6 % (0-2); EOSINOPHILS % (AUTO) 2.9 % (0-6); HEMATOCRIT 31.5 % (37.9-51.0); HEMOGLOBIN 10.8 g/dL (13.5-17.0); LYMPHOCYTES % (AUTO) 18.3 % (13-45); MEAN CORPUSCULAR HGB CONC 34.3 g/dL (32.0-36.0); MEAN CORPUSCULAR VOLUME 88 fl (80-97); MONOCYTES % (AUTO) 7.5 % (3-13); PLATELET COUNT 144 10^3/uL (150-450); RED BLOOD COUNT 3.59 10^6/uL (4.35-5.55); RED CELL DISTRIBUTION WIDTH 17.5 % (11.5-14.0); SEGMENTED NEUTROPHILS % (AUTO) 70.7 % (42-78); TOTAL CELLS COUNTED % (AUTO) 100 %; WHITE BLOOD COUNT 4.8 10^3/uL (4.0-10.5)
[2020-09-04] MEDS: PANTOPRAZOLE SODIUM 40 MG TABLET.DR PO SCH (06:12)
[2020-09-04] MEDS: HEPARIN SOD (PORCINE) 5,000 UNIT/ML 1 ML VIAL SUBCUT SCH ×3 (06:12→22:55)
[2020-09-04] MEDS: NORMAL SALINE 1000 ML 1,000 ML IV PRN (08:56)
[2020-09-04] MEDS: AMLODIPINE BESYLATE 10 MG TABLET PO SCH (09:43)
[2020-09-04] MEDS: THIAMINE HCL 100 MG TABLET PO SCH (09:43)
[2020-09-04] MEDS: TAMSULOSIN HCL 0.4 MG CAP.SR.24H PO SCH (09:43)
[2020-09-04] MEDS: CARVEDILOL 12.5 MG TABLET PO SCH ×2 (09:43→22:56)
[2020-09-04] MEDS: FOLIC ACID 1 MG TABLET PO SCH (09:43)
[2020-09-04] MEDS: SERTRALINE HCL 50 MG TABLET PO SCH (09:44)
[2020-09-04] MEDS: CEFTRIAXONE 2 GM/D5W RTU 2 GM/50 ML RTUPB IV SCH (09:48)
[2020-09-04] MEDS: CALCIUM CARBONATE 600 MG/VITAMIN D3 400 UNIT TABLET PO SCH ×2 (09:49→17:10)
[2020-09-04 10:31] LABS: ALBUMIN 2.5 g/dL (3.5-5.0); ALKALINE PHOSPHATASE 85 U/L (38-126); ANION GAP 9 (5-19); ASPARTATE AMINO TRANSFERASE 17 U/L (17-59); BILIRUBIN,DIRECT 0.3 mg/dL (0.0-0.4); BILIRUBIN,TOTAL 0.4 mg/dL (0.2-1.3); BLOOD UREA NITROGEN 51 mg/dL (7-20); CALCIUM 8.1 mg/dL (8.4-10.2); CARBON DIOXIDE 11 mmol/L (22-30); CHLORIDE 121 mmol/L (98-107); GLUCOSE 107 mg/dL (75-110); POTASSIUM 4.2 mmol/L (3.6-5.0); TOTAL PROTEIN 5.1 g/dL (6.3-8.2)
--- NOTE | 2020-09-04 15:39 | PDOC PROGRESS REPORT ---
Subjective Date:: 09/04/20 Subjective:: PARKER NOWAK is a 75 year old male, medical history of hypertension, hyperlip idemia, iron deficiency anemia, GERD, BPH, depression who to the ED today due to hematuria. His symptoms started last night when he noted gross hematuria whenever he pees. He also mentioned that he thinks he might have passed the stone because he saw a black solid substance at the bottom of double. He denied any prior history of hematuria, no history of kidney stones. He denies any fever chills diarrhea or abdominal pain. In the emergency room blood pressure 132/81, heart rate 98, respiratory rate of 18, temperature 97.9, O2 sat 99% on room air. CBC showed normal WBC count, hemoglobin 13.3, platelet count 212. BMP showed normal sodium and potassium, creatinine 3.79 baseline of 1.8. Urine showed positive blood positive nitrite positive leukocyte esterase, WBC 151. Patient was given Cipro and Rocephin in the ED. CT abdomen and pelvis without oral and IV contrast showed nonobstructing left renal calculus, no hydronephrosis. Resolved fluid at the gallbladder fossa with expected postop changes in the right abdomen. Percutaneous drainage catheter remains in place. Of note patient had a prolonged stay in the hospital 1 month prior due to postop complications after laparoscopic cholecystectomy. During that admission he became septic due to bile leak and also suffered LOBO requiring short-term dialysis. He also had C. difficile during the last infection and he was discharged on oral vancomycin and he has completed treatment for this. He was admitted on July 12 and was discharged on August 04, 2020. He was discharged on a percutaneous drain right upper quadrant. D2 Hospital stay 09/03/20. Patient was seen and examined at bedside. No acute events overnight. No fever, chills, back pain. Urine in the mcgee bag was clear yellow. Crea improved to 3.6 . D3 Hospital stay 09/04/20 Patient was seen and examined at bedside. He was resting comfortably on a chair. He has remained afebrile with no further episodes of hematuria. Crea has improved to 3.06 from 3.8. Blood culture growing enterococcus and urine is growing citrobacter freundii. Currently on ceftri and ampi. Echo ordered due to enterococcus bacteremia. Reason For Visit: UTI, UROLITHIASIS Physical Exam Vital Signs: Temp Pulse Resp BP Pulse Ox 98.4 F 75 16 134/66 H 96 09/04/20 09:47 09/04/20 11:55 09/04/20 11:55 09/04/20 08:00 09/04/20 11:55 Intake & Output 09/03/20 09/04/20 09/05/20 06:59 06:59 06:59 Intake Total 1300 2998 1200 Output Total 500 1150 Balance 800 1848 1200 Weight 90.3 kg 90.5 kg General appearance: PRESENT: no acute distress, cooperative Head exam: PRESENT: atraumatic, normocephalic Eye exam: PRESENT: EOMI, PERRLA Mouth exam: PRESENT: moist Neck exam: PRESENT: full ROM Respiratory exam: PRESENT: clear to auscultation gretta, symmetrical, unlabored Cardiovascular exam: PRESENT: RRR, +S1, +S2 Pulses: PRESENT: +2 pedal pulses bilateral GI/Abdominal exam: PRESENT: normal bowel sounds, soft. ABSENT: rebound, tend erness Extremities exam: PRESENT: full ROM Musculoskeletal exam: PRESENT: full ROM Neurological exam: PRESENT: alert, awake, oriented to person, oriented to place, oriented to time, oriented to situation Psychiatric exam: PRESENT: normal mood Skin exam: PRESENT: normal color Results Laboratory Results: 09/04/20 05:15 09/04/20 09:50 09/04/20 09/04/20 05:15 09:50 WBC 4.8 RBC 3.59 L Hgb 10.8 L Hct 31.5 L MCV 88 MCH 30.0 MCHC 34.3 RDW 17.5 H Plt Count 144 L Seg Neutrophils % 70.7 Sodium 140.5 Potassium 4.2 Chloride 121 H Carbon Dioxide 11 L Anion Gap 9 BUN 51 H Creatinine 3.07 H Est GFR ( Amer) 24 L Glucose 107 Calcium 8.1 L Total Bilirubin 0.4 AST 17 Alkaline Phosphatase 85 Total Protein 5.1 L Albumin 2.5 L 09/02/20 12:16 Clean Catch Midstream Urine Culture - Final Citrobacter Freundii 09/02/20 13:34 Blood Blood Culture (PCR) - Final Enterococcus Species Staphylococcus Species Impressions: Abdomen/Pelvis CT 09/02/20 10:27 IMPRESSION: 1. No acute abnormality to explain the patient's symptoms. 2. Resolved fluid at the gallbladder fossa with expected postoperative changes in the right abdomen. Percutaneous drainage catheter remains in place. 3. Expected postoperative changes in the anterior right abdomen and peritoneum. No focal drainable abscess. 4. Colonic diverticulosis without evidence of diverticulitis. 5. Nonobstructing left renal calculus. No obstructing renal or ureteral calculi. No hydronephrosis. Chest X-Ray 09/02/20 14:24 IMPRESSION: Improved right pleural effusion. No acute cardiopulmonary disease. Assessment and Plan - Diagnosis (1) Urinary tract infection Qualifiers: Urinary tract infection type: site unspecified Hematuria presence: with hematuria Qualified Code(s): N39.0 - Urinary tract infection, site not specified; R31.9 - Hematuria, unspecified Is this a current diagnosis for this admission?: Yes Plan: - came in due to hematuria possibly passed a kidney stone - UA showed +ve nitrite, leukocyte esterase, >151 WBC - CT abdomen left renal calculi non obstructing, no hydronephrosis - Crea 3.79>3.6>3.0 baseline 1.8 - urine culture citrobacter freundii - blood culture growing entercoccus species - started on rocephin, ampicillin added for enterococcus - repeat blood culture - continue IV fluids (2) Enterococcal bacteremia Is this a current diagnosis for this admission?: Yes Plan: - grew on 1 bottle - awaiting repeat blood culture - echo ordered - ampicillin added to ceftri (3) Kidney stone on left side Is this a current diagnosis for this admission?: Yes Plan: - per patient he thought he saw a kidney stone passed today - CT abdomen showed non obstructing left renal calculi, no hydronephrosis - will continue IV fluids - continue tamsulosin - strain urine (4) LOBO (acute kidney injury) Is this a current diagnosis for this admission?: Yes Plan: - Crea 3.7>3.6>3.07 baseline of 1.8 - he has a history of LOBO requiring short term hemodialysis during last admission - likely due to UTI, less likley post renal from obstruction since there is no hydronephrosis in the CT - CT abdomen non obstructing left renal calculi, no hydronephrosis - started on NS 100 ml/hr - strict IO - continue abx for UTI - no indication for dialysis at this time (5) Hematuria Qualifiers: Hematuria type: gross Qualified Code(s): R31.0 - Gross hematuria Is this a current diagnosis for this admission?: Yes Plan: - 2/2 UTI with kidney stone - hgb stable - continue to monitor (6) Kidney stone on left side Is this a current diagnosis for this admission?: Yes Plan: - as seen on CT abdomen,non obstructing - no prior hx - continue IV fluids, abx, pain medications (7) CHF (congestive heart failure) Qualifiers: Heart failure type: unspecified Heart failure chronicity: unspecified Qualified Code(s): I50.9 - Heart failure, unspecified Is this a current diagnosis for this admission?: Yes Plan: -grade III diastolic heart failure not decompensated - will cautiously hydrate - strict IO - daily weights (8) Hypertension Qualifiers: Hypertension type: essential hypertension Qualified Code(s): I10 - Essential (primary) hypertension Is this a current diagnosis for this admission?: Yes Plan: - amlodipine resumed (9) Bile leak, postoperative Is this a current diagnosis for this admission?: Yes Plan: - s/p lapa robert complicated by bile leak, sepsis, LOBO - has a percutanous drain appears non infected - will continue to drain and monitor output - Time Time Spent with patient: 15-24 minutes Medications reviewed and adjusted accordingly: Yes Anticipated Discharge Disposition: Home with Home Health Anticipated Discharge Timeframe: tbd
[2020-09-04] MEDS: CLOPIDOGREL BISULFATE 75 MG TABLET PO SCH (22:55)
[2020-09-04] MEDS: ATORVASTATIN CALCIUM 40 MG TABLET PO SCH (22:56)
[2020-09-05] MEDS: AMPICILLIN SODIUM 2 GM in NORMAL SALINE 100 ML IV SCH ×4 (02:36→17:57)
[2020-09-05] MEDS: NORMAL SALINE 1000 ML 1,000 ML IV PRN (02:46)
[2020-09-05 06:33] LABS: ABSOLUTE EOSINOPHILS # (AUTO) 0.1 10^3/uL (0.0-0.6); ABSOLUTE LYMPHOCYTES (AUTO) 0.8 10^3/uL (0.5-4.7); ABSOLUTE MONOCYTES (AUTO) 0.3 10^3/uL (0.1-1.4); ABSOLUTE NEUT (AUTO) 2.6 10^3/uL (1.7-8.2); BASOPHILS % (AUTO) 0.5 % (0-2); HEMATOCRIT 31.4 % (37.9-51.0); HEMOGLOBIN 10.5 g/dL (13.5-17.0); LYMPHOCYTES % (AUTO) 22.2 % (13-45); MEAN CORPUSCULAR HEMOGLOBIN 29.4 pg (27.0-33.4); MEAN CORPUSCULAR HGB CONC 33.3 g/dL (32.0-36.0); MEAN CORPUSCULAR VOLUME 88 fl (80-97); MONOCYTES % (AUTO) 6.7 % (3-13); PLATELET COUNT 147 10^3/uL (150-450); RED BLOOD COUNT 3.55 10^6/uL (4.35-5.55); RED CELL DISTRIBUTION WIDTH 17.4 % (11.5-14.0); SEGMENTED NEUTROPHILS % (AUTO) 67.6 % (42-78); TOTAL CELLS COUNTED % (AUTO) 100 %; WHITE BLOOD COUNT 3.8 10^3/uL (4.0-10.5)
[2020-09-05] MEDS: HEPARIN SOD (PORCINE) 5,000 UNIT/ML 1 ML VIAL SUBCUT SCH ×2 (06:36→13:18)
[2020-09-05] MEDS: PANTOPRAZOLE SODIUM 40 MG TABLET.DR PO SCH (06:37)
[2020-09-05 06:59] LABS: ALBUMIN 2.3 g/dL (3.5-5.0); ALKALINE PHOSPHATASE 89 U/L (38-126); ANION GAP 8 (5-19); ASPARTATE AMINO TRANSFERASE 15 U/L (17-59); BILIRUBIN,DIRECT 0.3 mg/dL (0.0-0.4); BILIRUBIN,TOTAL 0.4 mg/dL (0.2-1.3); BLOOD UREA NITROGEN 43 mg/dL (7-20); CALCIUM 7.9 mg/dL (8.4-10.2); CARBON DIOXIDE 12 mmol/L (22-30); CHLORIDE 120 mmol/L (98-107); GLUCOSE 88 mg/dL (75-110); POTASSIUM 3.9 mmol/L (3.6-5.0); TOTAL PROTEIN 5.1 g/dL (6.3-8.2)
[2020-09-05] MEDS: TAMSULOSIN HCL 0.4 MG CAP.SR.24H PO SCH (11:18)
[2020-09-05] MEDS: FOLIC ACID 1 MG TABLET PO SCH (11:18)
[2020-09-05] MEDS: AMLODIPINE BESYLATE 10 MG TABLET PO SCH (11:18)
[2020-09-05] MEDS: SERTRALINE HCL 50 MG TABLET PO SCH (11:19)
[2020-09-05] MEDS: CALCIUM CARBONATE 600 MG/VITAMIN D3 400 UNIT TABLET PO SCH ×2 (11:19→17:57)
[2020-09-05] MEDS: CEFTRIAXONE 2 GM/D5W RTU 2 GM/50 ML RTUPB IV SCH (11:19)
[2020-09-05] MEDS: CARVEDILOL 12.5 MG TABLET PO SCH (11:19)
[2020-09-05] MEDS: THIAMINE HCL 100 MG TABLET PO SCH (11:19)
--- NOTE | 2020-09-05 17:46 | PDOC PROGRESS REPORT ---
Subjective Date:: 09/05/20 Subjective:: PARKER NOWAK is a 75 year old male, medical history of hypertension, hyperlip idemia, iron deficiency anemia, GERD, BPH, depression who to the ED today due to hematuria. His symptoms started last night when he noted gross hematuria whenever he pees. He also mentioned that he thinks he might have passed the stone because he saw a black solid substance at the bottom of double. He denied any prior history of hematuria, no history of kidney stones. He denies any fever chills diarrhea or abdominal pain. In the emergency room blood pressure 132/81, heart rate 98, respiratory rate of 18, temperature 97.9, O2 sat 99% on room air. CBC showed normal WBC count, hemoglobin 13.3, platelet count 212. BMP showed normal sodium and potassium, creatinine 3.79 baseline of 1.8. Urine showed positive blood positive nitrite positive leukocyte esterase, WBC 151. Patient was given Cipro and Rocephin in the ED. CT abdomen and pelvis without oral and IV contrast showed nonobstructing left renal calculus, no hydronephrosis. Resolved fluid at the gallbladder fossa with expected postop changes in the right abdomen. Percutaneous drainage catheter remains in place. Of note patient had a prolonged stay in the hospital 1 month prior due to postop complications after laparoscopic cholecystectomy. During that admission he became septic due to bile leak and also suffered LOBO requiring short-term dialysis. He also had C. difficile during the last infection and he was discharged on oral vancomycin and he has completed treatment for this. He was admitted on July 12 and was discharged on August 04, 2020. He was discharged on a percutaneous drain right upper quadrant. D2 Hospital stay 09/03/20. Patient was seen and examined at bedside. No acute events overnight. No fever, chills, back pain. Urine in the mcgee bag was clear yellow. Crea improved to 3.6 . D3 Hospital stay 09/04/20 Patient was seen and examined at bedside. He was resting comfortably on a chair. He has remained afebrile with no further episodes of hematuria. Crea has improved to 3.06 from 3.8. Blood culture growing enterococcus and urine is growing citrobacter freundii. Currently on ceftri and ampi. Echo ordered due to enterococcus bacteremia. D4 hospital stay 09/05/20. Patient was seen and examined at bedside. He denies any fever, chills, painful urination, back pain. he has been afebrile since last admission. Second blood culture negative. Echo was done today and still awaiting reading. he is otherwise non toxic appearing and can be discharged once echo is negative to complete abx at home. I have stopped his IV fluids today. Crea is trending down Reason For Visit: UTI, UROLITHIASIS Physical Exam Vital Signs: Temp Pulse Resp BP Pulse Ox 98.6 F 70 18 118/78 99 09/05/20 11:17 09/05/20 11:17 09/05/20 11:17 09/05/20 11:17 09/05/20 11:17 Intake & Output 09/04/20 09/05/20 09/06/20 06:59 06:59 06:59 Intake Total 2998 3596 1546 Output Total 1150 1800 300 Balance 1848 1796 1246 Weight 90.5 kg 90.7 kg 90.7 kg General appearance: PRESENT: no acute distress, cooperative Head exam: PRESENT: atraumatic, normocephalic Eye exam: PRESENT: EOMI, PERRLA Mouth exam: PRESENT: moist Neck exam: PRESENT: full ROM Respiratory exam: PRESENT: clear to auscultation gretta, symmetrical, unlabored Cardiovascular exam: PRESENT: RRR, +S1, +S2 Pulses: PRESENT: +2 pedal pulses bilateral GI/Abdominal exam: PRESENT: normal bowel sounds, soft, other - Right upper quadrant drain bile Extremities exam: PRESENT: full ROM Musculoskeletal exam: PRESENT: full ROM Neurological exam: PRESENT: alert, awake, oriented to person, oriented to place, oriented to time, oriented to situation Results Laboratory Results: 09/05/20 06:05 09/05/20 06:05 09/05/20 09/05/20 06:05 06:05 WBC 3.8 L RBC 3.55 L Hgb 10.5 L Hct 31.4 L MCV 88 MCH 29.4 MCHC 33.3 RDW 17.4 H Plt Count 147 L Seg Neutrophils % 67.6 Sodium 139.5 Potassium 3.9 Chloride 120 H Carbon Dioxide 12 L Anion Gap 8 BUN 43 H Creatinine 2.88 H Est GFR ( Amer) 26 L Glucose 88 Calcium 7.9 L Total Bilirubin 0.4 AST 15 L Alkaline Phosphatase 89 Total Protein 5.1 L Albumin 2.3 L 12/25/20 12:16 Clean Catch Midstream Urine Culture - Final Citrobacter Freundii Impressions: Abdomen/Pelvis CT 09/02/20 10:27 IMPRESSION: 1. No acute abnormality to explain the patient's symptoms. 2. Resolved fluid at the gallbladder fossa with expected postoperative changes in the right abdomen. Percutaneous drainage catheter remains in place. 3. Expected postoperative changes in the anterior right abdomen and peritoneum. No focal drainable abscess. 4. Colonic diverticulosis without evidence of diverticulitis. 5. Nonobstructing left renal calculus. No obstructing renal or ureteral calculi. No hydronephrosis. Chest X-Ray 09/02/20 14:24 IMPRESSION: Improved right pleural effusion. No acute cardiopulmonary disease. Assessment and Plan - Diagnosis (1) Urinary tract infection Qualifiers: Urinary tract infection type: site unspecified Hematuria presence: with hematuria Qualified Code(s): N39.0 - Urinary tract infection, site not specified; R31.9 - Hematuria, unspecified Is this a current diagnosis for this admission?: Yes Plan: - came in due to hematuria possibly passed a kidney stone - UA showed +ve nitrite, leukocyte esterase, >151 WBC - CT abdomen left renal calculi non obstructing, no hydronephrosis - Crea 3.79>3.6>3.0 baseline 1.8 - urine culture citrobacter freundii - blood culture growing entercoccus species - started on rocephin, ampicillin added for enterococcus - repeat blood culture negative x 24 hrs - IV fluids discontinued (2) Enterococcal bacteremia Is this a current diagnosis for this admission?: Yes Plan: - grew on 1 bottle - repeat blood culture negative - echo ordered awaiting test. If negative can be discharged to complete abx at home - ampicillin added to ceftri (3) Kidney stone on left side Is this a current diagnosis for this admission?: Yes Plan: - per patient he thought he saw a kidney stone passed today - CT abdomen showed non obstructing left renal calculi, no hydronephrosis - will continue IV fluid - continue tamsulosin (4) LOBO (acute kidney injury) Is this a current diagnosis for this admission?: Yes Plan: - Crea 3.7>3.6>3.07>2.8 baseline of 1.8 - he has a history of LOBO requiring short term hemodialysis during last admission - likely due to UTI, less likley post renal from obstruction since there is no hydronephrosis in the CT - CT abdomen non obstructing left renal calculi, no hydronephrosis - strict IO - continue abx for UTI - no indication for dialysis at this time (5) Hematuria Qualifiers: Hematuria type: gross Qualified Code(s): R31.0 - Gross hematuria Is this a current diagnosis for this admission?: Yes Plan: - 2/2 UTI with kidney stone - hgb stable - continue to monitor (6) Kidney stone on left side Is this a current diagnosis for this admission?: Yes Plan: - as seen on CT abdomen,non obstructing - no prior hx - continue tamsulosin (7) CHF (congestive heart failure) Qualifiers: Heart failure type: unspecified Heart failure chronicity: unspecified Qualified Code(s): I50.9 - Heart failure, unspecified Is this a current diagnosis for this admission?: Yes Plan: -grade III diastolic heart failure not decompensated - resume diuretics on discharge - strict IO - daily weights (8) Hypertension Qualifiers: Hypertension type: essential hypertension Qualified Code(s): I10 - Essential (primary) hypertension Is this a current diagnosis for this admission?: Yes Plan: - amlodipine resumed (9) Bile leak, postoperative Is this a current diagnosis for this admission?: Yes Plan: - s/p lapa robert complicated by bile leak, sepsis, LOBO - has a percutanous drain appears non infected - will continue to drain and monitor output - Time Time Spent with patient: 15-24 minutes Medications reviewed and adjusted accordingly: Yes Anticipated Discharge Disposition: Home, Self Care Anticipated Discharge Timeframe: tbd
[2020-09-06] MEDS: HEPARIN SOD (PORCINE) 5,000 UNIT/ML 1 ML VIAL SUBCUT SCH ×4 (00:10→21:39)
[2020-09-06] MEDS: CLOPIDOGREL BISULFATE 75 MG TABLET PO SCH ×2 (00:10→21:39)
[2020-09-06] MEDS: ATORVASTATIN CALCIUM 40 MG TABLET PO SCH ×2 (00:10→21:39)
[2020-09-06] MEDS: CARVEDILOL 12.5 MG TABLET PO SCH ×3 (00:11→21:39)
[2020-09-06] MEDS: AMPICILLIN SODIUM 2 GM in NORMAL SALINE 100 ML IV SCH ×4 (00:11→18:42)
[2020-09-06] MEDS: PANTOPRAZOLE SODIUM 40 MG TABLET.DR PO SCH (06:12)
[2020-09-06 06:49] LABS: ABSOLUTE EOSINOPHILS # (AUTO) 0.2 10^3/uL (0.0-0.6); ABSOLUTE LYMPHOCYTES (AUTO) 0.8 10^3/uL (0.5-4.7); ABSOLUTE MONOCYTES (AUTO) 0.3 10^3/uL (0.1-1.4); ABSOLUTE NEUT (AUTO) 4.1 10^3/uL (1.7-8.2); BASOPHILS % (AUTO) 0.8 % (0-2); EOSINOPHILS % (AUTO) 3.4 % (0-6); HEMATOCRIT 33.1 % (37.9-51.0); HEMOGLOBIN 11.4 g/dL (13.5-17.0); LYMPHOCYTES % (AUTO) 15.1 % (13-45); MEAN CORPUSCULAR HEMOGLOBIN 30.3 pg (27.0-33.4); MEAN CORPUSCULAR HGB CONC 34.5 g/dL (32.0-36.0); MEAN CORPUSCULAR VOLUME 88 fl (80-97); MONOCYTES % (AUTO) 6.2 % (3-13); PLATELET COUNT 165 10^3/uL (150-450); RED BLOOD COUNT 3.78 10^6/uL (4.35-5.55); SEGMENTED NEUTROPHILS % (AUTO) 74.5 % (42-78); TOTAL CELLS COUNTED % (AUTO) 100 %; WHITE BLOOD COUNT 5.5 10^3/uL (4.0-10.5)
[2020-09-06 07:12] LABS: ALBUMIN 2.6 g/dL (3.5-5.0); ALKALINE PHOSPHATASE 94 U/L (38-126); ANION GAP 12 (5-19); ASPARTATE AMINO TRANSFERASE 15 U/L (17-59); BILIRUBIN,DIRECT 0.5 mg/dL (0.0-0.4); BILIRUBIN,TOTAL 0.7 mg/dL (0.2-1.3); BLOOD UREA NITROGEN 38 mg/dL (7-20); CALCIUM 8.2 mg/dL (8.4-10.2); CARBON DIOXIDE 12 mmol/L (22-30); CHLORIDE 119 mmol/L (98-107); GLUCOSE 91 mg/dL (75-110); POTASSIUM 3.9 mmol/L (3.6-5.0); TOTAL PROTEIN 5.5 g/dL (6.3-8.2)
[2020-09-06] MEDS: FOLIC ACID 1 MG TABLET PO SCH (11:14)
[2020-09-06] MEDS: AMLODIPINE BESYLATE 10 MG TABLET PO SCH (11:14)
[2020-09-06] MEDS: CALCIUM CARBONATE 600 MG/VITAMIN D3 400 UNIT TABLET PO SCH ×2 (11:14→18:42)
[2020-09-06] MEDS: TAMSULOSIN HCL 0.4 MG CAP.SR.24H PO SCH (11:14)
[2020-09-06] MEDS: THIAMINE HCL 100 MG TABLET PO SCH (11:15)
[2020-09-06] MEDS: CEFTRIAXONE 2 GM/D5W RTU 2 GM/50 ML RTUPB IV SCH (11:15)
[2020-09-06] MEDS: SERTRALINE HCL 50 MG TABLET PO SCH (11:15)
[2020-09-06] MEDS ORDERED: GLUCAGON,HUMAN RECOMB 1 MG INJ SUBCUT PRN (15:12)
[2020-09-06] MEDS ORDERED: DEXTROSE 50%-WATER 25 GM/50 ML DISP.SYRIN IV PRN ×2 (15:12)
[2020-09-06] MEDS ORDERED: DEXTROSE 40% GEL 15 GM TUBE PO PRN ×2 (15:12)
--- NOTE | 2020-09-06 15:49 | PDOC PROGRESS REPORT ---
Subjective Date:: 09/06/20 Subjective:: 75 year old male, medical history of hypertension, hyperlipidemia, iron deficien cy anemia, GERD, BPH, depression who to the ED today due to hematuria. His symptoms started last night when he noted gross hematuria whenever he pees. He also mentioned that he thinks he might have passed the stone because he saw a black solid substance at the bottom of double. He denied any prior history of hematuria, no history of kidney stones. He denies any fever chills diarrhea or abdominal pain. In the emergency room blood pressure 132/81, heart rate 98, respiratory rate of 18, temperature 97.9, O2 sat 99% on room air. CBC showed normal WBC count, hemoglobin 13.3, platelet count 212. BMP showed normal sodium and potassium, creatinine 3.79 baseline of 1.8. Urine showed positive blood positive nitrite positive leukocyte esterase, WBC 151. Patient was given Cipro and Rocephin in the ED. CT abdomen and pelvis without oral and IV contrast showed nonobstructing left renal calculus, no hydronephrosis. Resolved fluid at the gallbladder fossa with expected postop changes in the right abdomen. Percutaneous drainage catheter remains in place. Of note patient had a prolonged stay in the hospital 1 month prior due to postop complications after laparoscopic cholecystectomy. During that admission he became septic due to bile leak and also suffered LOBO requiring short-term di alysis. He also had C. difficile during the last infection and he was discharged on oral vancomycin and he has completed treatment for this. He was admitted on July 12 and was discharged on August 04, 2020. He was discharged on a percutaneous drain right upper quadrant. D2 Hospital stay 09/03/20. Patient was seen and examined at bedside. No acute events overnight. No fever, chills, back pain. Urine in the mcgee bag was clear yellow. Crea improved to 3.6 . D3 Hospital stay 09/04/20 Patient was seen and examined at bedside. He was resting comfortably on a chair. He has remained afebrile with no further episodes of hematuria. Crea has improved to 3.06 from 3.8. Blood culture growing enterococcus and urine is growing citrobacter freundii. Currently on ceftri and ampi. Echo ordered due to enterococcus bacteremia. D4 hospital stay 09/05/20. Patient was seen and examined at bedside. He denies any fever, chills, painful urination, back pain. he has been afebrile since last admission. Second blood culture negative. Echo was done today and still awaiting reading. he is otherwise non toxic appearing and can be discharged once echo is negative to complete abx at home. I have stopped his IV fluids today. Crea is trending down 09/06/2020-patient is comfortably in the bed communicating well. Echocardiogram was read by Dr. Corado he cannot rule out endocarditis because of the poor quality of the imaging. Blood cultures are positive for Enterococcus. Patient is receiving ampicillin, IV Rocephin. Discussed the case with Dr. Watson and he is planning to do BATSHEVA. Patient will be kept n.p.o. from midnight. Reason For Visit: UTI, UROLITHIASIS Physical Exam Vital Signs: Temp Pulse Resp BP Pulse Ox 97.8 F 77 18 112/66 100 09/06/20 08:21 09/06/20 08:21 09/06/20 00:37 09/06/20 08:21 09/06/20 08:21 Intake & Output 09/05/20 09/06/20 09/07/20 06:59 06:59 06:59 Intake Total 3596 2148 339 Output Total 1800 2225 500 Balance 1796 -77 -161 Weight 90.7 kg 94.2 kg General appearance: PRESENT: no acute distress, cooperative, well-developed Head exam: PRESENT: atraumatic Eye exam: PRESENT: PERRLA Mouth exam: PRESENT: moist, tongue midline Teeth exam: PRESENT: poor dentation Neck exam: ABSENT: carotid bruit, JVD, lymphadenopathy, thyromegaly Respiratory exam: PRESENT: decreased breath sounds Cardiovascular exam: PRESENT: RRR. ABSENT: diastolic murmur, rubs, systolic murmur Pulses: PRESENT: normal dorsalis pedis pul GI/Abdominal exam: PRESENT: normal bowel sounds, soft, other - Patient has a cholecystectomy drain.. ABSENT: distended, guarding, mass, organolmegaly, rebound, tenderness Rectal exam: PRESENT: deferred Gentrourinary exam: PRESENT: indwelling catheter Extremities exam: PRESENT: full ROM. ABSENT: calf tenderness, clubbing, pedal edema Neurological exam: PRESENT: alert, awake, oriented to person, oriented to place, oriented to time, oriented to situation, CN II-XII grossly intact. ABSENT: motor sensory deficit Psychiatric exam: PRESENT: appropriate affect, normal mood. ABSENT: homicidal ideation, suicidal ideation Results Laboratory Results: 09/06/20 06:16 09/06/20 06:16 09/06/20 09/06/20 06:16 06:16 WBC 5.5 RBC 3.78 L Hgb 11.4 L Hct 33.1 L MCV 88 MCH 30.3 MCHC 34.5 RDW 17.0 H Plt Count 165 Seg Neutrophils % 74.5 Sodium 142.8 Potassium 3.9 Chloride 119 H Carbon Dioxide 12 L Anion Gap 12 BUN 38 H Creatinine 3.08 H Est GFR ( Amer) 24 L Glucose 91 Calcium 8.2 L Total Bilirubin 0.7 AST 15 L Alkaline Phosphatase 94 Total Protein 5.5 L Albumin 2.6 L 09/02/20 13:34 Blood Blood Culture (PCR) - Final Enterococcus Species Staphylococcus Species 09/02/20 13:34 Blood Blood Culture - Final Enterococcus Faecalis(Group D) Staphylococcus Warneri Impressions: Abdomen/Pelvis CT 09/02/20 10:27 IMPRESSION: 1. No acute abnormality to explain the patient's symptoms. 2. Resolved fluid at the gallbladder fossa with expected postoperative changes in the right abdomen. Percutaneous drainage catheter remains in place. 3. Expected postoperative changes in the anterior right abdomen and peritoneum. No focal drainable abscess. 4. Colonic diverticulosis without evidence of diverticulitis. 5. Nonobstructing left renal calculus. No obstructing renal or ureteral calculi. No hydronephrosis. Chest X-Ray 09/02/20 14:24 IMPRESSION: Improved right pleural effusion. No acute cardiopulmonary disease. Assessment and Plan - Diagnosis (1) Urinary tract infection Qualifiers: Urinary tract infection type: site unspecified Hematuria presence: with hematuria Qualified Code(s): N39.0 - Urinary tract infection, site not specified; R31.9 - Hematuria, unspecified Is this a current diagnosis for this admission?: Yes Plan: - came in due to hematuria possibly passed a kidney stone - UA showed +ve nitrite, leukocyte esterase, >151 WBC - CT abdomen left renal calculi non obstructing, no hydronephrosis - Crea 3.79>3.6>3.0 baseline 1.8 - urine culture citrobacter freundii - blood culture growing entercoccus species - started on rocephin, ampicillin added for enterococcus - repeat blood culture negative x 24 hrs - IV fluids discontinued 09/06/2020-admitted for UTI. Urine culture is positive for Citrobacter. Blood culture positive for Enterococcus. Receiving ampicillin, IV Rocephin. Patient is going for a BATSHEVA tomorrow. (2) Enterococcal bacteremia Is this a current diagnosis for this admission?: Yes Plan: - grew on 1 bottle - repeat blood culture negative - echo ordered awaiting test. If negative can be discharged to complete abx at home - ampicillin added to ceftri 09/06/2020-blood cultures are positive for Enterococcus, surface echocardiogram is inconclusive ruling out endocarditis. Patient was scheduled for BATSHEVA tomorrow. (3) Kidney stone on left side Is this a current diagnosis for this admission?: Yes Plan: - per patient he thought he saw a kidney stone passed today - CT abdomen showed non obstructing left renal calculi, no hydronephrosis - will continue IV fluid - continue tamsulosin (4) LOBO (acute kidney injury) Is this a current diagnosis for this admission?: Yes Plan: - Crea 3.7>3.6>3.07>2.8 baseline of 1.8 - he has a history of LOBO requiring short term hemodialysis during last admission - likely due to UTI, less likley post renal from obstruction since there is no hydronephrosis in the CT - CT abdomen non obstructing left renal calculi, no hydronephrosis - strict IO - continue abx for UTI - no indication for dialysis at this time 09/05/2020-serum creatinine today is 3.08. Stable. Plan is to check the labs on daily basis. (5) Hematuria Qualifiers: Hematuria type: gross Qualified Code(s): R31.0 - Gross hematuria Is this a current diagnosis for this admission?: Yes Plan: - 2/2 UTI with kidney stone - hgb stable - continue to monitor (6) CHF (congestive heart failure) Qualifiers: Heart failure type: unspecified Heart failure chronicity: unspecified Qualified Code(s): I50.9 - Heart failure, unspecified Is this a current diagnosis for this admission?: No Plan: -grade III diastolic heart failure not decompensated - resume diuretics on discharge - strict IO - daily weights (7) Bile leak, postoperative Is this a current diagnosis for this admission?: Yes Plan: - s/p lapa robert complicated by bile leak, sepsis, LOBO - has a percutanous drain appears non infected - will continue to drain and monitor output - Time Anticipated Discharge Disposition: Home, Self Care Anticipated Discharge Timeframe: within 72 hours
--- NOTE | 2020-09-06 19:42 | XCELERA REPORT ---
[address] [address] Transthoracic Echocardiogram Report Name: PARKER NOWAK Age: 75 yrs Gender: Male : 1945 Patient Status: Inpatient Patient Location: [address] [place] [address] Study Date: 09/05/2020 09:36 AM Height: 75 in Weight: 199 lb BSA: 2.2 m2 Procedure: A two-dimensional transthoracic echocardiogram with color flow and Doppler was performed. Study Quality: Poor. Images were not obtained from all of the standard acoustic windows due to the limited scope of the study. Reason For Study: enterococcal bacteremia History: enterococcal bacteremia. Ordering Physician: ASHLEY BADILLO Performed By: Emili Cote Interpretation Summary No gross vegetations seen.Recommend BATSHEVA if clinical suspicion is high. There is mild to moderate concentric left ventricular hypertrophy. LV diastolic function not assessed. Not agood study to assess for LV thrombus,but no defenite clots seen.Cannot comment on ASD ,VSD , or PFO. Probably RV is enlarged. The right atrium is normal. The left atrial size is normal. There is no evidence of mitral valve prolapse. There is no mitral valve stenosis. There is a trace amount of mitral regurgitation There is no aortic valvular vegetation. There is no aortic valve stenosis No aortic regurgitation is present. There is no tricuspid stenosis. There is a trace amount of tricuspid regurgitation No signifiacant pulmonary hypertnsion.RVSP is 32 mm of Hg , with RA mean of 10. The pulmonic valve is not well visualized. The aortic root is not well visualized but is probably normal size. The inferior vena cava was not visualized There is no pericardial effusion. No gross vegetations seen.Recommend BATSHEVA if clinical suspicion is high. MMode/2D Measurements & Calculations RVDd: 3.4 cm LVIDd: 3.6 cm FS: 36.1 % Ao root diam: 3.1 cm IVSd: 1.4 cm LVIDs: 2.3 cm EDV(Teich): Ao root area: LVPWd: 1.3 cm 55.8 ml 7.7 cm2 ESV(Teich): LA dimension: 4.0 cm 18.6 ml EF(Teich): 66.6 % LVLd ap4: 8.2 cm SV(MOD-sp4): EDV(MOD-sp4): 60.0 ml 130.0 ml LVLs ap4: 6.9 cm ESV(MOD-sp4): 70.0 ml EF(MOD-sp4): 46.2 % Doppler Measurements & Calculations MV E max kailey: MV P1/2t max kailey: Ao V2 max: LV V1 max P.4 cm/sec 112.5 cm/sec 99.9 cm/sec 1.7 mmHg MV P1/2t: 82.2 msec Ao max P.0 mmHgLV V1 max: MVA(P1/2t): 2.7 cm2 65.6 cm/sec MV dec slope: 400.5 cm/sec2 MV dec time: 0.25 sec PA V2 max: TR max kailey: MV P1/2t-pr_phl: 112.5 cm/sec 232.7 cm/sec 82.2 msec PA max P.1 mmHgTR max P.7 mmHg Left Ventricle The left ventricle is normal in size. There is mild to moderate concentric left ventricular hypertrophy. No True apical 2 chamber views obtained.Hence cannot comment on the apical anterior , the basal anterior, the basal inferior and apical inferior nix.The mid anterior , the mid inferior and the rest of the LV nix contract normally. . LVEF is normal and is greater than 60% in the limited views. LV diastolic function not assessed. Not agood study to assess for LV thrombus,but no defenite clots seen.Cannot comment on ASD ,VSD , or PFO. Right Ventricle The right ventricle is not well visualized secondary to technical limitations. Probably RV is enlarged. Atria The right atrium is normal. The left atrial size is normal. Mitral Valve There is no evidence of mitral valve prolapse. There is no vegetation seen on the mitral valve. There is no mitral valve stenosis. There is a trace amount of mitral regurgitation. Aortic Valve There is no aortic valvular vegetation. There is no aortic valve stenosis. No aortic regurgitation is present. Tricuspid Valve There is no tricuspid valve vegetation. There is no tricuspid stenosis. There is a trace amount of tricuspid regurgitation. No signifiacant pulmonary hypertnsion.RVSP is 32 mm of Hg , with RA mean of 10. Pulmonic Valve The pulmonic valve is not well visualized. Great Vessels The aortic root is not well visualized but is probably normal size. The inferior vena cava was not visualized. Effusions There is no pericardial effusion. : ASHLEY BADILLO Lakshmi
[2020-09-07] MEDS: AMPICILLIN SODIUM 2 GM in NORMAL SALINE 100 ML IV SCH ×3 (00:08→12:26)
[2020-09-07] MEDS: HEPARIN SOD (PORCINE) 5,000 UNIT/ML 1 ML VIAL SUBCUT SCH ×2 (05:28→13:09)
[2020-09-07] MEDS: PANTOPRAZOLE SODIUM 40 MG TABLET.DR PO SCH (05:47)
[2020-09-07 07:21] LABS: ABSOLUTE EOSINOPHILS # (AUTO) 0.1 10^3/uL (0.0-0.6); ABSOLUTE LYMPHOCYTES (AUTO) 0.8 10^3/uL (0.5-4.7); ABSOLUTE MONOCYTES (AUTO) 0.2 10^3/uL (0.1-1.4); ABSOLUTE NEUT (AUTO) 3.9 10^3/uL (1.7-8.2); BASOPHILS % (AUTO) 0.4 % (0-2); EOSINOPHILS % (AUTO) 2.8 % (0-6); HEMATOCRIT 33.2 % (37.9-51.0); HEMOGLOBIN 11.4 g/dL (13.5-17.0); LYMPHOCYTES % (AUTO) 15.1 % (13-45); MEAN CORPUSCULAR HEMOGLOBIN 29.8 pg (27.0-33.4); MEAN CORPUSCULAR HGB CONC 34.2 g/dL (32.0-36.0); MEAN CORPUSCULAR VOLUME 87 fl (80-97); MONOCYTES % (AUTO) 4.9 % (3-13); PLATELET COUNT 159 10^3/uL (150-450); RED BLOOD COUNT 3.81 10^6/uL (4.35-5.55); RED CELL DISTRIBUTION WIDTH 17.2 % (11.5-14.0); SEGMENTED NEUTROPHILS % (AUTO) 76.8 % (42-78); TOTAL CELLS COUNTED % (AUTO) 100 %
[2020-09-07 07:49] LABS: ALBUMIN 2.5 g/dL (3.5-5.0); ALKALINE PHOSPHATASE 90 U/L (38-126); ANION GAP 10 (5-19); ASPARTATE AMINO TRANSFERASE 14 U/L (17-59); BILIRUBIN,DIRECT 0.5 mg/dL (0.0-0.4); BILIRUBIN,TOTAL 0.6 mg/dL (0.2-1.3); BLOOD UREA NITROGEN 37 mg/dL (7-20); CALCIUM 8.1 mg/dL (8.4-10.2); CARBON DIOXIDE 12 mmol/L (22-30); CHLORIDE 118 mmol/L (98-107); GLUCOSE 86 mg/dL (75-110); TOTAL PROTEIN 5.3 g/dL (6.3-8.2)
[2020-09-07] MEDS ORDERED: PROPOFOL INJ 200 MG/20 ML VIAL IV ONE (08:53)
[2020-09-07] MEDS: CEFTRIAXONE 2 GM/D5W RTU 2 GM/50 ML RTUPB IV SCH (09:20)
[2020-09-07] MEDS ORDERED: NORMAL SALINE 1000 ML 1,000 ML IV PRN (09:37)
[2020-09-07] MEDS: SERTRALINE HCL 50 MG TABLET PO SCH ×2 (09:57→11:56)
[2020-09-07] MEDS: CARVEDILOL 12.5 MG TABLET PO SCH ×2 (09:57→11:56)
[2020-09-07] MEDS: CALCIUM CARBONATE 600 MG/VITAMIN D3 400 UNIT TABLET PO SCH ×2 (09:57→11:56)
[2020-09-07] MEDS: FOLIC ACID 1 MG TABLET PO SCH ×2 (09:57→11:56)
[2020-09-07] MEDS: THIAMINE HCL 100 MG TABLET PO SCH ×2 (09:57→11:56)
[2020-09-07] MEDS: TAMSULOSIN HCL 0.4 MG CAP.SR.24H PO SCH ×2 (09:57→11:56)
[2020-09-07] MEDS: ACETAMINOPHEN 325 MG TABLET PO PRN (13:27)
--- NOTE | 2020-09-07 17:10 | PDOC DISCHARGE SUMMARY ---
Impression - Admit/DC Date/PCP Admission Date/Primary Care Provider: 09/02/20 16:13 PAMELA GARCIA NP Discharge Date: 09/07/20 - Discharge Diagnosis (1) Urinary tract infection Is this a current diagnosis for this admission?: Yes (2) Enterococcal bacteremia Is this a current diagnosis for this admission?: Yes (3) Kidney stone on left side Is this a current diagnosis for this admission?: Yes (4) LOBO (acute kidney injury) Is this a current diagnosis for this admission?: Yes (5) Hematuria Is this a current diagnosis for this admission?: Yes (6) CHF (congestive heart failure) Is this a current diagnosis for this admission?: No (7) Bile leak, postoperative Is this a current diagnosis for this admission?: Yes - Assessment Summary: (1) Urinary tract infection Qualifiers: Urinary tract infection type: site unspecified Hematuria presence: with hematuria Qualified Code(s): N39.0 - Urinary tract infection, site not specified; R31.9 - Hematuria, unspecified Is this a current diagnosis for this admission?: Yes Plan: - came in due to hematuria possibly passed a kidney stone - UA showed +ve nitrite, leukocyte esterase, >151 WBC - CT abdomen left renal calculi non obstructing, no hydronephrosis - Crea 3.79>3.6>3.0 baseline 1.8 - urine culture citrobacter freundii - blood culture growing entercoccus species - started on rocephin, ampicillin added for enterococcus - repeat blood culture negative x 24 hrs - IV fluids discontinued 09/06/2020-admitted for UTI. Urine culture is positive for Citrobacter. Blood culture positive for Enterococcus. Receiving ampicillin, IV Rocephin. Patient is going for a BATSHEVA tomorrow. 09/07/2020-patient admitted for UTI. Urine culture is positive for Citrobacter, blood culture was positive for Enterococcus. Repeat blood cultures are negative. BATSHEVA was done to rule out vegetation. Patient is afebrile for the last several days and he is requesting to go home today. He was given a prescription for doxycycline and milligrams p.o. twice daily for 7 days. Patient is advised about compliance to medications and follow-up with PCP next week. (2) Enterococcal bacteremia Is this a current diagnosis for this admission?: Yes Plan: - grew on 1 bottle - repeat blood culture negative - echo ordered awaiting test. If negative can be discharged to complete abx at home - ampicillin added to ceftri 09/06/2020-blood cultures are positive for Enterococcus, surface echocardiogram is inconclusive ruling out endocarditis. Patient was scheduled for BATSHEVA tomorro w. 3020-BATSHEVA was done negative for vegetation. Patient is going home on doxycycline 100 mg p.o. twice daily for 1 week. Afebrile. Vital signs are stable. (3) Kidney stone on left side Is this a current diagnosis for this admission?: Yes Plan: - per patient he thought he saw a kidney stone passed today - CT abdomen showed non obstructing left renal calculi, no hydronephrosis - will continue IV fluid - continue tamsulosin 09/07/2020-Mcgee's catheter was removed and patient was able to urinate without any problem. Expressing desire to go home. (4) LOBO (acute kidney injury) Is this a current diagnosis for this admission?: Yes Plan: - Crea 3.7>3.6>3.07>2.8 baseline of 1.8 - he has a history of LOBO requiring short term hemodialysis during last admission - likely due to UTI, less likley post renal from obstruction since there is no hydronephrosis in the CT - CT abdomen non obstructing left renal calculi, no hydronephrosis - strict IO - continue abx for UTI - no indication for dialysis at this time 09/05/2020-serum creatinine today is 3.08. Stable. Plan is to check the labs on daily basis. 09/07/2020-serum creatinine is 3.3. Patient has history of acute kidney injury and temporary dialysis before. (5) Hematuria Qualifiers: Hematuria type: gross Qualified Code(s): R31.0 - Gross hematuria Is this a current diagnosis for this admission?: Yes Plan: - 2/2 UTI with kidney stone - hgb stable - continue to monitor 09/07/2020-hematuria is resolved. (6) CHF (congestive heart failure) Qualifiers: Heart failure type: unspecified Heart failure chronicity: unspecified Qualified Code(s): I50.9 - Heart failure, unspecified Is this a current diagnosis for this admission?: No Plan: -grade III diastolic heart failure not decompensated - resume diuretics on discharge - strict IO - daily weights (7) Bile leak, postoperative Is this a current diagnosis for this admission?: Yes Plan: - s/p lapa robert complicated by bile leak, sepsis, LOBO - has a percutanous drain appears non infected - will continue to drain and monitor output - Additional Information Resuscitation Status: Full Code Discharge Diet: Cardiac Discharge Activity: Activity As Tolerated Referrals: [facility] [Outside] PAMELA GARCIA, BAG [employer]DER [Primary Care Provider] - 09/19/20 10:15 am Prescriptions: Doxycycline Hyclate 100 mg PO BID 7 Days #14 tablet. Home Medications: Amlodipine Besylate [Norvasc 10 mg Tablet] 10 mg PO DAILY 09/03/20 Calcium Carbonate/Vitamin D3 [Caltrate 600-Vit D3 400 Tablet] 1 tab PO BID 09/03/20 Carvedilol [Coreg 12.5 mg Tablet] 25 mg PO Q12 09/03/20 Clopidogrel Bisulfate [Plavix 75 mg Tablet] 75 mg PO DAILY 09/03/20 L. Acidophilus/L.bulgaricus [Lactobacillus Tablet] 1 each PO DAILY 09/03/20 Lisinopril [Zestril] 40 mg PO DAILY 09/03/20 Multivitamin [Tab-A-Brianda (Multiple Vitamin) Tablet] 1 tab PO DAILY 09/03/20 Omeprazole 40 mg PO QAM 09/03/20 Sertraline HCl [Zoloft 50 mg Tablet] 200 mg PO DAILY 09/03/20 Tamsulosin HCl [Flomax 0.4 mg Cap.sr] 0.4 mg PO DAILY 09/03/20 Thiamine HCl [Thiamine 100 mg Tablet] 100 mg PO DAILY 09/03/20 Calcium Carbonate/Vitamin D3 [Caltrate 600-Vit D3 400 Tablet] 1 tab PO BID tablet 09/07/20 Clopidogrel Bisulfate [Plavix 75 mg Tablet] 75 mg PO QHS tablet 09/07/20 Doxycycline Hyclate 100 mg PO BID 7 Days #14 tablet. 09/07/20 History of Present Illiness History of Present Illness: PARKER NOWAK is a 75 year old male 75 year old male, medical history of hypertension, hyperlipidemia, iron deficiency anemia, GERD, BPH, depression who to the ED today due to hematuria. His symptoms started last night when he noted gross hematuria whenever he pees. He also mentioned that he thinks he might have passed the stone because he saw a black solid substance at the bottom of double. He denied any prior history of hematuria, no history of kidney stones. He denies any fever chills diarrhea or abdominal pain. In the emergency room blood pressure 132/81, heart rate 98, respiratory rate of 18, temperature 97.9, O2 sat 99% on room air. CBC showed normal WBC count, hemoglobin 13.3, platelet count 212. BMP showed normal sodium and potassium, creatinine 3.79 baseline of 1.8. Urine showed positive blood positive nitrite positive leukocyte esterase, WBC 151. Patient was given Cipro and Rocephin in the ED. CT abdomen and pelvis without oral and IV contrast showed nonobstructing left renal calculus, no hydronephrosis. Resolved fluid at the gallbladder fossa with expected postop changes in the right abdomen. Percutaneous drainage catheter remains in place. Of note patient had a prolonged stay in the hospital 1 month prior due to postop complications after laparoscopic cholecystectomy. During that admission he became septic due to bile leak and also suffered LOBO requiring short-term dialysis. He also had C. difficile during the last infection and he was discharged on oral vancomycin and he has completed treatment for this. He was admitted on July 12 and was discharged on August 04, 2020. He was discharged on a percutaneous drain right upper quadrant. Hospital Course Hospital Course: 75 year old male, medical history of hypertension, hyperlipidemia, iron deficiency anemia, GERD, BPH, depression who to the ED today due to hematuria. His symptoms started last night when he noted gross hematuria whenever he pees. He also mentioned that he thinks he might have passed the stone because he saw a black solid substance at the bottom of double. He denied any prior history of hematuria, no history of kidney stones. He denies any fever chills diarrhea or abdominal pain. In the emergency room blood pressure 132/81, heart rate 98, respiratory rate of 18, temperature 97.9, O2 sat 99% on room air. CBC showed normal WBC count, hemoglobin 13.3, platelet count 212. BMP showed normal sodium and potassium, creatinine 3.79 baseline of 1.8. Urine showed positive blood positive nitrite positive leukocyte esterase, WBC 151. Patient was given Cipro and Rocephin in the ED. CT abdomen and pelvis without oral and IV contrast showed nonobstructing left renal calculus, no hydronephrosis. Resolved fluid at the gallbladder fossa with expected postop changes in the right abdomen. Percutaneous drainage catheter remains in place. Of note patient had a prolonged stay in the hospital 1 month prior due to postop complications after laparoscopic cholecystectomy. During that admission he became septic due to bile leak and also suffered LOBO requiring short-term di alysis. He also had C. difficile during the last infection and he was discharged on oral vancomycin and he has completed treatment for this. He was admitted on July 12 and was discharged on August 04, 2020. He was discharged on a percutaneous drain right upper quadrant. D2 Hospital stay 09/03/20. Patient was seen and examined at bedside. No acute events overnight. No fever, chills, back pain. Urine in the mcgee bag was clear yellow. Crea improved to 3.6 . D3 Hospital stay 09/04/20 Patient was seen and examined at bedside. He was resting comfortably on a chair. He has remained afebrile with no further episodes of hematuria. Crea has improved to 3.06 from 3.8. Blood culture growing enterococcus and urine is growing citrobacter freundii. Currently on ceftri and ampi. Echo ordered due to enterococcus bacteremia. D4 hospital stay 09/05/20. Patient was seen and examined at bedside. He denies any fever, chills, painful urination, back pain. he has been afebrile since last admission. Second blood culture negative. Echo was done today and still awaiting reading. he is otherwise non toxic appearing and can be discharged once echo is negative to complete abx at home. I have stopped his IV fluids today. Crea is trending down 09/06/2020-patient is comfortably in the bed communicating well. Echocardiogram was read by Dr. Corado he cannot rule out endocarditis because of the poor quality of the imaging. Blood cultures are positive for Enterococcus. Patient is receiving ampicillin, IV Rocephin. Discussed the case with Dr. Watson and he is planning to do BATSHEVA. Patient will be kept n.p.o. from midnight. 09/07/[id number]-plyf-old male with history of hypertension, hyperlipidemia, gastroesophageal flux disease, BPH admitted for hematuria. He noticed gross hematuria with urination. Mcgee's catheter was placed and urine analysis was abnormal. Patient was given Cipro and Rocephin in the ED. CT scan shows nonobstructing left renal calculus, no hydronephrosis. Blood cultures came back positive for Enterococcus initially. Repeat blood cultures are negative. Patient is receiving ampicillin, the Rocephin until this morning. Echocardiogram was done images are grainy. Recommendation is to do the BATSHEVA. Patient went for the BATSHEVA no obvious vegetation was noticed. Patient is afebrile for the last several days and is stable enough to go home today with p.o. antibiotic therapy. Patient is advised to follow-up with PCP next week. Mcgee's catheter was removed patient able to urinate without any problem and expressing desire to go home. Physical Exam Vital Signs: Temp Pulse Resp BP Pulse Ox 97.8 F 64 18 103/62 100 09/07/20 08:31 09/07/20 11:13 09/07/20 11:13 09/07/20 11:13 09/07/20 11:13 Intake & Output 09/06/20 09/07/20 09/08/20 06:59 06:59 06:59 Intake Total 2148 722 335 Output Total 2225 1170 650 Balance -77 -448 -315 Weight 94.2 kg 93.1 kg General appearance: PRESENT: no acute distress, cooperative Head exam: PRESENT: atraumatic Eye exam: PRESENT: PERRLA Mouth exam: PRESENT: dry mucosa Teeth exam: PRESENT: poor dentation Neck exam: ABSENT: carotid bruit, JVD, lymphadenopathy, thyromegaly Respiratory exam: PRESENT: decreased breath sounds Cardiovascular exam: PRESENT: RRR. ABSENT: diastolic murmur, rubs, systolic murmur GI/Abdominal exam: PRESENT: other - Percutaneous drain present. Rectal exam: PRESENT: deferred Extremities exam: PRESENT: full ROM. ABSENT: calf tenderness, clubbing, pedal edema Neurological exam: PRESENT: alert, awake, oriented to person, oriented to place, oriented to time, oriented to situation, CN II-XII grossly intact. ABSENT: motor sensory deficit Psychiatric exam: PRESENT: appropriate affect, normal mood. ABSENT: homicidal ideation, suicidal ideation Results Laboratory Results: WBC 5.0 10^3/uL (4.0-10.5) 09/07/20 06:53 RBC 3.81 10^6/uL (4.35-5.55) L 09/07/20 06:53 Hgb 11.4 g/dL (13.5-17.0) L 09/07/20 06:53 Hct 33.2 % (37.9-51.0) L 09/07/20 06:53 MCV 87 fl (80-97) 09/07/20 06:53 MCH 29.8 pg (27.0-33.4) 09/07/20 06:53 MCHC 34.2 g/dL (32.0-36.0) 09/07/20 06:53 RDW 17.2 % (11.5-14.0) H 09/07/20 06:53 Plt Count 159 10^3/uL (150-450) 09/07/20 06:53 Lymph % (Auto) 15.1 % (13-45) 09/07/20 06:53 [place] % (Auto) 4.9 % (3-13) 09/07/20 06:53 Eos % (Auto) 2.8 % (0-6) 09/07/20 06:53 Baso % (Auto) 0.4 % (0-2) 09/07/20 06:53 Absolute Neuts (auto) 3.9 10^3/uL (1.7-8.2) 09/07/20 06:53 Absolute Lymphs (auto) 0.8 10^3/uL (0.5-4.7) 09/07/20 06:53 Absolute Monos (auto) 0.2 10^3/uL (0.1-1.4) 09/07/20 06:53 Absolute Eos (auto) 0.1 10^3/uL (0.0-0.6) 09/07/20 06:53 Absolute Basos (auto) 0.0 10^3/uL (0.0-0.2) 09/07/20 06:53 Seg Neutrophils % 76.8 % (42-78) 09/07/20 06:53 PT 20.3 SEC (11.4-15.4) H 09/02/20 11:12 INR 1.72 09/02/20 11:12 Sodium 140.0 mmol/L (137-145) 09/07/20 06:53 Potassium 4.0 mmol/L (3.6-5.0) 09/07/20 06:53 Chloride 118 mmol/L (98-107) H 09/07/20 06:53 Carbon Dioxide 12 mmol/L (22-30) L 09/07/20 06:53 Anion Gap 10 (5-19) 09/07/20 06:53 BUN 37 mg/dL (7-20) H 09/07/20 06:53 Creatinine 3.31 mg/dL (0.52-1.25) H 09/07/20 06:53 Est GFR ( Amer) 22 (>60) L 09/07/20 06:53 Est GFR (MDRD) Non-Af 18 (>60) L 09/07/20 06:53 Glucose 86 mg/dL (75-110) 09/07/20 06:53 Calcium 8.1 mg/dL (8.4-10.2) L 09/07/20 06:53 Total Bilirubin 0.6 mg/dL (0.2-1.3) 09/07/20 06:53 Direct Bilirubin 0.5 mg/dL (0.0-0.4) H 09/07/20 06:53 Neonat Total Bilirubin Not Reportable 09/07/20 06:53 Neonat Direct Bilirubin Not Reportable 09/07/20 06:53 Neonat Indirect Bili Not Reportable 09/07/20 06:53 AST 14 U/L (17-59) L 09/07/20 06:53 ALT 7 U/L (<50) 09/07/20 06:53 Alkaline Phosphatase 90 U/L (38-126) 09/07/20 06:53 Total Protein 5.3 g/dL (6.3-8.2) L 09/07/20 06:53 Albumin 2.5 g/dL (3.5-5.0) L 09/07/20 06:53 Lipase 233.3 U/L (23-300) 09/02/20 11:12 Urine Color YELLOW 09/02/20 12:16 Urine Appearance CLOUDY 09/02/20 12:16 Urine pH 5.0 (5.0-9.0) 09/02/20 12:16 Ur Specific Oley 1.013 09/02/20 12:16 Urine Protein 100 mg/dL (NEGATIVE) H 09/02/20 12:16 Urine Glucose (UA) NEGATIVE mg/dL (NEGATIVE) 09/02/20 12:16 Urine Ketones NEGATIVE mg/dL (NEGATIVE) 09/02/20 12:16 Urine Blood LARGE (NEGATIVE) H 09/02/20 12:16 Urine Nitrite POSITIVE (NEGATIVE) H 09/02/20 12:16 Urine Bilirubin NEGATIVE (NEGATIVE) 09/02/20 12:16 Urine Urobilinogen NEGATIVE mg/dL (<2.0) 09/02/20 12:16 Ur Leukocyte Esterase LARGE (NEGATIVE) H 09/02/20 12:16 Urine WBC (Auto) 151 /HPF 09/02/20 12:16 Urine RBC (Auto) 40 /HPF 09/02/20 12:16 Urine Bacteria (Auto) 3+ /HPF 09/02/20 12:16 Urine WBC Clumps MANY /HPF 09/02/20 12:16 Squamous Epi Cells Auto 1 /HPF 09/02/20 12:16 Urine Mucus (Auto) RARE /LPF 09/02/20 12:16 Urine Yeast (Budding) PRESENT /HPF 09/02/20 12:16 Urine Ascorbic Acid NEGATIVE (NEGATIVE) 09/02/20 12:16 Influenza A (RT-PCR) NEGATIVE (NEGATIVE) 09/06/20 15:40 Influenza B (RT-PCR) NEGATIVE (NEGATIVE) 09/06/20 15:40 RSV (RT-PCR) NEGATIVE (NEGATIVE) 09/06/20 15:40 SARS-CoV-2 Rap RNA(RT-PCR) NEGATIVE (NEGATIVE) 09/06/20 15:40 Impressions: Abdomen/Pelvis CT 09/02/20 10:27 IMPRESSION: 1. No acute abnormality to explain the patient's symptoms. 2. Resolved fluid at the gallbladder fossa with expected postoperative changes in the right abdomen. Percutaneous drainage catheter remains in place. 3. Expected postoperative changes in the anterior right abdomen and peritoneum. No focal drainable abscess. 4. Colonic diverticulosis without evidence of diverticulitis. 5. Nonobstructing left renal calculus. No obstructing renal or ureteral calculi. No hydronephrosis. Chest X-Ray 09/02/20 14:24 IMPRESSION: Improved right pleural effusion. No acute cardiopulmonary disease. Plan Time Spent: Greater than 30 Minutes Stroke Is this a Stroke Patient?: No Acute Heart Failure Is this a Heart Failure Patient?: No
[2020-09-07 17:28] VITALS: BP 117/71
--- NOTE | 2020-09-07 18:11 | XCELERA REPORT ---
Study ID: [id number] [id number] Transesophageal Echocardiogram Report Name: PARKER NOWAK Age: 75 yrs Gender: Male : 1945 Patient Status: Inpatient Patient Location: [address] [place] [address] Study Date: 09/07/2020 10:18 AM History: Bacteremia Height: 75 in Weight: 207 lb BSA: 2.2 m2 Reason For Study: r/o endocarditis Ordering Physician: ANTONI PIEDRA Performed By: Richelle Thomas Interpretation Summary There is no evidence of a mass or vegetation. This does not rule out endocarditis. Left ventricular systolic function is normal. Ejection Fraction = >55%. The right ventricle is normal in size and function. There is mild mitral regurgitation. There is no evidence of a mass or vegetation. This does not rule out endocarditis. There is no pericardial effusion. Left Ventricle The left ventricle is normal in size. Left ventricular systolic function is normal. Ejection Fraction = >55%. Right Ventricle The right ventricle is normal in size and function. Atria The interatrial septum is intact with no evidence for an atrial septal defect. The left atrial size is normal. No left atrial mass or thrombus visualized. Mitral Valve The mitral valve is normal in structure and function. There is no vegetation seen on the mitral valve. There is mild mitral regurgitation. Tricuspid Valve The tricuspid valve is normal in structure and function. There is no tricuspid valve vegetation. There is trace tricuspid regurgitation. Aortic Valve The aortic valve opens well. The aortic valve is normal in structure and function. The aortic valve is trileaflet. There is no aortic valvular vegetation. No hemodynamically significant valvular aortic stenosis. Arteries The aortic root is not well visualized. Mild atherosclerotic plaque(s) in the ascending aorta. Pericardium There is no pericardial effusion. : ANTONI PIEDRA Anil
== END 2020-09-07 17:45 | disposition home or self-care (01) | DRG 683 ==
LOC: ER 09:51 → UNDOADMIN 15:14 → EH 15:14 → 4S 18:21
PROVIDERS: ADMIT Internal Medicine; ATTEND Internal Medicine
DX: N17.9 Acute kidney failure, unspecified (principal); R78.81 Bacteremia; I50.30 Unspecified diastolic (congestive) heart failure; N39.0 Urinary tract infection, site not specified; T81.89XA Other complications of procedures, not elsewhere classified, initial encounter; I11.0 Hypertensive heart disease with heart failure; B95.2 Enterococcus as the cause of diseases classified elsewhere; N20.0 Calculus of kidney; R31.9 Hematuria, unspecified; E78.5 Hyperlipidemia, unspecified; D50.9 Iron deficiency anemia, unspecified; K21.9 Gastro-esophageal reflux disease without esophagitis; N40.0 Benign prostatic hyperplasia without lower urinary tract symptoms; F32.9 Major depressive disorder, single episode, unspecified; Z96.652 Presence of left artificial knee joint; M19.90 Unspecified osteoarthritis, unspecified site; Z79.02 Long term (current) use of antithrombotics/antiplatelets; Z79.899 Other long term (current) drug therapy; Z98.84 Bariatric surgery status; Z92.3 Personal history of irradiation; Z85.46 Personal history of malignant neoplasm of prostate; Z88.8 Allergy status to other drugs, medicaments and biological substances; Z11.59 Encounter for screening for other viral diseases
CPT/HCPCS: 1922; 36415; 71045; 74176; 80053; 81001; 83690; 85025; 85610; 87040; 87077; 87086; 87088; 87150; 87186; 93306; 93312; 93325; 96361; 96365; 99285; 0241U; C9803; J0290; J0696; J1644; J2704; J3490; J7030; J7050

== ENCOUNTER → 2020-10-05 | Outpatient (CLI) | payer MEDICARE, OTHER ==
--- NOTE | 2020-10-05 15:22 | RADIOLOGY REPORT (SQ) ---
EXAM DESCRIPTION: CHOLANGIOGRAM T TUBE IMAGES COMPLETED DATE/TIME: 10/05/2020 10:12 am REASON FOR STUDY: CALCULUS OF BILE DUCT W/O CHOLANGITIS OR CHOLECYST W/O OBST K80.50 CALCULUS OF BI LE DUCT W/O CHOLANGITIS OR CHOLECYST W/ COMPARISON: 07/26/2020 FLUOROSCOPY TIME: 4.2 minutes 19 images saved to PACS. TECHNIQUE: Intra-operative images acquired during surgical procedure to evaluate progress. NUMBER OF IMAGES: 19 LIMITATIONS: None. FINDINGS: Fluoroscopic images from contrast injection into presumed cystic duct remnant. No evidenc e of stricture, fixed filling defect or extravasation. IMPRESSION: IMAGE(S) OBTAINED DURING PROCEDURE. COMMENT: Quality ID [id number]: Final reports for procedures using fluoroscopy that document radiation exp osure indices, or exposure time and number of fluorographic images (if radiation exposure indices are not available) Please consult full operative report of the attending physician for description of the procedure. TECHNICAL DOCUMENTATION: JOB ID: [id number] 2010 [employer]- All Rights Reserved Reading location - IP/workstation name: [email or web address]
== END ==
LOC: RAD 09:18
PROVIDERS: ATTEND Surgery
DX: K80.50 Calculus of bile duct without cholangitis or cholecystitis without obstruction (principal)
CPT/HCPCS: 47531